=== PATIENT | male | born 1940 | race Caucasian/White ===

== ENCOUNTER 2016-07-05 23:37 | Observation (INO) | payer OTHER ==
[~2016-07-05] VITALS: Ht 180.3 cm; Wt 97.1 kg
[~2016-07-05 23:37] MED LIST: ASPEC81 PO; ATEN50TA8 PO; CHOL100010 PO; CLIN300C10 PO; FRS/40 PO; LEVO1TAB33 PO; NTRGSL/4 UT; PRLSR20 PO; ROSU5TAB PO; SPIR25TA PO
[2016-07-05] MEDS ORDERED: ALBUT/IPRATROP 3MG/0.5MG NEB 3 ML VIAL INH STA (23:52)
[2016-07-06] VITALS (11 sets, daily range): BP systolic 106–168; BP diastolic 61–97; PULSE 50–105; TEMP 36.4–36.8; O2SAT 90–97; Ht 180.3 cm; Wt 97.1 kg
[2016-07-06] MEDS ORDERED: ALBUT/IPRATROP 3MG/0.5MG NEB 3 ML VIAL ONE (00:01)
[2016-07-06] MEDS ORDERED: METHYLPREDNISOLONE 125 MG VIAL IV STA (00:11)
[2016-07-06] MEDS ORDERED: ALBUT/IPRATROP 3MG/0.5MG NEB 3 ML VIAL INH STA (00:28)
[2016-07-06 00:50] LABS: BASO % 0.3 %; BASO ABS # 0.03 K/uL (0-0.2); COMPLETE YES; EOS % 4.4 %; HEMATOCRIT 43.3 % (42-52); IG% 0.3 %; LYMPH % 16.4 %; MEAN CELL VOLUME 92.5 fL (80-100); MEAN CORPUSCULAR HEMOGLOBIN 32.9 pg (25-34); MEAN CORPUSCULAR HGB CONC 35.6 g/dl (32-36); MEAN PLATELET VOLUME 11.1 fL (7.4-10.4); NEUT % 68.6 %; PLATELET COUNT 179 K/uL (130-400); RED BLOOD COUNT 4.68 M/uL (4.7-6.1); WHITE BLOOD COUNT 10.37 K/uL (4.8-10.8)
[2016-07-06 01:00] LABS: INR 1.1 (0.9-1.1); PARTIAL THROMBOPLASTIN RATIO 1.2; PROTHROMBIN TIME (PATIENT) 11.7 SECONDS (9.0-12.0)
[2016-07-06] MEDS ORDERED: ASPI81TA28 PO (01:03)
[2016-07-06] MEDS ORDERED: ATEN-175 PO (01:06)
[2016-07-06] MEDS ORDERED: ROSU5TAB PO (01:10)
[2016-07-06] MEDS ORDERED: CYAN100T PO (01:12)
[2016-07-06 01:14] LABS: ALT/SGPT 24 U/L (12-78); AST/SGOT 28 U/L (15-37); BLOOD UREA NITROGEN 13 mg/dl (7-18); BUN/CREATININE RATIO 14.6 (10-20); CARBON DIOXIDE 24 mmol/L (21-32); CHLORIDE 108 mmol/L (98-107); GLUCOSE 110 mg/dl (70-99); MAGNESIUM 1.8 mg/dl (1.8-2.4); POTASSIUM 3.9 mmol/L (3.5-5.1); SODIUM 140 mmol/L (136-145)
[2016-07-06] MEDS ORDERED: CALC1CAP24 PO (01:16)
[2016-07-06 01:25] LABS: ALKALINE PHOSPHATASE 118 U/L (45-117)
[2016-07-06 01:32] LABS: URINE APPEARANCE CLEAR (CLEAR); URINE BILIRUBIN NEG (NEG); URINE COLOR YELLOW; URINE NITRITE NEG (NEG); URINE SPECIFIC GRAVITY 1.023 (1.000-1.030); UROBILINOGEN NEG (NEG)
[2016-07-06 01:36] LABS: MANUAL MICROSCOPIC REQUIRED? NO; REVIEW REQ? NO
[2016-07-06] MEDS ORDERED: ACETAMINOPHEN 325 MG TAB PO PRN (02:15)
[2016-07-06] MEDS ORDERED: NITROGLYCERIN 0.4 MG SL PER TAB CHARGE SL PRN (02:15)
[2016-07-06] MEDS ORDERED: NITROGLYCERIN 0.4 MG SL PER TAB CHARGE UT SCH (02:15)
[2016-07-06] MEDS ORDERED: ONDANSETRON INJ 2 MG/ML 2 ML VIAL IV PRN (02:15)
--- NOTE | 2016-07-06 02:37 | EMERGENCY ROOM VISIT NOTE ---
History Report prepared by Noris: Joey Solis Under the Supervision of: Dr. Pollo Healy M.D. First contact with patient: 23:43 Stated Complaint: COUGH, CONGESTION, SHORTNESS OF BREATH History of Present Illness The patient is a 75 year old male who presents to the Emergency Room with complaints of a persistent cough and difficulty breathing that began , two days prior to arrival. The patient states that he came to the emergency department this evening because he began to wheeze significantly when he laid down to go to sleep this evening. He notes that he did invite his granddaughter over for dinner recently who was sick and home from college. He is on Clindamycin and Levofloxacin every day for an infection in his knee. Patient denies LOC, headache, fevers, chills, diaphoresis, visual changes, neck pain, nausea, vomiting, abdominal pain, back pain, melena, hematochezia, urinary symptoms, numbness, weakness, lymphadenopathy, rash, or other complaints. Source of History: patient Onset: Two days [employer] Position: chest Quality: other (Cough) Timing: other (Persistent) Associated Symptoms: No fevers Review of Systems See HPI for pertinent positives and negatives. A total of ten systems were reviewed and were otherwise negative. Past Medical & Surgical Medical Problems: (1) Chest tightness (2) Diverticulitis (3) Pancreatitis (4) Pneumonia (5) Shortness of breath Family History No pertinent family history secondary to age. Social History Smoking Status: Never Smoker Drug Use: none Marital Status: Housing Status: lives with significant other Occupation Status: unemployed, retired Current/Historical Medications Scheduled Aspirin (Aspirin Ec), 81 MG PO DAILY Atenolol (Tenormin), 100 MG PO DAILY Calcium (Calcium), 250 MG PO DAILY Cholecalciferol (Vitamin D), 2,000 INTER.UNIT PO DAILY Clindamycin Hcl (Clindamycin Hcl), 300 MG PO QAM Cyanocobalamin (Vitamin B-12), 500 MCG PO DAILY Furosemide (Lasix), 40 MG PO QAM Levofloxacin (Levaquin), 500 MG PO QAM Nitroglycerin (Nitrostat), 0.4 MG UT PRN Omeprazole (Prilosec), 20 MG PO DAILY Rosuvastatin Calcium (Crestor), 2.5 MG PO 3XWK Spironolactone (Aldactone), 25 MG PO QAM Allergies Coded Allergies: Sulfa Drugs (Verified Allergy, Mild, 06/06/14) Sulfamethoxazole (Verified Allergy, Mild, 06/06/14) Trimethoprim (Verified Allergy, Mild, 06/06/14) Atorvastatin (Verified Allergy, Unknown, UNKNOWN, 07/06/16) Oyster (Verified Allergy, Unknown, 06/06/14) Pravastatin (Verified Allergy, Unknown, UNKNOWN, 07/06/16) Simvastatin (Verified Allergy, Unknown, UNKNOWN, 07/06/16) Oxycodone (Verified Adverse Reaction, Mild, vomiting, 06/06/14) Uncoded Allergies: MORPHINE DERIVATIVES (Allergy, Unknown, UNKNOWN, 07/06/16) Physical Exam Vital Signs Date Time Temp Pulse Resp B/P Pulse Ox O2 Delivery O2 Flow Rate FiO2 07/06/16 01:24 103 22 183/83 94 Room Air 07/06/16 01:10 91 07/06/16 00:47 80 18 135/78 100 Nebulizer 15.0 07/05/16 23:48 93 Room Air 07/05/16 23:48 93 Room Air 07/05/16 23:48 37.0 98 20 144/78 93 Room Air Physical Exam GENERAL: Awake, alert, tired-appearing, in no distress HENT: Normocephalic, atraumatic. Oropharynx unremarkable. EYES: Normal conjunctiva. Sclera non-icteric. NECK: Supple. No nuchal rigidity. FROM. No JVD. RESPIRATORY: Expiratory wheezes bilaterally. CARDIAC: Regular rate, normal rhythm. Extremities warm and well perfused. Pulses equal. ABDOMEN: Soft, non-distended. No tenderness to palpation. No rebound or guarding. No masses. RECTAL: Deferred. MUSCULOSKELETAL: Chest examination reveals no tenderness. The back is symmetrical on inspection without obvious abnormality. There is no CVA tenderness to palpation. No joint edema. LOWER EXTREMITIES: Calves are equal size bilaterally and non-tender. No edema. No discoloration. NEURO: Normal sensorium. No sensory or motor deficits noted. SKIN: No rash or jaundice noted. Medical Decision & Procedures ER Provider Diagnostic Interpretation: X-ray: Per my interpretation, radiologist review. CHEST X-RAY: Imaging shows right lower lobe congestion, right lobe infiltrate. Laboratory Results 07/06/16 00:24 Red Blood Count 4.68, Mean Corpuscular Volume 92.5, Mean Corpuscular Hemoglobin 32.9, Mean Corpuscular Hemoglobin Concent 35.6, Mean Platelet Volume 11.1, Neutrophils (%) (Auto) 68.6, Lymphocytes (%) (Auto) 16.4, Monocytes (%) (Auto) 10.0, Eosinophils (%) (Auto) 4.4, Basophils (%) (Auto) 0.3, Neutrophils # (Auto ) 7.11, Lymphocytes # (Auto) 1.70, Monocytes # (Auto) 1.04, Eosinophils # (Auto ) 0.46, Basophils # (Auto) 0.03 07/06/16 00:24 Test 07/05/16 23:59 07/06/16 00:24 07/06/16 01:11 07/06/16 02:11 Influenza Type A Antigen Neg for Influ A (NEG) Influenza Type B Antigen Neg for Influ B (NEG) White Blood Count 10.37 K/uL (4.8-10.8) Red Blood Count 4.68 M/uL (4.7-6.1) Hemoglobin 15.4 g/dL (14.0-18.0) Hematocrit 43.3 % (42-52) Mean Corpuscular Volume 92.5 fL (80-100) Mean Corpuscular Hemoglobin 32.9 pg (25-34) Mean Corpuscular Hemoglobin Concent 35.6 g/dl (32-36) Platelet Count 179 K/uL (130-400) Mean Platelet Volume 11.1 fL (7.4-10.4) Neutrophils (%) (Auto) 68.6 % Lymphocytes (%) (Auto) 16.4 % Monocytes (%) (Auto) 10.0 % Eosinophils (%) (Auto) 4.4 % Basophils (%) (Auto) 0.3 % Neutrophils # (Auto) 7.11 K/uL (1.4-6.5) Lymphocytes # (Auto) 1.70 K/uL (1.2-3.4) Monocytes # (Auto) 1.04 K/uL (0.11-0.59) Eosinophils # (Auto) 0.46 K/uL (0-0.5) Basophils # (Auto) 0.03 K/uL (0-0.2) RDW Standard Deviation 43.2 fL (36.4-46.3) RDW Coefficient of Variation 12.8 % (11.5-14.5) Immature Granulocyte % (Auto) 0.3 % Immature Granulocyte # (Auto) 0.03 K/uL (0.00-0.02) Prothrombin Time 11.7 SECONDS (9.0-12.0) Prothromb Time International Ratio 1.1 (0.9-1.1) Activated Partial Thromboplast Time 32.0 SECONDS (21.0-31.0) Partial Thromboplastin Ratio 1.2 Anion Gap 8.0 mmol/L (3-11) Est Creatinine Clear Calc Drug Dose 87.3 ml/min Estimated GFR () 97.2 Estimated GFR (Non- 83.8 BUN/Creatinine Ratio 14.6 (10-20) Calcium Level 8.0 mg/dl (8.5-10.1) Magnesium Level 1.8 mg/dl (1.8-2.4) Total Bilirubin 0.7 mg/dl (0.2-1) Direct Bilirubin 0.2 mg/dl (0-0.2) Aspartate Amino Transf (AST/SGOT) 28 U/L (15-37) Alanine Aminotransferase (ALT/SGPT) 24 U/L (12-78) Alkaline Phosphatase 118 U/L (45-117) Pro-B-Type Natriuretic Peptide 535 pg/ml (0-900) Total Protein 7.5 gm/dl (6.4-8.2) Albumin 3.6 gm/dl (3.4-5.0) Lipase 76 U/L (73-393) Thyroid Stimulating Hormone (TSH) 1.160 uIu/ml (0.300-4.500) Urine Color YELLOW Urine Appearance CLEAR (CLEAR) Urine pH 5.0 (4.5-7.5) Urine Specific [place] 1.023 (1.000-1.030) Urine Protein NEG (NEG) Urine Glucose (UA) NEG (NEG) Urine Ketones NEG (NEG) Urine Occult Blood NEG (NEG) Urine Nitrite NEG (NEG) Urine Bilirubin NEG (NEG) Urine Urobilinogen NEG (NEG) Urine Leukocyte Esterase NEG (NEG) Creatine Kinase MB Ratio (0-3.0) Laboratory results reviewed by me Medications Administered Medications (Trade) Dose Ordered Sig/Azeem Route Start Time Stop Time Status Last Admin Dose Admin Albuterol/ Ipratropium (Duoneb) 3 ml NOW STAT INH 07/05/16 23:52 07/05/16 23:53 DC 07/05/16 23:58 3 ML Methylprednisolone Sodium Succinate (Solu-Medrol IV) 125 mg NOW STAT IV 07/06/16 00:11 07/06/16 00:12 DC 07/06/16 00:17 125 MG Albuterol/ Ipratropium (Duoneb) 3 ml NOW STAT INH 07/06/16 00:28 07/06/16 00:30 DC 07/06/16 00:43 3 ML ECG Indication: SOB/dyspnea Rate (beats per minute): 76 Rhythm: sinus rhythm Findings: PVC, Q waves (Inferior), other (LAD) Comparison ECG Date: Repeat, same visit Change: REPEAT: Normal Sinus, rate of 98, no ischemia, PVC no longer present, LAD. ED Course 8: The patient was evaluated in room B11. A complete history and physical exam was performed. 2352: Ordered Duoneb 3 mL INH. 0001: Ordered Duoneb 3 mL INH. 0011: Ordered Solu-Medrol IV 125 mg IV. 0028: Ordered Duoneb 3 mL INH. 0135: I discussed the case with Dr. Kelly [facility] Hospitalist, he will evaluate the patient for further treatment. Medical Decision Triage Nursing notes reviewed. The patient's presentation and history were concerning for respiratory symptoms and wheezing. Etiologies such as pneumonia, COPD, reactive airway disease, CHF, cardiac ischemia, pulmonary embolism, pneumothorax, musculoskeletal, infections, gastrointestinal, as well as others were entertained. The patient was evaluated. He was wheezing on examination. He was given a DuoNeb. The patient also received Solu-Medrol. He was given a second DuoNeb because he was continuing to wheeze. He had a productive cough. He is currently taking clindamycin and Levaquin. The patient had an unremarkable CBC and chemistry panel. Cardiac workup was negative. The patient is generally weak. He notes no history of reactive airway disease. Flu testing was negative. Given the course of illness and responsive treatment further evaluation and management will be necessary. Consultation was made with internal medicine. The patient was evaluated for further management. The chart was completed utilizing [employer] voice recognition software. Grammatical errors, random word insertions, pronoun errors, and incomplete sentences are an occasional consequence of this system due to software limitations, ambient noise, and hardware issues. Any formal questions or concerns about the content, text, or information contained within the body of this dictation should be directly addressed to the physician for clarification. Consults Time Called: 013 Consulting Physician: Dr. Leticia ONEAL Hospitalist Returned Call: 013 I discussed the case with Dr. Leticia ONEAL Hospitalist, he will evaluate the patient for further treatment. Impression Primary Impression: Wheezing Additional Impressions: Productive cough Substernal chest pain Scribe Attestation The scribe's documentation has been prepared under my direction and personally reviewed by me in its entirety. I confirm that the note above accurately reflects all work, treatment, procedures, and medical decision making performed by me. Departure Information Dispostion Being Evaluated By Hospitalist David Chavira M.D. (PCP) Problem Qualifiers
[2016-07-06] MEDS ORDERED: LEVALBUTEROL/IPRATROPIUM NEB INH SCH (03:00)
[2016-07-06 03:17] LABS: CKMB/CK RATIO 1.4 (0-3.0)
[2016-07-06] MEDS ORDERED: IV FLUIDS COMPLETED PRN (04:30)
--- NOTE | 2016-07-06 04:43 | History and Physical ---
History & Physical Date & Time of Service: Jul 06, 2016 at 04:33 Chief Complaint: Chest Tightness, Shortness Of Breath Primary Care Physician: David Carr M.D. History of Present Illness Source: patient The patient is a 75-year-old male who presents to the emergency department with complaint of cough and difficulty breathing that began 2 days prior to arrival. Tonight he began to wheeze audibly when he was laying down to go to sleep this evening, and thus called EMS who brought him to the emergency department for assessment. He has not had any travel recently, but he did get exposed to a granddaughter who was home from college and recently sick. He reports that he has been on clindamycin and levofloxacin for treatment and then prophylaxis of infection of his knee. Past Medical/Surgical History Medical Problems: (1) Diverticulitis Status: Resolved (2) Pancreatitis Status: Resolved (3) Pneumonia Status: Resolved Social History Smoking Status: Never Smoker Smokeless Tobacco Use: No Alcohol Use: none Drug Use: none Marital Status: Housing status: lives with family Occupational Status: unemployed, retired Immunizations History of Influenza Vaccine: Yes Influenza Vaccine Date: Jan 27, 2010 History of Tetanus Vaccine?: Unknown History of Pneumococcal: Yes Pneumococcal Date: Mar 01, 2006 History of Hepatitis B Vaccine: No Multi-Drug Resistant Organisms History of MDRO: No Allergies Coded Allergies: Sulfa Drugs (Verified Allergy, Mild, 06/06/14) Sulfamethoxazole (Verified Allergy, Mild, 06/06/14) Trimethoprim (Verified Allergy, Mild, 06/06/14) Atorvastatin (Verified Allergy, Unknown, UNKNOWN, 07/06/16) Morphine (Verified Allergy, Unknown, UNKNOWN, 07/06/16) Oyster (Verified Allergy, Unknown, 06/06/14) Pravastatin (Verified Allergy, Unknown, UNKNOWN, 07/06/16) Simvastatin (Verified Allergy, Unknown, UNKNOWN, 07/06/16) Oxycodone (Verified Adverse Reaction, Mild, vomiting, 06/06/14) Home Medications Scheduled Aspirin (Aspirin Ec), 81 MG PO DAILY Atenolol (Tenormin), 100 MG PO DAILY Calcium (Calcium), 250 MG PO DAILY Cholecalciferol (Vitamin D), 2,000 INTER.UNIT PO DAILY Clindamycin Hcl (Clindamycin Hcl), 300 MG PO QAM Cyanocobalamin (Vitamin B-12), 500 MCG PO DAILY Furosemide (Lasix), 40 MG PO QAM Levofloxacin (Levaquin), 500 MG PO QAM Nitroglycerin (Nitrostat), 0.4 MG UT PRN Omeprazole (Prilosec), 20 MG PO DAILY Rosuvastatin Calcium (Crestor), 2.5 MG PO 3XWK Spironolactone (Aldactone), 25 MG PO QAM Review of Systems The patient denies lower extremity swelling, vision change, hearing change, sore throat, fevers, chills, sweats, weight change, fatigue, nausea, vomiting, abdominal pain, pelvic pain, blood in urine or stool, dysuria, urinary frequency or urgency, lightheadedness, dizziness, headache, memory loss, rash, abnormal bruising or bleeding, imbalance, focal or generalized weakness, numbness or tingling in arms or legs, arthralgias or myalgias, back or neck pain , night sweats, or allergy symptoms. The review of systems is otherwise negative other than for that already noted above, and at least 10 systems have been reviewed. Physical Exam Vital Signs Date Time Temp Pulse Resp B/P Pulse Ox O2 Delivery O2 Flow Rate FiO2 07/06/16 03:41 36.8 91 18 132/75 94 Room Air 07/06/16 03:13 72 18 113/64 92 07/06/16 01:24 103 22 183/83 94 Room Air 07/06/16 01:10 91 07/06/16 00:47 80 18 135/78 100 Nebulizer 15.0 07/05/16 23:48 93 Room Air 07/05/16 23:48 93 Room Air 07/05/16 23:48 37.0 98 20 144/78 93 Room Air The patient is awake, well-developed and adequately nourished, alert and oriented 3, normocephalic and atraumatic, lying in bed and in no acute distress. HEENT--PERRL, EOMI, mucous membranes and oropharynx dry. Neck--supple, no JVD or bruits, thyroid normal, trachea midline, no adenopathy. Heart--normal S1 and S2, no extra beats, no murmurs, rubs or gallops. Lungs--clear bilaterally with good air movement, no respiratory distress, no accessory muscle use. Abdomen--normal bowel sounds and soft, nontender and nondistended, no hernias or masses, no organomegaly. Extremities--no cyanosis, clubbing or edema. There are good distal pulses b/l. Dermatologic--normal skin turgor, normal color, warm and dry, no abnormal lymph nodes, no rash. Neurologic--cranial nerves II through XII grossly intact, motor and sensory examination normal. Rheumatologic--normal range of motion, nontender, muscles and joints. Psychiatric--normal affect. Diagnostics Laboratory Results Results Past 24 Hours Test 07/05/16 23:59 07/06/16 00:24 07/06/16 01:11 07/06/16 02:48 Range/Units Influenza Type A Antigen Neg for Influ A NEG Influenza Type B Antigen Neg for Influ B NEG White Blood Count 10.37 4.8-10.8 K/uL Red Blood Count 4.68 4.7-6.1 M/uL Hemoglobin 15.4 14.0-18.0 g/dL Hematocrit 43.3 42-52 % Mean Corpuscular Volume 92.5 80-100 fL Mean Corpuscular Hemoglobin 32.9 25-34 pg Mean Corpuscular Hemoglobin Concent 35.6 32-36 g/dl Platelet Count 179 130-400 K/uL Mean Platelet Volume 11.1 7.4-10.4 fL Neutrophils (%) (Auto) 68.6 % Lymphocytes (%) (Auto) 16.4 % Monocytes (%) (Auto) 10.0 % Eosinophils (%) (Auto) 4.4 % Basophils (%) (Auto) 0.3 % Neutrophils # (Auto) 7.11 1.4-6.5 K/uL Lymphocytes # (Auto) 1.70 1.2-3.4 K/uL Monocytes # (Auto) 1.04 0.11-0.59 K/uL Eosinophils # (Auto) 0.46 0-0.5 K/uL Basophils # (Auto) 0.03 0-0.2 K/uL RDW Standard Deviation 43.2 36.4-46.3 fL RDW Coefficient of Variation 12.8 11.5-14.5 % Immature Granulocyte % (Auto) 0.3 % Immature Granulocyte # (Auto) 0.03 0.00-0.02 K/uL Prothrombin Time 11.7 9.0-12.0 SECONDS Prothromb Time International Ratio 1.1 0.9-1.1 Activated Partial Thromboplast Time 32.0 21.0-31.0 SECONDS Partial Thromboplastin Ratio 1.2 Sodium Level 140 136-145 mmol/L Potassium Level 3.9 3.5-5.1 mmol/L Chloride Level 108 98-107 mmol/L Carbon Dioxide Level 24 21-32 mmol/L Anion Gap 8.0 3-11 mmol/L Blood Urea Nitrogen 13 7-18 mg/dl Creatinine 0.90 0.60-1.40 mg/dl Est Creatinine Clear Calc Drug Dose 87.3 ml/min Estimated GFR () 97.2 Estimated GFR (Non- 83.8 BUN/Creatinine Ratio 14.6 10-20 Random Glucose 110 70-99 mg/dl Calcium Level 8.0 8.5-10.1 mg/dl Magnesium Level 1.8 1.8-2.4 mg/dl Total Bilirubin 0.7 0.2-1 mg/dl Direct Bilirubin 0.2 0-0.2 mg/dl Aspartate Amino Transf (AST/SGOT) 28 15-37 U/L Alanine Aminotransferase (ALT/SGPT) 24 12-78 U/L Alkaline Phosphatase 118 45-117 U/L Troponin I < 0.015 < 0.015 0-0.045 ng/ml Pro-B-Type Natriuretic Peptide 535 0-900 pg/ml Total Protein 7.5 6.4-8.2 gm/dl Albumin 3.6 3.4-5.0 gm/dl Lipase 76 73-393 U/L Thyroid Stimulating Hormone (TSH) 1.160 0.300-4.500 uIu/ml Urine Color YELLOW Urine Appearance CLEAR CLEAR Urine pH 5.0 4.5-7.5 Urine Specific [place] 1.023 1.000-1.030 Urine Protein NEG NEG Urine Glucose (UA) NEG NEG Urine Ketones NEG NEG Urine Occult Blood NEG NEG Urine Nitrite NEG NEG Urine Bilirubin NEG NEG Urine Urobilinogen NEG NEG Urine Leukocyte Esterase NEG NEG Total Creatine Kinase 207 39-308 U/L Creatine Kinase MB 3.0 0.5-3.6 ng/ml Creatine Kinase MB Ratio 1.4 0-3.0 Microbiology Results 07/06/16 Blood Culture, Received Pending 07/06/16 Blood Culture, Received Pending 07/06/16 Urine Culture, Received Pending Diagnostic Radiology Chest x-ray shows no acute findings. EKG EKG shows normal sinus rhythm at 98 bpm, left axis deviation, old inferior VA, no acute ST-T changes. Impression Assessment and Plan Chest tightness/shortness of breath the patient will be admitted to the telemetry unit for serial cardiac enzymes, cardiac rhythm monitoring and a 2-D echocardiogram with Dopplers. We'll continue enteric-coated aspirin 81 mg by mouth daily, atenolol 100 mg by mouth daily, nitroglycerin sublinguals when necessary, spironolactone 25 mg by mouth every morning and furosemide 40 mg by mouth every morning. COPD exacerbation/knee infection/URI--place on ceftriaxone 1 g IV daily, Xopenex with Atrovent nebulizer to use every 6 hours while awake and every 2 hours when necessary, and Solu-Medrol 20 mg IV every 8 hours. Hold by mouth Levaquin and by mouth clindamycin. Hypercholesterolemia--continue Crestor 2.5 mg by mouth on Thursday, Thursday and Thursday. GERD--change omeprazole 20 mg by mouth daily to pantoprazole 40 mg by mouth daily. Vitamin B-12 deficiency--continue supplement 500 g by mouth daily. Level of Care Telemetry Advanced Directives Existing Advance Directive: No Existing Living Will: Yes Existing Power of Slack Cooper: Yes Resuscitation Status FULL RESUSCITATION VTE Prophylaxis VTE Risk Assessment Done? Y/N: Yes Risk Level: Moderate Given or contraindicated: SCD's Social Service Consult None Apply
[2016-07-06] MEDS: CEFTRIAXONE SOD INJ 1 GM in DEXTROSE 5% ADD-VANTAGE 50ML 50 ML IV SCH (05:27)
[2016-07-06] MEDS: IPRATROPIUM BROMIDE NEB SOLN 0.02% 2.5 ML VIAL INH SCH ×3 (06:58→23:42)
[2016-07-06] MEDS: LEVALBUTEROL 1.25MG/0.5ML NEB INH SCH ×2 (06:58→14:03)
--- NOTE | 2016-07-06 07:00 | DIAGNOSTIC IMAGING REPORT ---
CHEST ONE VIEW PORTABLE CLINICAL HISTORY: Weakness COMPARISON STUDY: No previous studies for comparison. FINDINGS: The cardiac and mediastinal contours are normal. There is no evidence of focal pulmonary consolidation. There is no evidence of failure. No pleural effusions are visualized.[ There are bibasilar opacities, likely atelectatic. IMPRESSION: Bibasal atelectasis. No evidence of lobar consolidation. No evidence of failure. Electronically signed by: True Sharma M.D. 07/06/2016 6:58 AM Dictated Date/Time: 07/06/2016 6:58 AM
[2016-07-06] MEDS: PANTOprazole SOD 40 MG TAB PO SCH (07:44)
[2016-07-06] MEDS: CHOLECALCIFEROL 1000 INTER.UNIT TAB PO SCH (07:44)
[2016-07-06] MEDS: METHYLPREDNISOLONE IV 20 MG in SYRINGE 0 ML IV SCH ×3 (07:44→23:32)
[2016-07-06] MEDS: CYANOCOBALAMIN 500 MCG TAB (VIT B-12) PO SCH (07:44)
[2016-07-06] MEDS: FUROSEMIDE 40 MG TAB PO SCH (07:45)
[2016-07-06] MEDS: ASPIRIN 81 MG ECTAB PO SCH (07:45)
[2016-07-06] MEDS: SPIRONOLACTONE 25 MG TAB PO SCH (07:45)
--- NOTE | 2016-07-06 09:23 | Hospitalist Progress Note ---
Hospitalist Progress Note Date of Service Jul 06, 2016. Subjective Pt evaluation today including: conversation w/ patient, conversation w/ family , physical exam Cardiovascular: + chest pain (c.o fleeting chest pain after neb treatment. Also c/o exertional CP at home. ) Medications Medications (Trade) Dose Ordered Sig/Azeem Route Start Time Stop Time Status Last Admin Dose Admin Albuterol/ Ipratropium (Duoneb) 3 ml NOW STAT INH 07/05/16 23:52 07/05/16 23:53 DC 07/05/16 23:58 3 ML Methylprednisolone Sodium Succinate (Solu-Medrol IV) 125 mg NOW STAT IV 07/06/16 00:11 07/06/16 00:12 DC 07/06/16 00:17 125 MG Albuterol/ Ipratropium (Duoneb) 3 ml NOW STAT INH 07/06/16 00:28 07/06/16 00:30 DC 07/06/16 00:43 3 ML Aspirin (Ecotrin Tab) 81 mg DAILY PO 07/06/16 09:00 08/05/16 08:59 07/06/16 07:45 81 MG Atenolol (Tenormin Tab) 100 mg DAILY PO 07/06/16 09:00 08/05/16 08:59 07/06/16 07:44 100 MG Cholecalciferol (Vitamin D Tab) 2,000 inter.unit DAILY PO 07/06/16 09:00 08/05/16 08:59 07/06/16 07:44 2,000 INTER.UNIT Cyanocobalamin (Vitamin B-12 Tab) 500 mcg DAILY PO 07/06/16 09:00 08/05/16 08:59 07/06/16 07:44 500 MCG Furosemide (Lasix Tab) 40 mg QAM PO 07/06/16 09:00 08/05/16 08:59 07/06/16 07:45 40 MG Spironolactone (Aldactone Tab) 25 mg QAM PO 07/06/16 09:00 08/05/16 08:59 07/06/16 07:45 25 MG Pantoprazole Sodium 40 mg 40 mg QAM PO 07/06/16 09:00 08/05/16 08:59 07/06/16 07:44 40 MG Ceftriaxone Sodium 1 gm/ Dextrose 50 ml @ 100 mls/hr Q24H IV 07/06/16 05:00 07/13/16 04:59 07/06/16 05:27 100 MLS/HR Methylprednisolone Sodium Succinate/ Syringe (Solu-Medrol IV/ Syringe) 0.32 ml @ 1.5 mls/min Q8H IV 07/06/16 08:00 08/05/16 07:59 07/06/16 07:44 1.5 MLS/MIN Ipratropium [place] (Atrovent 0.02% 0.5MG/2.5ML Neb) 0.5 mg Q6R INH 07/06/16 09:00 08/05/16 08:59 07/06/16 06:58 0.5 MG Levalbuterol (Xopenex 1.25MG/ 0.5ML Neb) 1.25 mg Q6R INH 07/06/16 09:00 08/05/16 08:59 07/06/16 06:58 1.25 MG Objective Vital Signs Date Time Temp Pulse Resp B/P Pulse Ox O2 Delivery O2 Flow Rate FiO2 07/06/16 08:35 84 121/79 95 Room Air 07/06/16 08:30 92 164/87 95 Room Air 07/06/16 08:20 105 168/97 95 Room Air 07/06/16 08:00 Room Air 07/06/16 08:00 36.6 89 18 117/66 97 Room Air 07/06/16 03:41 36.8 91 18 132/75 94 Room Air 07/06/16 03:13 72 18 113/64 92 07/06/16 01:24 103 22 183/83 94 Room Air 07/06/16 01:10 91 07/06/16 00:47 80 18 135/78 100 Nebulizer 15.0 07/05/16 23:48 93 Room Air 07/05/16 23:48 93 Room Air 07/05/16 23:48 37.0 98 20 144/78 93 Room Air Physical Exam General Appearance: WD/WN, no apparent distress ENT: normal ENT inspection, hearing grossly normal, TMs normal Neck: supple, no adenopathy, thyroid normal Respiratory/Chest: chest non-tender, lungs clear, normal breath sounds Cardiovascular: regular rate, rhythm, no edema, no gallop, no JVD Abdomen: normal bowel sounds, non tender, soft Extremities: + pertinent finding (RLE and LLE multiple bruises (chronic). RLE > LLE. 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, alert, oriented x 3 Skin: normal color Laboratory Results Last 24 Hours Test 07/05/16 23:59 07/06/16 00:24 07/06/16 01:11 07/06/16 02:48 Influenza Type A Antigen Neg for Influ A Influenza Type B Antigen Neg for Influ B White Blood Count 10.37 K/uL Red Blood Count 4.68 M/uL Hemoglobin 15.4 g/dL Hematocrit 43.3 % Mean Corpuscular Volume 92.5 fL Mean Corpuscular Hemoglobin 32.9 pg Mean Corpuscular Hemoglobin Concent 35.6 g/dl Platelet Count 179 K/uL Mean Platelet Volume 11.1 fL Neutrophils (%) (Auto) 68.6 % Lymphocytes (%) (Auto) 16.4 % Monocytes (%) (Auto) 10.0 % Eosinophils (%) (Auto) 4.4 % Basophils (%) (Auto) 0.3 % Neutrophils # (Auto) 7.11 K/uL Lymphocytes # (Auto) 1.70 K/uL Monocytes # (Auto) 1.04 K/uL Eosinophils # (Auto) 0.46 K/uL Basophils # (Auto) 0.03 K/uL RDW Standard Deviation 43.2 fL RDW Coefficient of Variation 12.8 % Immature Granulocyte % (Auto) 0.3 % Immature Granulocyte # (Auto) 0.03 K/uL Prothrombin Time 11.7 SECONDS Prothromb Time International Ratio 1.1 Activated Partial Thromboplast Time 32.0 SECONDS Partial Thromboplastin Ratio 1.2 Sodium Level 140 mmol/L Potassium Level 3.9 mmol/L Chloride Level 108 mmol/L Carbon Dioxide Level 24 mmol/L Anion Gap 8.0 mmol/L Blood Urea Nitrogen 13 mg/dl Creatinine 0.90 mg/dl Est Creatinine Clear Calc Drug Dose 87.3 ml/min Estimated GFR () 97.2 Estimated GFR (Non- 83.8 BUN/Creatinine Ratio 14.6 Random Glucose 110 mg/dl Calcium Level 8.0 mg/dl Magnesium Level 1.8 mg/dl Total Bilirubin 0.7 mg/dl Direct Bilirubin 0.2 mg/dl Aspartate Amino Transf (AST/SGOT) 28 U/L Alanine Aminotransferase (ALT/SGPT) 24 U/L Alkaline Phosphatase 118 U/L Troponin I < 0.015 ng/ml < 0.015 ng/ml Pro-B-Type Natriuretic Peptide 535 pg/ml Total Protein 7.5 gm/dl Albumin 3.6 gm/dl Lipase 76 U/L Thyroid Stimulating Hormone (TSH) 1.160 uIu/ml Urine Color YELLOW Urine Appearance CLEAR Urine pH 5.0 Urine Specific [place] 1.023 Urine Protein NEG Urine Glucose (UA) NEG Urine Ketones NEG Urine Occult Blood NEG Urine Nitrite NEG Urine Bilirubin NEG Urine Urobilinogen NEG Urine Leukocyte Esterase NEG Total Creatine Kinase 207 U/L Creatine Kinase MB 3.0 ng/ml Creatine Kinase MB Ratio 1.4 Assessment and Plan Chest tightness/shortness of breath the patient will be admitted to the telemetry unit for serial cardiac enzymes, cardiac rhythm monitoring and a 2-D echocardiogram with Dopplers. We'll continue enteric-coated aspirin 81 mg by mouth daily, atenolol 100 mg by mouth daily, nitroglycerin sublinguals when necessary, spironolactone 25 mg by mouth every morning and furosemide 40 mg by mouth every morning.Will consult Cardiology given hx of CAD s/p PCI in the past 12 ld EKG done today shows ST depression in lateral leads and anteroseptal leads. Serial troponins are negative. Obtain OP Cards records reg. recent stress test, echo. COPD exacerbation/knee infection/URI--place on ceftriaxone 1 g IV daily, Xopenex with Atrovent nebulizer to use every 6 hours while awake and every 2 hours when necessary, and Solu-Medrol 20 mg IV every 8 hours. Hold by mouth Levaquin and by mouth clindamycin. Hypercholesterolemia--continue Crestor 2.5 mg by mouth on Thursday, Thursday and Thursday. GERD--change omeprazole 20 mg by mouth daily to pantoprazole 40 mg by mouth daily. Vitamin B-12 deficiency--continue supplement 500 g by mouth daily.
[2016-07-06 10:23] LABS: CKMB/CK RATIO 1.3 (0-3.0)
--- NOTE | 2016-07-06 13:15 | ECHOCARDIOGRAM REPORT ---
*NOTICE TO RECEIVING [employer] This information is strictly Confidential and protected under [place] law. [place] law prohibits you from making any further disclosure of this information unless further disclosure is expressly permitted by the written consent of the person to whom it pertains or is authorized by law. A general authorization for the release of medical or other information is not sufficient for this purpose. Hospital accepts no responsibility if the information is made available to any other person, INCLUDING THE PATIENT. Interpretation Summary * Name: ASHER SANTORO Study Date: 07/06/2016 09:07 AM BP: 132/75 mmHg * Patient Location: C.2T\S\S229\S\2 HR: 91 * : 1940 (M/d/yyy) Gender: Male Height: 71 in * Age: 75 yrs Ethnicity: [place] Weight: 223 lb * Ordering Physician: Reece Kelly * Performed By: Charlette Morrison * * Reason For Study: SOB * BSA: 2.2 m2 * -- Conclusions -- * 1. Normal LV size with mild concentric LVH. * 2. Normal LV systolic function. LVEF 50-55%. Mild hypokinesis in the inferior and inferlateral wall from base to mid segment. * 3. Normal RV size and function. * 4. Mild aortic valve sclerosis without stenosis. * 5. Mild aortic regurgitation. * 6. Grade I diastolic dysfunction. * 7. Compared with prior study on 06/26/2009: No significant changes. Procedure Details * A complete two-dimensional transthoracic echocardiogram was performed (2D, M-mode, Doppler and color flow Doppler). Left Ventricle * The left ventricle is grossly normal size. * There is mild concentric left ventricular hypertrophy. * Ejection Fraction = 50-55%. * Basal inferior mild hypokineis Basal to mid inferolateral mild hypokinesis. Right Ventricle * The right ventricle is grossly normal size. * The right ventricular systolic function is normal as assessed by tricuspid annular plane systolic excursion (TAPSE) (normal >1.5 cm). Atria * Borderline left atrial enlargement. * No ASD detected; PFO is not assessed. Mitral Valve * The mitral valve is grossly normal. * There is no mitral valve stenosis. * Significant mitral regurgitation is absent. Tricuspid Valve * The tricuspid valve is not well visualized, but is grossly normal. * There is trace tricuspid regurgitation. Aortic Valve * Aortic valve sclerosis mild, without significant aortic valvular stenosis. * The aortic valve opens well. * The aortic valve is trileaflet. * No hemodynamically significant valvular aortic stenosis. * Trace aortic regurgitation. Pulmonic Valve * The pulmonary valve is not well seen, but the Doppler examination is normal without significant regurgitation or stenosis. Great Vessels * The aortic root and proximal ascending aorta are normal sized. * No Doppler or imaging evidence of an aortic coarctation. Pericardium/Pleural * There is no pericardial effusion. Left Ventricular Diastolic Function * Grade I diastolic dysfunction, (abnormal relaxation pattern). MMode 2D Measurements and Calculations IVSd 1.5 cm IVSs 1.9 cm LVIDd 4.1 cm LVIDs 2.9 cm LVPWd 1.2 cm LVPWs 1.9 cm IVS/LVPW 1.2 FS 28.4 % EDV(Teich) 72.9 ml ESV(Teich) 32.6 ml EF(Teich) 55.3 % EDV(cubed) 67.4 ml ESV(cubed) 24.7 ml EF(cubed) 63.3 % % IVS thick 28.1 % % LVPW thick 55.2 % LV mass(C)d 196.4 grams LV mass(C)dI 88.9 grams/m\S\2 LV mass(C)s 222.1 grams LV mass(C)sI 100.6 grams/m\S\2 SV(Teich) 40.3 ml SI(Teich) 18.3 ml/m\S\2 SV(cubed) 42.6 ml SI(cubed) 19.3 ml/m\S\2 ACS 1.4 cm LA dimension 3.7 cm asc Aorta Diam 3.6 cm LVOT diam 2.1 cm LVOT area 3.6 cm\S\2 LVAd ap4 32.4 cm\S\2 LVLd ap4 7.7 cm EDV(MOD-sp4) 107.4 ml EDV(sp4-el) 115.0 ml LVAs ap4 20.3 cm\S\2 LVLs ap4 6.3 cm ESV(MOD-sp4) 52.1 ml ESV(sp4-el) 55.2 ml EF(MOD-sp4) 51.5 % EF(sp4-el) 52.0 % LVAd ap2 34.1 cm\S\2 LVLd ap2 8.8 cm EDV(MOD-sp2) 107.4 ml EDV(sp2-el) 111.9 ml LVAs ap2 20.8 cm\S\2 LVLs ap2 6.8 cm ESV(MOD-sp2) 52.2 ml ESV(sp2-el) 53.7 ml EF(MOD-sp2) 51.5 % EF(sp2-el) 52.0 % LVLd %diff 12.1 % EDV(MOD-bp) 115.1 ml LVLs %diff 7.2 % ESV(MOD-bp) 51.8 ml EF(MOD-bp) 55.0 % SV(MOD-sp4) 55.3 ml SI(MOD-sp4) 25.1 ml/m\S\2 SV(MOD-sp2) 55.3 ml SI(MOD-sp2) 25.0 ml/m\S\2 SV(MOD-bp) 63.3 ml SI(MOD-bp) 28.7 ml/m\S\2 SV(sp4-el) 59.7 ml SI(sp4-el) 27.1 ml/m\S\2 SV(sp2-el) 58.2 ml SI(sp2-el) 26.4 ml/m\S\2 Doppler Measurements and Calculations MV E max rafael 48.9 cm/sec MV A max rafael 73.4 cm/sec MV E/A 0.67 MV dec time 0.27 sec Ao V2 max 109.4 cm/sec Ao max PG 4.9 mmHg Ao max PG (full) 2.9 mmHg CECILE(V,A) 2.3 cm\S\2 CECILE(V,D) 2.3 cm\S\2 AI max rafael 320.3 cm/sec AI max PG 41.1 mmHg AI dec slope 124.9 cm/sec\S\2 AI P1/2t 751.0 msec LV V1 max PG 2.0 mmHg LV V1 max 70.9 cm/sec TR max rafael 217.8 cm/sec
--- NOTE | 2016-07-06 17:00 | CARDIOLOGY CONSULTATION ---
DATE OF CONSULTATION: 07/06/2016 CONSULTATION REQUESTED BY: Dr. Kelly. REASON FOR CONSULTATION: Chest tightness. OUTPATIENT VELOCITY SHOOTER: Dr. Spence. PRIMARY CARE PHYSICIAN: Dr. Carr. HISTORY OF PRESENT ILLNESS: Mr. Anderson is a very pleasant 75-year-old man with a history of coronary artery disease status post prior stents, GERD/ chronic esophagitis, hypertension, hyperlipidemia who was admitted with complaints of cough and shortness of breath for 2 days prior toarrival. In addition, the patient has noticed some intermittent chest tightness and cardiology was consulted for further management. Patient has noted intermittent chest tightness over months. He states that whenever he walks out to his shed in the morning, he will get chest tightness, reminiscent of prior angina he has had in the past. This generally resolves with rest. 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 He was previously seen by Nicolette Ashraf in cardiology clinic 3 months ago at which time addition of long-acting nitrate was suggested, but the patient declined. Upon presentation here, the patient was chest pain free, satting in the mid 90s on room air. After bronchodilator therapy patient was hypertension to the 180s and tachycardia in the 110. With that he had his typical chest tightness. Initial troponins were less than 0.015. This morning, the patient again received a breathing treatment and soon, thereafter developed chest tightness again. The pain lasted for approximately 10 minutes and it was associated with elevated blood pressure and tachycardia and a repeat EKG showed ST depression anteriorly. The patient received 2 sublingual nitroglycerins and chest pain resolved. Since that time, the patient has been chest pain free and feels close to his recent baseline. PAST MEDICAL HISTORY: 1. Coronary artery disease status post prior LAD, RCA stents, initial stent placed in 1994, subsequent stent placed in 2009 had POBA in 1984 for an ID. Last stress test was completed in January of 2013 which showed inferior inferolateral infarct without significant ge-infarct ischemia and preserved EF of 57%. 2. Hypertension. 3. Hyperlipidemia. 4. GERD. 5. Duodenal polyposis status post Whipple procedure. 6. Remote PE. SOCIAL HISTORY: He is a lifelong nonsmoker. He lives with his who has Alzheimer disease and he is the primary caregiver. 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 ALLERGIES: HE IS ALLERGIC TO SULFA, SULFAMETHIZOLE, TRIMETHOPRIM, ATORVASTATIN, MORPHINE, OYSTERS, PRAVASTATIN, SIMVASTATIN AND OXYCODONE. HOME MEDICATIONS: Include aspirin 81, atenolol 50 mg daily, calcium, vitamin D, vitamin B12, furosemide 40, nitroglycerin, omeprazole, rosuvastatin 2.5 three times a week and spironolactone 25 mg q.a.m. REVIEW OF SYSTEMS: Ten point review of systems completed and otherwise negative or listed in HPI. PHYSICAL EXAMINATION: VITAL SIGNS: Temperature 36.6, pulse 84, blood pressure 121/79, satting 95% on room air. GENERAL: The patient appears comfortable, resting, in no acute distress. HEENT: Sclerae are anicteric. Oropharynx is clear. Mucous membranes are moist. NECK: Supple with no jugular venous distention. LUNGS: Clear to auscultation bilaterally with few scattered wheezes. CARDIAC: He has distant heart sounds but is regular with no appreciable murmurs, rubs or gallops. ABDOMEN: Soft, nontender, nondistended with positive bowel sounds. EXTREMITIES: Warm. He has trace lower extremity edema. He has intact distal pulses. He has 2+ radial pulses bilaterally. SKIN: Shows some mild chronic venous stasis changes in his lower extremities bilaterally. SKIN: Otherwise, no significant rashes or lesions. NEUROLOGIC: Nonfocal. PSYCHIATRIC: He is alert and oriented x3 and mood and affect is appropriate. LABORATORY DATA: Sodium 140, potassium 3.9, BUN 13, creatinine of 0.9. INR of 1.1. Hemoglobin of 15.4, platelets of 179. LFTs within normal limits. First 2 troponins 0.015. Third troponin 0.029. EKGs showed sinus rhythm with left axis deviation. Repeat EKG this morning showed sinus rhythm with inferior infarct and left axis deviation and ST depressions in V2 through V4. Telemetry - occasional PVCs. IMPRESSION AND PLAN: 1. Chest tightness/Stable ischemia heart diease 2. Coronary artery disease status post prior stents, reportedly to left anterior descending artery and right coronary artery. 3. Persistent productive cough and shortness of breath. 4. Chronic obstructive pulmonary disease exacerbation. 5. Hypertension. 6. Hyperlipidemia. 7. Gastroesophageal reflux disease. Patients admitting symptoms of cough and shortness of breath do not appear to be cardiac in nature and patient is being treated for possible COPD exacerbation. However, patient does endorse stable angina symptoms and has had recurrent pain with breathing treatments since being admitted, most notably this morning with associated EKG changes. No other evidence of acute coronary syndrome at this time. From a cardiac standpoint going forward, would plan to continue to monitor on telemetry and continue to trend troponins this afternoon. If were to have recurrent chest pain while at rest, would start heparin drip. Would keep patient n.p.o. for possible stress test tomorrow morning to further assess coronary artery disease/risk stratify. If low risk tests, would plan on increasing patient antianginal regimen going forward. If high risk findings, would reconsider repeat catheterization. We will follow up on echo results from today. Dr. Spence will resume care of the patient tomorrow morning. Thank you for allowing us to participate in care of this patient. Please contact with any questions. KI
[2016-07-06] MEDS ORDERED: NURSING VERBAL MED ORDER ONE (18:15)
[2016-07-06] MEDS: ZOLPIDEM TARTRATE 5 MG TAB PO PRN (20:32)
[2016-07-06] MEDS: GUAIFENESIN 600 MG TABCR PO SCH (20:32)
[2016-07-07] VITALS (7 sets, daily range): BP systolic 121–131; BP diastolic 70–77; PULSE 58–74; TEMP 36.4–36.7; O2SAT 93–97
[2016-07-07] MEDS ORDERED: SENNA 8.6 MG TAB PO ONE (00:15)
[2016-07-07] MEDS ORDERED: POLYETHYLENE (MIRALAX) 17 GM PACK PO PRN (00:15)
[2016-07-07] MEDS ORDERED: DOCUSATE SODIUM 100 MG CAP PO PRN (00:15)
[2016-07-07] MEDS: CEFTRIAXONE SOD INJ 1 GM in DEXTROSE 5% ADD-VANTAGE 50ML 50 ML IV SCH (04:44)
[2016-07-07 05:57] LABS: BASO % 0.1 %; BASO ABS # 0.01 K/uL (0-0.2); COMPLETE YES; HEMATOCRIT 37.5 % (42-52); IG% 0.4 %; LYMPH % 5.4 %; LYMPH ABS # 0.76 K/uL (1.2-3.4); MEAN CELL VOLUME 91.5 fL (80-100); MEAN CORPUSCULAR HEMOGLOBIN 32.2 pg (25-34); MEAN CORPUSCULAR HGB CONC 35.2 g/dl (32-36); MEAN PLATELET VOLUME 11.1 fL (7.4-10.4); MONO % 4.2 %; NEUT % 89.9 %; PLATELET COUNT 169 K/uL (130-400); WHITE BLOOD COUNT 14.16 K/uL (4.8-10.8)
[2016-07-07 06:43] LABS: BUN/CREATININE RATIO 28.6 (10-20); CALCIUM 7.8 mg/dl (8.5-10.1); CREATININE 1.1 mg/dl (0.60-1.40); MAGNESIUM 2.2 mg/dl (1.8-2.4)
[2016-07-07] MEDS: IPRATROPIUM BROMIDE NEB SOLN 0.02% 2.5 ML VIAL INH SCH ×3 (07:30→23:15)
[2016-07-07] MEDS: METHYLPREDNISOLONE IV 20 MG in SYRINGE 0 ML IV SCH ×2 (08:00→15:53)
[2016-07-07] MEDS ORDERED: ROSUVASTATIN CALCIUM 5 MG TAB PO SCH (09:00)
--- NOTE | 2016-07-07 09:17 | Cardiology Follow-Up ---
Subjective Subjective Date of Service: Jul 07, 2016. Pt evaluation today including: conversation w/ patient, physical exam, chart review, lab review, review of studies, review of inpatient medication list Additional Details: No chest pain since event post breathing treatment yesterday morning. This morning feels cough is worse, more sputum. No other new complaints. Tele reviewed -- no events. Problem List Medical Problems: (1) Productive cough Status: Acute (2) Substernal chest pain Status: Acute (3) Wheezing Status: Acute Review of Systems Constitutional: No fever ENT: + sore throat Respiratory: + cough, + shortness of breath, + sputum, + wheezing Cardiac: No chest pain, No orthopnea Abdomen: No nausea, No pain Neurologic: No memory loss Heme: No abnormal bleeding/bruising Endo: + fatigue Skin: No rash Objective Vital Signs Last Vital Signs Documentation Date Time Temp Pulse Resp B/P Pulse Ox O2 Delivery O2 Flow Rate FiO2 07/07/16 08:00 36.4 69 18 121/75 94 Room Air 07/06/16 00:47 15.0 Physical Exam: General Appearance: no apparent distress Neck: no JVD Respiratory/Chest: no respiratory distress, + decreased breath sounds, + wheezing Cardiovascular: regular rate, rhythm, no edema, no murmur Abdomen: normal bowel sounds, non tender, soft Extremities: + pertinent finding (RLE and LLE multiple bruises (chronic). RLE > LLE. No calf tenderness.) Neurologic/Psychiatric: alert, oriented x 3 Skin: normal color Assessment and Plan 75 M h/o CAD s/p remote LAD/RCA stents, COPD here with increased cough/sputum production potentially secondary to COPD exacerbation now on steroids/ antibiotics. In addition patient has had long-standing intermittent chest tightness consistent with stable angina with recurrence of pain x2 post breathing treatments this admission with duonebs. With event yesterday, dynamic ECG changes and trop at upper limits of normal yesterday afternoon. No recurrent chest pain and chest pain free this AM with ipratropium nebs alone. -- repeat troponin this AM -- if not increasing will plan to go forward with pharmacologic SPECT later this afternoon. -- continue ASA/statin and diuretics. -- further recs pending blood work/stress. Medications: Current Inpatient Medications Medications (Trade) Dose Ordered Sig/Azeem Route Start Time Stop Time Status Last Admin Dose Admin Aspirin (Ecotrin Tab) 81 mg DAILY PO 07/06/16 09:00 08/05/16 08:59 07/06/16 07:45 81 MG Atenolol (Tenormin Tab) 100 mg DAILY PO 07/06/16 09:00 08/05/16 08:59 07/06/16 07:44 100 MG Cholecalciferol (Vitamin D Tab) 2,000 inter.unit DAILY PO 07/06/16 09:00 08/05/16 08:59 07/06/16 07:44 2,000 INTER.UNIT Cyanocobalamin (Vitamin B-12 Tab) 500 mcg DAILY PO 07/06/16 09:00 08/05/16 08:59 07/06/16 07:44 500 MCG Furosemide (Lasix Tab) 40 mg QAM PO 07/06/16 09:00 08/05/16 08:59 07/06/16 07:45 40 MG Rosuvastatin Calcium (Crestor Tab) 2.5 mg MoWeFr@0900 PO 07/07/16 09:00 08/06/16 08:59 Spironolactone (Aldactone Tab) 25 mg QAM PO 07/06/16 09:00 08/05/16 08:59 07/06/16 07:45 25 MG Pantoprazole Sodium (Protonix Tab) 40 mg QAM PO 07/06/16 09:00 08/05/16 08:59 07/06/16 07:44 40 MG Acetaminophen (Tylenol Tab) 650 mg Q4H PRN PO 07/06/16 02:15 08/05/16 02:14 Zolpidem Tartrate (Ambien Tab) 5 mg HSZ PRN PO 07/06/16 02:15 08/05/16 02:14 07/06/16 20:32 5 MG Nitroglycerin (Nitrostat Tab) 0.4 mg UD PRN SL 07/06/16 02:15 08/05/16 02:14 Ondansetron HCl 4 mg 4 mg Q6H PRN IV 07/06/16 02:15 08/05/16 02:14 Ceftriaxone Sodium 1 gm/ Dextrose 50 ml @ 100 mls/hr Q24H IV 07/06/16 05:00 07/13/16 04:59 07/07/16 04:44 100 MLS/HR Methylprednisolone Sodium Succinate/ Syringe (Solu-Medrol IV/ Syringe) 0.32 ml @ 1.5 mls/min Q8H IV 07/06/16 08:00 08/05/16 07:59 07/06/16 23:32 1.5 MLS/MIN Miscellaneous (Iv Fluids Completed) 1 ea PRN PRN N/A 07/06/16 04:30 07/06/17 04:29 Ipratropium [place] (Atrovent 0.02% 0.5MG/2.5ML Neb) 0.5 mg Q8R INH 07/07/16 00:00 08/06/16 00:00 07/07/16 07:30 0.5 MG Guaifenesin (Mucinex Contr Rel Tab) 600 mg Q12 PO 07/06/16 21:00 08/05/16 20:59 07/06/16 20:32 600 MG Polyethylene (Miralax Powder Packet) 17 gm DAILY PRN PO 07/07/16 00:15 08/06/16 00:14 Docusate Sodium (coLACE CAP) 100 mg BID PRN PO 07/07/16 00:15 08/06/16 00:14 Lab Results: 07/07/16 05:14 Red Blood Count 4.10, Mean Corpuscular Volume 91.5, Mean Corpuscular Hemoglobin 32.2, Mean Corpuscular Hemoglobin Concent 35.2, Mean Platelet Volume 11.1, Neutrophils (%) (Auto) 89.9, Lymphocytes (%) (Auto) 5.4, Monocytes (%) (Auto) 4.2, Eosinophils (%) (Auto) 0.0, Basophils (%) (Auto) 0.1, Neutrophils # (Auto) 12.75, Lymphocytes # (Auto) 0.76, Monocytes # (Auto) 0.59, Eosinophils # (Auto) 0.00, Basophils # (Auto) 0.01 07/07/16 05:14 Test 07/06/16 18:17 07/06/16 19:14 07/07/16 05:14 07/07/16 09:03 Creatine Kinase MB 2.9 ng/ml (0.5-3.6) Creatine Kinase MB Ratio (0-3.0) Total Creatine Kinase 380 U/L (39-308) White Blood Count 14.16 K/uL (4.8-10.8) Red Blood Count 4.10 M/uL (4.7-6.1) Hemoglobin 13.2 g/dL (14.0-18.0) Hematocrit 37.5 % (42-52) Mean Corpuscular Volume 91.5 fL (80-100) Mean Corpuscular Hemoglobin 32.2 pg (25-34) Mean Corpuscular Hemoglobin Concent 35.2 g/dl (32-36) Platelet Count 169 K/uL (130-400) Mean Platelet Volume 11.1 fL (7.4-10.4) Neutrophils (%) (Auto) 89.9 % Lymphocytes (%) (Auto) 5.4 % Monocytes (%) (Auto) 4.2 % Eosinophils (%) (Auto) 0.0 % Basophils (%) (Auto) 0.1 % Neutrophils # (Auto) 12.75 K/uL (1.4-6.5) Lymphocytes # (Auto) 0.76 K/uL (1.2-3.4) Monocytes # (Auto) 0.59 K/uL (0.11-0.59) Eosinophils # (Auto) 0.00 K/uL (0-0.5) Basophils # (Auto) 0.01 K/uL (0-0.2) RDW Standard Deviation 42.6 fL (36.4-46.3) RDW Coefficient of Variation 12.7 % (11.5-14.5) Immature Granulocyte % (Auto) 0.4 % Immature Granulocyte # (Auto) 0.05 K/uL (0.00-0.02) Anion Gap 11.0 mmol/L (3-11) Est Creatinine Clear Calc Drug Dose 70.5 ml/min Estimated GFR () 76.2 Estimated GFR (Non- 65.8 BUN/Creatinine Ratio 28.6 (10-20) Calcium Level 7.8 mg/dl (8.5-10.1) Magnesium Level 2.2 mg/dl (1.8-2.4)
[2016-07-07] MEDS ORDERED: REGADENOSON 0.4 MG/5 ML SYR ONE (13:04)
[2016-07-07] MEDS: GUAIFENESIN 600 MG TABCR PO SCH ×2 (14:27→20:54)
[2016-07-07] MEDS: PANTOprazole SOD 40 MG TAB PO SCH (14:27)
[2016-07-07] MEDS: ASPIRIN 81 MG ECTAB PO SCH (14:27)
[2016-07-07] MEDS: FUROSEMIDE 40 MG TAB PO SCH (14:27)
[2016-07-07] MEDS: SPIRONOLACTONE 25 MG TAB PO SCH (14:27)
[2016-07-07] MEDS: CHOLECALCIFEROL 1000 INTER.UNIT TAB PO SCH (14:28)
[2016-07-07] MEDS: CYANOCOBALAMIN 500 MCG TAB (VIT B-12) PO SCH (14:28)
--- NOTE | 2016-07-07 18:59 | Progress Note ---
Subjective Date of Service: Jul 07, 2016. Subjective Pt evaluation today including: conversation w/ patient, conversation w/ family , physical exam, chart review, lab review, review of inpatient medication list feeling better no cp hasn't walked around much Problem List Medical Problems: (1) Productive cough Status: Acute (2) Substernal chest pain Status: Acute (3) Wheezing Status: Acute Review of Systems ros otherwise negative except for as above Objective Vital Signs Date Time Temp Pulse Resp B/P Pulse Ox O2 Delivery O2 Flow Rate FiO2 07/07/16 16:00 Room Air 07/07/16 15:57 66 16 95 Room Air 07/07/16 15:55 36.4 58 16 130/75 95 Room Air 07/07/16 12:00 Room Air 07/07/16 08:00 36.4 69 18 121/75 94 Room Air 07/07/16 08:00 Room Air 07/07/16 07:30 62 18 97 Room Air 07/07/16 04:00 Room Air 07/07/16 03:16 36.7 67 18 131/70 93 Room Air 07/07/16 00:00 Room Air 07/06/16 23:03 36.4 50 18 118/61 95 Room Air 07/06/16 23:00 64 18 95 Room Air 07/06/16 20:00 Room Air Physical Exam General Appearance: no apparent distress Eyes: EOMI ENT: hearing grossly normal Neck: trachea midline Respiratory/Chest: no respiratory distress, no accessory muscle use Extremities: normal range of motion 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, alert, normal mood/affect Skin: normal color, warm/dry Laboratory Results Last 24 Hours Test 07/06/16 19:14 07/07/16 05:14 07/07/16 09:03 Total Creatine Kinase 380 U/L White Blood Count 14.16 K/uL Red Blood Count 4.10 M/uL Hemoglobin 13.2 g/dL Hematocrit 37.5 % Mean Corpuscular Volume 91.5 fL Mean Corpuscular Hemoglobin 32.2 pg Mean Corpuscular Hemoglobin Concent 35.2 g/dl Platelet Count 169 K/uL Mean Platelet Volume 11.1 fL Neutrophils (%) (Auto) 89.9 % Lymphocytes (%) (Auto) 5.4 % Monocytes (%) (Auto) 4.2 % Eosinophils (%) (Auto) 0.0 % Basophils (%) (Auto) 0.1 % Neutrophils # (Auto) 12.75 K/uL Lymphocytes # (Auto) 0.76 K/uL Monocytes # (Auto) 0.59 K/uL Eosinophils # (Auto) 0.00 K/uL Basophils # (Auto) 0.01 K/uL RDW Standard Deviation 42.6 fL RDW Coefficient of Variation 12.7 % Immature Granulocyte % (Auto) 0.4 % Immature Granulocyte # (Auto) 0.05 K/uL Sodium Level 138 mmol/L Potassium Level 4.0 mmol/L Chloride Level 106 mmol/L Carbon Dioxide Level 21 mmol/L Anion Gap 11.0 mmol/L Blood Urea Nitrogen 31 mg/dl Creatinine 1.10 mg/dl Est Creatinine Clear Calc Drug Dose 70.5 ml/min Estimated GFR () 76.2 Estimated GFR (Non- 65.8 BUN/Creatinine Ratio 28.6 Random Glucose 160 mg/dl Calcium Level 7.8 mg/dl Magnesium Level 2.2 mg/dl Troponin I 0.044 ng/ml Assessment and Plan Chest tightness/shortness of breath -minimal elevation of trop - but lexiscan reassuring -med management -ambulation -hopefully home tomorrow COPD exacerbation/knee infection/URI--place on ceftriaxone 1 g IV daily, Xopenex with Atrovent nebulizer to use every 6 hours while awake and every 2 hours when necessary, and Solu-Medrol 20 mg IV every 8 hours. Hold by mouth Levaquin and by mouth clindamycin. Hypercholesterolemia--continue Crestor 2.5 mg by mouth on Thursday, Thursday and Thursday. GERD--change omeprazole 20 mg by mouth daily to pantoprazole 40 mg by mouth daily. Vitamin B-12 deficiency--continue supplement 500 g by mouth daily. hopefully home tomorrow
--- NOTE | 2016-07-07 19:27 | MYOCARDIAL PERFUSION SCAN ---
NUCLEAR STRESS TEST STUDY REQUESTED BY: Mahesh Khoury MD. PRIMARY FUR JOINER: Dr. Elias Spence. PROCEDURE: One-day nuclear medicine technetium-99M Cardiolite myocardial perfusion scan. INDICATION: Concern for progression of stable angina. ELECTROCARDIOGRAM: Baseline EKG shows sinus bradycardia without significant ST abnormalities. Stress EKG showed occasional PVCs. There was subtle 0.5, less than [address] depressions in V2 through V4. Stress was accompanied by chest tightness. Blood pressure humaira from 139/67 to 157/82. TECHNIQUE: For the stress portion of the study 32.4 mCi of technetium-99m Cardiolite IV was injected at 1330 on 07/07/2016. Thirty minutes following the injection, imaging of the heart was performed in multiple projections. For the rest portion of the study, 10.5 mCi of technetium-99m Cardiolite was injected IV at 11:25 a.m. One hour following the injection, imaging of the heart was performed in the same projections. FINDINGS: Raw images were reviewed in detail. There was mild diaphragmatic attenuation. There was gut uptake. This was limited to areas away from the inferior imaging border of the heart. There was no significant pathologic extracardiac uptake. No significant visual TID. Short axis, vertical long axis, and horizontal long axis images were reviewed in detail. There was a primarily fixed inferior, inferolateral moderate size, moderate severity perfusion defect with minimal periinfarct ischemia from the base to the mid wall. No other significant perfusion defects. Overall, EF was normal at 61%. There was inferior, inferolateral hypokinesis with akinesis at the base, LV size was normal with an end-diastolic volume of 111. IMPRESSION: 1. 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 2. Nondiagnostic regadenoson stress EKG with borderline ST depressions in V2 through V4. 3. Normal left ventricular size and overall systolic function. Hypokinesis in the inferior and inferolateral caputo with akinesis at the base. 4. Overall, compared to prior study, no significant new perfusion defects. MTDD
[2016-07-07] MEDS: ZOLPIDEM TARTRATE 5 MG TAB PO PRN (20:54)
[2016-07-07] MEDS: DOXYCYCLINE HYCLATE 100 MG CAP PO SCH (20:54)
[2016-07-08] VITALS: BP 113/63; PULSE 60; TEMP 36.4; O2SAT 93
[2016-07-08] MEDS: METHYLPREDNISOLONE IV 20 MG in SYRINGE 0 ML IV SCH ×2 (00:28→07:25)
[2016-07-08 02:51] VITALS: BP 139/77; PULSE 55; TEMP 36.4; O2SAT 94
[2016-07-08 06:08] LABS: COMPLETE YES; HEMATOCRIT 39.3 % (42-52); IG% 0.3 %; LYMPH % 5.3 %; LYMPH ABS # 0.79 K/uL (1.2-3.4); MEAN CELL VOLUME 89.9 fL (80-100); MEAN CORPUSCULAR HGB CONC 36.6 g/dl (32-36); MEAN PLATELET VOLUME 10.9 fL (7.4-10.4); MONO % 4.5 %; NEUT % 89.9 %; PLATELET COUNT 233 K/uL (130-400); RED BLOOD COUNT 4.37 M/uL (4.7-6.1); WHITE BLOOD COUNT 15.03 K/uL (4.8-10.8)
[2016-07-08 06:36] LABS: BUN/CREATININE RATIO 35.5 (10-20); CALCIUM 8.2 mg/dl (8.5-10.1); CREATININE 1.1 mg/dl (0.60-1.40); MAGNESIUM 2.1 mg/dl (1.8-2.4); POTASSIUM 4.1 mmol/L (3.5-5.1)
[2016-07-08 06:53] VITALS: PULSE 58; O2SAT 94
[2016-07-08] MEDS: IPRATROPIUM BROMIDE NEB SOLN 0.02% 2.5 ML VIAL INH SCH (06:53)
[2016-07-08] MEDS: CHOLECALCIFEROL 1000 INTER.UNIT TAB PO SCH (07:25)
[2016-07-08] MEDS: SPIRONOLACTONE 25 MG TAB PO SCH (07:25)
[2016-07-08] MEDS: CYANOCOBALAMIN 500 MCG TAB (VIT B-12) PO SCH (07:26)
[2016-07-08] MEDS: ASPIRIN 81 MG ECTAB PO SCH (07:26)
[2016-07-08] MEDS: PANTOprazole SOD 40 MG TAB PO SCH (07:26)
[2016-07-08] MEDS: GUAIFENESIN 600 MG TABCR PO SCH (07:26)
[2016-07-08] MEDS: DOXYCYCLINE HYCLATE 100 MG CAP PO SCH (07:26)
[2016-07-08] MEDS: FUROSEMIDE 40 MG TAB PO SCH (07:26)
[2016-07-08 08:19] VITALS: BP 102/62; PULSE 65; TEMP 36.8; O2SAT 95
[2016-07-08] MEDS ORDERED: ISOSORBIDE MONONITRATE 30 MG TABCR PO SCH (09:00)
[2016-07-08] MEDS ORDERED: ATRIN INH (09:15)
[2016-07-08] MEDS ORDERED: GFNSR600 PO (09:15)
[2016-07-08] MEDS ORDERED: DXY100 PO (09:15)
[2016-07-08] MEDS ORDERED: IMDSR30 PO (09:15)
[2016-07-08] MEDS ORDERED: PRED10TA PO (09:15)
--- NOTE | 2016-07-08 09:24 | Discharge Instructions ---
Discharge Instructions Date of Service Jul 08, 2016. Admission Reason for Admission: Chest Tightness, Shortness Of Breath Discharge Discharge Diagnosis / Problem: Bronchitis Discharge Goals Goal(s): Decrease discomfort, Improve function, Increase independence Activity Recommendations Activity Limitations: as noted below Lifting Limitations: gradually increase as tolerated Exercise/Sports Limitations: as tolerated Shower/Bathe: no limitations Driving or Machine Use: no limitations . Instructions / Follow-Up Instructions / Follow-Up Chest Pain - Angina versus Respiratory (Bronchitis) - You had a nuclear stress test that was negative which suggests this is not an acute (new) heart related occurrence. - Continue Doxycycline 100 mg twice a day (take evening dose tonight 07/08 as you had a morning dose then resume twice a day on 07/09) -- Hold your antibiotics that you take on a daily basis until complete with the Doxycycline then resume at previously prescribed dosing - You will be given a prescription for an Atrovent Inhaler to use 2 puffs four times a day for the next 7 days - As well we will taper your steroids as follows: Start tomorrow 07/09/16 -- 40 mg daily times 2 days -- 30 mg daily times 2 days -- 20 mg daily times 2 days -- 10 mg daily times 1 day - For better management of anginal pain you will be provided with a prescription for Imdur mononitrate to take daily to help prevent and control anginal chest pain Current Hospital Diet Patient's current hospital diet: AHA Diet (Heart Healthy) Discharge Diet Recommended Diet: AHA Diet (Heart Healthy) Pending Studies Studies pending at discharge: no Medical Emergencies . Who to Call and When: Medical Emergencies: If at any time you feel your situation is an emergency, please call 911 immediately. . Non-Emergent Contact Non-Emergency issues call your: Primary Care Provider Call Non-Emergent contact if: you have a fever, your pain is concerning you, you have any medication questions . . "Provider Documentation" section prepared by Charlene Forde. VTE Core Measure Inpt VTE Proph given/why not?: SCD's
[2016-07-08 09:46] VITALS: BP 102/62; PULSE 65; TEMP 36.8; O2SAT 95
--- NOTE | 2016-07-08 13:12 | Discharge Summary ---
Discharge Summary Date of Service Jul 08, 2016. (Charlene Forde PA-C) Discharge Summary Admission Date: Jul 06, 2016 at 02:16 Discharge Date: Jul 08, 2016 Discharge Disposition: Home Principal Diagnosis: Chronic Bronchitis Problems/Secondary Diagnoses: 1. Hyperlipidemia 2. GERD 3. CAD S/P Stents 4. HTN Immunizations: Have You Had Influenza Vaccine: Yes Influenza Vaccine Date: Jan 27, 2010 History of Tetanus Vaccine?: Unknown History of Pneumococcal: Yes Pneumococcal Date: Mar 01, 2006 History of Hepatitis B Vaccine: No Procedures: 1. CHEST ONE VIEW PORTABLE CLINICAL HISTORY: Weakness COMPARISON STUDY: No previous studies for comparison. FINDINGS: The cardiac and mediastinal contours are normal. There is no evidence of focal pulmonary consolidation. There is no evidence of failure. No pleural effusions are visualized.[ There are bibasilar opacities, likely atelectatic. IMPRESSION: Bibasal atelectasis. No evidence of lobar consolidation. No evidence of failure. 2. NUCLEAR CARDIAC STRESS TEST IMPRESSION: 1. 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 2. Nondiagnostic regadenoson stress EKG with borderline ST depressions in V2 through V4. 3. Normal left ventricular size and overall systolic function. Hypokinesis in the inferior and inferolateral caputo with akinesis at the base. 4. Overall, compared to prior study, no significant new perfusion defects. 3. ECHOCARDIOGRAM * -- Conclusions -- * 1. Normal LV size with mild concentric LVH. * 2. Normal LV systolic function. LVEF 50-55%. Mild hypokinesis in the inferior and inferlateral wall from base to mid segment. * 3. Normal RV size and function. * 4. Mild aortic valve sclerosis without stenosis. * 5. Mild aortic regurgitation. * 6. Grade I diastolic dysfunction. * 7. Compared with prior study on 06/26/2009: No significant changes. Consultations: 1. Cardiology (Charlene Forde PA-C) Medication Reconciliation New Medications: Ipratropium [place] (Atrovent Hfa) 200 Puffs/3400 Mcg Aers 2 PUFFS INH QID for 7 Days, 0 Refills Prednisone Tab (Prednisone) 10 Mg Tab 10 MG PO DAILY, #19 TAB Start on 07/09/16 with 40 mg X 2 days then 30 mg x 2 days then 20 mg x 2 days then 10 mg x 1 days Doxycycline Hyclate (Doxycycline Hyclate) 100 Mg Cap 100 MG PO BID, #9 CAP Take evening dose 07/08 then take twice a day starting 07/09 Guaifenesin Ext Rel (Mucinex Ext Rel) 600 Mg Tabcr 600 MG PO Q12 for 7 Days Isosorbide Mononitrate (Isosorbide Mononitrate ER) 30 Mg Tabcr 30 MG PO QAM for 15 Days Continued Medications: Aspirin (Aspirin Ec) 81 Mg Tab 81 MG PO DAILY Atenolol (Tenormin) 100 Mg Tab 100 MG PO DAILY, TAB Calcium (Calcium) 250 Mg Cap 250 MG PO DAILY Cholecalciferol (Vitamin D) 1,000 Inter.unit Tab 2000 INTER.UNIT PO DAILY, 0 Refills Clindamycin Hcl (Clindamycin Hcl) 300 Mg Cap 300 MG PO QAM Cyanocobalamin (Vitamin B-12) 100 Mcg Tab 500 MCG PO DAILY, TAB TAKE FIVE 100MCG TABS DAILY Furosemide (Lasix) 40 Mg Tab 40 MG PO QAM Levofloxacin (Levaquin) 500 Mg Tab 500 MG PO QAM, TAB Nitroglycerin (Nitrostat) 0.4 Mg Tab 0.4 MG UT PRN, 0 Refills Omeprazole (Prilosec) 20 Mg Capcr 20 MG PO DAILY, CAP Rosuvastatin Calcium (Crestor) 5 Mg Tab 2.5 MG PO 3XWK, TAB 1/2 TABLET EVERY THURSDAY/THURSDAY/THURSDAY. Spironolactone (Aldactone) 25 Mg Tab 25 MG PO QAM, TAB Discharge Exam Review of Systems: Constitutional: No chills, No fever Eyes: No worsening of vision ENT: No nasal symptoms, No sore throat, No trouble swallowing Respiratory: + cough, + sputum, No dyspnea at rest, No dyspnea on exertion Cardiovascular: No chest pain Abdomen: No constipation, No diarrhea, No nausea, No pain, No vomiting Musculoskeletal: No calf pain, No swelling Genitourinary - Male: No dysuria Neurologic: No vertigo Hematologic / Lymphatic: No abnormal bleeding/bruising Integumentary: No rash Physical Exam: General Appearance: WD/WN, no apparent distress Eyes: sclerae normal ENT: hearing grossly normal Neck: supple, no JVD, trachea midline Respiratory/Chest: lungs clear, normal breath sounds, no respiratory distress, no accessory muscle use, + wheezing (intermittent and scattered - expiratory) Cardiovascular: regular rate, rhythm, no gallop, no murmur Abdomen / GI: normal bowel sounds, non tender, soft Extremities: no calf tenderness, no pedal edema Neurologic/Psychiatric: alert, oriented x 3 Skin: normal color, warm/dry (Charlene Forde, MELBA) Hospital Course ADMISSION: The patient is a 75-year-old male who presents to the emergency department with complaint of cough and difficulty breathing that began 2 days prior to arrival. Tonight he began to wheeze audibly when he was laying down to go to sleep this evening, and thus called EMS who brought him to the emergency department for assessment. He has not had any travel recently, but he did get exposed to a granddaughter who was home from college and recently sick. He reports that he has been on clindamycin and levofloxacin for treatment and then prophylaxis of infection of his knee. HOSPITAL COURSE: Mr. Anderson was admitted for acute bronchitis vs COPD exacerbation. Given the nature of his chest tightness a cardiac etiology was ruled out. Cardiac enzymes were obtained with one abnormal result of 0.047 with repeat troponin normal. Given his cardiac history, cardiology was consulted. Echocardiogram revealed EF 50-55%, mild hypokinesis in the inferior and inferolateral wall, and grade 1 diastolic dysfunction. He underwent nuclear cardiac stress testing which revealed fixed inferior and inferolateral perfusion defects, nondiagnostic stress EKG with borderline ST depressions in V2 through V4, and comparison to prior study with no significant new perfusion defects. He was initiated on isosorbide mononitrate 30 mg daily for better anginal chest pain management. Patient remained chest pain-free during admission. Chest pain is likely respiratory in nature due to acute bronchitis versus COPD exacerbation. He was treated with antibiotics and provided a prescription for doxycycline 100 mg BID to finish a seven-day course. He was instructed to hold his other antibiotics until finishing this course of doxycycline and then may resume other antibiotics. He was treated with IV steroids and converted to prednisone with quick taper. He was also provided a prescription for Atrovent inhaler to use QID 7 days. Patient is afebrile, with adequate oxygenation, and no acute complaints. PCP follow-up established for 07/14/16 and cardiology follow-up on 07/25/16. Patient was called over the phone to set up appointments and verbalized understanding. Patient is optimal for discharge home with outpatient follow-up. Total Time Spent: Greater than 30 minutes This includes examination of the patient, discharge planning, medication reconciliation, and communication with other providers. (Charlene Forde, PA-C) i personally examined pt and verified all rueda points w A [place] PAC feeling better, ready to go home. meds adjusted appearing to tolerate imdur well CAD minimal trop elevation reassuring nuc med - stable for home med management and close outpt f/u (Jarrett Sullivan D.O.) Discharge Instructions Please refer to the electronic Patient Visit Report (Discharge Instructions) for additional information. (Charlene Forde, TOM-C) Additional Copies To David Carr M.D.
== END 2016-07-08 11:42 | disposition home or self-care (01) ==
LOC: ENRESERVTM → ENRESERVDT → EDBD 23:37 → C.EDB 23:39 → C.2T 07-06 02:16
PROVIDERS: ADMIT Hospitalist; ATTEND Family Medicine
DX: J44.1 Chronic obstructive pulmonary disease with (acute) exacerbation (principal); M00.9 Pyogenic arthritis, unspecified; E78.00 Pure hypercholesterolemia, unspecified; E53.8 Deficiency of other specified B group vitamins; K21.0 Gastro-esophageal reflux disease with esophagitis; E78.5 Hyperlipidemia, unspecified; I25.10 Atherosclerotic heart disease of native coronary artery without angina pectoris; Z87.01 Personal history of pneumonia (recurrent); Z79.82 Long term (current) use of aspirin; Z86.711 Personal history of pulmonary embolism; I10 Essential (primary) hypertension; Z79.899 Other long term (current) drug therapy

== ENCOUNTER → 2016-12-09 | Outpatient (CLI) | payer OTHER ==
[~2016-12-09] MED LIST changes: -ASPEC81 PO; +ASPI81TA28 PO; +ATEN-175 PO; -ATEN50TA8 PO; +ATRIN INH; +CALC1CAP24 PO; +CYAN100T PO; +DXY100 PO; +GFNSR600 PO; +IMDSR30 PO; +PRED10TA PO
--- NOTE | 2016-12-09 14:43 | DIAGNOSTIC IMAGING REPORT ---
TWO VIEW CHEST CLINICAL HISTORY: Acute bronchitis. FINDINGS: PA and lateral chest radiographs are compared to study dated 07/06/2016. The cardiomediastinal silhouette is unremarkable. There is chronic elevation right hemidiaphragm and bibasilar atelectasis. No airspace consolidation is seen typical for pneumonia and there is no pleural effusion. There is no pneumothorax. The skeletal structures are osteopenic. The bony thorax appears intact. 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 IMPRESSION: No active disease in the chest. Electronically signed by: Arnold Lancaster M.D. 12/09/2016 2:42 PM Dictated Date/Time: 12/09/2016 2:41 PM
== END | disposition home or self-care (01) ==
LOC: C.RADPV 13:52
PROVIDERS: ATTEND Family Medicine
DX: J20.9 Acute bronchitis, unspecified (principal)

== ENCOUNTER → 2017-01-08 | Outpatient (CLI) | payer OTHER ==
[2017-01-08 12:43] LABS: BASO % 0.4 %; BASO ABS # 0.03 K/uL (0-0.2); COMPLETE YES; EOS % 4.9 %; IG% 0.6 %; LYMPH % 23.2 %; MEAN CELL VOLUME 93.2 fL (80-100); MEAN CORPUSCULAR HEMOGLOBIN 31.4 pg (25-34); MEAN CORPUSCULAR HGB CONC 33.6 g/dl (32-36); MEAN PLATELET VOLUME 10.9 fL (7.4-10.4); MONO % 9.1 %; NEUT % 61.8 %; PLATELET COUNT 224 K/uL (130-400); RED BLOOD COUNT 4.72 M/uL (4.7-6.1)
[2017-01-08 12:53] LABS: PARTIAL THROMBOPLASTIN RATIO 1.2; PROTHROMBIN TIME (PATIENT) 10.9 SECONDS (9.0-12.0)
[2017-01-08 13:59] LABS: ALT/SGPT 24 U/L (12-78); BLOOD UREA NITROGEN 19 mg/dl (7-18); CALCIUM 8.6 mg/dl (8.5-10.1); CARBON DIOXIDE 25 mmol/L (21-32); CHLORIDE 108 mmol/L (98-107); CREATININE 0.97 mg/dl (0.60-1.40); GLUCOSE 94 mg/dl (70-99); POTASSIUM 4.3 mmol/L (3.5-5.1); SODIUM 140 mmol/L (136-145)
[2017-01-08 14:02] LABS: ALB/GLOB RATIO 1.1 (0.9-2); ALKALINE PHOSPHATASE 107 U/L (45-117); AST/SGOT 34 U/L (15-37)
== END | disposition home or self-care (01) ==
LOC: C.LABPVFM 10:59
PROVIDERS: ATTEND Internal Medicine Pulmonary Disease
DX: R05 Cough (principal)

== ENCOUNTER → 2017-01-09 | Outpatient (CLI) | payer OTHER ==
[~2017-01-09] MED LIST changes: +OPTIRAY 320 IV PRN; -PRED10TA PO
--- NOTE | 2017-01-09 15:05 | DIAGNOSTIC IMAGING REPORT ---
FLUOROSCOPIC SNIFF TEST CLINICAL HISTORY: Cough. COPD. Evaluate for right hemidiaphragm paralysis. COMPARISON STUDY: Chest radiograph December 09, 2016. Fluoroscopy time: 0.3 minutes. FINDINGS: These images demonstrate elevation of the right hemidiaphragm with paradoxical motion of the right hemidiaphragm with normal excursion of the left hemidiaphragm. IMPRESSION: Paradoxical motion of the elevated right hemidiaphragm consistent with right hemidiaphragm paralysis. Electronically signed by: Holden Menendez M.D. 01/09/2017 2:45 PM Dictated Date/Time: 01/09/2017 2:44 PM
--- NOTE | 2017-01-09 15:59 | DIAGNOSTIC IMAGING REPORT ---
(CHEST) THORAX WITH CLINICAL HISTORY: 76 years-old Male presenting with R05 [id number] COPD [id number] AtelectasisAPPT SCHED 10. TECHNIQUE: Multidetector CT imaging of the chest was performed after the administration of intravenous contrast. IV contrast: 111 mL of Optiray 320. A dose lowering technique was used consistent with the principles of ALARA (as low as reasonably achievable). COMPARISON: 01/23/2010. CT DOSE (mGy.cm): The estimated cumulative dose is 1142.81 mGy.cm. FINDINGS: Relief Pharmacist topogram: Unremarkable. On soft tissue windows, bilateral gynecomastia. No axillary, supraclavicular, hilar, or mediastinal lymphadenopathy. Atherosclerosis of the aorta. Mild prominence of the left atrium. Aortic valve and coronary artery calcification. No pericardial or pleural effusion. Cholecystectomy clips. Pancreatic duct stent. Postsurgical changes of Whipple procedure. Early excretion of contrast in the left renal collecting system. Small hiatal hernia. On lung windows, stable appearance of the 2 adjacent solid left lower lobe nodules, one measuring 5 mm (series 7 image 234) and the second measuring 3 mm (series 7 image 240). Solid left upper lobe nodule measuring 5 mm (series 7 image 141), unchanged. Solid 5 mm left apical nodule (series 7 image 74), new from prior. Additional 2 mm left apical nodule (series 7 image 66), unchanged. Solid 4 mm right apical nodule (series 7 image 58), unchanged. Solid 5 mm right upper lobe nodule (series 7 image 89), unchanged. Solid 3 mm right middle lobe nodule (series 7 image 182), unchanged. Solid 3 mm left lower lobe nodule (series 7 image 234), unchanged. Dependent bandlike and reticular opacities greater in the right lower lobe, unchanged and likely atelectasis and/or scarring. Small amount of debris noted dependently in the lower trachea. Mild bronchial wall thickening noted. On bone windows, degenerative changes of the spine. IMPRESSION: 1. Multiple solid pulmonary nodules bilaterally, the vast majority of which are unchanged since 2009 consistent with a benign etiology, likely unencapsulated lymphoid tissue. However, interval development of a new solid 5 mm left apical nodule. Follow-up per Luis F Society 2017 recommendations below. 2. Mild bronchial wall thickening, could suggest bronchitis. 3. Small amount of dependent debris in the lower trachea, which could suggest aspiration. 4. Postsurgical changes of Whipple procedure. Please refer to below summary of Fleischner Society 2017 recommendations for follow-up of incidental CT nodules (H Wyatt et al. Guidelines for management of incidental pulmonary nodules detected on CT images: From the Fleischner Society 2017. Radiology 2017; 284: 228-243.) SOLID NODULES Single nodule; size < 6 mm * Low risk patients: No routine follow-up * High risk patients: Optional CT at 12 months Single nodule; size 6-8 mm * Low risk patients: CT at 6-12 months, then consider CT at 18-24 months * High risk patients: CT at 6-12 months, then at 18-24 months Single nodule; size > 8 mm * Either low or high risk patients: Considered CT at 3 months, PET/CT, or tissue sampling Multiple nodules; size < 6 mm * Low risk patients: No routine follow up * High risk patients: Optional CT at 12 months Multiple nodules; size 6-8 mm * Low risk patients: CT at 3-6 months, then consider CT at 18-24 months * High risk patients: CT at 3-6 months, then at 18-24 months Multiple nodules; size > 8 mm * Low risk patients: CT at 3-6 months, then consider at 18-24 months * High risk patients: CT at 3-6 months, then at 18-24 months Note: These guidelines apply to incidental nodules. These guidelines do not apply to patients younger than 35 years, immunocompromised patients, or patients with cancer. * Low risk patients: Minimal or absent history of smoking and/or other known risk factors * High risk patients: History of smoking, exposure to other carcinogens, emphysema, fibrosis, upper lobe location, family history of lung cancer, etc. * If a nodule up to 8 mm is partly solid or is ground glass, further follow-up is required after 24 months to exclude possible slow growing adenocarcinoma. SUBSOLID NODULES Single ground-glass nodule * Nodule size < 6 mm: No routine follow-up * Nodule size > or = 6 mm: CT at 6-12 months to confirm persistence, then CT every 2 years until 5 years Single part-solid nodule * Nodule size < 6 mm: No routine follow-up * Nodules size > or = 6 mm: CT at 3-6 months to confirm persistence. If unchanged and solid component remains < 6 mm, annual CT should be performed for 5 years Multiple nodules * Nodule size < 6 mm: CT at 3-6 months. If stable, consider CT at 2 and 4 years. * Nodules size > or = 6 mm: CT at 3-6 months. Subsequent management based on the most suspicious nodule(s) Electronically signed by: David Young M.D. 01/09/2017 3:58 PM Dictated Date/Time: 01/09/2017 3:46 PM
== END | disposition home or self-care (01) ==
LOC: C.RAD 13:45
PROVIDERS: ATTEND Internal Medicine Pulmonary Disease
DX: J44.1 Chronic obstructive pulmonary disease with (acute) exacerbation (principal); J98.11 Atelectasis; R05 Cough

== ENCOUNTER → 2017-01-23 | Day surgery (SDC) | payer OTHER ==
[~2017-01-23] VITALS: Ht 180.3 cm; Wt 96.7 kg
[2017-01-23] VITALS (13 sets, daily range): BP systolic 107–140; BP diastolic 62–81; PULSE 56–69; TEMP 36.4–36.9; O2SAT 94–100; Ht 180.3 cm; Wt 96.7 kg
[~2017-01-23] MED LIST changes: +FENTANYL CITRATE 100 MCG 2 ML CARP IV ONE; +FENTANYL CITRATE INJ 50 MCG/1 ML 2 ML VIAL IV ONE; +IPRATROPIUM BROMIDE NEB SOLN 0.02% 2.5 ML VIAL INH ONE; +LEVALBUTEROL 1.25MG/3ML NEB INH ONE; +MIDAZOLAM HCL 5 MG/ML 1 ML VIAL IV ONE; +NURSING VERBAL MED ORDER ONE; -OPTIRAY 320 IV PRN
--- NOTE | 2017-01-23 08:15 | History & Physical Bridge Note ---
H&P Re-Evaluation Bridge Note: I have examined the patient, reviewed the History & Physical and in the interval since the performance of the History & Physical I have noted the following changes of clinical significance: No changes noted
--- NOTE | 2017-01-23 08:15 | Procedure Note ---
Pre-Mod Sedation Assessment General Date of Moderate Sedation: Jan 23, 2017. Pre-Sedation Airway Assessment Smoking Status: Never Smoker Mallampati Classification: Class II ASA Classification: Class II Procedure Planning Contraindications-for Mod Sed: None Yes Notes The planned sedation has been discussed with the patient and consent obtained. I have identified the patient, determined the appropriateness of sedation and have assessed the patient immediately prior to the procedure. All medicine(s) and interventions are by my order.
--- NOTE | 2017-01-23 11:17 | Discharge Instructions ---
Discharge Instructions Date of Service Jan 23, 2017. Admission Reason for Admission: Cough, Copd *Dr Hennessy To Do* Discharge Discharge Diagnosis / Problem: Chronic Bronchitis Discharge Goals Goal(s): Diagnostic testing, Therapeutic intervention Activity Recommendations Activity Limitations: resume your previous activity Lifting Limitations: none Exercise/Sports Limitations: none May Resume Sexual Activity: when tolerated Shower/Bathe: no limitations Driving or Machine Use: resume 1 day after discharge None . Current Hospital Diet Patient's current hospital diet: Discharge Diet Recommended Diet: Regular Diet Fluid Restriction: None Pending Studies Studies pending at discharge: no Medical Emergencies . Who to Call and When: Medical Emergencies: If at any time you feel your situation is an emergency, please call 911 immediately. . Non-Emergent Contact Non-Emergency issues call your: Small Business Representative Call Non-Emergent contact if: temperature is above 101 ACTIVITY RECOMMENDATIONS: * Rest today, resume normal activity tomorrow. * Do not drive today. SPECIAL CARE INSTRUCTIONS: * Call your physician if you experience any chest or shoulder pain, fever, coughing, spitting up blood (more than 2 teaspoons) or excessive shortness of breath. * Remove dressing from IV site (where needle was placed into the vein) after 2 hours. Apply a warm, moist compress to site if irritation occurs. Call physician if site becomes red or painful to touch. FOLLOW UP VISIT: * Keep any scheduled doctor appointments. . . "Provider Documentation" section prepared by Alonzo Hennessy. . VTE Core Measure Inpt VTE Proph given/why not?: Treatment not indicated, Treatment not tolerated
--- NOTE | 2017-01-23 12:41 | OPERATIVE REPORT ---
DATE OF OPERATION: 01/23/2017 PROCEDURE: Fiberoptic bronchoscopy and bronchoalveolar lavage. INDICATIONS: Chronic cough/elevated right hemidiaphragm. ANESTHESIA PREOPERATIVELY: None. ANESTHESIA DURING THE PROCEDURE: 3 mg of IV Versed, 50 mcg of IV fentanyl, 20 mL of 2% Xylocaine spray above and below the cords, and 4% viscous Xylocaine intranasally. DESCRIPTION OF PROCEDURE: Fiberoptic bronchoscope was inserted into the right naris with minimal difficulty and passed to the level of the true vocal cords. The cords appeared to approximate normally with phonation without evidence for lesions or paralysis. The scope was then introduced into the right and left tracheobronchial tree. The shaw was sharp. The right main stem bronchus was found to be free of endobronchial lesions. Right upper lobe, the apical posterior and anterior segments, bronchus intermedius, right middle lobe, medial lateral segments and all basilar segments of right lower lobe were found to be free of endobronchial lesions. The lateral segments showed evidence of fish mouthing and copious amount of mucopurulent secretion was lavaged from that segment and now the basilar segments were clear. Brushings were taken for cytological preparation x2 from the lateral basal segment with no bleeding encountered. No biopsies were attempted. Left tracheobronchial tree was then explored and no endobronchial lesions seen. Left upper lobe, lingular subdivision and left lower lobe were free of endobronchial lesions down to subsegmental bronchi. The procedure was terminated. The patient tolerated the procedure well and was given a nebulizer treatment with Xopenex 1.25 mg and transferred to the medical treatment unit hemodynamically stable with no signs of respiratory compromise. We will await microbiological and cytologic examination of the bronchial washings. I attest to the content of the Intraoperative Record and any orders documented therein. Any exception s are noted below.
[2017-01-27 14:16] LABS: HERPES SIMPLEX CULT SOURCE RESPIRATORY-RLL WASH; HERPES SIMPLEX VIRUS CULT NOT ISOLATED (NOT ISOLATED)
== END | disposition home or self-care (01) ==
LOC: C.ACU 08:08
PROVIDERS: ATTEND Internal Medicine Critical Care Medicine
DX: J20.9 Acute bronchitis, unspecified (principal); J98.6 Disorders of diaphragm; J44.1 Chronic obstructive pulmonary disease with (acute) exacerbation; R07.9 Chest pain, unspecified; R09.81 Nasal congestion; K21.9 Gastro-esophageal reflux disease without esophagitis; I25.10 Atherosclerotic heart disease of native coronary artery without angina pectoris; I12.9 Hypertensive chronic kidney disease with stage 1 through stage 4 chronic kidney disease, or unspecified chronic kidney disease; N18.9 Chronic kidney disease, unspecified; E78.5 Hyperlipidemia, unspecified; F32.9 Major depressive disorder, single episode, unspecified; I25.2 Old myocardial infarction; Z86.711 Personal history of pulmonary embolism; Z90.49 Acquired absence of other specified parts of digestive tract; Z98.890 Other specified postprocedural states; Z96.659 Presence of unspecified artificial knee joint; Z79.82 Long term (current) use of aspirin; Z79.899 Other long term (current) drug therapy; Z88.2 Allergy status to sulfonamides; Z88.5 Allergy status to narcotic agent

== ENCOUNTER 2022-09-30 06:10 | Inpatient (IN) ==
[2022-09-30] MEDS ORDERED: ONDANSETRON INJ 2 MG/ML 2 ML VIAL ONE (07:02)
[2022-09-30] MEDS ORDERED: ONDANSETRON INJ 2 MG/ML 2 ML VIAL IV STA ×2 (07:06→08:24)
[2022-09-30] MEDS ORDERED: SODIUM CHLORIDE 0.9% 500 ML IV ONE (07:10)
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
[2022-09-30 07:41] LABS: Basophils # (auto) 0.05 K/uL (0-0.2); Basophils % (auto) 0.5 %; Eosinophils # (auto) 0.19 K/uL (0-0.50); Eosinophils % (auto) 1.7 %; Hematocrit (blood only) 39.3 % (42.0-52.0); Hemoglobin 13.7 g/dl (14.0-18.0); Immature Granulocytes # (auto) 0.14 K/uL (0.01-0.20); Immature Granulocytes % (auto) 1.3 %; Lymphocytes # (auto) 1.82 K/uL (1.2-3.4); Lymphocytes % (auto) 16.6 %; Mean Corpuscular Hemoglobin 33.3 pg (25.0-34.0); Mean Corpuscular Hgb Conc 34.9 g/dL (32.0-36.0); Mean Corpuscular Volume 95.4 fL (80.0-100.0); Mean Platelet Volume 11.6 fL (9.4-12.4); Monocytes % (auto) 8.2 %; Neutrophils # (auto) 7.89 K/uL (1.40-6.50); Neutrophils % (auto) 71.7 %; Platelet Count 214 K/uL (130-400); RDW Coefficient of Variation 12.3 % (11.5-14.5); RDW Standard Deviation 42.4 fL (36.4-46.3); Red Blood Count 4.12 M/uL (4.70-6.10); White Blood Count 10.99 K/ul (4.8-10.8)
--- NOTE | 2022-09-30 07:56 | XRay Report ---
XR chest 1V portable CLINICAL HISTORY: Chest pain, nonspecific COMPARISON STUDY: Chest CT June 14, 2019. Chest radiograph September 29, 2022. FINDINGS: Elevation of the right hemidiaphragm is unchanged. Cardiomediastinal silhouette is unremark able. There is no evidence for pulmonary edema. There is no pneumothorax or pleural effusion. Minimal bibasilar opacities favor atelectasis. IMPRESSION: No acute cardiopulmonary findings. No change in appearance of the chest. ACT 112: Negative or not required by law. Electronically signed by: Holden Menendez M.D. 09/30/2022 7:55 AM
[2022-09-30 08:07] LABS: Albumin Globulin Ratio 1.2 (0.9-2); Albumin Level 3.5 gm/dl (3.4-5.0); BUN Creatinine Ratio 29.3 (10-20); Bilirubin,Total 0.6 mg/dl (0.2-1.0); Calcium 8.6 mg/dl (8.6-10.3); Creatinine Clr Calc Pharmacy 85.4 ml/min; Est GFR (African American) 96.8 ml/min; Est GFR (Non-African American) 83.5 ml/min; Globulin 2.9 gm/dl (2.5-4.0); Magnesium 1.8 mg/dl (1.7-2.4); Potassium 4.1 mmol/L (3.5-5.1); Total Protein 6.4 gm/dl (6.0-8.3); Troponin I High Sensitivity 7.7 pg/ml (0-20)
[2022-09-30 08:08] LABS: INR 1.1 (0.9-1.1); Partial Thromboplastin Time 27.2 Seconds (21.0-31.0); Prothrombin Time 11.5 Seconds (9.0-12.0)
[2022-09-30 08:10] LABS: D Dimer 1090 ug/L FEU (0-500)
[2022-09-30] MEDS ORDERED: diphenhydrAMINE 50 MG/ML VIAL IV STA (08:16)
[2022-09-30] MEDS ORDERED: MoRPHine SULFATE 4 MG/ML 1 ML CARP\\VIAL IV STA (08:24)
[2022-09-30] MEDS ORDERED: OPTIRAY 320 125ml IV ONE (09:01)
--- NOTE | 2022-09-30 09:19 | CT Scan Report ---
CT ANGIOGRAPHY OF THE CHEST, PULMONARY EMBOLUS PROTOCOL CLINICAL HISTORY: Weakness. Nausea. Evaluate for pulmonary embolus. COMPARISON STUDY: Chest CT June 14, 2019 and chest radiograph performed earlier today. TECHNIQUE: Following IV administration of 120 mL of Optiray, helical axial images of the chest were o btained utilizing the pulmonary embolus protocol. Maximal intensity projections and sagittal and cor onal reformats were viewed on an independent 3D workstation. IV contrast was administered without co mplication. Automated exposure control was utilized for the study. A dose lowering technique was ut ilized adhering to the principles of ALARA. FINDINGS: No pulmonary emboli are identified. There is no thoracic aortic dissection. Mild cardiomeg roselyn and extensive coronary artery calcification is present. There is no pneumothorax or pleural effus ion. Elevation of the right hemidiaphragm is unchanged. Subpleural right lower lobe opacity favors at electasis. There is no consolidation to suggest pneumonia. Minimal mucus at the shaw is present. Se veral pulmonary nodules are unchanged since CT of June 14, 2019. These are benign given stability. N o acute fractures within the bony thorax are noted. IMPRESSION: 1. No pulmonary emboli identified. 2. No consolidation to suggest pneumonia. Stable elevation of the right hemidiaphragm with right lowe r lobe opacity suggestive of atelectasis. 3. No significant change in appearance of the chest since CT of June 14, 2019. ACT 112: Negative or not required by law. Electronically signed by: Holden Menendez M.D. 09/30/2022 9:18 AM
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
--- NOTE | 2022-09-30 11:04 | Electrocardiogram Report ---
Test Reason : Blood Pressure : / mmHG Vent. Rate : 060 BPM Atrial Rate : 060 BPM P-R Int : 200 ms QRS Dur : 106 ms QT Int : 418 ms P-R-T Axes : 029 -32 -02 degrees QTc Int : 418 ms Sinus rhythm with occasional Premature ventricular complexes Left anterior fascicular block Left ventricular hypertrophy with QRS widening Abnormal ECG When compared with ECG of 29-SEP-2022 07:28, Premature ventricular complexes are now Present Confirmed by Billy Garnica ([id number]) on 09/30/2022 11:04:02 AM Referred By: REFERRED SELF Confirmed By:Billy Garnica
[2022-09-30] MEDS ORDERED: SPIRONOLACTONE 25 MG TAB PO STA (12:10)
[2022-09-30] MEDS ORDERED: ASPIRIN 81 MG ECTAB PO STA (12:10)
[2022-09-30] MEDS ORDERED: PANTOprazole 40 MG TAB PO STA (12:10)
[2022-09-30] MEDS ORDERED: ATENOLOL 50 MG TABLET PO STA (12:10)
[2022-09-30] MEDS ORDERED: CLINDAMYCIN HCL 150 MG CAP PO STA (12:10)
[2022-09-30] MEDS ORDERED: ACETAMINOPHEN 500 MG TAB PO STA (12:19)
[2022-09-30] MEDS: MoRPHine SULFATE 2 MG/ML CARP IV PRN ×2 (12:38→19:02)
[2022-09-30] MEDS ORDERED: MoRPHine SULFATE 2 MG/ML CARP IV PRN (13:00)
[2022-09-30] MEDS ORDERED: ONDANSETRON INJ 2 MG/ML 2 ML VIAL IV PRN (13:59)
[2022-09-30] MEDS ORDERED: GABAPENTIN 100 MG CAP PO PRN (13:59)
--- NOTE | 2022-09-30 15:05 | XCELERA ---
[id number] \\[id number]
[2022-09-30] MEDS ORDERED: HEPARIN SOD 5,000 UNIT/0.5 ML VIAL SQ SCH (20:00)
[2022-09-30] MEDS: POLYETHYLENE (MIRALAX) 17 GM PACK PO SCH (20:16)
[2022-09-30] MEDS: ACETAMINOPHEN 500 MG TAB PO SCH (22:30)
[2022-09-30] MEDS ORDERED: COUGH DROP (SUGAR FREE) LOZ 24 LOZ/1 BOX BUCCAL PRN (22:44)
[2022-10-01] MEDS: MoRPHine SULFATE 2 MG/ML CARP IV PRN ×2 (00:53→08:04)
[2022-10-01] MEDS: ACETAMINOPHEN 500 MG TAB PO SCH (06:39)
[2022-10-01] MEDS: HEPARIN SOD 5,000 UNIT/0.5 ML VIAL SQ SCH ×3 (06:39→21:45)
[2022-10-01 07:45] LABS: Hematocrit (blood only) 37.1 % (42.0-52.0); Hemoglobin 13.1 g/dl (14.0-18.0); Mean Corpuscular Hemoglobin 32.9 pg (25.0-34.0); Mean Corpuscular Hgb Conc 35.3 g/dL (32.0-36.0); Mean Corpuscular Volume 93.2 fL (80.0-100.0); Mean Platelet Volume 11.7 fL (9.4-12.4); Platelet Count 218 K/uL (130-400); RDW Standard Deviation 41.5 fL (36.4-46.3); Red Blood Count 3.98 M/uL (4.70-6.10); White Blood Count 12.96 K/ul (4.8-10.8)
[2022-10-01 07:57] LABS: Albumin Globulin Ratio 1.2 (0.9-2); Albumin Level 3.3 gm/dl (3.4-5.0); BUN Creatinine Ratio 21.6 (10-20); Bilirubin,Total 0.6 mg/dl (0.2-1.0); Calcium 8.4 mg/dl (8.6-10.3); Creatinine Clr Calc Pharmacy 72.5 ml/min; Est GFR (African American) 85.1 ml/min; Est GFR (Non-African American) 73.4 ml/min; Globulin 2.7 gm/dl (2.5-4.0); Magnesium 1.9 mg/dl (1.7-2.4); Potassium 4.2 mmol/L (3.5-5.1)
[2022-10-01 08:03] LABS: Troponin I High Sensitivity 9.9 pg/ml (0-20)
[2022-10-01] MEDS: ASPIRIN 81 MG ECTAB PO SCH (08:04)
[2022-10-01] MEDS: SPIRONOLACTONE 25 MG TAB PO SCH (08:04)
[2022-10-01] MEDS: CLINDAMYCIN HCL 150 MG CAP PO SCH (08:04)
[2022-10-01] MEDS: PANTOprazole 40 MG TAB PO SCH (08:04)
[2022-10-01] MEDS: ATENOLOL 50 MG TABLET PO SCH (08:05)
[2022-10-01] MEDS ORDERED: FUROSEMIDE 40 MG TAB PO SCH (09:00)
[2022-10-01] MEDS ORDERED: DOCUSATE SODIUM/SENNA 50/8.6MG TAB PO PRN (09:00)
[2022-10-01] MEDS ORDERED: CLINDAMYCIN 150MG HOME PACK PO SCH (09:00)
--- NOTE | 2022-10-01 12:16 | Hospitalist Progress Note ---
Date of Service October 01, 2022 Assessment & Plan (1) Dyspnea on exertion: Plan: No overt CHF on admission. He does have pulmonary atelectasis. Incentive spirometry ordered. He does have some fluid overload in addition to his other multiple problems. Parenteral Lasix diuresis will probably help. He is on room air. CTA PE protocol neg for PE and pneumonia. (2) Chronic venous stasis: Plan: He has chronic peripheral edema in both lower extremities. Parenteral Lasix therapy may help. Cardiac echo reveals mild LVH with normal ejection fraction. No evidence of congestive heart failure (3) Spinal stenosis, lumbar region without neurogenic claudication: Plan: Multilevel lumbosacral spondylosis per 08/08/22 lumbar spine MRI. He is opioid dependent and oxycodone 10 mg 3 times a day has been restarted. We will use intravenous morphine as needed. (4) Hypertension: Plan: Stable. Continue spironolactone and atenolol (5) Chronic antibiotic suppression: Plan: Reportedly for hx of L prosthetic knee infection. Continue home PO clindamicin. (6) CAD (coronary artery disease): Plan: Status post stents. Stable. Continue aspirin therapy. (7) Depression: Plan: Supportive care. Not on medication. (8) Dyslipidemia: Plan: Stable. Continue statin therapy (9) GERD (gastroesophageal reflux disease): Plan: Stable. Continue PPI therapy (10) Pulmonary atelectasis: Plan: Incentive spirometry. Ambulation (11) Opioid dependence: Plan: Continue oxycodone 10 mg 3 times a day which he takes at home. We will use parenteral morphine as needed for breakthrough pain (12) Fluid overload: Plan: Parenteral Lasix diuresis. Monitor intake and output Plan To be determined. OT and PT evaluations requested and pending. Admission and Anticipated Discharge Date Admission Date: September 30, 2022 Subjective Alert and oriented. Flat affect. He has multiple complaints. No overt CHF but he appears to have fluid overload with leg edema. Cardiac echo reveals normal ejection fraction with mild LVH. No regional wall motion abnormalities. He has been started on parenteral Lasix therapy. He is opioid dependent and usually takes oxycodone 10 mg 3 times a day at home. This has been restarted. Incentive spirometry ordered. Review of Systems Review of Systems: Constitutional-no fever or chills ENT-no blurred vision, no double vision, no epistaxis, no sore throat Respiratory-no cough, no wheezing, no shortness of breath Cardiac-no palpitations, no chest pain, no syncope GI-no nausea, vomiting, diarrhea, melena, hematochezia -no urinary retention, no urinary incontinence, no dysuria, no hematuria Musculoskeletal-bilateral leg edema. Chronic lumbar pain Skin-no bruising, no rashes, no pruritus Neuro-no isolated weakness, no paresthesia, no weakness Psych-chronic depression Physical Exam Physical Exam: General-alert and oriented x3, no fevers, no chills HEENT-head atraumatic and normocephalic, pupils equal and reactive to light, extraocular muscles intact Neck-no lymphadenopathy or thyromegaly, trachea midline Chest-clear to auscultation percussion. No rales wheezing or rhonchi Cardiac-regular rate and rhythm, normal S1 and S2 Abdomen-normal bowel sounds, nontender, no hepatosplenomegaly Extremities-2+ pitting edema below the knees bilaterally. Neuro-cranial nerves II through XII intact, motor and sensory function within normal limits, strength symmetrical , no focal deficits Psych-depressed affect Results & Data Results & Data Vital Signs (Past 12 Hours) Vital Signs Temp Pulse Resp BP BP Pulse Ox O2 Del Method 10/01/22 11:22 36.4 C L 58 L 18 116/69 96 Room Air 10/01/22 08:30 Room Air 10/01/22 07:24 36.7 C 60 16 146/76 H 97 Room Air 10/01/22 02:59 36.5 C 56 L 18 156/76 H 95 Room Air Laboratory Results 10/01/22 06:52 10/01/22 06:52 PG Care Time/CCT Total # of Minutes Spent Total Time Spent with Patient: Total time spent is greater than 50% in coordination of care (as documented) at patient's floor/unit and/or counseling patient: Coding Level of Care Code 36606 SUB INP/OBS CARE 3/50MIN Diagnoses Dyspnea on exertion R06.09 Chronic venous stasis I87.8 Spinal stenosis, lumbar region without neurogenic claudication M48.061 Hypertension I10 Chronic antibiotic suppression Z79.2 CAD (coronary artery disease) I25.10 Depression F32.9 Dyslipidemia E78.5 GERD (gastroesophageal reflux disease) K21.9 Pulmonary atelectasis J98.11 Opioid dependence F11.20 Fluid overload E87.70
[2022-10-01] MEDS: FUROSEMIDE 40 MG/4 ML VIAL IV SCH ×2 (12:17→20:38)
[2022-10-01] MEDS: ROSUVASTATIN CALCIUM 5 MG TAB PO SCH (12:17)
[2022-10-01] MEDS: oxyCODONE HCL IR 5 MG TAB (IMMEDIATE RELEASE) PO SCH ×2 (13:48→20:37)
[2022-10-01] MEDS: GABAPENTIN 100 MG CAP PO SCH ×2 (13:49→20:38)
[2022-10-01] MEDS: POLYETHYLENE (MIRALAX) 17 GM PACK PO SCH (20:38)
[2022-10-01] MEDS: MELATONIN 3 MG TAB PO PRN (21:44)
[2022-10-02] MEDS: MoRPHine SULFATE 2 MG/ML CARP IV PRN (04:58)
[2022-10-02] MEDS: HEPARIN SOD 5,000 UNIT/0.5 ML VIAL SQ SCH ×3 (05:04→21:37)
[2022-10-02 07:32] LABS: Basophils # (auto) 0.06 K/uL (0-0.2); Basophils % (auto) 0.5 %; Eosinophils # (auto) 0.21 K/uL (0-0.50); Eosinophils % (auto) 1.9 %; Hematocrit (blood only) 36.6 % (42.0-52.0); Hemoglobin 12.7 g/dl (14.0-18.0); Immature Granulocytes # (auto) 0.15 K/uL (0.01-0.20); Immature Granulocytes % (auto) 1.3 %; Lymphocytes # (auto) 2.55 K/uL (1.2-3.4); Lymphocytes % (auto) 22.6 %; Mean Corpuscular Hemoglobin 33.1 pg (25.0-34.0); Mean Corpuscular Hgb Conc 34.7 g/dL (32.0-36.0); Mean Corpuscular Volume 95.3 fL (80.0-100.0); Mean Platelet Volume 11.3 fL (9.4-12.4); Monocytes # (auto) 0.98 K/uL (0.11-0.59); Monocytes % (auto) 8.7 %; Neutrophils # (auto) 7.32 K/uL (1.40-6.50); Platelet Count 213 K/uL (130-400); RDW Coefficient of Variation 12.4 % (11.5-14.5); Red Blood Count 3.84 M/uL (4.70-6.10); White Blood Count 11.27 K/ul (4.8-10.8)
[2022-10-02 08:09] LABS: BUN Creatinine Ratio 24.8 (10-20); Blood Urea Nitrogen 28 mg/dl (6-23); Calcium 8.2 mg/dl (8.6-10.3); Carbon Dioxide 28 mmol/L (21-32); Chloride 99 mmol/L (98-107); Creatinine Clr Calc Pharmacy 62.1 ml/min; Est GFR (African American) 70.8 ml/min; Est GFR (Non-African American) 61.1 ml/min; Glucose 94 mg/dl (70-99(Fasting))
[2022-10-02] MEDS: GABAPENTIN 100 MG CAP PO SCH ×3 (08:14→21:40)
[2022-10-02] MEDS: CLINDAMYCIN HCL 150 MG CAP PO SCH (08:14)
[2022-10-02] MEDS: ASPIRIN 81 MG ECTAB PO SCH (08:15)
[2022-10-02] MEDS: ATENOLOL 50 MG TABLET PO SCH (08:15)
[2022-10-02] MEDS: PANTOprazole 40 MG TAB PO SCH (08:16)
[2022-10-02] MEDS: SPIRONOLACTONE 25 MG TAB PO SCH (08:16)
[2022-10-02 09:00] LABS: Potassium 4.1 mmol/L (3.5-5.1)
[2022-10-02] MEDS: FUROSEMIDE 40 MG/4 ML VIAL IV SCH ×3 (09:13→21:42)
[2022-10-02] MEDS: oxyCODONE HCL IR 5 MG TAB (IMMEDIATE RELEASE) PO SCH ×3 (09:13→21:36)
--- NOTE | 2022-10-02 13:59 | Hospitalist Progress Note ---
Date of Service October 02, 2022 Assessment & Plan (1) Dyspnea on exertion: Plan: No overt CHF on admission. He does have pulmonary atelectasis. Incentive spirometry ordered. He does have some fluid overload in addition to his other multiple problems. Parenteral Lasix diuresis has helped. He is on room air. CTA PE protocol neg for PE and pneumonia. (2) Chronic venous stasis: Plan: He has chronic peripheral edema in both lower extremities. Parenteral Lasix therapy has helped. Cardiac echo reveals mild LVH with normal ejection fraction. No evidence of congestive heart failure (3) Spinal stenosis, lumbar region without neurogenic claudication: Plan: Multilevel lumbosacral spondylosis per 08/08/22 lumbar spine MRI. He is opioid dependent and oxycodone 10 mg 3 times a day has been restarted. We will use intravenous morphine as needed. (4) Hypertension: Plan: Stable. Continue spironolactone and atenolol (5) Chronic antibiotic suppression: Plan: Reportedly for hx of L prosthetic knee infection. Continue home PO clindamicin. (6) CAD (coronary artery disease): Plan: Status post stents. Stable. Continue aspirin therapy. (7) Depression: Plan: Supportive care. Not on medication. (8) Dyslipidemia: Plan: Stable. Continue statin therapy (9) GERD (gastroesophageal reflux disease): Plan: Stable. Continue PPI therapy (10) Pulmonary atelectasis: Plan: Incentive spirometry. Ambulation (11) Opioid dependence: Plan: Continue oxycodone 10 mg 3 times a day which he takes at home. We will use parenteral morphine as needed for breakthrough pain (12) Fluid overload: Plan: Parenteral Lasix diuresis. Monitor intake and output Plan Anticipate discharge to home tomorrow, October 03, with home health services Admission and Anticipated Discharge Date Admission Date: October 02, 2022 Subjective Alert and oriented. No distress. He remains on room air. Anticipate discharge home tomorrow, October 03, with home health services Review of Systems Review of Systems: Constitutional-no fever or chills ENT-no blurred vision, no double vision, no epistaxis, no sore throat Respiratory-no cough, no wheezing, no shortness of breath Cardiac-no palpitations, no chest pain, no syncope GI-no nausea, vomiting, diarrhea, melena, hematochezia -no urinary retention, no urinary incontinence, no dysuria, no hematuria Musculoskeletal-bilateral leg edema. Chronic lumbar pain Skin-no bruising, no rashes, no pruritus Neuro-no isolated weakness, no paresthesia, no weakness Psych-chronic depression Physical Exam Physical Exam: General-alert and oriented x3, no fevers, no chills HEENT-head atraumatic and normocephalic, pupils equal and reactive to light, extraocular muscles intact Neck-no lymphadenopathy or thyromegaly, trachea midline Chest-clear to auscultation percussion. No rales wheezing or rhonchi Cardiac-regular rate and rhythm, normal S1 and S2 Abdomen-normal bowel sounds, nontender, no hepatosplenomegaly Extremities-2+ pitting edema below the knees bilaterally. Neuro-cranial nerves II through XII intact, motor and sensory function within normal limits, strength symmetrical , no focal deficits Psych-depressed affect Results & Data Results & Data Vital Signs (Past 12 Hours) Vital Signs Temp Pulse Pulse Resp BP Pulse Ox O2 Del Method 10/02/22 11:01 36.5 C 54 L 16 121/70 96 Room Air 10/02/22 08:00 Room Air 10/02/22 07:00 55 L 10/02/22 07:21 36.7 C 56 L 16 135/71 96 Room Air 10/02/22 03:41 36.7 C 76 18 151/83 H 94 Room Air Laboratory Results 10/02/22 06:52 10/02/22 08:24 PG Care Time/CCT Total # of Minutes Spent Total Time Spent with Patient: Total time spent is greater than 50% in coordination of care (as documented) at patient's floor/unit and/or counseling patient: Coding Level of Care Code 10825 SUB INP/OBS CARE 2/35MIN Diagnoses Dyspnea on exertion R06.09 Chronic venous stasis I87.8 Spinal stenosis, lumbar region without neurogenic claudication M48.061 Hypertension I10 Chronic antibiotic suppression Z79.2 CAD (coronary artery disease) I25.10 Depression F32.9 Dyslipidemia E78.5 GERD (gastroesophageal reflux disease) K21.9 Pulmonary atelectasis J98.11 Opioid dependence F11.20 Fluid overload E87.70
[2022-10-02] MEDS: MELATONIN 3 MG TAB PO PRN (21:36)
[2022-10-02] MEDS: POLYETHYLENE (MIRALAX) 17 GM PACK PO SCH (21:36)
[2022-10-03] MEDS: MoRPHine SULFATE 2 MG/ML CARP IV PRN ×2 (04:21→16:30)
[2022-10-03] MEDS: HEPARIN SOD 5,000 UNIT/0.5 ML VIAL SQ SCH ×2 (05:42→14:51)
[2022-10-03 07:37] LABS: Basophils # (auto) 0.04 K/uL (0-0.2); Basophils % (auto) 0.4 %; Eosinophils # (auto) 0.29 K/uL (0-0.50); Eosinophils % (auto) 2.9 %; Hematocrit (blood only) 37.7 % (42.0-52.0); Immature Granulocytes # (auto) 0.12 K/uL (0.01-0.20); Immature Granulocytes % (auto) 1.2 %; Lymphocytes # (auto) 2.19 K/uL (1.2-3.4); Lymphocytes % (auto) 21.7 %; Mean Corpuscular Hemoglobin 32.9 pg (25.0-34.0); Mean Corpuscular Hgb Conc 34.5 g/dL (32.0-36.0); Mean Corpuscular Volume 95.4 fL (80.0-100.0); Mean Platelet Volume 11.2 fL (9.4-12.4); Monocytes # (auto) 0.94 K/uL (0.11-0.59); Monocytes % (auto) 9.3 %; Neutrophils # (auto) 6.51 K/uL (1.40-6.50); Neutrophils % (auto) 64.5 %; Platelet Count 197 K/uL (130-400); RDW Coefficient of Variation 12.1 % (11.5-14.5); RDW Standard Deviation 42.2 fL (36.4-46.3); Red Blood Count 3.95 M/uL (4.70-6.10); White Blood Count 10.09 K/ul (4.8-10.8)
[2022-10-03 08:29] LABS: BUN Creatinine Ratio 28.1 (10-20); Calcium 8.3 mg/dl (8.6-10.3); Est GFR (African American) 86.2 ml/min; Est GFR (Non-African American) 74.4 ml/min; Potassium 4.3 mmol/L (3.5-5.1)
[2022-10-03] MEDS: GABAPENTIN 100 MG CAP PO SCH ×2 (09:41→14:51)
[2022-10-03] MEDS: oxyCODONE HCL IR 5 MG TAB (IMMEDIATE RELEASE) PO SCH ×2 (09:41→14:51)
[2022-10-03] MEDS: SPIRONOLACTONE 25 MG TAB PO SCH (09:41)
[2022-10-03] MEDS: FUROSEMIDE 40 MG/4 ML VIAL IV SCH (09:42)
[2022-10-03] MEDS: PANTOprazole 40 MG TAB PO SCH (09:42)
[2022-10-03] MEDS: ASPIRIN 81 MG ECTAB PO SCH (09:42)
[2022-10-03] MEDS: CLINDAMYCIN HCL 150 MG CAP PO SCH (09:42)
[2022-10-03] MEDS: ATENOLOL 50 MG TABLET PO SCH (09:42)
--- NOTE | 2022-10-03 11:26 | Discharge Summary ---
Date of Service October 03, 2022 Admission HPI Per Admitting Provider 81-year-old male with past medical history of chronic low back pain from spinal stenosis w/ occasional radiculopathy, chronic venous stasis, chronic opiate use, depression, GERD, chronic cough, Whipple procedure, HLD, CAD s/p stents, and PAD who presents for 2 weeks of dyspnea on exertion, intractable chronic low back pain, fatigue, and generalized weakness. He was seen in the ED on 09/29 for these symptoms, and returned the following day for exacerbation of the symptoms overnight. For the past 2-3 days, there has been nausea and more malaise. For the 2 weeks of, dyspnea on exertion, he describes as becoming very winded after getting up to walk and sitting down. Not orthopneic. Chills and fatigue x 2 months. Was switched from hydrocodone 1 month ago to oxycodone for better relief; as of recently, also not providing as much relief. He states he is [place] [facility] [place]ett[place]. Mild cough and moderate MALHOTRA assoc w/ the nausea/back pain. No diarrhea, dysuria, or paresthesias. Current pain level 6-7, was 8-9 on the oxycodone at home. Not on anticoag or plavix. on baby ASa. Last took medications yesterday afternoon. No recent constipation, though has had issues in past Last BM this AM, goes every other day. No bloody stool or melena. There is an element of medication partial nonadherence. Patient states he takes chronic prednisone 10mg on average every other day for a year for bronchitis and facial condition. This in in contrast to records which state the recent course is for his back pain. Per pharmacy, 12 day taper in July, and 5 day burst on 09/18/22 were the only recent fills. He is prescribed prn lasix 40mg PO qam PRN. In the past 2 weeks, he states he has been taking 2x40mg tablets a day at once for swelling in his legs. He states his swelling has been at baseline and he did not up the dose because of a perceived increase. Per ED staff, there is possible concern of ambulatory dysfunction at home. ED course: Methylpred 40 IV, Benadryl IV, morphine, Zofran, NSS 500 ml. CTA neg for PE. Principal Diagnosis Dyspnea on exertion, pulmonary atelectasis, bilateral leg edema Discharge Exam General-alert and oriented x3, no fevers, no chills HEENT-head atraumatic and normocephalic, pupils equal and reactive to light, extraocular muscles intact Neck-no lymphadenopathy or thyromegaly, trachea midline Chest-clear to auscultation percussion. No rales wheezing or rhonchi Cardiac-regular rate and rhythm, normal S1 and S2 Abdomen-normal bowel sounds, nontender, no hepatosplenomegaly Extremities-1+ pitting edema below the knees bilaterally. Neuro-cranial nerves II through XII intact, motor and sensory function within normal limits, strength symmetrical , no focal deficits Psych-depressed affect Discharge Data Allergies Allergy/AdvReac Type Severity Reaction Status Date / Time oyster extract Allergy Intermediate hives Verified 09/25/22 08:31 shellfish derived Allergy Intermediate Hives Verified 09/25/22 08:31 azithromycin Allergy Mild Rash Verified 09/25/22 08:31 levofloxacin [From Levaquin] Allergy Mild rash Verified 09/25/22 08:31 Sulfa (Sulfonamide Allergy Mild hives Verified 09/25/22 08:31 Antibiotics) sulfamethoxazole Allergy Mild hives Verified 09/25/22 08:31 trimethoprim Allergy Mild hives Verified 09/25/22 08:31 atorvastatin Allergy Unknown UNKNOWN Verified 09/25/22 08:31 morphine Allergy Unknown UNKNOWN Verified 09/25/22 08:31 pravastatin Allergy Unknown UNKNOWN Verified 09/25/22 08:31 simvastatin Allergy Unknown UNKNOWN Verified 09/25/22 08:31 oxycodone AdvReac Mild vomiting Verified 09/25/22 08:31 Consultations 09/30/22 10:07 ED Decision to Admit Stat Ordered Studies 09/30/22 08:14 CT angio chest PE protocol Stat Hospital Course (1) Dyspnea on exertion: No overt CHF on admission. He does have pulmonary atelectasis. Incentive spirometry ordered. He does have some fluid overload in addition to his other multiple problems. Parenteral Lasix diuresis has helped. He is on room air. CTA PE protocol neg for PE and pneumonia. He will be discharged on oral Lasix (2) Chronic venous stasis: He has chronic peripheral edema in both lower extremities. Parenteral Lasix therapy has helped. Cardiac echo reveals mild LVH with normal ejection fraction. No evidence of congestive heart failure (3) Spinal stenosis, lumbar region without neurogenic claudication: Multilevel lumbosacral spondylosis per 08/08/22 lumbar spine MRI. He is opioid dependent and oxycodone 10 mg 3 times a day has been restarted. We will use intravenous morphine as needed. (4) Hypertension: Stable. Continue spironolactone and atenolol (5) Chronic antibiotic suppression: Reportedly for hx of L prosthetic knee infection. Continue home PO clindamicin. (6) CAD (coronary artery disease): Status post stents. Stable. Continue aspirin therapy. (7) Depression: Supportive care. Not on medication. (8) Dyslipidemia: Stable. Continue statin therapy (9) GERD (gastroesophageal reflux disease): Stable. Continue PPI therapy (10) Pulmonary atelectasis: Incentive spirometry. Ambulation (11) Opioid dependence: Continue oxycodone 10 mg 3 times a day which he takes at home. We will use parenteral morphine as needed for breakthrough pain (12) Fluid overload: Parenteral Lasix diuresis. Monitor intake and output. Continue oral Lasix at Plan Home today with home health services, October 03 Total Time Total Time Spent Total Time Spent (In Minutes): 40 minutes Discharge Plan Discharge Items Patient Disposition: Home - Home Health Services Reason For Visit: NAUSEA, WEAKNESS Discharge Diagnosis: Dyspnea on exertion, pulmonary atelectasis, bilateral leg edema Activity: Resume your previous activity Non-emergency contact: Primary Care Provider Call non-emergency contact if: you have any medication questions Follow-up/Referrals: Anita Wang MD [Primary Care Provider] - Diet: Regular and Heart Healthy Addtl Attending Provider Instructions: Take Lasix 40 mg twice daily for fluid retention. Consider wearing compression stockings on both legs below the knees Pending Studies at Discharge: No Stand-Alone Forms: My [employer], Smoking Cessation Medications and DC Order Prescriptions: New furosemide [Lasix] 40 mg tablet 40 mg PO BID Qty: 60 0RF potassium chloride 10 mEq capsule, extended release 10 meq PO DAILY Qty: 30 0RF Continued nitroglycerin 0.4 mg tablet, sublingual 0.4 mg SL Q5M PRN (Reason: chest pain) Qty: 30 3RF rosuvastatin 5 mg tablet 2.5 mg PO 3XWK Qty: 60 3RF Rx Instructions: 2.5 mg PO M,W,F; furosemide 40 mg tablet 40 mg PO DAILY PRN (Reason: edema) Qty: 90 1RF omeprazole 20 mg capsule,delayed release(DR/EC) 20 mg PO QDL Qty: 90 1RF oxycodone 10 mg tablet 10 mg PO TID PRN (Reason: pain) Qty: 30 0RF acetaminophen [Tylenol Extra Strength] 500 mg tablet 1,000 mg PO Q8H PRN (Reason: Pain) polyethylene glycol 3350 [Miralax] 17 gram/dose powder 17 g PO BID clindamycin HCl 150 mg capsule 150 mg PO DAILY spironolactone 25 mg tablet 25 mg PO DAILY atenolol 100 mg tablet 50 mg PO DAILY aspirin 81 mg tablet 81 mg PO QDL cholecalciferol (vitamin D3) 25 mcg (1,000 unit) capsule 1,000 unit PO DAILY calcium carbonate [Calcium 500] 500 mg calcium (1,250 mg) tablet 500 mg PO DAILY senna-docusate sodium Capsule 1 cap PO DAILY Rx Instructions: May take 2 capsules by mouth a day as needed gabapentin 100 mg capsule 100 mg PO Q8H PRN (Reason: pain) Qty: 20 0RF Discharge Orders: Discharge Order (Routine); Ordered 10/03/22 Ordered By: Stef Mcbride Admission Data Admit Date/Time: 10/02/22 12:27 Attending Provider: Stef Mcbride Admit Provider: Mook Bailey Primary Care Provider: Anita Wang Other Providers: David Kilpatrick ; [facility],Home Health Coding Level of Care Code 31644 INP/OBS DISCH >30 MIN Diagnoses Dyspnea on exertion R06.09 Chronic venous stasis I87.8 Spinal stenosis, lumbar region without neurogenic claudication M48.061 Hypertension I10 Chronic antibiotic suppression Z79.2 CAD (coronary artery disease) I25.10 Depression F32.9 Dyslipidemia E78.5 GERD (gastroesophageal reflux disease) K21.9 Pulmonary atelectasis J98.11 Opioid dependence F11.20 Fluid overload E87.70
--- NOTE | 2022-10-03 12:38 | Discharge Summary ---
Date of Service October 03, 2022 Admission HPI Per Admitting Provider 81-year-old male with past medical history of chronic low back pain from spinal stenosis w/ occasional radiculopathy, chronic venous stasis, chronic opiate use, depression, GERD, chronic cough, Whipple procedure, HLD, CAD s/p stents, and PAD who presents for 2 weeks of dyspnea on exertion, intractable chronic low back pain, fatigue, and generalized weakness. He was seen in the ED on 09/29 for these symptoms, and returned the following day for exacerbation of the symptoms overnight. For the past 2-3 days, there has been nausea and more malaise. For the 2 weeks of, dyspnea on exertion, he describes as becoming very winded after getting up to walk and sitting down. Not orthopneic. Chills and fatigue x 2 months. Was switched from hydrocodone 1 month ago to oxycodone for better relief; as of recently, also not providing as much relief. He states he is scheduled to have lumbar spine surgery at [facility] [place] with Dr. Pettit on 10/13/22. Mild cough and moderate MALHOTRA assoc w/ the nausea/back pain. No diarrhea, dysuria, or paresthesias. Current pain level 6-7, was 8-9 on the oxycodone at home. Not on anticoag or plavix. on baby ASa. Last took medications yesterday afternoon. No recent constipation, though has had issues in past Last BM this AM, goes every other day. No bloody stool or melena. There is an element of medication partial nonadherence. Patient states he takes chronic prednisone 10mg on average every other day for a year for bronchitis and facial condition. This in in contrast to records which state the recent course is for his back pain. Per pharmacy, 12 day taper in July, and 5 day burst on 09/18/22 were the only recent fills. He is prescribed prn lasix 40mg PO qam PRN. In the past 2 weeks, he states he has been taking 2x40mg tablets a day at once for swelling in his legs. He states his swelling has been at baseline and he did not up the dose because of a perceived increase. Per ED staff, there is possible concern of ambulatory dysfunction at home. ED course: Methylpred 40 IV, Benadryl IV, morphine, Zofran, NSS 500 ml. CTA neg for PE. Principal Diagnosis Dyspnea on exertion, pulmonary atelectasis, bilateral leg edema Discharge Data Allergies Allergy/AdvReac Type Severity Reaction Status Date / Time oyster extract Allergy Intermediate hives Verified 09/25/22 08:31 shellfish derived Allergy Intermediate Hives Verified 09/25/22 08:31 azithromycin Allergy Mild Rash Verified 09/25/22 08:31 levofloxacin [From Levaquin] Allergy Mild rash Verified 09/25/22 08:31 Sulfa (Sulfonamide Allergy Mild hives Verified 09/25/22 08:31 Antibiotics) sulfamethoxazole Allergy Mild hives Verified 09/25/22 08:31 trimethoprim Allergy Mild hives Verified 09/25/22 08:31 atorvastatin Allergy Unknown UNKNOWN Verified 09/25/22 08:31 morphine Allergy Unknown UNKNOWN Verified 09/25/22 08:31 pravastatin Allergy Unknown UNKNOWN Verified 09/25/22 08:31 simvastatin Allergy Unknown UNKNOWN Verified 09/25/22 08:31 oxycodone AdvReac Mild vomiting Verified 09/25/22 08:31 Consultations 09/30/22 10:07 ED Decision to Admit Stat Ordered Studies 09/30/22 08:14 CT angio chest PE protocol Stat Total Time Total Time Spent Total Time Spent (In Minutes): 45 minutes Discharge Plan Discharge Items Patient Disposition: Home - Home Health Services Reason For Visit: NAUSEA, WEAKNESS Discharge Diagnosis: Dyspnea on exertion, pulmonary atelectasis, bilateral leg edema Activity: Resume your previous activity Non-emergency contact: Primary Care Provider Call non-emergency contact if: you have any medication questions Follow-up/Referrals: Anita Wang MD [Primary Care Provider] - 10/10/22 11:30 am Diet: Regular and Heart Healthy Addtl Attending Provider Instructions: Take Lasix 40 mg twice daily for fluid retention. Consider wearing compression stockings on both legs below the knees Pending Studies at Discharge: No Stand-Alone Forms: My [employer], Smoking Cessation Medications and DC Order Prescriptions: New furosemide [Lasix] 40 mg tablet 40 mg PO BID Qty: 60 0RF potassium chloride 10 mEq capsule, extended release 10 meq PO DAILY Qty: 30 0RF lorazepam 0.5 mg tablet 0.5 mg PO Q6H PRN (Reason: anxiety) Qty: 20 0RF oxycodone 5 mg tablet 5 mg PO Q6H PRN (Reason: pain) Qty: 14 0RF Continued nitroglycerin 0.4 mg tablet, sublingual 0.4 mg SL Q5M PRN (Reason: chest pain) Qty: 30 3RF rosuvastatin 5 mg tablet 2.5 mg PO 3XWK Qty: 60 3RF Rx Instructions: 2.5 mg PO M,W,F; furosemide 40 mg tablet 40 mg PO DAILY PRN (Reason: edema) Qty: 90 1RF omeprazole 20 mg capsule,delayed release(DR/EC) 20 mg PO QDL Qty: 90 1RF oxycodone 10 mg tablet 10 mg PO TID PRN (Reason: pain) Qty: 30 0RF acetaminophen [Tylenol Extra Strength] 500 mg tablet 1,000 mg PO Q8H PRN (Reason: Pain) polyethylene glycol 3350 [Miralax] 17 gram/dose powder 17 g PO BID clindamycin HCl 150 mg capsule 150 mg PO DAILY spironolactone 25 mg tablet 25 mg PO DAILY atenolol 100 mg tablet 50 mg PO DAILY aspirin 81 mg tablet 81 mg PO QDL cholecalciferol (vitamin D3) 25 mcg (1,000 unit) capsule 1,000 unit PO DAILY calcium carbonate [Calcium 500] 500 mg calcium (1,250 mg) tablet 500 mg PO DAILY senna-docusate sodium Capsule 1 cap PO DAILY Rx Instructions: May take 2 capsules by mouth a day as needed gabapentin 100 mg capsule 100 mg PO Q8H PRN (Reason: pain) Qty: 20 0RF Discharge Orders: Discharge Order (Routine); Ordered 10/03/22 Ordered By: Stef Mcbride Admission Data Admit Date/Time: 10/02/22 12:27 Attending Provider: Stef Mcbride Admit Provider: Mook Bailey Primary Care Provider: Anita Wang Other Providers: David Kilpatrick ; [facility],Home Health Coding Level of Care Code 62732 INP/OBS DISCH >30 MIN Diagnoses
[2022-10-03] MEDS: ROSUVASTATIN CALCIUM 5 MG TAB PO SCH (12:48)
== END 2022-10-03 17:12 | disposition home health service (06) | DRG 641 ==
LOC: ED 06:10 → 2N 06:10 → SUATTDRO 12:09 → 2N 13:05

== ENCOUNTER 2022-11-29 09:49 | Inpatient (IN) ==
[2022-11-29] MEDS ORDERED: SODIUM CHLORIDE 0.9% 500 ML IV SCH (11:15)
[2022-11-29] MEDS ORDERED: SODIUM CHLORIDE 0.9% 1,000 ML IV SCH (11:15)
[2022-11-29 11:29] LABS: Appearance Urine Cloudy (Clear); Bacteria Urine Automated Negative (Negative); Bilirubin Urine Negative (Negative); Blood Urine Trace (Negative); Cast Urine Automated 0 /lpf (0-5); Color Urine Dark Yellow; Glucose Urine UA Negative (Negative); Ketones Urine Trace (Negative); Leukocyte Esterase Urine 2+ (Negative); Nitrite Urine Negative (Negative); Protein Urine 1+ (Negative); RBC Urine Automated 0-4 /hpf (0-4); Specific Gravity Urine 1.024 (1.000-1.030); Urobilinogen Urine Negative (Negative); WBC Urine Automated >30 /hpf (0-5)
[2022-11-29 11:31] LABS: Basophils # (auto) 0.05 K/uL (0.00-0.20); Basophils % (auto) 0.6 %; Eosinophils # (auto) 0.42 K/uL (0.00-0.50); Eosinophils % (auto) 4.6 %; Hematocrit (blood only) 37.5 % (42.0-52.0); Hemoglobin 12.6 g/dl (14.0-18.0); Immature Granulocytes # (auto) 0.03 K/uL (0.01-0.20); Immature Granulocytes % (auto) 0.3 %; Lymphocytes # (auto) 1.52 K/uL (1.20-3.40); Lymphocytes % (auto) 16.8 %; Mean Corpuscular Hemoglobin 32.6 pg (25.0-34.0); Mean Corpuscular Hgb Conc 33.6 g/dL (32.0-36.0); Mean Corpuscular Volume 96.9 fL (80.0-100.0); Monocytes # (auto) 0.73 K/uL (0.11-0.59); Monocytes % (auto) 8.1 %; Neutrophils % (auto) 69.6 %; Platelet Count 275 K/uL (130-400); RDW Coefficient of Variation 12.7 % (11.5-14.5); RDW Standard Deviation 45.2 fL (36.4-46.3); Red Blood Count 3.87 M/uL (4.70-6.10); White Blood Count 9.05 K/ul (4.8-10.8)
[2022-11-29 11:34] LABS: Albumin Globulin Ratio 1.2 (0.9-2); Albumin Level 3.5 gm/dl (3.4-5.0); BUN Creatinine Ratio 22.5 (10-20); Bilirubin,Total 0.6 mg/dl (0.2-1.0); Calcium 8.6 mg/dl (8.6-10.3); Creatinine Clr Calc Pharmacy 89.3 ml/min; Est GFR (African American) 97.1 ml/min; Est GFR (Non-African American) 83.8 ml/min; Magnesium 1.7 mg/dl (1.7-2.4); Potassium 4.2 mmol/L (3.5-5.1); Total Protein 6.5 gm/dl (6.0-8.3)
[2022-11-29 11:40] LABS: Troponin I High Sensitivity 9.1 pg/ml (0-20)
--- NOTE | 2022-11-29 11:50 | XRay Report ---
XR chest 1V portable CLINICAL HISTORY: weakness COMPARISON STUDY: Chest radiograph and chest CT September 30, 2022. FINDINGS: Elevation of the right hemidiaphragm is unchanged. There is no pneumothorax or pleural effu kem. No consolidation to suggest pneumonia. Bibasilar opacities favor atelectasis. Cardiomediastinal silhouette is stable. No evidence for pulmonary edema. IMPRESSION: 1. Bibasilar opacities suggestive of atelectasis. 2. No acute cardiopulmonary findings. ACT 112: Negative or not required by law. Electronically signed by: Holden Menendez M.D. 11/29/2022 11:48 AM
--- NOTE | 2022-11-29 12:19 | CT Scan Report ---
CT OF THE ABDOMEN AND PELVIS WITHOUT CONTRAST CLINICAL HISTORY: abdominal pain, urinary issues, constipation COMPARISON STUDY: CT of the abdomen and pelvis April 21, 2010. KUB July 30, 2022. TECHNIQUE: Axial images of the abdomen and pelvis were obtained without IV contrast. Images were revi ewed in the axial, sagittal, and coronal planes. Automated exposure control was utilized for the filippo dy. A dose lowering technique was utilized adhering to the principles of ALARA. FINDINGS: A few subpleural left lower lobe nodules are unchanged since CT of April 21, 2010. These are benign. Right lower lobe opacities favor atelectasis. There is no pneumatosis, free air or portal venous gas. Evaluation of the remainder of the abdomen and pelvis is suboptimal on this unenhanced e xam. Unenhanced images of the liver, spleen, adrenal glands and pancreas are unremarkable. A pancreat ic stent is in place. There is no biliary ductal dilatation status post cholecystectomy. There is no peripancreatic fluid or stranding. There is no hydronephrosis. Mild renal cortical thinning is presen t. There are no urinary calculi. Water attenuation 2.5 cm right renal lesion favors a cyst. There is no evidence for a bowel obstruction. Mild to moderate amount of stool within the rectum and right col on is noted. There is colonic diverticulosis without evidence for acute diverticulitis. There is no l ymphadenopathy. No ascites. No fluid collections. No acute fractures within the visualized skeletal s tructures. The appendix is normal. Postoperative findings within the lumbar spine consistent with L2- L5 posterior decompression are noted. IMPRESSION: 1. No urinary calculi or hydronephrosis. 2. No acute process within the abdomen or pelvis on unenhanced exam. 3. Colonic diverticulosis. No evidence for acute diverticulitis. 4. Rmhl-ba-[id number] amount of stool within the right colon and rectum. ACT 112: Negative or not required by law. Electronically signed by: Holden Menendez M.D. 11/29/2022 12:17 PM
[2022-11-29] MEDS ORDERED: cefTRIAXone SODIUM 2,000 MG/70 ML BAG IV STA (12:35)
[2022-11-29] MEDS ORDERED: ONDANSETRON INJ 2 MG/ML 2 ML VIAL IV STA (12:38)
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
[2022-11-29] MEDS ORDERED: oxyCODONE HCL IR 5 MG TAB (IMMEDIATE RELEASE) PO STA (13:32)
[2022-11-29] MEDS ORDERED: ASPIRIN 81 MG ECTAB PO STA (13:37)
[2022-11-29] MEDS ORDERED: ATENOLOL 50 MG TABLET PO ONE (13:45)
[2022-11-29] MEDS ORDERED: BETAMETHASONE DIP AUG (DIPROLENE) 0.05% CR 15 GM TUBE EXT PRN (13:59)
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
[2022-11-29] MEDS: ADVANCED PROBIOTIC 1250 MG CAPSULE PO SCH (16:11)
[2022-11-29] MEDS: ENOXAPARIN INJ 40 MG/0.4 ML SYR SQ SCH (16:11)
[2022-11-29] MEDS: ACETAMINOPHEN 325 MG TAB PO PRN ×2 (16:35→19:33)
[2022-11-29] MEDS: GABAPENTIN 100 MG CAP PO PRN (17:15)
--- NOTE | 2022-11-29 17:34 | Electrocardiogram Report ---
Test Reason : Blood Pressure : / mmHG Vent. Rate : 061 BPM Atrial Rate : 061 BPM P-R Int : 190 ms QRS Dur : 100 ms QT Int : 416 ms P-R-T Axes : 024 -27 018 degrees QTc Int : 418 ms Normal sinus rhythm Normal ECG When compared with ECG of 30-SEP-2022 07:29, Premature ventricular complexes are no longer Present Minimal criteria for Anterior infarct are no longer Present Confirmed by Mahesh Jo ([id number]) on 11/29/2022 5:34:13 PM Referred By: REFERRED SELF Confirmed By:Jacobo Jo
[2022-11-29] MEDS ORDERED: LIDOCAINE 5% 1 PATCH TD STA (19:31)
[2022-11-29] MEDS: oxyCODONE HCL IR 5 MG TAB (IMMEDIATE RELEASE) PO PRN (21:28)
[2022-11-29] MEDS: POLYETHYLENE (MIRALAX) 17 GM PACK PO SCH (21:29)
[2022-11-29] MEDS ORDERED: Nursing to Pharmacy Communication SCH (22:00)
--- NOTE | 2022-11-29 22:20 | Ultrasound Report ---
Exam(s): US VENOUS RIGHT LOWER EXTREMITY EXAM: US Duplex Right Lower Extremity Veins CLINICAL HISTORY: Reason for exam: RLE swelling, rule out DVT. TECHNIQUE: Real-time duplex ultrasound scan of the right lower extremity veins integrating B-mode two-dimensional vascular structure, Doppler spectral analysis, color flow Doppler imaging and compression. COMPARISON: 10/14/2021 FINDINGS: Deep veins: Unremarkable. No DVT in the visualized common femoral, femoral, proximal deep femoral or popliteal veins. The veins demonstrate normal color flow, are normally compressible, with normal phasic flow and/or augmentation response. Superficial veins: Unremarkable. No thrombus in the visualized great saphenous vein. Soft tissues: Right calf soft tissue edema. No popliteal cyst. IMPRESSION: No deep venous thrombosis identified in the right lower extremity. Electronically signed by: July Cardona M.D. 11/29/22 22:19 PM
[2022-11-30] MEDS: ACETAMINOPHEN 325 MG TAB PO PRN ×4 (01:40→22:39)
[2022-11-30] MEDS: ONDANSETRON INJ 2 MG/ML 2 ML VIAL IV PRN ×3 (03:16→17:12)
[2022-11-30] MEDS: GABAPENTIN 100 MG CAP PO PRN ×2 (04:22→22:39)
[2022-11-30] MEDS: oxyCODONE HCL IR 5 MG TAB (IMMEDIATE RELEASE) PO PRN ×2 (05:29→17:18)
[2022-11-30 06:11] LABS: Basophils # (auto) 0.03 K/uL (0.00-0.20); Basophils % (auto) 0.5 %; Eosinophils # (auto) 0.59 K/uL (0.00-0.50); Eosinophils % (auto) 9.5 %; Hematocrit (blood only) 33.6 % (42.0-52.0); Hemoglobin 11.4 g/dl (14.0-18.0); Immature Granulocytes # (auto) 0.03 K/uL (0.01-0.20); Immature Granulocytes % (auto) 0.5 %; Lymphocytes # (auto) 0.72 K/uL (1.20-3.40); Lymphocytes % (auto) 11.6 %; Mean Corpuscular Hemoglobin 31.8 pg (25.0-34.0); Mean Corpuscular Hgb Conc 33.9 g/dL (32.0-36.0); Mean Corpuscular Volume 93.6 fL (80.0-100.0); Mean Platelet Volume 10.4 fL (9.4-12.4); Monocytes # (auto) 0.55 K/uL (0.11-0.59); Monocytes % (auto) 8.9 %; Neutrophils # (auto) 4.29 K/uL (1.40-6.50); Platelet Count 219 K/uL (130-400); RDW Coefficient of Variation 12.2 % (11.5-14.5); RDW Standard Deviation 42.4 fL (36.4-46.3); Red Blood Count 3.59 M/uL (4.70-6.10); White Blood Count 6.21 K/ul (4.8-10.8)
[2022-11-30 06:27] LABS: Albumin Globulin Ratio 1.2 (0.9-2); BUN Creatinine Ratio 24.2 (10-20); Bilirubin,Total 0.5 mg/dl (0.2-1.0); Calcium 7.7 mg/dl (8.6-10.3); Creatinine Clr Calc Pharmacy 108.2 ml/min; Est GFR (African American) 105.1 ml/min; Est GFR (Non-African American) 90.7 ml/min; Globulin 2.5 gm/dl (2.5-4.0); Magnesium 1.6 mg/dl (1.7-2.4); Potassium 3.9 mmol/L (3.5-5.1); Total Protein 5.5 gm/dl (6.0-8.3)
[2022-11-30] MEDS ORDERED: oxyCODONE HCL IR 5 MG TAB (IMMEDIATE RELEASE) PO PRN (08:43)
[2022-11-30] MEDS: ADVANCED PROBIOTIC 1250 MG CAPSULE PO SCH (09:50)
[2022-11-30] MEDS: DOCUSATE SODIUM/SENNA 50/8.6MG TAB PO SCH (09:50)
[2022-11-30] MEDS: CLINDAMYCIN HCL 150 MG CAP PO SCH (09:50)
[2022-11-30] MEDS: SPIRONOLACTONE 25 MG TAB PO SCH (09:50)
[2022-11-30] MEDS: FUROSEMIDE 40 MG TAB PO SCH (09:50)
[2022-11-30] MEDS: ESCITALOPRAM OXALATE 10 MG TAB PO SCH (09:50)
[2022-11-30] MEDS: POTASSIUM CHLORIDE 10 MEQ TABCR PO SCH (09:50)
[2022-11-30] MEDS: ATENOLOL 50 MG TABLET PO SCH (09:50)
[2022-11-30] MEDS: POLYETHYLENE (MIRALAX) 17 GM PACK PO SCH ×2 (09:51→19:26)
[2022-11-30] MEDS: PANTOprazole 40 MG TAB PO SCH (10:43)
[2022-11-30] MEDS ORDERED: MELATONIN 3 MG TAB PO PRN (12:35)
[2022-11-30] MEDS: ASPIRIN 81 MG ECTAB PO SCH (12:39)
[2022-11-30] MEDS: cefTRIAXone SODIUM 2,000 MG in DEXTROSE 5% 50 ML IV SCH (12:46)
--- NOTE | 2022-11-30 15:48 | Hospitalist Progress Note ---
Date of Service November 30, 2022 Assessment & Plan (1) Generalized weakness: Plan: -Admit to med/surge -Currently stable -Patient has been having generalized weakness that has been progressing over the past 2-3 weeks -No focal weakness reported by the patient or noted on exam, no recent falls -Likely multifactorial including acute UTI, depression, and polypharmacy with chronic opioid and benzodiazepine use -Patient lives at home alone, family is able to visit 2-3 times weekly, he has limited home health at this time -Will continue ceftriaxone for UTI, follow urine cultures and tailor abx to results -PT/OT consults placed, may need placement -Fall precautions ordered -SQ lovenox for DVT PPX -HH diet -AM CBC, CMP, mag (2) Depression: Plan: -Recently started on Lexapro by PCP on 11/25 -Denies suicidal and homicidal ideations -Continue daily lexapro Consult behavioral health liaison to assist with depression management (3) UTI (urinary tract infection): Plan: -Has been having urinary symptoms since last week -Continue Ceftriaxone for now, follow urine cultures (4) Elevated bilirubin: Plan: -Total bili elevated at 1.1 -Patient has mild abd discomfort, likely due to constipation -CT of the abd/pelvis is negative for acute findings, S/P cholecystectomy - CMP unremarkable (5) Opiate use: Plan: -Continue currently oxy prescription of 10 mg TID prn - I will continue the current regimen as the patient still has unresolved depression (6) Leg swelling: Plan: -RLE currently more swollen than left with mild erythema -No signs of infection - DVT ruled out (7) Hypertension: Plan: -Stable -Continue to monitor while on diuretics (8) History of pancreatectomy: Plan: -Stable on CT (9) Constipation: Plan: -Moderate stool burden on CT today -Will continue on bowel regimen, monitor for consistent bowel movements (10) Rash of face: Plan: -Follows with dermatology for Seborrheic dermatitis -Will continue prn topical betamethasone cream (11) Chronic antibiotic suppression: Plan: -Continue dialy clindamycin for hx of left knee hardware infection -Will add daily probiotic -Monitor for recurrent diarrhea Admission and Anticipated Discharge Date Admission Date: November 29, 2022 Subjective Patient appears to be physically and mentally weak. He is requesting oxy IR to be made 3 times daily. He is requesting a sleeping aid. Review of Systems Review of Systems: All systems reviewed & are unremarkable except as noted in Subjective Physical Exam Physical Exam: General: Awake, conversant Heart: S1, S2/regular rate and rhythm, no murmur rubs or gallops Lungs: Clear to auscultation bilaterally. Normal effort Abdomen: Soft/nontender/nondistended. No hepatosplenomegaly Extremities: No clubbing/cyanosis. No edema Behavior: Appropriate, cooperative Results & Data Results & Data Vital Signs (Past 12 Hours) Vital Signs Temp Pulse Pulse Resp BP Pulse Ox O2 Del Method 11/30/22 15:19 36.9 C 59 L 16 142/67 H 95 Room Air 11/30/22 09:49 60 11/30/22 07:25 37.0 C 58 L 16 156/71 H 95 Room Air PG Care Time/CCT Total # of Minutes Spent Total Time Spent with Patient: Total time spent is greater than 50% in coordination of care (as documented) at patient's floor/unit and/or counseling patient: Coding Level of Care Code 14889 SUB INP/OBS CARE 2/35MIN Diagnoses Generalized weakness R53.1 Depression F32.9 UTI (urinary tract infection) N39.0 Elevated bilirubin R17 Opiate use F11.90 Leg swelling M79.89 Hypertension I10 History of pancreatectomy Z90.410 Constipation K59.03 Constipation type: drug induced constipation Rash of face R21 Chronic antibiotic suppression Z79.2 (9) Constipation Constipation type: drug induced constipation Qualified Code(s): K59.03 - Drug induced constipation
[2022-11-30] MEDS: ENOXAPARIN INJ 40 MG/0.4 ML SYR SQ SCH (17:12)
[2022-11-30] MEDS ORDERED: METOCLOPRAMIDE HCL 5 MG TABLET PO ONE (19:26)
[2022-11-30] MEDS ORDERED: METOCLOPRAMIDE HCL INJ 5 MG/ML 2 ML VIAL IV STA (19:28)
[2022-12-01] MEDS: oxyCODONE HCL IR 5 MG TAB (IMMEDIATE RELEASE) PO PRN ×3 (04:10→20:32)
[2022-12-01 06:35] LABS: Basophils # (auto) 0.02 K/uL (0.00-0.20); Basophils % (auto) 0.4 %; Eosinophils # (auto) 0.54 K/uL (0.00-0.50); Eosinophils % (auto) 10.5 %; Hematocrit (blood only) 33.5 % (42.0-52.0); Hemoglobin 11.5 g/dl (14.0-18.0); Immature Granulocytes # (auto) 0.03 K/uL (0.01-0.20); Immature Granulocytes % (auto) 0.6 %; Lymphocytes # (auto) 0.98 K/uL (1.20-3.40); Lymphocytes % (auto) 19.1 %; Mean Corpuscular Hemoglobin 32.5 pg (25.0-34.0); Mean Corpuscular Hgb Conc 34.3 g/dL (32.0-36.0); Mean Corpuscular Volume 94.6 fL (80.0-100.0); Mean Platelet Volume 10.5 fL (9.4-12.4); Monocytes # (auto) 0.55 K/uL (0.11-0.59); Monocytes % (auto) 10.7 %; Neutrophils % (auto) 58.7 %; Platelet Count 214 K/uL (130-400); RDW Coefficient of Variation 12.3 % (11.5-14.5); Red Blood Count 3.54 M/uL (4.70-6.10); White Blood Count 5.12 K/ul (4.8-10.8)
[2022-12-01 07:08] LABS: Albumin Globulin Ratio 1.2 (0.9-2); Albumin Level 2.9 gm/dl (3.4-5.0); BUN Creatinine Ratio 13.4 (10-20); Bilirubin,Total 0.3 mg/dl (0.2-1.0); Calcium 7.9 mg/dl (8.6-10.3); Creatinine Clr Calc Pharmacy 87.1 ml/min; Est GFR (African American) 96.1 ml/min; Est GFR (Non-African American) 82.9 ml/min; Globulin 2.4 gm/dl (2.5-4.0); Magnesium 1.4 mg/dl (1.7-2.4); Potassium 4.2 mmol/L (3.5-5.1); Total Protein 5.3 gm/dl (6.0-8.3)
[2022-12-01] MEDS: POLYETHYLENE (MIRALAX) 17 GM PACK PO SCH ×3 (08:14→20:30)
[2022-12-01] MEDS: ATENOLOL 50 MG TABLET PO SCH (08:14)
[2022-12-01] MEDS: POTASSIUM CHLORIDE 10 MEQ TABCR PO SCH (08:15)
[2022-12-01] MEDS: ROSUVASTATIN CALCIUM 5 MG TAB PO SCH (08:15)
[2022-12-01] MEDS: DOCUSATE SODIUM/SENNA 50/8.6MG TAB PO SCH (08:15)
[2022-12-01] MEDS: ESCITALOPRAM OXALATE 10 MG TAB PO SCH (08:16)
[2022-12-01] MEDS: CLINDAMYCIN HCL 150 MG CAP PO SCH (08:16)
[2022-12-01] MEDS: SPIRONOLACTONE 25 MG TAB PO SCH (08:16)
[2022-12-01] MEDS: FUROSEMIDE 40 MG TAB PO SCH (08:17)
[2022-12-01] MEDS: ADVANCED PROBIOTIC 1250 MG CAPSULE PO SCH (08:17)
[2022-12-01] MEDS: cefTRIAXone SODIUM 2,000 MG in DEXTROSE 5% 50 ML IV SCH (11:18)
[2022-12-01] MEDS: ASPIRIN 81 MG ECTAB PO SCH (11:19)
[2022-12-01] MEDS: PANTOprazole 40 MG TAB PO SCH (11:19)
[2022-12-01] MEDS: ACETAMINOPHEN 325 MG TAB PO PRN (11:55)
[2022-12-01] MEDS: GABAPENTIN 100 MG CAP PO PRN (11:55)
[2022-12-01] MEDS: ONDANSETRON INJ 2 MG/ML 2 ML VIAL IV PRN (12:17)
--- NOTE | 2022-12-01 13:19 | Hospitalist Progress Note ---
Date of Service December 01, 2022 Assessment & Plan (1) Generalized weakness: Plan: -Admit to med/surge -Currently stable -Patient has been having generalized weakness that has been progressing over the past 2-3 weeks -No focal weakness reported by the patient or noted on exam, no recent falls -Likely multifactorial including acute UTI, depression, and polypharmacy with chronic opioid and benzodiazepine use -Patient lives at home alone, family is able to visit 2-3 times weekly, he has limited home health at this time -Will continue ceftriaxone for UTI, follow urine cultures and tailor abx to results -PT/OT consults placed, may need placement -Fall precautions ordered -SQ lovenox for DVT PPX -HH diet (2) Depression: Plan: -Recently started on Lexapro by PCP on 11/25 -Denies suicidal and homicidal ideations -Continue daily lexapro Consulted behavioral health liaison to assist with depression management, Awaiting recommendation (3) UTI (urinary tract infection): Plan: -Has been having urinary symptoms since last week -Continue Ceftriaxone for now, follow urine cultures (4) Elevated bilirubin: Plan: -Total bili elevated at 1.1 -Patient has mild abd discomfort, likely due to constipation -CT of the abd/pelvis is negative for acute findings, S/P cholecystectomy - CMP unremarkable (5) Opiate use: Plan: -Continue currently oxy prescription of 10 mg TID prn - I will continue the current regimen as the patient still has unresolved depression (6) Leg swelling: Plan: -RLE currently more swollen than left with mild erythema -No signs of infection - DVT ruled out (7) Hypertension: Plan: -Stable -Continue to monitor while on diuretics (8) History of pancreatectomy: Plan: -Stable on CT (9) Constipation: Plan: -Moderate stool burden on CT -Will continue on bowel regimen, monitor for consistent bowel movements (10) Rash of face: Plan: -Follows with dermatology for Seborrheic dermatitis -Will continue prn topical betamethasone cream (11) Chronic antibiotic suppression: Plan: -Continue dialy clindamycin for hx of left knee hardware infection -Will add daily probiotic -Monitor for recurrent diarrhea Plan likely discharge in a day or 2 Admission and Anticipated Discharge Date Admission Date: December 01, 2022 Subjective patient feels better overall. The nausea has improved. The sluggishness is improving slowly. Less lethargy is improving as well. Review of Systems Review of Systems: All systems reviewed & are unremarkable except as noted in Subjective Physical Exam Physical Exam: General: Awake, conversant Heart: S1, S2/regular rate and rhythm, no murmur rubs or gallops Lungs: Clear to auscultation bilaterally. Normal effort Abdomen: Soft/nontender/nondistended. No hepatosplenomegaly Extremities: No clubbing/cyanosis. No edema Behavior: Appropriate, cooperative Results & Data Results & Data Vital Signs (Past 12 Hours) Vital Signs Temp Pulse Resp BP Pulse Ox O2 Del Method 12/01/22 07:34 36.7 C 65 17 149/73 H 96 Room Air PG Care Time/CCT Total # of Minutes Spent Total Time Spent with Patient: Total time spent is greater than 50% in coordination of care (as documented) at patient's floor/unit and/or counseling patient: Coding Level of Care Code 00973 SUB INP/OBS CARE 2/35MIN Diagnoses Generalized weakness R53.1 Depression F32.9 UTI (urinary tract infection) N39.0 Elevated bilirubin R17 Opiate use F11.90 Leg swelling M79.89 Hypertension I10 History of pancreatectomy Z90.410 Constipation K59.03 Constipation type: drug induced constipation Rash of face R21 Chronic antibiotic suppression Z79.2 (9) Constipation Constipation type: drug induced constipation Qualified Code(s): K59.03 - Drug induced constipation
[2022-12-01] MEDS: MAGNESIUM SULFATE / D5W 1 GM/100 ML BAG IV SCH ×2 (14:51→16:35)
[2022-12-01] MEDS: ENOXAPARIN INJ 40 MG/0.4 ML SYR SQ SCH (17:13)
[2022-12-01] MEDS: ZOLPIDEM TARTRATE 5 MG TAB PO PRN (20:32)
[2022-12-02] MEDS: oxyCODONE HCL IR 5 MG TAB (IMMEDIATE RELEASE) PO PRN ×3 (04:39→20:43)
[2022-12-02 06:55] LABS: Basophils # (auto) 0.04 K/uL (0.00-0.20); Basophils % (auto) 0.6 %; Hematocrit (blood only) 34.2 % (42.0-52.0); Hemoglobin 11.7 g/dl (14.0-18.0); Immature Granulocytes # (auto) 0.04 K/uL (0.01-0.20); Immature Granulocytes % (auto) 0.6 %; Lymphocytes # (auto) 1.24 K/uL (1.20-3.40); Lymphocytes % (auto) 18.7 %; Mean Corpuscular Hemoglobin 31.8 pg (25.0-34.0); Mean Corpuscular Hgb Conc 34.2 g/dL (32.0-36.0); Mean Corpuscular Volume 92.9 fL (80.0-100.0); Monocytes # (auto) 0.75 K/uL (0.11-0.59); Monocytes % (auto) 11.3 %; Neutrophils # (auto) 3.97 K/uL (1.40-6.50); Neutrophils % (auto) 59.8 %; Platelet Count 219 K/uL (130-400); RDW Coefficient of Variation 12.3 % (11.5-14.5); RDW Standard Deviation 42.4 fL (36.4-46.3); Red Blood Count 3.68 M/uL (4.70-6.10); White Blood Count 6.64 K/ul (4.8-10.8)
[2022-12-02 07:17] LABS: Albumin Globulin Ratio 1.2 (0.9-2); BUN Creatinine Ratio 12.4 (10-20); Bilirubin,Total 0.3 mg/dl (0.2-1.0); Creatinine Clr Calc Pharmacy 80.2 ml/min; Est GFR (African American) 92.9 ml/min; Est GFR (Non-African American) 80.2 ml/min; Globulin 2.5 gm/dl (2.5-4.0); Magnesium 1.8 mg/dl (1.7-2.4); Total Protein 5.5 gm/dl (6.0-8.3)
[2022-12-02] MEDS: POLYETHYLENE (MIRALAX) 17 GM PACK PO SCH ×2 (08:12→20:44)
[2022-12-02] MEDS: ADVANCED PROBIOTIC 1250 MG CAPSULE PO SCH (08:13)
[2022-12-02] MEDS: SPIRONOLACTONE 25 MG TAB PO SCH (08:13)
[2022-12-02] MEDS: FUROSEMIDE 40 MG TAB PO SCH (08:13)
[2022-12-02] MEDS: ATENOLOL 50 MG TABLET PO SCH (08:13)
[2022-12-02] MEDS: CLINDAMYCIN HCL 150 MG CAP PO SCH (08:13)
[2022-12-02] MEDS: DOCUSATE SODIUM/SENNA 50/8.6MG TAB PO SCH (08:15)
[2022-12-02] MEDS: GABAPENTIN 100 MG CAP PO PRN (08:15)
[2022-12-02] MEDS: ESCITALOPRAM OXALATE 10 MG TAB PO SCH (08:16)
[2022-12-02] MEDS: POTASSIUM CHLORIDE 10 MEQ TABCR PO SCH (08:16)
[2022-12-02] MEDS: ACETAMINOPHEN 325 MG TAB PO PRN (08:19)
[2022-12-02] MEDS: ONDANSETRON INJ 2 MG/ML 2 ML VIAL IV PRN (09:50)
[2022-12-02 09:53] LABS: Folate (Folic Acid),Ser orPlas 11.86 ng/ml (>5.38)
[2022-12-02] MEDS: CYANOCOBALAMIN (B-12) 500 MCG TABLET PO SCH (11:34)
[2022-12-02] MEDS: PANTOprazole 40 MG TAB PO SCH (11:35)
[2022-12-02] MEDS: ASPIRIN 81 MG ECTAB PO SCH (11:35)
--- NOTE | 2022-12-02 13:33 | Hospitalist Progress Note ---
Date of Service December 02, 2022 Assessment & Plan (1) Generalized weakness: Plan: etiology uncertain but, at minimum, depression playing a significant role. insomnia contributing. B12 deficiency could be contributing - replace. checked CPK, sed rate, CRP, Fe studies, Lyme screen, anaplasmosis smear, etc -- all negative/normal although does have mild Fe deficiency. checked COVID/flu/RSV --> negative. plan to check cortisol in am, B1 level. send anaplasmosis DNA test. Rx depression. UTI ruled out -- urine cx negative, and initial u/a was not terribly suspicious for UTI - will stop IV rocephin. PT, OT. (2) Depression: Plan: Recently started on Lexapro 5mg daily by PCP on 11/25 Mild nausea could be from such Counseled him it will take 3-4 weeks to see full effects from the lexapro Gave reassurance Encourage good sleep habits; insomnia will worsen his depression & fatigue Consulted behavioral health liaison to assist with depression management Appreciate their assistance (3) UTI (urinary tract infection): Plan: urine cx negative day #4 rocephin will d/c rocephin and observe off abx initial u/a was not highly suspicious for UTI (4) Opiate use: Plan: cont oxy prn explained to him that since he has been on such for several months I would not abruptly stop these chronic opiate use can lead to adrenal insufficiency -- will check cortisol level am (5) Leg swelling: Plan: RLE is larger than LLE --> checked doppler - no DVT cont lasix cont aldactone (6) Hypertension: Plan: stable, controlled cont atenolol cont diuretics (7) History of pancreatectomy: Plan: 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 (8) Constipation: Plan: Cont bowel regimen (9) Rash of face: Plan: Seborrheic dermatitis prn topical betamethasone cream (10) Chronic antibiotic suppression: Plan: Daily clindamycin for hx of left knee hardware infection Left knee stable on examination today (11) Petechiae: Plan: b/l LEs etiology?? he has eosinophilia on CBC w/ diff drug reaction? vasculitis? other? 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 etiology of wheezing??? cxr without infiltrates (14) B12 deficiency: Plan: level = 234 was <200 in 2021 start B12 supplementation 1000mcg daily x 6 months minimum could be contributing to weakness (15) DDD (degenerative disc disease), lumbar: Plan: s/p L2-L5 laminectomy at [facility] in October 2022 per d/c summary surgery went well Plan DVT proph - lovenox seen by PT/OT -- cleared for home when medically ready, but patient voiced he is afraid to return home at this time due to depression, living alone, etc Admission and Anticipated Discharge Date Admission Date: December 01, 2022 Subjective patient resting with eyes closed upon my arrival lights were off TV was off he awoke easily states "I was going to take a nap" states he slept well last pm and woke up this am "Feeling pretty good" by late morning, however, he was feeling exhausted and tired he admits to feeling very depressed for about 3 weeks sobbing on many days "I just can't figure out what is wrong" poor energy no motivation to do anything feels lonely relationship with son is strained he lives alone had major back surgery at [facility] in October per records, due to spinal stenosis, had L2-L5 laminectomy prior to surgery for several months was taking narcotics prn back pain he wants to "get off of them" but is afraid due to pain Review of Systems Review of Systems: gen - no fevers, no chills, appetite fair cv - no chest pain, no orthopnea pulm - no cough GI - had nausea this am, now resolved; no abd pain; moving bowels (had "good one" yesterday) - no dysuria musculo - denies myaglias or arthralgias or joint swelling; ongoing lumbar back pain neuro - no headaches; no paresthesias psych - insomnia for several weeks; depressed; anxious pt states he was on prednisone " last few weeks for my breathing " but I cannot find any prescriptions for such in his pharmacy records nor office notes Physical Exam Physical Exam: gen - NAD but severely depressed; started crying at end of my visit mouth - MMM neck - no JVD heart - RRR, s1 s2 lungs - focal wheezes left lung, clear right lung; no rales; no increased work of breathing abd - soft NT ND BS+ ext - right leg is larger than left leg; pulses 2+ b/l skin - petechial lesions on b/l shins and dorsum of b/l feet; no lesions on thighs, arms, hands, torso; etiology??; no other rash; left knee - no warmth/redness/swelling; b/l knee scars psych - flat affect neuro - strength 5/5 x 4 exts; no prox muscle weakness of hips or shoulders Results & Data Results & Data Vital Signs (Past 12 Hours) Vital Signs Temp Pulse Resp BP Pulse Ox O2 Del Method 12/02/22 07:25 37.0 C 58 L 17 129/75 95 Room Air Laboratory Results Laboratory Results - last 24 hr 12/02/22 12/02/22 12/02/22 06:17 06:17 06:17 WBC 6.64 RBC 3.68 L Hgb 11.7 L Hct 34.2 L MCV 92.9 MCH 31.8 MCHC 34.2 RDW Std Deviation 42.4 RDW Coeff of Jonh 12.3 Plt Count 219 MPV 11.0 Immature Gran % (Auto) 0.6 Neut % (Auto) 59.8 Lymph % (Auto) 18.7 Bailey % (Auto) 11.3 Eos % (Auto) 9.0 Baso % (Auto) 0.6 Neut # (Auto) 3.97 Lymph # (Auto) 1.24 Bailey # (Auto) 0.75 H Eos # (Auto) 0.60 H Baso # (Auto) 0.04 Immature Gran # (Auto) 0.04 ESR Sodium 138 Potassium 4.0 Chloride 104 Carbon Dioxide 28 Anion Gap 6 BUN 11 Creatinine 0.89 Est Cr Clr Drug Dosing 80.2 Est GFR ( Amer) 92.9 Est GFR (Non-Af Amer) 80.2 BUN/Creatinine Ratio 12.4 Glucose 102 H Calcium 8.0 L Magnesium 1.8 Iron TIBC Unsaturated IBC Transferrin % Sat Ferritin Total Bilirubin 0.3 AST 29 ALT 14 Alkaline Phosphatase 117 H Total Creatine Kinase 91 C-Reactive Protein Total Protein 5.5 L Albumin 3.0 L Globulin 2.5 Albumin/Globulin Ratio 1.2 Vitamin B12 25-OH Vitamin D Total Folate Anaplasma Smear Lyme Disease IgG Ab Lyme Disease IgM Ab SARS-CoV-2 (PCR) Influenza Type A (PCR) Influenza Type B (PCR) RSV (RT-PCR) 12/02/22 12/02/22 12/02/22 06:17 14:35 14:35 WBC RBC Hgb Hct MCV MCH MCHC RDW Std Deviation RDW Coeff of Jonh Plt Count MPV Immature Gran % (Auto) Neut % (Auto) Lymph % (Auto) Bailey % (Auto) Eos % (Auto) Baso % (Auto) Neut # (Auto) Lymph # (Auto) Bailey # (Auto) Eos # (Auto) Baso # (Auto) Immature Gran # (Auto) ESR 27 H Sodium Potassium Chloride Carbon Dioxide Anion Gap BUN Creatinine Est Cr Clr Drug Dosing Est GFR ( Amer) Est GFR (Non-Af Amer) BUN/Creatinine Ratio Glucose Calcium Magnesium Iron TIBC Unsaturated IBC Transferrin % Sat Ferritin Total Bilirubin AST ALT Alkaline Phosphatase Total Creatine Kinase C-Reactive Protein Total Protein Albumin Globulin Albumin/Globulin Ratio Vitamin B12 234 25-OH Vitamin D Total Folate 11.86 Anaplasma Smear See Comment Lyme Disease IgG Ab Lyme Disease IgM Ab SARS-CoV-2 (PCR) Influenza Type A (PCR) Influenza Type B (PCR) RSV (RT-PCR) 12/02/22 12/02/22 12/02/22 14:35 14:35 14:35 WBC RBC Hgb Hct MCV MCH MCHC RDW Std Deviation RDW Coeff of Jonh Plt Count MPV Immature Gran % (Auto) Neut % (Auto) Lymph % (Auto) Bailey % (Auto) Eos % (Auto) Baso % (Auto) Neut # (Auto) Lymph # (Auto) Bailey # (Auto) Eos # (Auto) Baso # (Auto) Immature Gran # (Auto) ESR Sodium Potassium Chloride Carbon Dioxide Anion Gap BUN Creatinine Est Cr Clr Drug Dosing Est GFR ( Amer) Est GFR (Non-Af Amer) BUN/Creatinine Ratio Glucose Calcium Magnesium Iron 28 L TIBC 247 L Unsaturated IBC 219 Transferrin % Sat 11 L Ferritin 62.3 Total Bilirubin AST ALT Alkaline Phosphatase Total Creatine Kinase C-Reactive Protein 0.82 H Total Protein Albumin Globulin Albumin/Globulin Ratio Vitamin B12 25-OH Vitamin D Total 52.0 Folate Anaplasma Smear Lyme Disease IgG Ab Negative Lyme Disease IgM Ab Negative SARS-CoV-2 (PCR) Influenza Type A (PCR) Influenza Type B (PCR) RSV (RT-PCR) 12/02/22 Unknown WBC RBC Hgb Hct MCV MCH MCHC RDW Std Deviation RDW Coeff of Jonh Plt Count MPV Immature Gran % (Auto) Neut % (Auto) Lymph % (Auto) Bailey % (Auto) Eos % (Auto) Baso % (Auto) Neut # (Auto) Lymph # (Auto) Bailey # (Auto) Eos # (Auto) Baso # (Auto) Immature Gran # (Auto) ESR Sodium Potassium Chloride Carbon Dioxide Anion Gap BUN Creatinine Est Cr Clr Drug Dosing Est GFR ( Amer) Est GFR (Non-Af Amer) BUN/Creatinine Ratio Glucose Calcium Magnesium Iron TIBC Unsaturated IBC Transferrin % Sat Ferritin Total Bilirubin AST ALT Alkaline Phosphatase Total Creatine Kinase C-Reactive Protein Total Protein Albumin Globulin Albumin/Globulin Ratio Vitamin B12 25-OH Vitamin D Total Folate Anaplasma Smear Lyme Disease IgG Ab Lyme Disease IgM Ab SARS-CoV-2 (PCR) NEGATIVE Influenza Type A (PCR) Negative Influenza Type B (PCR) Negative RSV (RT-PCR) Negative PG Care Time/CCT Total # of Minutes Spent Total Time Spent with Patient: Total time spent is greater than 50% in coordination of care (as documented) at patient's floor/unit and/or counseling patient: Coding Level of Care Code 78039 SUB INP/OBS CARE 3/50MIN Diagnoses Generalized weakness R53.1 Depression F32.9 UTI (urinary tract infection) N39.0 Opiate use F11.90 Leg swelling M79.89 Hypertension I10 History of pancreatectomy Z90.410 Constipation K59.03 Constipation type: drug induced constipation Rash of face R21 Chronic antibiotic suppression Z79.2 Petechiae R23.3 CAD (coronary artery disease) I25.10 Wheezing R06.2 B12 deficiency E53.8 DDD (degenerative disc disease), lumbar M51.36 (8) Constipation Constipation type: drug induced constipation Qualified Code(s): K59.03 - Drug induced constipation
[2022-12-02 15:20] LABS: C Reactive Protein 0.82 mg/dl (0-0.5)
[2022-12-02 15:40] LABS: Ferritin 62.3 ng/ml (8-388)
[2022-12-02 15:46] LABS: Lyme Ab IgG w/WB Rflx Negative (Negative); Lyme Ab IgM w/WB Rflx Negative (Negative)
[2022-12-02 16:26] LABS: Influenza A virus by PCR Negative (Neg); Influenza B virus by PCR Negative (Neg); RSV by PCR Negative (Neg); SARS CoV2 RNA(COVID-19) Ceph NEGATIVE (Negative)
[2022-12-02] MEDS: ENOXAPARIN INJ 40 MG/0.4 ML SYR SQ SCH (17:17)
[2022-12-02] MEDS: busPIRone 5 MG TAB PO SCH ×2 (18:43→20:44)
[2022-12-02] MEDS: ZOLPIDEM TARTRATE 5 MG TAB PO PRN (20:43)
[2022-12-03] MEDS: oxyCODONE HCL IR 5 MG TAB (IMMEDIATE RELEASE) PO PRN ×3 (04:49→21:50)
[2022-12-03] MEDS: busPIRone 5 MG TAB PO SCH ×3 (08:02→21:34)
[2022-12-03] MEDS: GABAPENTIN 100 MG CAP PO PRN (08:02)
[2022-12-03] MEDS: FUROSEMIDE 40 MG TAB PO SCH (08:03)
[2022-12-03] MEDS: CYANOCOBALAMIN (B-12) 500 MCG TABLET PO SCH (08:03)
[2022-12-03] MEDS: DOCUSATE SODIUM/SENNA 50/8.6MG TAB PO SCH (08:03)
[2022-12-03] MEDS: ATENOLOL 50 MG TABLET PO SCH (08:03)
[2022-12-03] MEDS: ROSUVASTATIN CALCIUM 5 MG TAB PO SCH (08:03)
[2022-12-03] MEDS: CLINDAMYCIN HCL 150 MG CAP PO SCH (08:04)
[2022-12-03] MEDS: ADVANCED PROBIOTIC 1250 MG CAPSULE PO SCH (08:04)
[2022-12-03] MEDS: POTASSIUM CHLORIDE 10 MEQ TABCR PO SCH (08:04)
[2022-12-03] MEDS: ESCITALOPRAM OXALATE 10 MG TAB PO SCH (08:04)
[2022-12-03] MEDS: POLYETHYLENE (MIRALAX) 17 GM PACK PO SCH ×2 (08:04→21:36)
[2022-12-03] MEDS: SPIRONOLACTONE 25 MG TAB PO SCH (08:04)
[2022-12-03] MEDS: ONDANSETRON INJ 2 MG/ML 2 ML VIAL IV PRN ×2 (08:27→17:19)
[2022-12-03 08:47] LABS: Basophils # (auto) 0.04 K/uL (0.00-0.20); Basophils % (auto) 0.5 %; Eosinophils % (auto) 6.3 %; Hematocrit (blood only) 36.4 % (42.0-52.0); Hemoglobin 12.5 g/dl (14.0-18.0); Immature Granulocytes # (auto) 0.12 K/uL (0.01-0.20); Immature Granulocytes % (auto) 1.5 %; Lymphocytes # (auto) 1.59 K/uL (1.20-3.40); Lymphocytes % (auto) 19.9 %; Mean Corpuscular Hemoglobin 32.6 pg (25.0-34.0); Mean Corpuscular Hgb Conc 34.3 g/dL (32.0-36.0); Mean Platelet Volume 11.1 fL (9.4-12.4); Monocytes # (auto) 0.84 K/uL (0.11-0.59); Monocytes % (auto) 10.5 %; Neutrophils # (auto) 4.88 K/uL (1.40-6.50); Neutrophils % (auto) 61.3 %; Platelet Count 213 K/uL (130-400); RDW Coefficient of Variation 12.5 % (11.5-14.5); RDW Standard Deviation 43.3 fL (36.4-46.3); Red Blood Count 3.83 M/uL (4.70-6.10); White Blood Count 7.97 K/ul (4.8-10.8)
[2022-12-03] MEDS: THIAMINE HCL 100 MG TAB PO SCH ×2 (10:23→21:34)
[2022-12-03] MEDS: ASPIRIN 81 MG ECTAB PO SCH (13:04)
[2022-12-03] MEDS: PANTOprazole 40 MG TAB PO SCH (13:04)
--- NOTE | 2022-12-03 14:15 | Magnetic Resonance Report ---
MRI OF THE BRAIN WITHOUT IV CONTRAST CLINICAL HISTORY: Generalized weakness. Change in mental status. COMPARISON STUDY: No priors. TECHNIQUE: MRI of the brain was performed utilizing various T1 and T2-weighted sequences in the axial , sagittal, and coronal planes. IV contrast was not administered for this examination. FINDINGS: Brain parenchyma: There is age-related involutional change noting minimal microangiopathic disease. T here is no hemorrhage or mass effect. There is no restricted diffusion to suggest acute ischemia. Gra y-white matter differentiation is preserved. No extra-axial fluid collection is seen. The cerebellar tonsils are normal in configuration. Ventricles, sulci, and cisterns: Prominent secondary to involutional change. 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 Intracranial vasculature: Normal flow voids are maintained at the skull base. Orbits: The bony orbits are grossly intact. Orbital contents are normal in appearance noting bilatera l ocular lens implants. Sinuses and mastoids: Clear. Calvarium: Unremarkable. Cervical cord: Partially visualized cervical spinal cord is normal in morphology and signal intensity . IMPRESSION: No acute intracranial abnormality. ACT 112: Negative or not required by law. Electronically signed by: Arnold Lancaster M.D. 12/03/2022 2:14 PM
[2022-12-03] MEDS: ENOXAPARIN INJ 40 MG/0.4 ML SYR SQ SCH (16:10)
[2022-12-03] MEDS ORDERED: predniSONE 20 MG TAB PO STA (20:30)
--- NOTE | 2022-12-03 20:32 | Hospitalist Progress Note ---
Date of Service December 03, 2022 Assessment & Plan (1) Inflammatory arthritis: Plan: R 3rd finger PIP joint R ankle suspect gout pseudogout also possible but less likely very acute thus doubt new onset RA check uric acid level am check x-rays of each joint prednisone 20mg po x 1 likely then prednisone 10mg daily thereafter for about a week (2) Generalized weakness: Plan: etiology uncertain but, at minimum, depression playing a significant role. insomnia contributing. B12 deficiency could be contributing - replace. checked CPK, sed rate, CRP, Fe studies, Lyme screen, anaplasmosis smear, etc -- all negative/normal although does have mild Fe deficiency. checked COVID/flu/RSV --> negative. cortisol level satisfactory. B1 level sent; empiric thiamine started while awaiting level. UTI ruled out -- urine cx negative, and initial u/a was not terribly suspicious for UTI - will stop IV rocephin. cont PT, OT. (3) Petechiae: Plan: b/l LEs unchanged etiology?? he has eosinophilia on CBC w/ diff drug reaction? vasculitis? other? sed rate/crp largely normal arguing against vasculitis although doesn't rule it out checked tick-borne diseases -- screens negative re-eval tomorrow recheck CBC w/ diff tomorrow (4) Depression: Plan: Recently started on Lexapro 5mg daily by PCP on 11/25 Mild nausea could be from such but the nausea is improved Counseled him it will take 3-4 weeks to see full effects from the lexapro Gave reassurance Encourage good sleep habits; insomnia will worsen his depression & fatigue Consulted behavioral health liaison to assist with depression management/counseling referral Appreciate their assistance (5) UTI (urinary tract infection): Plan: urine cx negative day #4 rocephin will d/c rocephin and observe off abx initial u/a was not highly suspicious for UTI (6) Opiate use: Plan: cont oxy prn explained to him that since he has been on such for several months I would not abruptly stop these chronic opiate use can lead to adrenal insufficiency -- but cortisol leve not suggestive of such (7) Leg swelling: Plan: RLE is larger than LLE --> checked doppler - no DVT cont lasix cont aldactone (8) Hypertension: Plan: stable, controlled cont atenolol cont diuretics (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 etiology of wheezing??? cxr without infiltrates wheezing was not present today monitor (15) B12 deficiency: Plan: level = 234 was <200 in 2021 started B12 supplementation 1000mcg daily x 6 months minimum could be contributing to weakness (16) DDD (degenerative disc disease), lumbar: Plan: s/p L2-L5 lamine[place] [facility] [place] per d/c summary surgery went well Plan DVT proph - lovenox seen by PT/OT -- cleared for home when medically ready, but patient voiced he is afraid to return home at this time due to depression, living alone, etc he has now changed his mind - preferring to return home with services social work spoke with him re: discharge plan suspect medically he will be ready for d/c next 48 hours Admission and Anticipated Discharge Date Admission Date: December 01, 2022 Subjective pt reports sleeping better at night energy a little better eating ok overnight developed R 3rd finger pain and R ankle pain both joints swollen hurts to move the affected finger hurts to weight bear has never had gout to his knowledge he spoke w/ case management re: disposition wants to go home with HH not interested at this time in [facility] Review of Systems Review of Systems: gen - no fevers cv - no orthopnea, no cp pulm - no cough/no wheeze today GI - no abd pain or N/V today Physical Exam Physical Exam: gen - NAD; looks a little better today mouth - MMM neck - no JVD heart - RRR, s1 s2, no murmur lungs - CTA b/l - no wheezes heard today abd - soft NT ND BS+ ext - right leg is larger than left leg; pulses 2+ b/l skin - petechial lesions on b/l shins and dorsum of b/l feet unchanged; they do not jerry; no lesions on thighs, arms, hands, torso; b/l knee scars psych - flat affect but no crying today musculo - active synovitis of right 3rd PIP joint; synovitis of right ankle; both joints warm, tender with passive ROM; no other small or large joint with swelling Results & Data Results & Data Vital Signs (Past 12 Hours) Vital Signs Temp Pulse Resp BP Pulse Ox O2 Del Method 12/03/22 15:37 36.7 C 54 L 18 124/71 95 Room Air Laboratory Results Laboratory Results - last 48 hr 12/02/22 12/02/22 12/02/22 06:17 06:17 14:35 WBC RBC Hgb Hct MCV MCH MCHC RDW Std Deviation RDW Coeff of Jonh Plt Count MPV Immature Gran % (Auto) Neut % (Auto) Lymph % (Auto) [place] % (Auto) Eos % (Auto) Baso % (Auto) Neut # (Auto) Lymph # (Auto) [place] # (Auto) Eos # (Auto) Baso # (Auto) Immature Gran # (Auto) ESR 27 H Uric Acid Iron TIBC Unsaturated IBC Transferrin % Sat Ferritin Total Creatine Kinase 91 C-Reactive Protein Vitamin B12 234 25-OH Vitamin D Total Folate 11.86 Cortisol AM Sample Anaplasma Smear Lyme Disease IgG Ab Lyme Disease IgM Ab SARS-CoV-2 (PCR) Influenza Type A (PCR) Influenza Type B (PCR) RSV (RT-PCR) 12/02/22 12/02/22 12/02/22 14:35 14:35 14:35 WBC RBC Hgb Hct MCV MCH MCHC RDW Std Deviation RDW Coeff of Jonh Plt Count MPV Immature Gran % (Auto) Neut % (Auto) Lymph % (Auto) [place] % (Auto) Eos % (Auto) Baso % (Auto) Neut # (Auto) Lymph # (Auto) [place] # (Auto) Eos # (Auto) Baso # (Auto) Immature Gran # (Auto) ESR Uric Acid Iron 28 L TIBC 247 L Unsaturated IBC 219 Transferrin % Sat 11 L Ferritin 62.3 Total Creatine Kinase C-Reactive Protein 0.82 H Vitamin B12 25-OH Vitamin D Total 52.0 Folate Cortisol AM Sample Anaplasma Smear See Comment Lyme Disease IgG Ab Lyme Disease IgM Ab SARS-CoV-2 (PCR) Influenza Type A (PCR) Influenza Type B (PCR) RSV (RT-PCR) 12/02/22 12/02/22 12/03/22 14:35 Unknown 07:35 WBC 7.97 RBC 3.83 L Hgb 12.5 L Hct 36.4 L MCV 95.0 MCH 32.6 MCHC 34.3 RDW Std Deviation 43.3 RDW Coeff of Jonh 12.5 Plt Count 213 MPV 11.1 Immature Gran % (Auto) 1.5 Neut % (Auto) 61.3 Lymph % (Auto) 19.9 Roosevelt % (Auto) 10.5 Eos % (Auto) 6.3 Baso % (Auto) 0.5 Neut # (Auto) 4.88 Lymph # (Auto) 1.59 Roosevelt # (Auto) 0.84 H Eos # (Auto) 0.50 Baso # (Auto) 0.04 Immature Gran # (Auto) 0.12 ESR Uric Acid Iron TIBC Unsaturated IBC Transferrin % Sat Ferritin Total Creatine Kinase C-Reactive Protein Vitamin B12 25-OH Vitamin D Total Folate Cortisol AM Sample Anaplasma Smear Lyme Disease IgG Ab Negative Lyme Disease IgM Ab Negative SARS-CoV-2 (PCR) NEGATIVE Influenza Type A (PCR) Negative Influenza Type B (PCR) Negative RSV (RT-PCR) Negative 12/03/22 07:35 WBC RBC Hgb Hct MCV MCH MCHC RDW Std Deviation RDW Coeff of Jonh Plt Count MPV Immature Gran % (Auto) Neut % (Auto) Lymph % (Auto) Roosevelt % (Auto) Eos % (Auto) Baso % (Auto) Neut # (Auto) Lymph # (Auto) Roosevelt # (Auto) Eos # (Auto) Baso # (Auto) Immature Gran # (Auto) ESR Uric Acid Iron TIBC Unsaturated IBC Transferrin % Sat Ferritin Total Creatine Kinase C-Reactive Protein Vitamin B12 25-OH Vitamin D Total Folate Cortisol AM Sample 12.45 Anaplasma Smear Lyme Disease IgG Ab Lyme Disease IgM Ab SARS-CoV-2 (PCR) Influenza Type A (PCR) Influenza Type B (PCR) RSV (RT-PCR) PG Care Time/CCT Total # of Minutes Spent Total Time Spent with Patient: Total time spent is greater than 50% in coordination of care (as documented) at patient's floor/unit and/or counseling patient: Coding Level of Care Code 39607 SUB INP/OBS CARE 3/50MIN Diagnoses Inflammatory arthritis M19.90 Generalized weakness R53.1 Petechiae R23.3 Depression F32.9 UTI (urinary tract infection) N39.0 Opiate use F11.90 Leg swelling M79.89 Hypertension I10 History of pancreatectomy Z90.410 Constipation K59.03 Constipation type: drug induced constipation Rash of face R21 Chronic antibiotic suppression Z79.2 CAD (coronary artery disease) I25.10 Wheezing R06.2 B12 deficiency E53.8 DDD (degenerative disc disease), lumbar M51.36 (10) Constipation Constipation type: drug induced constipation Qualified Code(s): K59.03 - Drug induced constipation
[2022-12-03] MEDS ORDERED: MELATONIN 3 MG TAB PO SCH (21:00)
--- NOTE | 2022-12-03 21:54 | XRay Report ---
RIGHT ANKLE 2 VIEWS CLINICAL HISTORY: Synovitis of the right ankle. FINDINGS: AP and lateral views of the right ankle are correlated with radiographic study right foot d ated 10/14/2017. The skeletal structures are osteopenic. No fracture is seen. The ankle mortise is int act. Mild degenerative change is seen at the tibiotalar articulation. There are large dorsal and plan hereditary cancer program coordinator spurs. Degenerative spurring is seen along the dorsal aspect of the tarsal bones. There is n o significant joint effusion. Soft tissue swelling is present throughout the right lower extremity. A dvanced atherosclerotic calcification is seen in the residual arteries. IMPRESSION: 1. Soft tissue swelling with no acute bony abnormality identified. 2. Osteopenia, degenerative change, and heel spurs as above. Electronically signed by: Arnold Lancaster M.D. 12/03/2022 9:51 PM
--- NOTE | 2022-12-03 21:54 | XRay Report ---
RIGHT THIRD FINGER 3 VIEWS CLINICAL HISTORY: Synovitis of the third proximal interphalangeal joint. FINDINGS: 3 views of the right third finger are obtained. No prior studies are available for comparis on at the time of dictation. The skeletal structures are osteopenic. No fracture or dislocation is se en. 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 Mild osteoarthritic change is seen at the visualized metacarpophalangeal and proximal interphalangeal join ts. Mild soft tissue swelling is present in the fingers, greatest in the third digit. No soft tissue calcifications are identified. IMPRESSION: Osteopenia and arthritic change as above with no acute bony abnormality identified. Electronically signed by: Arnold Lancaster M.D. 12/03/2022 9:53 PM
[2022-12-03] MEDS: ZOLPIDEM TARTRATE 5 MG TAB PO PRN (21:58)
[2022-12-04] MEDS: ONDANSETRON INJ 2 MG/ML 2 ML VIAL IV PRN (03:46)
[2022-12-04] MEDS: ACETAMINOPHEN 325 MG TAB PO PRN (03:46)
[2022-12-04] MEDS: oxyCODONE HCL IR 5 MG TAB (IMMEDIATE RELEASE) PO PRN ×3 (05:48→20:20)
[2022-12-04] MEDS: THIAMINE HCL 100 MG TAB PO SCH ×2 (07:44→20:23)
[2022-12-04] MEDS: busPIRone 5 MG TAB PO SCH ×3 (07:44→20:22)
[2022-12-04] MEDS: ATENOLOL 50 MG TABLET PO SCH (07:45)
[2022-12-04] MEDS: ADVANCED PROBIOTIC 1250 MG CAPSULE PO SCH (07:45)
[2022-12-04] MEDS: CYANOCOBALAMIN (B-12) 500 MCG TABLET PO SCH (07:45)
[2022-12-04] MEDS: GABAPENTIN 100 MG CAP PO PRN (07:45)
[2022-12-04] MEDS: CLINDAMYCIN HCL 150 MG CAP PO SCH (07:45)
[2022-12-04] MEDS: DOCUSATE SODIUM/SENNA 50/8.6MG TAB PO SCH (07:45)
[2022-12-04] MEDS: SPIRONOLACTONE 25 MG TAB PO SCH (07:46)
[2022-12-04] MEDS: ESCITALOPRAM OXALATE 10 MG TAB PO SCH (07:46)
[2022-12-04] MEDS: POTASSIUM CHLORIDE 10 MEQ TABCR PO SCH (07:46)
[2022-12-04] MEDS: POLYETHYLENE (MIRALAX) 17 GM PACK PO SCH ×2 (07:47→20:20)
[2022-12-04] MEDS: FUROSEMIDE 40 MG TAB PO SCH (07:47)
[2022-12-04 08:33] LABS: Basophils # (auto) 0.03 K/uL (0.00-0.20); Basophils % (auto) 0.4 %; Hematocrit (blood only) 40.5 % (42.0-52.0); Hemoglobin 13.5 g/dl (14.0-18.0); Immature Granulocytes # (auto) 0.06 K/uL (0.01-0.20); Immature Granulocytes % (auto) 0.8 %; Lymphocytes # (auto) 0.86 K/uL (1.20-3.40); Lymphocytes % (auto) 12.1 %; Mean Corpuscular Hemoglobin 31.7 pg (25.0-34.0); Mean Corpuscular Hgb Conc 33.3 g/dL (32.0-36.0); Mean Corpuscular Volume 95.1 fL (80.0-100.0); Mean Platelet Volume 10.8 fL (9.4-12.4); Monocytes # (auto) 0.28 K/uL (0.11-0.59); Monocytes % (auto) 3.9 %; Neutrophils # (auto) 5.88 K/uL (1.40-6.50); Neutrophils % (auto) 82.8 %; Platelet Count 257 K/uL (130-400); RDW Coefficient of Variation 12.4 % (11.5-14.5); RDW Standard Deviation 43.2 fL (36.4-46.3); Red Blood Count 4.26 M/uL (4.70-6.10); White Blood Count 7.11 K/ul (4.8-10.8)
[2022-12-04] MEDS: predniSONE 10 MG TABLET PO SCH (09:30)
[2022-12-04] MEDS: PANTOprazole 40 MG TAB PO SCH (11:51)
[2022-12-04] MEDS: ASPIRIN 81 MG ECTAB PO SCH (11:51)
--- NOTE | 2022-12-04 12:12 | Hospitalist Progress Note ---
Date of Service December 04, 2022 Assessment & Plan (1) Inflammatory arthritis: Plan: R 3rd finger PIP joint R ankle suspected gout uric acid level elevated rapid response to prednisone 20mg po x 1 yesterday cont prednisone 10mg / day for another week then stop (2) Generalized weakness: Plan: etiology uncertain but, at minimum, depression playing a significant role. insomnia contributing. B12 deficiency could be contributing - replace. deconditioning (had major back surgery in October, etc). checked CPK, sed rate, CRP, Fe studies, Lyme screen, anaplasmosis smear, etc -- all negative/normal although does have mild Fe deficiency. checked COVID/flu/RSV --> negative. cortisol level satisfactory. B1 level sent; empiric thiamine started while awaiting level. UTI ruled out -- urine cx negative, and initial u/a was not terribly suspicious for UTI - stopped IV rocephin. cont PT, OT. 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 other? cont prednisone re-eval tomorrow (4) Depression: Plan: Recently started on Lexapro 5mg daily by PCP on 11/25 Mild nausea could be from such but the nausea is improved Counseled him it will take 3-4 weeks to see full effects from the lexapro Gave reassurance Encourage good sleep habits; insomnia will worsen his depression & fatigue Consulted behavioral health liaison to assist with depression management/counseling referral Appreciate their assistance (5) UTI (urinary tract infection): Plan: urine cx negative initial u/a was not highly suspicious for UTI received 4 doses of rocephin abx stopped due to neg culture and low suspicion of active infection (6) Opiate use: Plan: cont oxy prn explained to him that since he has been on such for several months I would not abruptly stop these chronic opiate use can lead to adrenal insufficiency -- but cortisol leve not suggestive of such he is still thinking about what he wants to do with pain meds -- wean, or continue in meantime -- add tylenol 1gm TID add voltaren gel 4gm qid (7) Leg swelling: Plan: RLE is larger than LLE --> checked doppler - no DVT cont lasix cont aldactone (8) Hypertension: Plan: stable, controlled cont atenolol cont diuretics (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 etiology of wheezing??? cxr without infiltrates o2 sats wnl monitor (15) B12 deficiency: Plan: level = 234 was <200 in 2021 started B12 supplementation 1000mcg daily x 6 months minimum could be contributing to weakness (16) DDD (degenerative disc disease), lumbar: Plan: s/p L2-L5 laminectomy at [facility] [place] in October 2022 per d/c summary surgery went well Plan DVT proph - lovenox seen by PT/OT -- cleared for home when medically ready, but patient voiced he is afraid to return home at this time due to depression, living alone, etc he has now changed his mind - preferring to return home with services social work spoke with him re: discharge plan suspect medically he will be ready for d/c next 48 hours but waiting on [facility] [employer] to determine if he is eligible for additional home services Admission and Anticipated Discharge Date Admission Date: December 01, 2022 Subjective slept ok overnight still w/ back pain - using the oxycodone about 3x's/day he is very fixated on the narcotic subject several times he stated he was going through "withdrawal" he blames depression and a host of other issues on the narcotic usage still does not want to go anywhere but home [id number] was present today at bedside she states they bring him meals often on weekends during the week he gets [id number] right 3rd finger and right ankle pain/swelling improved Review of Systems Review of Systems: cv - no orthopnea/chest pain pulm - no dyspnea GI - no abd pain; some occasional nausea Physical Exam Physical Exam: gen - NAD; looks similar to yesterday mouth - MMM neck - no JVD heart - RRR, s1 s2, no murmur lungs - CTA on right; minor end-exp wheezes on left abd - soft NT ND BS+ ext - right leg is larger than left leg; pulses 2+ b/l skin - petechial lesions on b/l shins and dorsum of b/l feet much improved today; no lesions on thighs, arms, hands, torso; b/l knee scars psych - flat affect musculo - synovitis of right 3rd PIP joint and synovitis of right ankle BOTH improved today Results & Data Results & Data Vital Signs (Past 12 Hours) Vital Signs Temp Pulse Resp BP Pulse Ox O2 Del Method 12/04/22 08:00 Room Air 12/04/22 07:14 36.5 C 76 18 162/82 H 96 Room Air Laboratory Results Laboratory Results - last 24 hr 12/04/22 12/04/22 08:06 08:06 WBC 7.11 RBC 4.26 L Hgb 13.5 L Hct 40.5 L MCV 95.1 MCH 31.7 MCHC 33.3 RDW Std Deviation 43.2 RDW Coeff of Jonh 12.4 Plt Count 257 MPV 10.8 Immature Gran % (Auto) 0.8 Neut % (Auto) 82.8 Lymph % (Auto) 12.1 [place] % (Auto) 3.9 Eos % (Auto) 0.0 Baso % (Auto) 0.4 Neut # (Auto) 5.88 Lymph # (Auto) 0.86 L [place] # (Auto) 0.28 Eos # (Auto) 0.00 Baso # (Auto) 0.03 Immature Gran # (Auto) 0.06 Uric Acid 8.9 H PG Care Time/CCT Total # of Minutes Spent Total Time Spent with Patient: Total time spent is greater than 50% in coordination of care (as documented) at patient's floor/unit and/or counseling patient: Coding Level of Care Code 47262 SUB INP/OBS CARE 3/50MIN Diagnoses Inflammatory arthritis M19.90 Generalized weakness R53.1 Petechiae R23.3 Depression F32.9 UTI (urinary tract infection) N39.0 Opiate use F11.90 Leg swelling M79.89 Hypertension I10 History of pancreatectomy Z90.410 Constipation K59.03 Constipation type: drug induced constipation Rash of face R21 Chronic antibiotic suppression Z79.2 CAD (coronary artery disease) I25.10 Wheezing R06.2 B12 deficiency E53.8 DDD (degenerative disc disease), lumbar M51.36 (10) Constipation Constipation type: drug induced constipation Qualified Code(s): K59.03 - Drug induced constipation
[2022-12-04] MEDS: ACETAMINOPHEN 325 MG TAB PO SCH ×2 (14:07→20:21)
[2022-12-04] MEDS: DICLOFENAC SOD 1% GEL 100 GM TUBE EXT SCH ×3 (14:08→20:23)
[2022-12-04] MEDS: ENOXAPARIN INJ 40 MG/0.4 ML SYR SQ SCH (16:40)
[2022-12-04] MEDS: ZOLPIDEM TARTRATE 5 MG TAB PO PRN (20:30)
[2022-12-05] MEDS: oxyCODONE HCL IR 5 MG TAB (IMMEDIATE RELEASE) PO PRN ×3 (04:37→21:24)
[2022-12-05] MEDS: ONDANSETRON INJ 2 MG/ML 2 ML VIAL IV PRN ×2 (09:23→17:40)
[2022-12-05] MEDS: DICLOFENAC SOD 1% GEL 100 GM TUBE EXT SCH ×4 (09:27→20:10)
[2022-12-05] MEDS: THIAMINE HCL 100 MG TAB PO SCH ×2 (09:28→20:10)
[2022-12-05] MEDS: busPIRone 5 MG TAB PO SCH ×3 (09:28→20:09)
[2022-12-05] MEDS: POTASSIUM CHLORIDE 10 MEQ TABCR PO SCH (09:29)
[2022-12-05] MEDS: FUROSEMIDE 40 MG TAB PO SCH (09:29)
[2022-12-05] MEDS: SPIRONOLACTONE 25 MG TAB PO SCH (09:29)
[2022-12-05] MEDS: CLINDAMYCIN HCL 150 MG CAP PO SCH (09:30)
[2022-12-05] MEDS: ACETAMINOPHEN 325 MG TAB PO SCH ×2 (09:30→14:02)
[2022-12-05] MEDS: ATENOLOL 50 MG TABLET PO SCH (09:30)
[2022-12-05] MEDS: ESCITALOPRAM OXALATE 10 MG TAB PO SCH (09:32)
[2022-12-05] MEDS: CYANOCOBALAMIN (B-12) 500 MCG TABLET PO SCH (09:32)
[2022-12-05] MEDS: DOCUSATE SODIUM/SENNA 50/8.6MG TAB PO SCH (09:32)
[2022-12-05] MEDS: ROSUVASTATIN CALCIUM 5 MG TAB PO SCH (09:33)
[2022-12-05] MEDS: ADVANCED PROBIOTIC 1250 MG CAPSULE PO SCH (09:33)
[2022-12-05] MEDS: POLYETHYLENE (MIRALAX) 17 GM PACK PO SCH ×2 (09:34→20:11)
[2022-12-05] MEDS: predniSONE 10 MG TABLET PO SCH (09:34)
[2022-12-05] MEDS: PANTOprazole 40 MG TAB PO SCH (12:24)
[2022-12-05] MEDS: ASPIRIN 81 MG ECTAB PO SCH (12:24)
[2022-12-05] MEDS: SENNA 8.6 MG TAB PO SCH (12:41)
[2022-12-05] MEDS ORDERED: bisacodyL 10 MG SUPP PR STA (16:41)
[2022-12-05] MEDS: ENOXAPARIN INJ 40 MG/0.4 ML SYR SQ SCH (16:58)
[2022-12-05] MEDS: ACETAMINOPHEN 500 MG TAB PO SCH (20:08)
--- NOTE | 2022-12-05 21:05 | Hospitalist Progress Note ---
Date of Service December 05, 2022 Assessment & Plan (1) Inflammatory arthritis: Plan: R 3rd finger PIP joint R ankle suspected gout uric acid level elevated cont prednisone 10mg / day for another 5-6 days then stop (2) Generalized weakness: Plan: etiology uncertain but, at minimum, depression playing a significant role. insomnia contributing. B12 deficiency could be contributing - replace. deconditioning (had major back surgery in October, etc). his weakness has improved while here. checked CPK, sed rate, CRP, Fe studies, Lyme screen, anaplasmosis smear, etc -- all negative/normal although does have mild Fe deficiency. checked COVID/flu/RSV --> negative. cortisol level satisfactory. B1 level sent; empiric thiamine started while awaiting level. UTI ruled out -- urine cx negative, and initial u/a was not terribly suspicious for UTI - stopped IV rocephin. cont PT, OT. (3) Petechiae: Plan: b/l LEs IMPROVED/resolving with steroids he had eosinophilia on CBC w/ diff - this resolved following steroids as well cont prednisone recheck cbc am of note - I spoke with Dr Flaco Foreman from allergy. recommendation - if petechiae recur after steroids d/c or his eosinophilia returns he would want to see him in the allergy clinic. clindamycin NOT suspected to the culprit in this. MAYBE rocephin (received 4 days of such at beginning of admission) (4) Depression: Plan: Recently started on Lexapro 5mg daily by PCP on 11/25 Mild nausea could be from such but the nausea is improved Counseled him it will take 3-4 weeks to see full effects from the lexapro Gave reassurance Encourage good sleep habits; insomnia will worsen his depression & fatigue Consulted behavioral health liaison to assist with depression management/counseling referral Appreciate their assistance (5) UTI (urinary tract infection): Plan: urine cx negative initial u/a was not highly suspicious for UTI received 4 doses of rocephin abx stopped due to neg culture and low suspicion of active infection (6) Opiate use: Plan: cont oxy prn explained to him that since he has been on such for several months I would not abruptly stop these chronic opiate use can lead to adrenal insufficiency -- but cortisol leve not suggestive of such he is still thinking about what he wants to do with pain meds -- wean, or continue in meantime -- added tylenol 1gm TID + voltaren gel 4gm qid (7) Leg swelling: Plan: RLE is larger than LLE --> checked doppler - no DVT cont lasix cont aldactone BMP am for stability (8) Hypertension: Plan: stable, controlled cont atenolol cont diuretics (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 (10) Constipation: Plan: Cont bowel regimen added senna to the miralax still no BM suppository x 1 today (11) Rash of face: Plan: Seborrheic dermatitis prn topical betamethasone cream prednisone for #1 has helped nicely (12) Chronic antibiotic suppression: Plan: Daily clindamycin for hx of left knee hardware infection Left knee stable Could the clindamycin be causing the LE petechial rash?? unlikely - has been on clindamycin since 2010 (13) CAD (coronary artery disease): Plan: h/o stents in the past Cont asa Cont atenolol Cont crestor (14) Wheezing: Plan: left lung only has chronic right hemidiaphragmatic paralysis - confirmed by sniff test on 02/08/2017 based on records has seen pulmonary in the past - Dr Hennessy, TOM Avendano, and most recently Dr Hall no obstructive lung disease based on past PFTs was on chronic steroids pre-2019 per records for chronic cough/sinus issues?? etiology of wheezing??? cxr without infiltrates o2 sats wnl wheezing has resolved monitor for recurrence (15) B12 deficiency: Plan: level = 234 was <200 in 2021 started B12 supplementation 1000mcg daily x 6 months minimum could be contributing to weakness (16) DDD (degenerative disc disease), lumbar: Plan: s/p L2-L5 laminectomy at [facility] in October 2022 per d/c summary surgery went well Plan DVT proph - lovenox seen by PT/OT -- cleared for home when medically ready, but patient voiced he is afraid to return home at this time due to depression, living alone, etc he has now changed his mind - preferring to return home with services social work spoke with him re: discharge plan d/c home tomorrow - he is aware of that plan Admission and Anticipated Discharge Date Admission Date: December 01, 2022 Subjective again slept ok overnight states "I feel pretty good today" he did receive word that [facility] has a back log of cases and likely cannot provide extra services until 2023 he is disappointed by this eating ok ambulating R 3rd finger pain resolved R ankle pain improved able to weight bear Review of Systems Review of Systems: cv - no orthopnea or cp pulm - no dyspnea GI - no pain; + constipation Physical Exam Physical Exam: gen - NAD mouth - MMM neck - no JVD heart - RRR, s1 s2, no murmur lungs - CTA b/l today; no wheezes abd - soft NT ND BS+ ext - right leg is larger than left leg -- baseline; pulses 2+ b/l skin - petechial lesions on b/l shins and dorsum of b/l feet nearly resolved; no lesions on thighs, arms, hands, torso; b/l knee scars psych - flat affect remains musculo - synovitis of right 3rd PIP joint and synovitis of right ankle resolving; nontender with palpation or passive ROM of either joint Results & Data Results & Data Vital Signs (Past 12 Hours) Vital Signs Temp Pulse Resp BP Pulse Ox O2 Del Method 12/05/22 15:22 36.8 C 56 L 16 164/76 H 97 Room Air PG Care Time/CCT Total # of Minutes Spent Total Time Spent with Patient: Total time spent is greater than 50% in coordination of care (as documented) at patient's floor/unit and/or counseling patient: Coding Level of Care Code 91292 SUB INP/OBS CARE 2/35MIN Diagnoses Inflammatory arthritis M19.90 Generalized weakness R53.1 Petechiae R23.3 Depression F32.9 UTI (urinary tract infection) N39.0 Opiate use F11.90 Leg swelling M79.89 Hypertension I10 History of pancreatectomy Z90.410 Constipation K59.03 Constipation type: drug induced constipation Rash of face R21 Chronic antibiotic suppression Z79.2 CAD (coronary artery disease) I25.10 Wheezing R06.2 B12 deficiency E53.8 DDD (degenerative disc disease), lumbar M51.36 (10) Constipation Constipation type: drug induced constipation Qualified Code(s): K59.03 - Drug induced constipation
[2022-12-05] MEDS: ZOLPIDEM TARTRATE 5 MG TAB PO PRN (21:24)
[2022-12-06] MEDS: oxyCODONE HCL IR 5 MG TAB (IMMEDIATE RELEASE) PO PRN ×3 (04:51→21:02)
[2022-12-06 07:09] LABS: Basophils # (auto) 0.06 K/uL (0.00-0.20); Basophils % (auto) 0.8 %; Eosinophils # (auto) 0.22 K/uL (0.00-0.50); Eosinophils % (auto) 2.8 %; Hemoglobin 11.8 g/dl (14.0-18.0); Immature Granulocytes # (auto) 0.04 K/uL (0.01-0.20); Immature Granulocytes % (auto) 0.5 %; Lymphocytes # (auto) 2.42 K/uL (1.20-3.40); Lymphocytes % (auto) 30.7 %; Mean Corpuscular Hemoglobin 31.9 pg (25.0-34.0); Mean Corpuscular Hgb Conc 34.7 g/dL (32.0-36.0); Mean Corpuscular Volume 91.9 fL (80.0-100.0); Mean Platelet Volume 11.3 fL (9.4-12.4); Monocytes # (auto) 0.87 K/uL (0.11-0.59); Monocytes % (auto) 11.1 %; Neutrophils # (auto) 4.26 K/uL (1.40-6.50); Neutrophils % (auto) 54.1 %; Platelet Count 237 K/uL (130-400); RDW Coefficient of Variation 12.2 % (11.5-14.5); RDW Standard Deviation 41.1 fL (36.4-46.3); White Blood Count 7.87 K/ul (4.8-10.8)
[2022-12-06 07:25] LABS: BUN Creatinine Ratio 21.9 (10-20); Calcium 8.1 mg/dl (8.6-10.3); Creatinine Clr Calc Pharmacy 69.7 ml/min; Est GFR (African American) 85.6 ml/min; Est GFR (Non-African American) 73.8 ml/min
[2022-12-06] MEDS: POLYETHYLENE (MIRALAX) 17 GM PACK PO SCH ×2 (08:18→21:00)
[2022-12-06] MEDS: THIAMINE HCL 100 MG TAB PO SCH ×2 (08:18→20:59)
[2022-12-06] MEDS: ACETAMINOPHEN 500 MG TAB PO SCH ×3 (08:18→21:02)
[2022-12-06] MEDS: DOCUSATE SODIUM/SENNA 50/8.6MG TAB PO SCH (08:19)
[2022-12-06] MEDS: FUROSEMIDE 40 MG TAB PO SCH (08:19)
[2022-12-06] MEDS: ATENOLOL 50 MG TABLET PO SCH (08:19)
[2022-12-06] MEDS: predniSONE 10 MG TABLET PO SCH (08:19)
[2022-12-06] MEDS: CYANOCOBALAMIN (B-12) 500 MCG TABLET PO SCH (08:20)
[2022-12-06] MEDS: GABAPENTIN 100 MG CAP PO PRN ×2 (08:20→20:59)
[2022-12-06] MEDS: CLINDAMYCIN HCL 150 MG CAP PO SCH (08:21)
[2022-12-06] MEDS: SPIRONOLACTONE 25 MG TAB PO SCH (08:21)
[2022-12-06] MEDS: SENNA 8.6 MG TAB PO SCH (08:21)
[2022-12-06] MEDS: DICLOFENAC SOD 1% GEL 100 GM TUBE EXT SCH ×4 (08:22→21:00)
[2022-12-06] MEDS: ADVANCED PROBIOTIC 1250 MG CAPSULE PO SCH (08:22)
[2022-12-06] MEDS: ESCITALOPRAM OXALATE 10 MG TAB PO SCH (08:22)
[2022-12-06] MEDS: POTASSIUM CHLORIDE 10 MEQ TABCR PO SCH (08:23)
[2022-12-06] MEDS: ONDANSETRON INJ 2 MG/ML 2 ML VIAL IV PRN (08:30)
[2022-12-06] MEDS: busPIRone 7.5 MG TAB PO SCH ×3 (09:09→20:59)
[2022-12-06] MEDS: ASPIRIN 81 MG ECTAB PO SCH (11:42)
[2022-12-06] MEDS: PANTOprazole 40 MG TAB PO SCH (11:42)
[2022-12-06] MEDS: ENOXAPARIN INJ 40 MG/0.4 ML SYR SQ SCH (17:34)
[2022-12-06] MEDS: hydrOXYzine HCl 10 MG TAB PO PRN (17:38)
--- NOTE | 2022-12-06 20:44 | Hospitalist Progress Note ---
Date of Service December 06, 2022 Assessment & Plan (1) Depression: Plan: Severe. Likely has had dysthymia since the of his in 2019. This then progressed to significant depression this summer in the setting of major back surgery 10/2022, several months of inactivity due to significant LE weakness, etc. He has voiced he "cannot do the things I used to do" and this upsets him tremendously. There appears to be family issues/conflict between himself and son. They live nearly 1 block apart and patient does not feel comfortable asking his son to live at his house for a few weeks. Recently started on Lexapro 5mg daily by PCP on 11/25. Tolerating this - thus, will increase to 10mg daily tomorrow. Reassured him & have counseled him it will take 3-4 weeks to see full effects from the lexapro. Have been encouraging good sleep habits; insomnia will worsen his depression & fatigue of course. Treating the anxiety as below. Consulted behavioral health liaison to assist with depression management/counseling referral. Although I cannot get him to commit to the counseling route. Appreciate psych assistance. (2) Generalized anxiety disorder: Plan: Cont lexapro - increase to 10mg daily starting 12/07. Cont buspar - increase to 7.5mg TID. Add low-dose atarax 10mg q12h prn for breakthrough symptoms. Will again encourage counseling. (3) Inflammatory arthritis: Plan: R 3rd finger PIP joint R ankle MUCH improved suspected gout uric acid level elevated cont prednisone 10mg daily can likely stop soon (perhaps tomorrow) (4) Generalized weakness: Plan: etiology uncertain but, at minimum, depression playing a significant role. insomnia contributing. B12 deficiency could be contributing - replace. deconditioning (had major back surgery in October, etc). his weakness has improved while here fortunately. checked CPK, sed rate, CRP, Fe studies, Lyme screen, anaplasmosis smear, etc -- all negative/normal although does have mild Fe deficiency. checked COVID/flu/RSV --> negative. cortisol level satisfactory. B1 level sent; empiric thiamine started while awaiting level. UTI ruled out -- urine cx negative, and initial u/a was not terribly suspicious for UTI - stopped IV rocephin. cont PT, OT. (5) Petechiae: Plan: b/l LEs resolved with low-dose steroids he had eosinophilia on CBC w/ diff - this resolved following steroids as well cont prednisone CBC today with stable eosinophils of note - I spoke with Dr Flaco Foreman from allergy. recommendation - if petechiae recur after steroids d/c or his eosinophilia returns he would want to see him in the allergy clinic. clindamycin NOT suspected to the culprit in this. MAYBE rocephin (received 4 days of such at beginning of admission) (6) UTI (urinary tract infection): Plan: urine cx negative initial u/a was not highly suspicious for UTI received 4 doses of rocephin abx stopped due to neg culture and low suspicion of active infection (7) Opiate use: Plan: cont oxy prn explained to him that since he has been on such for several months I would not abruptly stop these chronic opiate use can lead to adrenal insufficiency -- but cortisol leve not suggestive of such cont tylenol 1gm TID + voltaren gel 4gm qid he continues to use the oxy nearly TID and I would not try weaning until his depression is better (if pain worsens during the weaning process this will set back his depression more than likely) (8) Leg swelling: Plan: RLE is larger than LLE --> checked doppler - no DVT cont lasix cont aldactone BMP stable (9) Hypertension: Plan: stable, controlled cont atenolol cont diuretics (10) History of pancreatectomy: 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 (11) Constipation: Plan: Cont senna + miralax Improved (12) Rash of face: Plan: Seborrheic dermatitis - much improved with low-dose steroids prn topical betamethasone cream (13) Chronic antibiotic suppression: Plan: Daily clindamycin for hx of left knee hardware infection Left knee stable Could the clindamycin be causing the LE petechial rash?? unlikely - has been on clindamycin since 2010 (14) CAD (coronary artery disease): Plan: h/o stents in the past Cont asa Cont atenolol Cont crestor (15) Wheezing: Plan: left lung only -- resolved with low-dose prednisone has chronic right hemidiaphragmatic paralysis - confirmed by sniff test on 02/08/2017 based on records has seen pulmonary in the past - Dr Hennessy, TOM Avendano, and most recently Dr Hall no obstructive lung disease based on past PFTs was on chronic steroids pre-2020 per records for chronic cough/sinus issues?? etiology of wheezing??? cxr without infiltrates o2 sats wnl wheezing has resolved monitor for recurrence (16) B12 deficiency: Plan: level = 234 was <200 in 2021 started B12 supplementation 1000mcg daily x 6 months minimum could be contributing to weakness (17) DDD (degenerative disc disease), lumbar: Plan: s/p L2-L5 laminectomy at [facility] in October 2022 per d/c summary surgery went well Plan DVT proph - lovenox seen by PT/OT -- cleared for home when medically ready like other days patient voiced once again today he is afraid to return home at this time due to depression, living alone, etc we have discussed the transition to home numerous times this week social work has spent copious amount of time trying to secure extra services patient not willing to consider [facility] at this time patient not willing (or unable) to live with son for a few weeks no other family available to come stay with him psych support appreciated - they are coordinating outpatient services for him reviewed all options today for his after care discussed his care multiple times today with psych & social work total time today about 90 minutes with very complex care coordination d/c tomorrow ?? Admission and Anticipated Discharge Date Admission Date: December 01, 2022 Subjective after we spoke yesterday about care plan and potential for d/c home on Thursday this sent Mr Anderson into a panic he was anxious from that point forward and spent much of last pm ruminating and worrying about transition to home he states he slept poorly because of the anxiety this am again he was anxious he was "hoping to stay another day or two" so that "you could find more help for me" explained that social work had thoroughly explored numerous options for him via [facility], home health companies, etc we discussed assisted living again today - not ready to go that route mainly because of finances we discussed his family helping him -- he is very reluctant to stay with his son who lives 1 block away from his home doesn't feel it is a good idea to go there as "he and his work" he mentions that his grandson is there nearly 27/10, however a woman who he identifies as his "step grand-daughter" was present at bedside I asked if she could potentially stay at his house for a week or two and she mentioned the same thing - that she works full-time, etc told Mr Anderson I would reach out to case management 1 more time for him and also have psych re-eval him today told him I was happy to keep him again overnight reports improvement in pain in R 3rd finger minimal pain R ankle some pain L ankle eating fair moved his bowels yesterday (large) ambulating Review of Systems Review of Systems: cv - no chest pain pulm - no dyspnea GI - no abd pain - no LUTs musculo - ongoing low back pain - using oxy regularly TID practically psych - severe anxiety Physical Exam Physical Exam: gen - NAD, very anxious, sitting in chair by window mouth - MMM neck - no JVD heart - RRR, s1 s2, no murmur lungs - CTA b/l abd - soft NT ND BS+ ext - right leg is larger than left leg -- baseline; pulses 2+ b/l skin - petechial lesions on b/l shins completely resolved today psych - flat affect remains, severe anxiety musculo - synovitis of right 3rd PIP joint nearly resolved; synovitis of right ankle nearly resolved; no synovitis of left ankle; nontender with palpation or passive ROM of either ankle Results & Data Results & Data Vital Signs (Past 12 Hours) Vital Signs Temp Pulse Resp BP Pulse Ox O2 Del Method 12/06/22 19:43 Room Air 12/06/22 14:42 37.1 C 60 16 110/56 L 95 Room Air Laboratory Results Laboratory Results - last 24 hr 12/03/22 12/06/22 12/06/22 07:35 06:15 06:15 WBC 7.87 RBC 3.70 L Hgb 11.8 L Hct 34.0 L MCV 91.9 MCH 31.9 MCHC 34.7 RDW Std Deviation 41.1 RDW Coeff of Jonh 12.2 Plt Count 237 MPV 11.3 Immature Gran % (Auto) 0.5 Neut % (Auto) 54.1 Lymph % (Auto) 30.7 Knott % (Auto) 11.1 Eos % (Auto) 2.8 Baso % (Auto) 0.8 Neut # (Auto) 4.26 Lymph # (Auto) 2.42 Knott # (Auto) 0.87 H Eos # (Auto) 0.22 Baso # (Auto) 0.06 Immature Gran # (Auto) 0.04 Sodium 135 L Potassium 4.0 Chloride 101 Carbon Dioxide 28 Anion Gap 6 BUN 21 Creatinine 0.96 Est Cr Clr Drug Dosing 69.7 Est GFR ( Amer) 85.6 Est GFR (Non-Af Amer) 73.8 BUN/Creatinine Ratio 21.9 H Glucose 95 POC Glucose Calcium 8.1 L A. phagocytophilum DNA Negative 12/06/22 20:22 WBC RBC Hgb Hct MCV MCH MCHC RDW Std Deviation RDW Coeff of Jonh Plt Count MPV Immature Gran % (Auto) Neut % (Auto) Lymph % (Auto) Knott % (Auto) Eos % (Auto) Baso % (Auto) Neut # (Auto) Lymph # (Auto) Knott # (Auto) Eos # (Auto) Baso # (Auto) Immature Gran # (Auto) Sodium Potassium Chloride Carbon Dioxide Anion Gap BUN Creatinine Est Cr Clr Drug Dosing Est GFR ( Amer) Est GFR (Non-Af Amer) BUN/Creatinine Ratio Glucose POC Glucose 120 H Calcium A. phagocytophilum DNA PG Care Time/CCT Total # of Minutes Spent Total Time Spent with Patient: Total time spent is greater than 50% in coordination of care (as documented) at patient's floor/unit and/or counseling patient: Prolonged Care Time Prolonged Care Time: Yes Total Prolonged Care Time: 90 Coding Level of Care Code 80230 SUB INP/OBS CARE 3/50MIN (25 - SIGNIFICANT, SEPARATELY IDENTIFIABLE ) Diagnoses Depression F32.9 Generalized anxiety disorder F41.1 Inflammatory arthritis M19.90 Generalized weakness R53.1 Petechiae R23.3 UTI (urinary tract infection) N39.0 Opiate use F11.90 Leg swelling M79.89 Hypertension I10 History of pancreatectomy Z90.410 Constipation K59.03 Constipation type: drug induced constipation Rash of face R21 Chronic antibiotic suppression Z79.2 CAD (coronary artery disease) I25.10 Wheezing R06.2 B12 deficiency E53.8 DDD (degenerative disc disease), lumbar M51.36 Additional Codes Prolonged Care Time - Prolonged Care Time: Yes ([id number]) (11) Constipation Constipation type: drug induced constipation Qualified Code(s): K59.03 - Drug induced constipation
[2022-12-06] MEDS: ZOLPIDEM TARTRATE 5 MG TAB PO PRN (22:19)
[2022-12-07] MEDS: oxyCODONE HCL IR 5 MG TAB (IMMEDIATE RELEASE) PO PRN (06:47)
[2022-12-07] MEDS: hydrOXYzine HCl 10 MG TAB PO PRN (07:36)
[2022-12-07] MEDS: CYANOCOBALAMIN (B-12) 500 MCG TABLET PO SCH (08:45)
[2022-12-07] MEDS: CLINDAMYCIN HCL 150 MG CAP PO SCH (08:46)
[2022-12-07] MEDS: POLYETHYLENE (MIRALAX) 17 GM PACK PO SCH (08:46)
[2022-12-07] MEDS: ATENOLOL 50 MG TABLET PO SCH (08:46)
[2022-12-07] MEDS: DOCUSATE SODIUM/SENNA 50/8.6MG TAB PO SCH (08:46)
[2022-12-07] MEDS: predniSONE 10 MG TABLET PO SCH (08:46)
[2022-12-07] MEDS: busPIRone 7.5 MG TAB PO SCH (08:47)
[2022-12-07] MEDS: THIAMINE HCL 100 MG TAB PO SCH (08:47)
[2022-12-07] MEDS: SPIRONOLACTONE 25 MG TAB PO SCH (08:48)
[2022-12-07] MEDS: ADVANCED PROBIOTIC 1250 MG CAPSULE PO SCH (08:48)
[2022-12-07] MEDS: FUROSEMIDE 40 MG TAB PO SCH (08:48)
[2022-12-07] MEDS: POTASSIUM CHLORIDE 10 MEQ TABCR PO SCH (08:49)
[2022-12-07] MEDS: DICLOFENAC SOD 1% GEL 100 GM TUBE EXT SCH (08:49)
[2022-12-07] MEDS: SENNA 8.6 MG TAB PO SCH (08:50)
[2022-12-07] MEDS ORDERED: ESCITALOPRAM OXALATE 10 MG TAB PO SCH (09:00)
[2022-12-07] MEDS: ACETAMINOPHEN 500 MG TAB PO SCH (09:02)
[2022-12-07] MEDS: PANTOprazole 40 MG TAB PO SCH (13:06)
[2022-12-07] MEDS: ASPIRIN 81 MG ECTAB PO SCH (13:07)
--- NOTE | 2022-12-07 13:18 | Discharge Summary ---
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 In the vitals remained stable. Labs were significant for an AST of 42, alk phos of 131, and UA suggestive of UTI. Chest xray was read as 1. Bibasilar opacities suggestive of atelectasis. 2. No acute cardiopulmonary findings.. CT of the abdomen/pelvis wo con was read as 1. No urinary calculi or hydronephrosis. 2. No acute process within the abdomen or pelvis on unenhanced exam. 3. Colonic diverticulosis. No evidence for acute diverticulitis. 4. Oper-ct-pllyatjq amount of stool within the right colon and rectum.. Prior to admission the patient was given a dose of ceftriaxone, 500 mL NSS, and 4 mg IV Zofran. We were asked to admit the patient for further treatment of his acute illness and possible rehab placement. At the time of the exam the patient was sitting in bed in no acute distress. He states that over the past few weeks he has felt depressed, fatigued, and generally weak. He does not get many visitors to his home as his Son is only able to visit a few times weekly along with his granddaughter. He states that he was seen by home health last week and they prescribed a dose of an oral antibiotic, he does not remember which one. He only took one dose as it make his nauseous. He has been having issues with constipation due to his oxycodone usage. He has been working with his PCP to come up with a tapering plan for the oxycodone, however, on his last visit on 11/25 his PCP started him on Lexapro for depression. They want to wait to taper his oxycodone until the Lexapro starts working. He has not been sleeping well, has been having a poor appetite, and feels hopeless at this time. When asked, he denies having suicidal ideations or homicidal ideations. He states that the only weapon he has in his home is a BB gun. He uses a walker or cane to ambulate in his home, he has not had recent falls. He is having dysuria and increased urinary frequency. He had one episodes of hematuria last week but denies other episodes. He denies recent fever, chills, chest pain, SOB, nausea, vomiting, melena, and increased LE weakness. He is willing to consider rehab placement on discharge if needed. We discussed code status, he has a living will and POA (His Son). He is a DNR/DNI. Please refer to Dr. Chang's attestation for any changes to the treatment plan Discharge Exam gen - NAD, very anxious, sitting in chair by window mouth - MMM neck - no JVD heart - RRR, s1 s2, no murmur lungs - CTA b/l abd - soft NT ND BS+ ext - right leg is larger than left leg -- baseline; pulses 2+ b/l skin - petechial lesions on b/l shins completely resolved today psych - flat affect remains, severe anxiety musculo - synovitis of right 3rd PIP joint nearly resolved; synovitis of right ankle nearly resolved; no synovitis of left ankle; nontender with palpation or passive ROM of either ankle Discharge Data Allergies Allergy/AdvReac Type Severity Reaction Status Date / Time oyster extract Allergy Intermediate hives Verified 11/25/22 10:52 shellfish derived Allergy Intermediate Hives Verified 11/25/22 10:52 azithromycin Allergy Mild Rash Verified 11/25/22 10:52 levofloxacin [From Levaquin] Allergy Mild rash Verified 11/25/22 10:52 Sulfa (Sulfonamide Allergy Mild hives Verified 11/25/22 10:52 Antibiotics) sulfamethoxazole Allergy Mild hives Verified 11/25/22 10:52 trimethoprim Allergy Mild hives Verified 11/25/22 10:52 atorvastatin Allergy Unknown UNKNOWN Verified 11/25/22 10:52 morphine Allergy Unknown UNKNOWN Verified 11/25/22 10:52 pravastatin Allergy Unknown UNKNOWN Verified 11/25/22 10:52 simvastatin Allergy Unknown UNKNOWN Verified 11/25/22 10:52 oxycodone AdvReac Mild vomiting Verified 11/25/22 10:52 Consultations 11/29/22 14:00 ED Decision to Admit Stat 11/30/22 05:55 Consult Behavioral Health Liaison Routine 11/30/22 15:50 Consult Behavioral Health Liaison Routine Ordered Studies 11/29/22 11:09 CT Abd and Pelvis [CT abd pelvis wo con] Stat 11/29/22 13:30 US venous doppler LE RT Urgent 12/03/22 10:28 MR brain wo con Routine Hospital Course (1) Depression: Severe. Likely has had dysthymia since the of his in 2018. This then progressed to significant depression this summer in the setting of major back surgery 10/2022, several months of inactivity due to significant LE weakness, etc. He has voiced he "cannot do the things I used to do" and this upsets him tremendously. There appears to be family issues/conflict between himself and son. They live nearly 1 block apart and patient does not feel comfortable asking his son to live at his house for a few weeks. Recently started on Lexapro 5mg daily by PCP on 11/25. Tolerating this - thus, will increase to 10mg daily tomorrow. Reassured him & have counseled him it will take 3-4 weeks to see full effects from the lexapro. Have been encouraging good sleep habits; insomnia will worsen his depression & fatigue of course. Treating the anxiety as below. Consulted behavioral health liaison to assist with depression management/counseling referral. Although I cannot get him to commit to the counseling route. Appreciate psych assistance. (2) Generalized anxiety disorder: Cont lexapro - increase to 10mg daily starting 12/07. Cont buspar - increase to 7.5mg TID. Add low-dose atarax 10mg q12h prn for breakthrough symptoms. Will again encourage counseling. (3) Inflammatory arthritis: R 3rd finger PIP joint R ankle MUCH improved suspected gout uric acid level elevated cont prednisone 10mg daily can likely stop soon (perhaps tomorrow) (4) Generalized weakness: etiology uncertain but, at minimum, depression playing a significant role. insomnia contributing. B12 deficiency could be contributing - replace. deconditioning (had major back surgery in October, etc). his weakness has improved while here fortunately. checked CPK, sed rate, CRP, Fe studies, Lyme screen, anaplasmosis smear, etc -- all negative/normal although does have mild Fe deficiency. checked COVID/flu/RSV --> negative. cortisol level satisfactory. B1 level sent; empiric thiamine started while awaiting level. UTI ruled out -- urine cx negative, and initial u/a was not terribly suspicious for UTI - stopped IV rocephin. cont PT, OT. (5) Petechiae: b/l LEs resolved with low-dose steroids he had eosinophilia on CBC w/ diff - this resolved following steroids as well cont prednisone CBC today with stable eosinophils of note - I spoke with Dr Flaco Foreman from allergy. recommendation - if petechiae recur after steroids d/c or his eosinophilia returns he would want to see him in the allergy clinic. clindamycin NOT suspected to the culprit in this. MAYBE rocephin (received 4 days of such at beginning of admission) (6) UTI (urinary tract infection): urine cx negative initial u/a was not highly suspicious for UTI received 4 doses of rocephin abx stopped due to neg culture and low suspicion of active infection (7) Opiate use: cont oxy prn explained to him that since he has been on such for several months I would not abruptly stop these chronic opiate use can lead to adrenal insufficiency -- but cortisol leve not suggestive of such cont tylenol 1gm TID + voltaren gel 4gm qid he continues to use the oxy nearly TID and I would not try weaning until his depression is better (if pain worsens during the weaning process this will set back his depression more than likely) (8) Leg swelling: RLE is larger than LLE --> checked doppler - no DVT cont lasix cont aldactone BMP stable (9) Hypertension: stable, controlled cont atenolol cont diuretics (10) 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 (11) Constipation: Cont senna + miralax Improved (12) Rash of face: Seborrheic dermatitis - much improved with low-dose steroids prn topical betamethasone cream (13) Chronic antibiotic suppression: Daily clindamycin for hx of left knee hardware infection Left knee stable Could the clindamycin be causing the LE petechial rash?? unlikely - has been on clindamycin since 2010 (14) CAD (coronary artery disease): h/o stents in the past Cont asa Cont atenolol Cont crestor (15) Wheezing: left lung only -- resolved with low-dose prednisone has chronic right hemidiaphragmatic paralysis - confirmed by sniff test on 02/08/2017 based on records has seen pulmonary in the past - Dr Hennessy, TOM Avendano, and most recently Dr Hall no obstructive lung disease based on past PFTs was on chronic steroids pre-2019 per records for chronic cough/sinus issues?? etiology of wheezing??? cxr without infiltrates o2 sats wnl wheezing has resolved monitor for recurrence (16) B12 deficiency: level = 234 was <200 in 2021 started B12 supplementation 1000mcg daily x 6 months minimum could be contributing to weakness (17) DDD (degenerative disc disease), lumbar: s/p L2-L5 laminectomy at [facility] in October 2022 per d/c summary surgery went well Plan DVT proph - lovenox seen by PT/OT -- cleared for home when medically ready like other days patient voiced once again today he is afraid to return home at this time due to depression, living alone, etc we have discussed the transition to home numerous times this week social work has spent copious amount of time trying to secure extra services patient not willing to consider [facility] at this time patient not willing (or unable) to live with son for a few weeks no other family available to come stay with him psych support appreciated - they are coordinating outpatient services for him reviewed all options today for his after care discussed his care multiple times today with psych & social work total time today about 90 minutes with very complex care coordination d/c tomorrow ?? Home Health Attestation I certify that this patient is under my care and that I, or a physicians financial sales assistant working with me, had a face to-face encounter that meets the home health ddot-lg-fbww encounter requirements with this patient. The encounter with the patient was in whole, or in part, for the following medical condition, which is the primary reason for home health care (list medical condition): I certify that, based on my findings, the following services are medically necessary home health services: My clinical findings support the need for the above services because: Further, I certify that my clinical findings support that this patient is homebound (i.e. absences from home require considerable and taxing effort and are for medical reasons or jew services or infrequently or of short duration when for other reasons) because: Certification for Home Health Services: Based on the above findings, I certify that this patient is confined to the home and needs intermittent halfway care, physical therapy and/or speech therapy or continues to need occupational therapy. The patient is under my care, and I have initiated the establishment of the plan of care. This patient will be followed by a physician who will periodically review the plan of care. Discharge Plan Discharge Items Patient Disposition: Home - Home Health Services Reason For Visit: UTI, GENERALIZED WEAKNESS Discharge Diagnosis: 1. Generalized weakness - improving; multiple causes for it 2. Severe depression 3. Severe anxiety 4. Major back surgery 10/2022 5. Vitamin B12 deficiency 6. Insomnia 7. Gout attack right 3rd finger & right ankle - resolved 8. Rash on bilateral lower legs - resolved; cause uncertain; if it recurs you will need to see Jeffery Welch 9. Concern for urinary tract infection - ruled out - urine culture negative 10. Chronic low back pain Activity: Resume your previous activity Driving/Machine Use: NO DRIVING due to use of narcotic pain killer medication Non-emergency contact: Primary Care Provider Call non-emergency contact if: you have any medication questions, your symptoms worsen and you have a fever Follow-up/Referrals: Anita Wang MD [Primary Care Provider] - (within 5 days ) Diet: Heart Healthy Addtl Attending Provider Instructions: Mr Anderson, You were treated for several problems during your stay many of which are listed under "discharge diagnoses." Over the last few months you have been suffering from anxiety, depression, difficulty sleeping (insomnia), and back pain. You have gone through a lot recently both physically & mentally including major surgery, having to recover from surgery, etc. During the hospitalization we started new medication for anxiety and sleep. We also had our psychology team see you to give you resources for when you get home. We investigated many avenues of help & resources in the community for your well- being. Once you are home outpatient social workers/casework specialist will help you get the help you need for your medical problems - particular your mental health. You also had a gout attack of your right middle finger & right ankle. This improved with prednisone low-dose. The fish you had had before admission may have triggered the gout. We discussed your back pain on many occasions and what to do about the oxycodone pain medication. I would recommend that you treat your depression aggressively along with anxiety/sleep issues. Once these things are really improving then please talk to your family doctor about how to wean off the oxycodone. It will take a few weeks to wean off once that process is started. I am concerned that if you try to wean off now and if it doesn't go well (your pain worsens) your mental health may suffer as a consequence. In addition to oxycodone you can take godl-mku-zeqdxum tylenol 1000mg up to three times daily for your back pain. You can also continue the diclofenac gel -- apply 4 grams up to 4 times daily to the spots on your back that hurt. This is an jvun-bdl-bjisqsn medication. You saw PT/OT while here and did well with your walking. There was a rash on your lower legs (red dots) that resolved with the prednisone. The exact cause of this rash was uncertain. If the rash comes back I would recommend seing an physical education specialist with [facility]. Recommendations - 1. For anxiety - * buspirone 7.5mg three times daily * this medication is not addicting or habit-forming 2. For sleep/night-time anxiety - * hydroxyzine 10mg at bedtime as needed/as desired 3. For depression (and anxiety) - * please INCREASE your Escitalopram to two tablets once a day * start this 12/08/22 * the dose increase means you will now be on a total dose of 10mg per day * the effects of this medication to improve the depression are about 2-3 weeks away; the medicine slowly builds up in your system 4. Please strongly consider talking to a counselor, your tube mounter, therapist, etc. I have found that people do much better with their depression when they are getting counseling AND taking an antidepressant. 5. Low vitamin levels - * take qfhn-hzd-xqdzgjb vitamin B12 1000mcg (1mg) once daily for 6-12 months; your family doctor can recheck your levels in the future * take prescription B1 (thiamine) 200mg twice daily x 30 days then stop 6. For gout - * prednisone 5mg once daily on 12/08 and 12/09 then stop. * take with food. 7. See your family doctor later this week. Return to [facility] if - * you have thoughts of hurting yourself or someone else * your depression becomes so severe that you cannot get out of bed, complete day to day tasks, etc * you have difficulty breathing/shortness of breath * you have severe constipation * you have severe anxiety despite taking all of the above medications * any other concerns It was my pleasure to care for you! Enjoy being home, -Dr Coleman Pending Studies at Discharge: Yes Studies:: vitamin B1 (thiamine) level Stand-Alone Forms: My [facility] Advanced Telemetry, Smoking Cessation Medications and DC Order Prescriptions: New thiamine HCl (vitamin B1) 100 mg Tablet 200 mg PO BID 30 Days Qty: 120 0RF buspirone 7.5 mg Tablet 7.5 mg PO TID Qty: 60 0RF Rx Instructions: for anxiety hydroxyzine HCl 10 mg Tablet 10 mg PO HS PRN (Reason: sleep/night-time anxiety) Qty: 30 0RF diclofenac sodium [Voltaren Arthritis Pain] 1 % Gel 4 g EXT QID PRN (Reason: back pain) Qty: 1 0RF Rx Instructions: can purchase mlgi-hre-wcstmqh cyanocobalamin (vitamin B-12) 1,000 mcg tablet 1,000 mcg PO DAILY Qty: 90 3RF Rx Instructions: purchase qrdy-hxu-gkhahvt prednisone 5 mg tablet 5 mg PO DAILY 2 Days Qty: 2 0RF Rx Instructions: take on 12/08 and 12/09 with food then stop. Continued nitroglycerin 0.4 mg tablet, sublingual 0.4 mg SL Q5M PRN (Reason: chest pain) Qty: 30 3RF rosuvastatin 5 mg tablet 2.5 mg PO 3XWK Qty: 60 3RF Rx Instructions: 2.5 mg PO M,W,F; omeprazole 20 mg capsule,delayed release(DR/EC) 20 mg PO QDL Qty: 90 1RF furosemide 40 mg tablet 40 mg PO DAILY Qty: 90 3RF acetaminophen [Tylenol Extra Strength] 500 mg tablet 1,000 mg PO Q8H PRN (Reason: Pain) polyethylene glycol 3350 [Miralax] 17 gram/dose powder 17 g PO BID clindamycin HCl 150 mg capsule 150 mg PO DAILY spironolactone 25 mg tablet 25 mg PO DAILY atenolol 100 mg tablet 50 mg PO DAILY oxycodone 10 mg tablet 10 mg PO TID PRN (Reason: pain) Qty: 90 0RF aspirin 81 mg tablet 81 mg PO QDL cholecalciferol (vitamin D3) 25 mcg (1,000 unit) capsule 1,000 unit PO DAILY calcium carbonate [Calcium 500] 500 mg calcium (1,250 mg) tablet 500 mg PO DAILY senna-docusate sodium Capsule 1 cap PO DAILY Rx Instructions: May take 2 capsules by mouth a day as needed gabapentin 100 mg capsule 100 mg PO Q8H PRN (Reason: pain) Qty: 20 0RF potassium chloride 10 mEq capsule, extended release 10 meq PO DAILY Qty: 30 0RF Changed escitalopram oxalate [Lexapro] 5 mg tablet 10 mg PO DAILY Qty: 30 3RF Rx Instructions: starting 12/08/22 take TWO tablets once a day. Discontinued lorazepam 0.5 mg tablet 0.5 mg PO Q6H PRN (Reason: anxiety) Qty: 20 0RF Discharge Orders: Discharge Order (Routine); Ordered 12/07/22 Ordered By: Jacinto Esteves/Other Patient Handouts: What Is Gout, Counseling for Depression, What Is Insomnia?, Eating to Prevent Gout Admission Data Admit Date/Time: 12/01/22 10:49 Attending Provider: Jacinto Coleman Admit Provider: Jacinto Chang Primary Care Provider: Anita Wang Other Providers: Jacinto Chang ; [facility] Other Interventions: Discharge Summary Assessment (RN) Last Done: 12/07/22 07:40 Coding Diagnoses Depression F32.9 Generalized anxiety disorder F41.1 Inflammatory arthritis M19.90 Generalized weakness R53.1 Petechiae R23.3 UTI (urinary tract infection) N39.0 Opiate use F11.90 Leg swelling M79.89 Hypertension I10 History of pancreatectomy Z90.410 Constipation K59.03 Constipation type: drug induced constipation Rash of face R21 Chronic antibiotic suppression Z79.2 CAD (coronary artery disease) I25.10 Wheezing R06.2 B12 deficiency E53.8 DDD (degenerative disc disease), lumbar M51.36
== END 2022-12-07 13:46 | disposition home health service (06) | DRG 881 ==
LOC: 3E 09:49 → ED 09:49 → SUATTDRO 12:58 → 3E 14:46 → SUATTDRO 12-01 10:49

== ENCOUNTER 2024-01-11 19:59 | Inpatient (IN) ==
--- NOTE | 2024-01-11 20:44 | Emergency Department Note ---
Impression & Plan Dizziness, Ambulatory dysfunction ED Provider Note HISTORY OF PRESENT ILLNESS: Patient is an 83-year-old male presenting with confusion and dizziness. Patient reports that this past week he was told to stop his Eliquis by his primary care provider. He states that he was recently started on oxycodone on Thursday for his back pain. He took a dose around noon and around 3 PM was more lethargic and difficult to arouse. Patient is slow to answer questions but states over the last week he has been having multiple episodes of dizziness described as feeling lightheaded and like he is going to pass out. He states that he has no chest pain with these episodes or no significant shortness of breath. He ambulates with a walker at baseline. ROS: as above PHYSICAL EXAM: Constitutional: Patient appears in no acute distress. HENT: Head: Normocephalic and atraumatic. Eyes: EOMI, PERRL Mouth/Throat: Mucous membranes moist. Neck: Trachea midline. Neck supple. Cardiovascular: RRR, No murmurs, rubs or gallops. Intact distal pulses. Pulmonary/Chest: No respiratory distress. Breath sounds clear and equal bilaterally. No wheezes or rales. Abdominal: Abdomen soft, no tenderness, rebound or guarding. Musculoskeletal: No tenderness or deformity noted. +3 pitting edema bilateral lower extremities extending to the mid tibia. Skin: Warm and dry. No rash, erythema, pallor or cyanosis Psychiatric: Appropriate mood and affect for situation. Neurological: Alert and keenly responsive. CN II-XII grossly intact, moving all extremities equally and fully. MDM: - Vitals signs stable. - History obtained via patient. History as above. - Chronic conditions affecting care: degenerative disc disease;depression; HTN; CAD; COPD; DM-2; PE (previously on eliquis) - Differential diagnoses include, but are not limited to: CVA; intracranial hemorrhage; ACS; dysrhythmia; electrolyte abnormality; pneumonia; UTI - Order placed for continuous cardiac monitoring. At this time, monitor showed rate of 70 bpm with normal sinus rhythm, per my interpretation. - External medical records reviewed. Wellness visit note dated 01/06/2024 was reviewed. Patient was started back on oxycodone at that visit secondary to his degenerative disc disease. - EKG interpreted by myself showed normal sinus rhythm. Rate 65 bpm. QT 418. No acute ischemic changes. - Laboratory workup interpreted by myself showed normal WBC; normal PT/INR; stable electrolytes; normal troponin; normal procalcitonin; normal lactate - CXR negative for pneumonia, per my interpretation - UA negative for infection - UDS positive for opioids. - CT head wo contrast negative for acute intracranial pathology - Patient recently was restarted on oxycodone for his back pain symptoms. This likely the source of his dizziness and unsteadiness. However, on trying to get the patient up he was unsteady on his feet and do not feel it is safe to send him home at this point. Will admit to hospital service for further evaluation and PT/OT assessment - Discussion was had with skilled nursing case manager about patient's case and need for admission - Hospitalist consulted for admission - Patient admitted to [facility] service for further evaluation and management. ASSESSMENT AND PLAN: Diagnosis: Dizziness; ambulatory dysfunction Plan: admit Past Med/Surg History Problem List (Updated 01/12/24 @ 00:22 by Lulu Serrano MD) Ambulatory dysfunction (Acute) Dizziness (Acute) Complaint of fatigable weakness Dehydration Encounter for monitoring diuretic therapy Physical deconditioning Postural lightheadedness Encounter for monitoring diuretic therapy Syncope DM2 (diabetes mellitus, type 2) Encounter to discuss test results Edema Diverticulosis of colon COPD (chronic obstructive pulmonary disease) Chest pain Lumbosacral facet joint syndrome Anticoagulated History of lumbar surgery L2-3, L3-4, L4-5 laminectomy, medial facetectomy, and foraminotomies - Dr. Pettit, 10/13/2022 Lumbosacral pain Right leg swelling Chronic pain Moderate aortic stenosis Pulmonary embolism dx 01/2023, provoked by surgery (10/2022). eliquis X 6 months. Panic disorder Major depression single episode, in partial remission Weakness (Acute) Fall Gout Hypotension Vitamin B1 deficiency Generalized anxiety disorder Inflammatory arthritis Wheezing (Acute) CAD (coronary artery disease) Petechiae Acute UTI (urinary tract infection) (Acute) Acute constipation (Acute) Mood disorder (Acute) Elevated bilirubin Chronic antibiotic suppression Hypertension Leg swelling UTI (urinary tract infection) Generalized weakness Depression Opiate use Fluid overload Pulmonary atelectasis Nausea Encounter for preoperative assessment Left knee DJD Cough Dyspnea on exertion Atelectasis Elevated hemidiaphragm Pain of left calf Bilateral lower extremity edema Hip pain, bilateral Excessive daytime sleepiness B12 deficiency DDD (degenerative disc disease), lumbar Decreased range of motion of both hips Radicular neuropathy Fatigue Bilateral leg pain Venous insufficiency (chronic) (peripheral) Encounter for immunization Pain of left lower extremity Antiplatelet or antithrombotic long-term use Lung abnormality per pt after whipple procedure right lung does not fully expand Shortness of breath Non-healing skin lesion (Acute) Acute bronchitis (Acute) Grieving (Acute) 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 Postnasal drip (Chronic) Hoarseness (Chronic) Back pain (Acute) Constipation (Acute) Diaphragm paralysis Chronic cough Drug-induced photosensitivity Rash of body Peripheral edema Medical History Encounter for examination following treatment at hospital Encounter for preoperative pulmonary examination Routine health maintenance Encounter for pre-operative examination Opioid dependence Chronic lumbosacral pain Spinal stenosis, lumbar region without neurogenic claudication Steroid long-term use Accident History of pancreatitis GERD (gastroesophageal reflux disease) Heart attack Rash of face Chronic venous stasis Dyslipidemia Chest tightness Surgical History Hx of vascular surgery History of skin graft History of hand surgery History of total bilateral knee replacement (TKR) History of repair of right rotator cuff History of tooth extraction History of major abdominal surgery History of bilateral cataract extraction S/P inguinal hernia repair H/O cardiac catheterization Family History Mother Bone cancer Family/Other Myocardial infarction Other No family history of adverse response to anesthesia Denies family history of Ovarian cancer Prostate cancer Breast cancer Colorectal cancer Social History Smoking Status: Never smoker Second Hand Exposure: No; Do You Dip or Chew Tobacco: No; Hx Alcohol Use: No Hx Substance Use: No Preferred Language: Samoan Communication Ability: Effective Visual Impairment: Limited Hearing Ability: Normal Comparative Sociology Professor Required: No Beliefs That Will Affect Care: None marital status: / Current Living Situation: Alone current occupational status: retired How many Children do You have: 3 Feels Safe at Home: Yes Childhood Exposure to Second-Hand Smoke: No Diet: regular caffeine: Yes (2 cups of coffee QAM) during the past year weight has: increased > 10 lbs Dental Care, Regularly: Yes Physical Activity Frequency: Does not Exercise Physical Activity Frequency Comment: Due to back pain. Seatbelt Use: always Sunscreen Use: No Gender Identity: Male Assistive Devices: Cane, Walker, Wheelchair and Other Allergies Allergies Allergy/AdvReac Type Severity Reaction Status Date / Time oyster extract Allergy Intermediate hives Verified 01/06/24 09:09 shellfish derived Allergy Intermediate Hives Verified 01/06/24 09:09 azithromycin Allergy Mild Rash Verified 01/06/24 09:09 levofloxacin [From Levaquin] Allergy Mild rash Verified 01/06/24 09:09 Sulfa (Sulfonamide Allergy Mild hives Verified 01/06/24 09:09 Antibiotics) sulfamethoxazole Allergy Mild hives Verified 01/06/24 09:09 trimethoprim Allergy Mild hives Verified 01/06/24 09:09 atorvastatin Allergy Unknown UNKNOWN Verified 01/06/24 09:09 morphine Allergy Unknown UNKNOWN Verified 01/06/24 09:09 pravastatin Allergy Unknown UNKNOWN Verified 01/06/24 09:09 simvastatin Allergy Unknown UNKNOWN Verified 01/06/24 09:09 oxycodone AdvReac Mild vomiting Verified 01/06/24 09:09 Home Meds Home Medications Medication Instructions Recorded Confirmed polyethylene glycol 3350 17 17 g PO BID 09/25/22 01/11/24 gram/dose oral powder (Miralax) aspirin 81 mg tablet,delayed 81 mg PO QDL 01/22/23 01/11/24 release calcium carbonate 500 mg PO QAM 01/22/23 01/11/24 sennosides 8.6 mg-docusate sodium 1 tab PO QAM 01/22/23 01/11/24 50 mg tablet (Senna with Docusate Sodium) thiamine HCl (vitamin B1) 100 mg 200 mg PO BID 01/22/23 01/11/24 tablet cholecalciferol (vitamin D3) 50 50 mcg PO QAM 04/20/23 01/11/24 mcg (2,000 unit) capsule acetaminophen 500 mg tablet 1,000 mg PO Q8H PRN Pain 01/11/24 01/11/24 (Tylenol Extra Strength) clindamycin HCl 300 mg capsule 300 mg PO QAM 01/11/24 01/11/24 cyanocobalamin (vitamin B-12) 1,000 mcg PO QAM 01/11/24 01/11/24 1,000 mcg tablet escitalopram oxalate 10 mg tablet 10 mg PO QAM 01/11/24 01/11/24 escitalopram oxalate 5 mg tablet 5 mg PO QDL 01/11/24 01/11/24 furosemide 20 mg tablet 20 mg PO QAM 01/11/24 01/11/24 mirtazapine 7.5 mg tablet 7.5 mg PO HS 01/11/24 01/11/24 Previous Rx's Medication Instructions Recorded nitroglycerin 0.4 mg sublingual 0.4 mg sublingual Q5M PRN chest 01/22/22 tablet pain #30 tabs rosuvastatin 5 mg tablet 2.5 mg (1/2 x 5 mg) PO 3XWK #60 03/03/23 tabs albuterol sulfate 90 mcg/actuation 2 puff inhalation Q6H PRN 10/02/23 aerosol inhaler shortness of breath or wheezing #8.5 grams spironolactone 25 mg tablet 25 mg PO BID #180 tabs 10/29/23 atenolol 25 mg tablet 25 mg PO QPM #90 tabs 12/14/23 gabapentin 300 mg capsule 300 mg PO TID #270 caps 12/24/23 omeprazole 20 mg capsule,delayed 20 mg PO QDL #90 caps 12/25/23 release oxycodone 5 mg tablet 5 mg PO TID PRN debilitating back 01/06/24 pain #90 tabs Results & Data (ED) Vital Signs Vital Signs - 24 hr 01/11/24 20:02 01/11/24 20:34 01/11/24 20:39 Temperature 36.7 C Temperature Source Oral Pulse Rate 74 71 Pulse Rate [Apical] Respiratory Rate 19 Blood Pressure 120/74 Blood Pressure [Right Arm] Blood Pressure Mean 89 Blood Pressure Mean [Right Arm] Pulse Oximetry 96 95 Oxygen Delivery Method Room Air Room Air Sepsis Recent Fever Within 48 Hours No Sepsis New/Unexplained Change in Mental Status Yes Sepsis Action Taken by Nursing No Action Required 01/11/24 20:39 01/11/24 22:00 01/11/24 23:12 Temperature Temperature Source Pulse Rate 68 Pulse Rate [Apical] 83 66 Respiratory Rate 20 20 14 Blood Pressure 135/67 Blood Pressure [Right Arm] 120/74 141/75 H Blood Pressure Mean 89 Blood Pressure Mean [Right Arm] 89 97 Pulse Oximetry 95 96 95 Oxygen Delivery Method Room Air Room Air Sepsis Recent Fever Within 48 Hours Sepsis New/Unexplained Change in Mental Status Sepsis Action Taken by Nursing Laboratory Data 01/11/24 20:43 01/11/24 20:43 Lab Results 01/11/24 01/11/24 01/11/24 Range/Units 20:43 21:03 Unknown WBC 7.31 (4.8-10.8) K/ul RBC 4.28 L (4.70-6.10) M/uL Hgb 13.9 L (14.0-18.0) g/dl Hct 41.2 L (42.0-52.0) % MCV 96.3 (80.0-100.0) fL MCH 32.5 (25.0-34.0) pg MCHC 33.7 (32.0-36.0) g/dL RDW Std Deviation 57.1 H (36.4-46.3) fL RDW Coeff of Jonh 16.1 H (11.5-14.5) % Plt Count 256 (130-400) K/uL MPV 10.3 (9.4-12.4) fL Immature Gran % (Auto) 2.7 % Neut % (Auto) 63.0 % Lymph % (Auto) 21.8 % [place] % (Auto) 9.4 % Eos % (Auto) 2.3 % Baso % (Auto) 0.8 % Neut # (Auto) 4.60 (1.40-6.50) K/uL Lymph # (Auto) 1.59 (1.20-3.40) K/uL [place] # (Auto) 0.69 H (0.11-0.59) K/uL Eos # (Auto) 0.17 (0.00-0.50) K/uL Baso # (Auto) 0.06 (0.00-0.20) K/uL Immature Gran # (Auto) 0.20 (0.01-0.20) K/uL PT 11.7 (9.0-12.0) Seconds INR 1.1 (0.9-1.1) APTT 29 (21-31) Seconds PTT Ratio 1.1 Sodium 138 (136-145) mmol/L Potassium 4.2 (3.5-5.1) mmol/L Chloride 104 (98-107) mmol/L Carbon Dioxide 25 (21-32) mmol/L Anion Gap 9 (3-11) BUN 30 H (6-23) mg/dl Creatinine 1.39 (0.6-1.4) mg/dl Est Cr Clr Drug Dosing 51.9 ml/min eGFR 50.62 BUN/Creatinine Ratio 21.6 H (10-20) Glucose 113 H (70-99(Fasting)) mg/dl Lactate 1.2 (0.4-2.0) mmol/L Calcium 8.4 L (8.6-10.3) mg/dl Magnesium 1.8 (1.7-2.4) mg/dl Total Bilirubin 0.5 (0.2-1.0) mg/dl AST 23 (13-39) U/L ALT 16 (7-52) U/L Alkaline Phosphatase 136 H (34-104) U/L Troponin I High Sens 15.0 (0-20) pg/ml B-Natriuretic Peptide 99 (0-100) pg/ml Total Protein 6.5 (6.0-8.3) gm/dl Albumin 3.4 (3.4-5.0) gm/dl Globulin 3.1 (2.5-4.0) gm/dl Albumin/Globulin Ratio 1.1 (0.9-2) Procalcitonin 0.11 (0-0.5) ng/ml Urine Color Dark Yellow Urine Appearance Clear (Clear) Urine pH 5.0 (4.5-7.5) Ur Specific [place] 1.023 (1.000-1.030) Urine Protein Trace H (Negative) Urine Glucose (UA) Negative (Negative) Urine Ketones Trace H (Negative) Urine Blood Negative (Negative) Urine Nitrite Negative (Negative) Urine Bilirubin 1+ H (Negative) Urine Urobilinogen Negative (Negative) Ur Leukocyte Esterase Negative (Negative) Urine WBC (Auto) 0-5 (0-5) /hpf Urine RBC (Auto) 0-2 (0-2) /hpf U Hyaline Cast (Auto) 11-20 H (0-2) /lpf U Epithel Cells (Auto) 0-2 (0-2) /hpf Urine Bacteria (Auto) None Seen (None Seen) Calcium Oxalate Crystal Present A (None Prsent) Urine Opiates Screen Pos H (Neg) Ur Methadone, Qual Neg (Neg) Urine Fentanyl Screen Neg (Neg) Urine Barbiturates Neg (Neg) Ur Phencyclidine (PCP) Neg (Neg) U Amphetamin/Meth Scrn Neg (Neg) MDMA (Ecstasy) Screen Neg (Neg) U Benzodiazepines Scrn Neg (Neg) Ur Cocaine Metabolite Neg (Neg) U Marijuana (THC) Screen Neg (Neg) Imaging Data Radiologist's Impression: Head CT 01/11/24 20:02 Exam(s): CT HEAD Without Contrast EXAM: CT Head Without Intravenous Contrast CLINICAL HISTORY: Reason for exam: altered mental status. TECHNIQUE: Axial computed tomography images of the head/brain without intravenous contrast. CTDI is 62.82 mGy and DLP is 1100.35 mGy-cm. Automated exposure control was utilized for the study. A dose lowering technique was utilized adhering to the principles of ALARA. COMPARISON: No relevant prior studies available. FINDINGS: Brain: There are some hypodensities to the periventricular and subcortical white matter. No hemorrhage. Ventricles: Unremarkable. No ventriculomegaly. Bones/joints: There is CSF density mass anterior margin of the middle cranial fossa on the left side 3.9 x 1.4 cm in maximal transverse dimension. No acute fracture. Soft tissues: Unremarkable. Sinuses: Unremarkable as visualized. No acute sinusitis. Mastoid air cells: Unremarkable as visualized. No mastoid effusion. 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 Electronically signed by: Jose Antonio Ervin MD 01/11/24 22:39 PM Discharge Plan Visit Data Chief Complaint: Confusion Stated Complaint: AMS ED Provider: Lulu Serrano Discharge Problem: Dizziness, Ambulatory dysfunction Forms Stand Alone Forms: [facility] Prescriptions Prescriptions: No Action nitroglycerin 0.4 mg tablet, sublingual 0.4 mg SL Q5M PRN (Reason: chest pain) Qty: 30 3RF rosuvastatin 5 mg tablet 2.5 mg PO 3XWK Qty: 60 3RF Rx Instructions: 2.5 mg PO M,W,; atenolol 25 mg tablet 25 mg PO QPM Qty: 90 1RF gabapentin 300 mg capsule 300 mg PO TID Qty: 270 3RF omeprazole 20 mg capsule,delayed release(DR/EC) 20 mg PO QDL Qty: 90 1RF thiamine HCl (vitamin B1) 100 mg tablet 200 mg PO BID polyethylene glycol 3350 [Miralax] 17 gram/dose powder 17 g PO BID cholecalciferol (vitamin D3) 50 mcg (2,000 unit) capsule 50 mcg PO QAM spironolactone 25 mg tablet 25 mg PO BID Qty: 180 3RF albuterol sulfate 90 mcg/actuation HFA aerosol inhaler 2 puff inhalation Q6H PRN (Reason: shortness of breath or wheezing) Qty: 8.5 0RF oxycodone 5 mg tablet 5 mg PO TID PRN (Reason: debilitating back pain) Qty: 90 0RF aspirin 81 mg Tablet,Delayed Release (Dr/Ec) 81 mg PO QDL calcium carbonate 500 mg calcium (1,250 mg) Tablet 500 mg PO QAM sennosides-docusate sodium [Senna with Docusate Sodium] 8.6-50 mg Tablet 1 tab PO QAM Rx Instructions: may take extra tab daily if needed acetaminophen [Tylenol Extra Strength] 500 mg tablet 1,000 mg PO Q8H PRN (Reason: Pain) clindamycin HCl 300 mg capsule 300 mg PO QAM cyanocobalamin (vitamin B-12) 1,000 mcg tablet 1,000 mcg PO QAM Rx Instructions: purchase [id number] furosemide 20 mg tablet 20 mg PO QAM escitalopram oxalate 10 mg tablet 10 mg PO QAM Rx Instructions: TO BE TAKEN WITH 5 MG TAB FOR TOTAL OF 15 MG DAILY escitalopram oxalate 5 mg tablet 5 mg PO QDL Rx Instructions: TO BE TAKEN WITH 10 MG TAB FOR TOTAL OF 15 MG DAILY mirtazapine 7.5 mg tablet 7.5 mg PO HS Referrals Referrals: Anita Wang MD [Primary Care Provider] -
[2024-01-11 21:23] LABS: Albumin Globulin Ratio 1.1 (0.9-2); Albumin Level 3.4 gm/dl (3.4-5.0); BUN Creatinine Ratio 21.6 (10-20); Bilirubin,Total 0.5 mg/dl (0.2-1.0); Calcium 8.4 mg/dl (8.6-10.3); Creatinine Clr Calc Pharmacy 51.9 ml/min; Globulin 3.1 gm/dl (2.5-4.0); Magnesium 1.8 mg/dl (1.7-2.4); Potassium 4.2 mmol/L (3.5-5.1); Total Protein 6.5 gm/dl (6.0-8.3)
[2024-01-11 21:30] LABS: Basophils # (auto) 0.06 K/uL (0.00-0.20); Basophils % (auto) 0.8 %; Eosinophils # (auto) 0.17 K/uL (0.00-0.50); Eosinophils % (auto) 2.3 %; Hematocrit (blood only) 41.2 % (42.0-52.0); Hemoglobin 13.9 g/dl (14.0-18.0); Immature Granulocytes % (auto) 2.7 %; Lymphocytes # (auto) 1.59 K/uL (1.20-3.40); Lymphocytes % (auto) 21.8 %; Mean Corpuscular Hemoglobin 32.5 pg (25.0-34.0); Mean Corpuscular Hgb Conc 33.7 g/dL (32.0-36.0); Mean Corpuscular Volume 96.3 fL (80.0-100.0); Mean Platelet Volume 10.3 fL (9.4-12.4); Monocytes # (auto) 0.69 K/uL (0.11-0.59); Monocytes % (auto) 9.4 %; Platelet Count 256 K/uL (130-400); RDW Coefficient of Variation 16.1 % (11.5-14.5); RDW Standard Deviation 57.1 fL (36.4-46.3); Red Blood Count 4.28 M/uL (4.70-6.10); White Blood Count 7.31 K/ul (4.8-10.8)
[2024-01-11 21:36] LABS: INR 1.1 (0.9-1.1); Partial Thromboplastin Ratio 1.1; Partial Thromboplastin Time 29 Seconds (21-31); Prothrombin Time 11.7 Seconds (9.0-12.0)
[2024-01-11 22:38] LABS: Appearance Urine Clear (Clear); Bacteria Urine Automated None Seen (None Seen); Bilirubin Urine 1+ (Negative); Blood Urine Negative (Negative); Calcium Oxalate Crystals Urine Present (None Prsent); Color Urine Dark Yellow; Epithelial Cell Urine Auto 0-2 /hpf (0-2); Glucose Urine UA Negative (Negative); Ketones Urine Trace (Negative); Leukocyte Esterase Urine Negative (Negative); Nitrite Urine Negative (Negative); Protein Urine Trace (Negative); RBC Urine Automated 0-2 /hpf (0-2); Specific Gravity Urine 1.023 (1.000-1.030); Urobilinogen Urine Negative (Negative); WBC Urine Automated 0-5 /hpf (0-5)
--- NOTE | 2024-01-11 22:40 | CT Scan Report ---
Exam(s): CT HEAD Without Contrast EXAM: CT Head Without Intravenous Contrast CLINICAL HISTORY: Reason for exam: altered mental status. TECHNIQUE: Axial computed tomography images of the head/brain without intravenous contrast. CTDI is 62.82 mGy and DLP is 1100.35 mGy-cm. Automated exposure control was utilized for the study. A dose lowering technique was utilized adhering to the principles of ALARA. COMPARISON: No relevant prior studies available. FINDINGS: Brain: There are some hypodensities to the periventricular and subcortical white matter. No hemorrhage. Ventricles: Unremarkable. No ventriculomegaly. Bones/joints: There is CSF density mass anterior margin of the middle cranial fossa on the left side 3.9 x 1.4 cm in maximal transverse dimension. No acute fracture. Soft tissues: Unremarkable. Sinuses: Unremarkable as visualized. No acute sinusitis. Mastoid air cells: Unremarkable as visualized. No mastoid effusion. 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 Electronically signed by: Jose Antonio Ervin MD 01/11/24 22:39 PM
[2024-01-11 22:44] LABS: Amphetamines+Metham, Urine Neg (Neg); Barbiturates, Urine Neg (Neg); Benzodiazepine, Urine Neg (Neg); Cocaine, Urine Neg (Neg); Fentanyl, Urine Neg (Neg); MDMA (Ecstacy), Urine Neg (Neg); Marijuana, Urine Neg (Neg); Methadone, Urine Neg (Neg); Opiate, Urine Pos (Neg); Phencyclidine, Urine Neg (Neg)
--- NOTE | 2024-01-12 00:22 | History & Physical Report ---
Date of Service January 12, 2024 Assessment & Plan (1) Lethargy: (2) Ambulatory dysfunction: (3) Dizziness: (4) Complaint of fatigable weakness: (5) Dehydration: (6) Physical deconditioning: (7) DM2 (diabetes mellitus, type 2): (8) COPD (chronic obstructive pulmonary disease): (9) Lumbosacral facet joint syndrome: (10) History of lumbar surgery: (11) Pulmonary embolism: (12) CAD (coronary artery disease): (13) Diaphragm paralysis: Plan Lethargy/fatigue/generalized weakness/ambulatory dysfunction- Admit to monitored bed Differential including but not limited to: Drug side effect, dehydration, progression of general debilitation, urinary tract infection, others Will likely need PT/OT consult, however, too lethargic and unstable on his feet to consider now Chronic low back pain/lumbar facet joint syndrome/history of lumbar surgery multiple levels- Hold oxycodone due to above Give dexamethasone 6 mg IV now and 6 mg IV every morning Increase gabapentin from 300 mg p.o. 3 times daily to 40 mg p.o. 3 times daily Patient reports being told by pain management there is nothing more they can do for him Diabetes mellitus- Monitor with Accu-Cheks, in particular while on dexamethasone Checking hemoglobin A1c Dehydration- Likely secondary to sedation from narcotics Hold furosemide and spironolactone for now Follow daily laboratories CAD/hypertension- Continue atenolol, aspirin Hold furosemide and spironolactone as noted Depression with anxiety- Continue escitalopram and mirtazapine Could consider changing Lexapro to duloxetine to help with pain History of Present Illness Chief Complaint: HPI and ROS are limited due to patient's current medical state. The patient was brought to the emergency department due to confusion, lethargy, and difficulty to arouse. He had been recently resumed on oxycodone 5 mg p.o. 3 times daily on 01/06/2024, due to uncontrolled back pain. Primary Care Provider: Anita Wang MD The patient is an 83-year-old male with a past medical history including chronic low back pain with lumbosacral facet joint syndrome, diabetes mellitus, syncope, COPD, moderate aortic stenosis, PE, major depression, vitamin B1 deficiency, generalized anxiety disorder, CAD, chronic antibiotic suppression, UTI, B12 deficiency, lower extremity radiculopathy, diaphragm paralysis and peripheral edema. The patient presents to the emergency department with symptoms of confusion, lethargy and difficulty to arouse from sleep. He had recently been started on oxycodone 5 mg p.o. 3 times daily on 01/06/2024, and prednisone had been discontinued due to concerns regarding developing hyperglycemia, for which she was on metformin, which has since been discontinued. Patient's main complaint is that he feels dehydrated Allergies Allergy/AdvReac Type Severity Reaction Status Date / Time oyster extract Allergy Intermediate hives Verified 01/06/24 09:09 shellfish derived Allergy Intermediate Hives Verified 01/06/24 09:09 azithromycin Allergy Mild Rash Verified 01/06/24 09:09 levofloxacin [From Levaquin] Allergy Mild rash Verified 01/06/24 09:09 Sulfa (Sulfonamide Allergy Mild hives Verified 01/06/24 09:09 Antibiotics) sulfamethoxazole Allergy Mild hives Verified 01/06/24 09:09 trimethoprim Allergy Mild hives Verified 01/06/24 09:09 atorvastatin Allergy Unknown UNKNOWN Verified 01/06/24 09:09 morphine Allergy Unknown UNKNOWN Verified 01/06/24 09:09 pravastatin Allergy Unknown UNKNOWN Verified 01/06/24 09:09 simvastatin Allergy Unknown UNKNOWN Verified 01/06/24 09:09 oxycodone AdvReac Mild vomiting Verified 01/06/24 09:09 Home Medications Medication Instructions Recorded Confirmed Type nitroglycerin 0.4 mg sublingual 0.4 mg sublingual Q5M PRN chest 01/22/22 01/11/24 Rx tablet pain #30 tabs polyethylene glycol 3350 17 17 g PO BID 09/25/22 01/11/24 History gram/dose oral powder (Miralax) aspirin 81 mg tablet,delayed 81 mg PO QDL 01/22/23 01/11/24 History release calcium carbonate 500 mg PO QAM 01/22/23 01/11/24 History sennosides 8.6 mg-docusate sodium 1 tab PO QAM 01/22/23 01/11/24 History 50 mg tablet (Senna with Docusate Sodium) thiamine HCl (vitamin B1) 100 mg 200 mg PO BID 01/22/23 01/11/24 History tablet rosuvastatin 5 mg tablet 2.5 mg (1/2 x 5 mg) PO 3XWK #60 03/03/23 01/11/24 Rx tabs cholecalciferol (vitamin D3) 50 50 mcg PO QAM 04/20/23 01/11/24 History mcg (2,000 unit) capsule albuterol sulfate 90 mcg/actuation 2 puff inhalation Q6H PRN 10/02/23 01/11/24 Rx aerosol inhaler shortness of breath or wheezing #8.5 grams spironolactone 25 mg tablet 25 mg PO BID #180 tabs 10/29/23 01/11/24 Rx atenolol 25 mg tablet 25 mg PO QPM #90 tabs 12/14/23 01/11/24 Rx gabapentin 300 mg capsule 300 mg PO TID #270 caps 12/24/23 01/11/24 Rx omeprazole 20 mg capsule,delayed 20 mg PO QDL #90 caps 12/25/23 01/11/24 Rx release oxycodone 5 mg tablet 5 mg PO TID PRN debilitating back 01/06/24 01/11/24 Rx pain #90 tabs acetaminophen 500 mg tablet 1,000 mg PO Q8H PRN Pain 01/11/24 01/11/24 History (Tylenol Extra Strength) clindamycin HCl 300 mg capsule 300 mg PO QAM 01/11/24 01/11/24 History cyanocobalamin (vitamin B-12) 1,000 mcg PO QAM 01/11/24 01/11/24 History 1,000 mcg tablet escitalopram oxalate 10 mg tablet 10 mg PO QAM 01/11/24 01/11/24 History escitalopram oxalate 5 mg tablet 5 mg PO QDL 01/11/24 01/11/24 History furosemide 20 mg tablet 20 mg PO QAM 01/11/24 01/11/24 History mirtazapine 7.5 mg tablet 7.5 mg PO HS 01/11/24 01/11/24 History Past Med/Surg History Problem List (Updated 01/12/24 @ 00:49 by Reece Kelly MD) Lethargy Ambulatory dysfunction (Acute) Dizziness (Acute) Complaint of fatigable weakness Dehydration Encounter for monitoring diuretic therapy Physical deconditioning Postural lightheadedness Encounter for monitoring diuretic therapy Syncope DM2 (diabetes mellitus, type 2) Encounter to discuss test results Edema Diverticulosis of colon COPD (chronic obstructive pulmonary disease) Chest pain Lumbosacral facet joint syndrome Anticoagulated History of lumbar surgery L2-3, L3-4, L4-5 laminectomy, medial facetectomy, and foraminotomies - Dr. Pettit, 10/13/2022 Lumbosacral pain Right leg swelling Chronic pain Moderate aortic stenosis Pulmonary embolism dx 01/2023, provoked by surgery (10/2022). eliquis X 6 months. Panic disorder Major depression single episode, in partial remission Weakness (Acute) Fall Gout Hypotension Vitamin B1 deficiency Generalized anxiety disorder Inflammatory arthritis Wheezing (Acute) CAD (coronary artery disease) Petechiae Acute UTI (urinary tract infection) (Acute) Acute constipation (Acute) Mood disorder (Acute) Elevated bilirubin Chronic antibiotic suppression Hypertension Leg swelling UTI (urinary tract infection) Generalized weakness Depression Opiate use Fluid overload Pulmonary atelectasis Nausea Encounter for preoperative assessment Left knee DJD Cough Dyspnea on exertion Atelectasis Elevated hemidiaphragm Pain of left calf Bilateral lower extremity edema Hip pain, bilateral Excessive daytime sleepiness B12 deficiency DDD (degenerative disc disease), lumbar Decreased range of motion of both hips Radicular neuropathy Fatigue Bilateral leg pain Venous insufficiency (chronic) (peripheral) Encounter for immunization Pain of left lower extremity Antiplatelet or antithrombotic long-term use Lung abnormality per pt after whipple procedure right lung does not fully expand Shortness of breath Non-healing skin lesion (Acute) Acute bronchitis (Acute) Grieving (Acute) 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 Postnasal drip (Chronic) Hoarseness (Chronic) Back pain (Acute) Constipation (Acute) Diaphragm paralysis Chronic cough Drug-induced photosensitivity Rash of body Peripheral edema Medical History Encounter for examination following treatment at hospital Encounter for preoperative pulmonary examination Routine health maintenance Encounter for pre-operative examination Opioid dependence Chronic lumbosacral pain Spinal stenosis, lumbar region without neurogenic claudication Steroid long-term use Accident History of pancreatitis GERD (gastroesophageal reflux disease) Heart attack Rash of face Chronic venous stasis Dyslipidemia Chest tightness Surgical History Hx of vascular surgery History of skin graft History of hand surgery History of total bilateral knee replacement (TKR) History of repair of right rotator cuff History of tooth extraction History of major abdominal surgery History of bilateral cataract extraction S/P inguinal hernia repair H/O cardiac catheterization Family History Mother Bone cancer Family/Other Myocardial infarction Other No family history of adverse response to anesthesia Denies family history of Ovarian cancer Prostate cancer Breast cancer Colorectal cancer Social History Smoking Status: Never smoker Second Hand Exposure: No; Do You Dip or Chew Tobacco: No; Hx Alcohol Use: No Hx Substance Use: No Preferred Language: Tog[place]ese Communication Ability: Effective Visual Impairment: Limited Hearing Ability: Normal Automatic 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 Seatbelt Use: always Sunscreen Use: No Gender Identity: Male Assistive Devices: Cane, Walker, Wheelchair and Other Review of Systems Review of Systems: The patient denies chest pain, palpitations, shortness of breath, dyspnea on exertion, cough, sore throat, fevers, chills, sweats, nausea, vomiting, abdominal pain, pelvic pain, blood in urine or stool, dysuria, urinary frequency or urgency, lightheadedness, dizziness, headache, loss of consciousness, rash, abnormal bruising or bleeding, focal weakness, numbness or tingling in arms or legs, or night sweats. The review of systems is otherwise negative other than for that already noted above, and at least 10 systems have been reviewed. Physical Exam Physical Exam: The patient is awake, mildly confused and disoriented, well developed and well nourished, normocephalic and atraumatic, lying in bed and in no acute distress. HEENT--PERRL, EOMI, mucous membranes and oropharynx mildly dry. Neck--supple. No JVD. No bruits. Thyroid normal, trachea midline, no adenopathy. Heart--normal S1 and S2. No murmurs, rubs or gallops. Lungs--clear bilaterally, no respiratory distress, no accessory muscle use. Abdomen--normal bowel sounds and soft. Nontender. Nondistended. Obese Extremities--no cyanosis or clubbing. Trace pitting right lower extremity edema. Dermatologic--normal skin turgor, normal color, no abnormal lymph nodes, no rash. Neurologic--cranial nerves II through XII grossly intact. Rheumatologic--normal range of motion. Limited exam due to lethargy Psychiatric--lethargic Results & Data Results & Data Vital Signs (Past 12 Hours) Vital Signs Temp Pulse Pulse Resp BP BP Pulse Ox 01/12/24 00:19 67 01/11/24 23:12 68 14 135/67 95 01/11/24 22:00 66 20 141/75 H 96 01/11/24 20:39 83 20 120/74 95 01/11/24 20:39 95 01/11/24 20:34 71 01/11/24 20:02 36.7 C 74 19 120/74 96 O2 Del Method 01/12/24 00:19 01/11/24 23:12 01/11/24 22:00 Room Air 01/11/24 20:39 Room Air 01/11/24 20:39 Room Air 01/11/24 20:34 01/11/24 20:02 Room Air Laboratory Results Laboratory Results WBC 7.31 K/ul (4.8-10.8) 01/11/24 20:43 RBC 4.28 M/uL (4.70-6.10) L 01/11/24 20:43 Hgb 13.9 g/dl (14.0-18.0) L 01/11/24 20:43 Hct 41.2 % (42.0-52.0) L 01/11/24 20:43 MCV 96.3 fL (80.0-100.0) 01/11/24 20:43 MCH 32.5 pg (25.0-34.0) 01/11/24 20:43 MCHC 33.7 g/dL (32.0-36.0) 01/11/24 20:43 RDW Std Deviation 57.1 fL (36.4-46.3) H 01/11/24 20:43 RDW Coeff of Jonh 16.1 % (11.5-14.5) H 01/11/24 20:43 Plt Count 256 K/uL (130-400) 01/11/24 20:43 MPV 10.3 fL (9.4-12.4) 01/11/24 20:43 Immature Gran % (Auto) 2.7 % 01/11/24 20:43 Neut % (Auto) 63.0 % 01/11/24 20:43 Lymph % (Auto) 21.8 % 01/11/24 20:43 [place] % (Auto) 9.4 % 01/11/24 20:43 Eos % (Auto) 2.3 % 01/11/24 20:43 Baso % (Auto) 0.8 % 01/11/24 20:43 Neut # (Auto) 4.60 K/uL (1.40-6.50) 01/11/24 20:43 Lymph # (Auto) 1.59 K/uL (1.20-3.40) 01/11/24 20:43 [place] # (Auto) 0.69 K/uL (0.11-0.59) H 01/11/24 20:43 Eos # (Auto) 0.17 K/uL (0.00-0.50) 01/11/24 20:43 Baso # (Auto) 0.06 K/uL (0.00-0.20) 01/11/24 20:43 Immature Gran # (Auto) 0.20 K/uL (0.01-0.20) 01/11/24 20:43 PT 11.7 Seconds (9.0-12.0) 01/11/24 20:43 INR 1.1 (0.9-1.1) 01/11/24 20:43 APTT 29 Seconds (21-31) 01/11/24 20:43 PTT Ratio 1.1 01/11/24 20:43 Sodium 138 mmol/L (136-145) 01/11/24 20:43 Potassium 4.2 mmol/L (3.5-5.1) 01/11/24 20:43 Chloride 104 mmol/L (98-107) 01/11/24 20:43 Carbon Dioxide 25 mmol/L (21-32) 01/11/24 20:43 Anion Gap 9 (3-11) 01/11/24 20:43 BUN 30 mg/dl (6-23) H 01/11/24 20:43 Creatinine 1.39 mg/dl (0.6-1.4) 01/11/24 20:43 Est Cr Clr Drug Dosing 51.9 ml/min 01/11/24 20:43 eGFR 50.62 01/11/24 20:43 BUN/Creatinine Ratio 21.6 (10-20) H 01/11/24 20:43 Glucose 113 mg/dl (70-99(Fasting)) H 01/11/24 20:43 Lactate 1.2 mmol/L (0.4-2.0) 01/11/24 20:43 Calcium 8.4 mg/dl (8.6-10.3) L 01/11/24 20:43 Magnesium 1.8 mg/dl (1.7-2.4) 01/11/24 20:43 Total Bilirubin 0.5 mg/dl (0.2-1.0) 01/11/24 20:43 AST 23 U/L (13-39) 01/11/24 20:43 ALT 16 U/L (7-52) 01/11/24 20:43 Alkaline Phosphatase 136 U/L (34-104) H 01/11/24 20:43 Troponin I High Sens 15.0 pg/ml (0-20) 01/11/24 20:43 B-Natriuretic Peptide 99 pg/ml (0-100) 01/11/24 21:03 Total Protein 6.5 gm/dl (6.0-8.3) 01/11/24 20:43 Albumin 3.4 gm/dl (3.4-5.0) 01/11/24 20:43 Globulin 3.1 gm/dl (2.5-4.0) 01/11/24 20:43 Albumin/Globulin Ratio 1.1 (0.9-2) 01/11/24 20:43 Procalcitonin 0.11 ng/ml (0-0.5) 01/11/24 20:43 Urine Color Dark Yellow 01/11/24 Unknown Urine Appearance Clear (Clear) 01/11/24 Unknown Urine pH 5.0 (4.5-7.5) 01/11/24 Unknown Ur Specific [place] 1.023 (1.000-1.030) 01/11/24 Unknown Urine Protein Trace (Negative) H 01/11/24 Unknown Urine Glucose (UA) Negative (Negative) 01/11/24 Unknown Urine Ketones Trace (Negative) H 01/11/24 Unknown Urine Blood Negative (Negative) 01/11/24 Unknown Urine Nitrite Negative (Negative) 01/11/24 Unknown Urine Bilirubin 1+ (Negative) H 01/11/24 Unknown Urine Urobilinogen Negative (Negative) 01/11/24 Unknown Ur Leukocyte Esterase Negative (Negative) 01/11/24 Unknown Urine WBC (Auto) 0-5 /hpf (0-5) 01/11/24 Unknown Urine RBC (Auto) 0-2 /hpf (0-2) 01/11/24 Unknown U Hyaline Cast (Auto) 11-20 /lpf (0-2) H 01/11/24 Unknown U Epithel Cells (Auto) 0-2 /hpf (0-2) 01/11/24 Unknown Urine Bacteria (Auto) None Seen (None Seen) 01/11/24 Unknown Calcium Oxalate Crystal Present (None Prsent) A 01/11/24 Unknown Urine Opiates Screen Pos (Neg) H 01/11/24 Unknown Ur Methadone, Qual Neg (Neg) 01/11/24 Unknown Urine Fentanyl Screen Neg (Neg) 01/11/24 Unknown Urine Barbiturates Neg (Neg) 01/11/24 Unknown Ur Phencyclidine (PCP) Neg (Neg) 01/11/24 Unknown U Amphetamin/Meth Scrn Neg (Neg) 01/11/24 Unknown MDMA (Ecstasy) Screen Neg (Neg) 01/11/24 Unknown U Benzodiazepines Scrn Neg (Neg) 01/11/24 Unknown Ur Cocaine Metabolite Neg (Neg) 01/11/24 Unknown U Marijuana (THC) Screen Neg (Neg) 01/11/[address] 01/11/24 20:02 Exam(s): CT HEAD Without Contrast EXAM: CT Head Without Intravenous Contrast CLINICAL HISTORY: Reason for exam: altered mental status. TECHNIQUE: Axial computed tomography images of the head/brain without intravenous contrast. CTDI is 62.82 mGy and DLP is 1100.35 mGy-cm. Automated exposure control was utilized for the study. A dose lowering technique was utilized adhering to the principles of ALARA. COMPARISON: No relevant prior studies available. FINDINGS: Brain: There are some hypodensities to the periventricular and subcortical white matter. No hemorrhage. Ventricles: Unremarkable. No ventriculomegaly. Bones/joints: There is CSF density mass anterior margin of the middle cranial fossa on the left side 3.9 x 1.4 cm in maximal transverse dimension. No acute fracture. Soft tissues: Unremarkable. Sinuses: Unremarkable as visualized. No acute sinusitis. Mastoid air cells: Unremarkable as visualized. No mastoid effusion. 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 Electronically signed by: Jose Antonio Ervin MD 01/11/24 22:39 PM Code Status & VTE Plan Code Status DNR/DNI VTE Prophylaxis Plan VTE Prophylaxis will be ordered: Yes PG Care Time/CCT Total # of Minutes Spent Total Time Spent with Patient: Total time spent is greater than 50% in coordination of care (as documented) at patient's floor/unit and/or counseling patient: Coding Level of Care Code 08833 INT INP/OBS CARE 3/75MIN Diagnoses Lethargy R53.83 Ambulatory dysfunction R26.2 Dizziness R42 Complaint of fatigable weakness R53.83; R53.1 Dehydration E86.0 Physical deconditioning R53.81 Type 2 diabetes mellitus without complication, without long-term current use of insulin E11.9 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 mellitus 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 transplanted heart: [place] heart Associated angina: without angina Diaphragm paralysis J98.6 (7) DM2 (diabetes mellitus, type 2) Diabetes mellitus senior living insulin use: without buttermilk drier operator use Diabetes mellitus complication status: without complication Qualified Code(s): E11.9 - Type 2 diabetes mellitus without complications (11) Pulmonary embolism Pulmonary embolism type: single subsegmental (without acute cor pulmonale) Qualified Code(s): I26.93 - Single subsegmental pulmonary embolism without acute cor pulmonale (12) CAD (coronary artery disease) Coronary Disease-Associated Artery/Lesion type: [place] artery [place] vs. transplanted heart: [place] heart Associated angina: without angina Qualified Code(s): I25.10 - Atherosclerotic heart disease of [place] coronary artery without angina pectoris
[2024-01-12] MEDS ORDERED: DEXTROSE 50% 50 ML SYRINGE IV PRN (00:54)
[2024-01-12] MEDS ORDERED: GLUCAGON FOR INJ 1 MG VIAL SQ PRN (00:54)
[2024-01-12] MEDS ORDERED: GLUCOSE 10 TAB/TUBE PO PRN (00:54)
[2024-01-12] MEDS ORDERED: GLUCOSE 40% GEL 15 GM TUBE PO PRN (00:54)
[2024-01-12] MEDS: DEXAMETHASONE SOD INJ 4 MG/ML VIAL IV STA (01:26)
[2024-01-12] MEDS ORDERED: ONDANSETRON INJ 2 MG/ML 2 ML VIAL IV PRN (02:39)
[2024-01-12] MEDS ORDERED: NITROGLYCERIN SL 0.4 MG/TAB TAB SL PRN (02:39)
[2024-01-12] MEDS ORDERED: ALBUTEROL HFA 8 GM INHALER INH PRN (02:39)
--- NOTE | 2024-01-12 06:48 | XRay Report ---
XR chest 1V not portable CLINICAL HISTORY: Sepsis TECHNIQUE: Single frontal radiograph of the chest was obtained. Comparison: Comparison is made to chest radiograph 12/24/2023 FINDINGS: No lines and tubes are seen. The cardiomediastinal silhouette is stable. Lungs are underinflated but clear. No evidence of pleural effusion or pneumothorax. IMPRESSION: No acute abnormalities and in particular no radiographic evidence of pneumonia. ACT 112: Negative or not required by law. Electronically signed by: Hugh Rivera M.D. 01/12/2024 6:47 AM
[2024-01-12 07:27] LABS: Estimated Average Glucose 226 mg/dl; Hemoglobin A1C 9.5 % (4.5-5.6)
[2024-01-12] MEDS: CYANOCOBALAMIN (B-12) 500 MCG TABLET PO SCH (08:31)
[2024-01-12] MEDS: FUROSEMIDE 20 MG TAB PO SCH (08:31)
[2024-01-12] MEDS: THIAMINE HCL 100 MG TAB PO SCH (08:31)
[2024-01-12] MEDS: ESCITALOPRAM OXALATE 10 MG TAB PO SCH (08:32)
[2024-01-12] MEDS: GABAPENTIN 400 MG CAP PO SCH (08:32)
[2024-01-12] MEDS: CALCIUM CARBONATE 1250MG TAB PO SCH (08:33)
[2024-01-12] MEDS: CLINDAMYCIN HCL 150 MG CAP PO SCH (08:33)
[2024-01-12] MEDS: CHOLECALCIFEROL 25 MCG (1000 UNITS) TAB PO SCH (08:33)
--- NOTE | 2024-01-12 08:50 | Electrocardiogram Report ---
Test Reason : Blood Pressure : */* mmHG Vent. Rate : 65 BPM Atrial Rate : 65 BPM P-R Int : 198 ms QRS Dur : 114 ms QT Int : 418 ms P-R-T Axes : 40 -53 57 degrees QTcB Int : 434 ms Normal sinus rhythm Left anterior fascicular block Cannot rule out Anterior infarct , age undetermined Abnormal ECG When compared with ECG of 23-Dec-2023 16:54, No significant change was found Confirmed by Alonzo Pruett ([id number]) on 01/12/2024 8:50:06 AM Referred By: REFERRED SELF Confirmed By: Alonzo Pruett
[2024-01-12] MEDS: INSULIN ASPART PER UNIT CHARGE SC SCH (09:21)
[2024-01-12] MEDS: LANTUS PER UNIT CHARGE SQ SCH (09:29)
[2024-01-12] MEDS: DOCUSATE SODIUM/SENNA 50/8.6MG TAB PO SCH (09:30)
[2024-01-12] MEDS: POLYETHYLENE (MIRALAX) 17 GM PACK PO SCH (09:30)
[2024-01-12 09:49] LABS: Influenza A virus by PCR Negative (Neg); Influenza B virus by PCR Negative (Neg); RSV by PCR Negative (Neg); SARS CoV2 RNA(COVID-19) Ceph NEGATIVE (Negative)
[2024-01-12] MEDS ORDERED: NON-FORMULARY MEDICATION (Escitalopram Oxalate 5 mg tablet) PO SCH (11:30)
[2024-01-12] MEDS: ASPIRIN 81 MG ECTAB PO SCH (11:30)
--- NOTE | 2024-01-12 12:04 | Hospitalist Progress Note ---
Date of Service January 12, 2024 Assessment & Plan (1) Lethargy: Plan: suspect combination of recent weaning off of prednisone, development of acute diverticulitis, and potentially other yet to be identified factors recent resumption of oxycodone may have contributed placed back on steroids overnight and will cont dexamethasone 4mg BID placed on IV abx for diverticulitis IV fluids follow all cultures (2) Acute diverticulitis: Plan: mild, hepatic flexure of colon - as seen on CT a/p today downgrade diet to clears IV rocephin/flagyl IV fluids hold clindamycin which is for chronic suppression from prior infection of TKR (3) Ambulatory dysfunction: Plan: likely multi-factorial - infection, l-spine disease, recent weaning of steroids, etc. PT, OT evals (4) Dizziness: Plan: sounds orthostatic in nature likely due to weaning of chronic steroids placed back on steroids start IV fluids hold lasix (5) Dehydration: Plan: likely Addisonian type crisis start isotonic fluids repeat labs am (6) Physical deconditioning: Plan: PT, OT (7) DM2 (diabetes mellitus, type 2): Plan: a1c 9.5% cont basal-bolus insulin (8) COPD (chronic obstructive pulmonary disease): Plan: CT chest negative for acute findings no flare at this time (9) Lumbosacral facet joint syndrome: Plan: cont gabapentin TID dose titrated from 300mg TID to 400mg TID by admitting MD (10) History of lumbar surgery: Plan: 2022 L2-L3, L3-L4, L4-L5 laminectomies - [facility] (11) Pulmonary embolism: Plan: history of noted (12) CAD (coronary artery disease): Plan: no ischemic sx's at this time cont asa, beta jordana he is statin intolerant (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, known diagnosis Plan Depression with anxiety- Continue escitalopram and mirtazapine Could consider changing Lexapro to duloxetine to help with pain but defer for now change observation status to full admission status Admission and Anticipated Discharge Date Admission Date: January 12, 2024 Subjective patient lying in bed sleeping upon arrival easily awakens to his name being called reports multiple falls of late at home he attributes such to feeling dizzy/lightheaded and, on at least 1 occasion, did pass out he has been weak and his PO intake has been poor was on prednisone chronically for quite some time (months); recently weaned off slowly and he ended his steroids a few days ago he reports left-sided abdominal pain/discomfort but states "it's been there for years" no vomiting Review of Systems Review of Systems: gen - no fevers or chills cv - no chest pain pulm - mild chronic morning cough, some sputum with such; but no distress or wheezing GI - mild discomfort on left - voiding ok Physical Exam Physical Exam: gen - looks tired, but NAD, and no confusion during my visit mouth - MM slightly dry neck - no JVD heart - RRR, s1 s2 lungs - mild rales R base, CTA on left, no wheezes; no increased work of breathing abd - modestly tender upper quadrants (especially LUQ); ND; soft; no HSM ext - no edema, pulses 2+ b/l psych - affect restricted, but oriented Results & Data Results & Data Vital Signs (Past 12 Hours) Vital Signs Temp Pulse Pulse Resp BP BP Pulse Ox 01/12/24 10:44 36.6 C 67 16 116/65 93 01/12/24 07:45 01/12/24 07:14 36.4 C L 70 16 132/71 94 01/12/24 07:07 67 01/12/24 04:53 71 01/12/24 04:14 36.6 C 68 18 146/77 H 96 01/12/24 03:18 61 16 127/66 93 01/12/24 02:41 66 18 115/69 94 01/12/24 01:27 67 16 138/72 94 01/12/24 00:19 67 O2 Del Method 01/12/24 10:44 Room Air 01/12/24 07:45 Room Air 01/12/24 07:14 Room Air 01/12/24 07:07 01/12/24 04:53 01/12/24 04:14 Room Air 01/12/24 03:18 Room Air 01/12/24 02:41 Room Air 01/12/24 01:27 01/12/24 00:19 Laboratory Results Laboratory Results - last 24 hr 01/11/24 01/11/24 01/11/24 20:43 21:03 Unknown WBC 7.31 RBC 4.28 L Hgb 13.9 L Hct 41.2 L MCV 96.3 MCH 32.5 MCHC 33.7 RDW Std Deviation 57.1 H RDW Coeff of Jonh 16.1 H Plt Count 256 MPV 10.3 Immature Gran % (Auto) 2.7 Neut % (Auto) 63.0 Lymph % (Auto) 21.8 [place] % (Auto) 9.4 Eos % (Auto) 2.3 Baso % (Auto) 0.8 Neut # (Auto) 4.60 Lymph # (Auto) 1.59 [place] # (Auto) 0.69 H Eos # (Auto) 0.17 Baso # (Auto) 0.06 Immature Gran # (Auto) 0.20 PT 11.7 INR 1.1 APTT 29 PTT Ratio 1.1 Sodium 138 Potassium 4.2 Chloride 104 Carbon Dioxide 25 Anion Gap 9 BUN 30 H Creatinine 1.39 Est Cr Clr Drug Dosing 51.9 eGFR 50.62 BUN/Creatinine Ratio 21.6 H Glucose 113 H POC Glucose Estimat Average Glucose 226 Hemoglobin A1c 9.5 H Lactate 1.2 Calcium 8.4 L Magnesium 1.8 Total Bilirubin 0.5 AST 23 ALT 16 Alkaline Phosphatase 136 H Troponin I High Sens 15.0 B-Natriuretic Peptide 99 Total Protein 6.5 Albumin 3.4 Globulin 3.1 Albumin/Globulin Ratio 1.1 Procalcitonin 0.11 Urine Color Dark Yellow Urine Appearance Clear Urine pH 5.0 Ur Specific [place] 1.023 Urine Protein Trace H Urine Glucose (UA) Negative Urine Ketones Trace H Urine Blood Negative Urine Nitrite Negative Urine Bilirubin 1+ H Urine Urobilinogen Negative Ur Leukocyte Esterase Negative Urine WBC (Auto) 0-5 Urine RBC (Auto) 0-2 U Hyaline Cast (Auto) 11-20 H U Epithel Cells (Auto) 0-2 Urine Bacteria (Auto) None Seen Calcium Oxalate Crystal Present A Urine Opiates Screen Pos H U Codeine Confrm GC/MS Pending Ur Morphine (GC/MS) Pending Ur Hydrocodone (GC/MS) Pending Ur Norhydrocodone Pending Ur Noroxycodone Pending Urine Oxycodone (GC/MS) Pending U Oxymorphone GC/MS Pending Ur Methadone, Qual Neg Ur Hydromorphone (GC/MS) Pending Urine Fentanyl Screen Neg Urine Barbiturates Neg Ur Phencyclidine (PCP) Neg U Amphetamin/Meth Scrn Neg MDMA (Ecstasy) Screen Neg U Benzodiazepines Scrn Neg Ur Cocaine Metabolite Neg U Marijuana (THC) Screen Neg Drug Screen Comment Pending SARS-CoV-2 (PCR) Influenza Type A (PCR) Influenza Type B (PCR) RSV (RT-PCR) 01/12/24 01/12/24 01/12/24 07:44 08:45 12:05 WBC RBC Hgb Hct MCV MCH MCHC RDW Std Deviation RDW Coeff of Jonh Plt Count MPV Immature Gran % (Auto) Neut % (Auto) Lymph % (Auto) [place] % (Auto) Eos % (Auto) Baso % (Auto) Neut # (Auto) Lymph # (Auto) [place] # (Auto) Eos # (Auto) Baso # (Auto) Immature Gran # (Auto) PT INR APTT PTT Ratio Sodium Potassium Chloride Carbon Dioxide Anion Gap BUN Creatinine Est Cr Clr Drug Dosing eGFR BUN/Creatinine Ratio Glucose POC Glucose 192 H 205 H Estimat Average Glucose Hemoglobin A1c Lactate Calcium Magnesium Total Bilirubin AST ALT Alkaline Phosphatase Troponin I High Sens B-Natriuretic Peptide Total Protein Albumin Globulin Albumin/Globulin Ratio Procalcitonin Urine Color Urine Appearance Urine pH Ur Specific [place] Urine Protein Urine Glucose (UA) Urine Ketones Urine Blood Urine Nitrite Urine Bilirubin Urine Urobilinogen Ur Leukocyte Esterase Urine WBC (Auto) Urine RBC (Auto) U Hyaline Cast (Auto) U Epithel Cells (Auto) Urine Bacteria (Auto) Calcium Oxalate Crystal Urine Opiates Screen U Codeine Confrm GC/MS Ur Morphine (GC/MS) Ur Hydrocodone (GC/MS) Ur Norhydrocodone Ur Noroxycodone Urine Oxycodone (GC/MS) U Oxymorphone GC/MS Ur Methadone, Qual Ur Hydromorphone (GC/MS) Urine Fentanyl Screen Urine Barbiturates Ur Phencyclidine (PCP) U Amphetamin/Meth Scrn MDMA (Ecstasy) Screen U Benzodiazepines Scrn Ur Cocaine Metabolite U Marijuana (THC) Screen Drug Screen Comment SARS-CoV-2 (PCR) NEGATIVE Influenza Type A (PCR) Negative Influenza Type B (PCR) Negative RSV (RT-PCR) Negative 01/12/24 17:07 WBC RBC Hgb Hct MCV MCH MCHC RDW Std Deviation RDW Coeff of Jonh Plt Count MPV Immature Gran % (Auto) Neut % (Auto) Lymph % (Auto) [place] % (Auto) Eos % (Auto) Baso % (Auto) Neut # (Auto) Lymph # (Auto) [place] # (Auto) Eos # (Auto) Baso # (Auto) Immature Gran # (Auto) PT INR APTT PTT Ratio Sodium Potassium Chloride Carbon Dioxide Anion Gap BUN Creatinine Est Cr Clr Drug Dosing eGFR BUN/Creatinine Ratio Glucose POC Glucose 256 H Estimat Average Glucose Hemoglobin A1c Lactate Calcium Magnesium Total Bilirubin AST ALT Alkaline Phosphatase Troponin I High Sens B-Natriuretic Peptide Total Protein Albumin Globulin Albumin/Globulin Ratio Procalcitonin Urine Color Urine Appearance Urine pH Ur Specific [place] Urine Protein Urine Glucose (UA) Urine Ketones Urine Blood Urine Nitrite Urine Bilirubin Urine Urobilinogen Ur Leukocyte Esterase Urine WBC (Auto) Urine RBC (Auto) U Hyaline Cast (Auto) U Epithel Cells (Auto) Urine Bacteria (Auto) Calcium Oxalate Crystal Urine Opiates Screen U Codeine Confrm GC/MS Ur Morphine (GC/MS) Ur Hydrocodone (GC/MS) Ur Norhydrocodone Ur Noroxycodone Urine Oxycodone (GC/MS) U Oxymorphone GC/MS Ur Methadone, Qual Ur Hydromorphone (GC/MS) Urine Fentanyl Screen Urine Barbiturates Ur Phencyclidine (PCP) U Amphetamin/Meth Scrn MDMA (Ecstasy) Screen U Benzodiazepines Scrn Ur Cocaine Metabolite U Marijuana (THC) Screen Drug Screen Comment SARS-CoV-2 (PCR) Influenza Type A (PCR) Influenza Type B (PCR) RSV (RT-PCR) PG Care Time/CCT Total # of Minutes Spent Total Time Spent with Patient: Total time spent is greater than 50% in coordination of care (as documented) at patient's floor/unit and/or counseling patient: Coding Level of Care Code None Diagnoses Lethargy R53.83 Acute diverticulitis K57.92 Ambulatory dysfunction R26.2 Dizziness R42 Dehydration E86.0 Physical deconditioning R53.81 Type 2 diabetes mellitus without complication, without long-term current use of insulin E11.9 Diabetes mellitus complication status: without complication 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 transplanted heart: [place] heart Qualified Code(s): I25.10 - Atherosclerotic heart disease of [place] coronary artery without angina pectoris
[2024-01-12] MEDS: PANTOprazole 40 MG TAB PO SCH (12:41)
--- NOTE | 2024-01-12 14:26 | CT Scan Report ---
CT chest diagnostic wo con CT DOSE: 2478.5 mGy.cm CLINICAL HISTORY: 83 years-old Male with b/l rales, recent falls; eval pneumonia, Fx's, etc. Acute s hortness of breath TECHNIQUE: Multiaxial CT images of the chest were performed without contrast. A dose lowering techni que was utilized adhering to the principles of ALARA. COMPARISON: CTA chest 01/23/2023, 09/10/2022 FINDINGS: No thyroid nodule or lymphadenopathy identified. Mild cardiomegaly with extensive coronary artery calcifications. Atherosclerosis of the aorta without aneurysm. There is no pneumothorax, pleur al effusion or overt pulmonary edema. Subsegmental bibasilar densities suggest atelectasis versus sca rring. Scattered bilateral solid pulmonary nodules measuring up to 6 mm are unchanged (please see lacey k Yun). Mild tracheobronchial secretions. CT abdomen and pelvis is dictated separately. Prior Whipple procedure. Colonic diverticulosis. Mild i nflammatory stranding is noted adjacent to the hepatic flexure. Degenerative changes of the shoulders and spine. IMPRESSION: 1. Bibasilar opacities suggestive of atelectasis/scarring. 2. No pleural effusion or airspace consolidation typical for pneumonia. 3. Colonic diverticulosis with findings suggestive of mild acute diverticulitis of the hepatic flexur e. Please refer to the same day CT abdomen and pelvis study for additional findings. 4. No lymphadenopathy. 5. Stable likely benign subcentimeter solid pulmonary nodules measuring up to 6 mm. These are unchang ed dating back to 09/30/2022. Please refer to below summary of Fleischner criteria recommendations for follow-up of incidental CT n odules (Varghese Schneider, Guidelines for management of small pulmonary nodules detected on CT scans: A sta tement from the Fleischner Society, Radiology 237: [phone].) SOLID NODULES Multiple nodules size: <6 mm * Low risk patients: no routine follow-up * high risk patients: optional CT at 12 months Note: newly detected indeterminate nodule in persons 35 years of age or older. * Low risk patients: minimal or absent history of smoking and/or other known risk factors * high risk patients: history of smoking or of other known risk factors (e.g. first degree relative with lung cancer, or exposure to asbestos, radon, uranium) * if a nodule up to 8 mm is partly solid or is ground glass further follow-up is required after 24 m onths to exclude possible slow growing adenocarcinoma (DOMENICO) ACT 112: Negative or not required by law. Electronically signed by: Austin Mancera M.D. 01/12/2024 2:24 PM
--- NOTE | 2024-01-12 14:27 | CT Scan Report ---
CT SCAN OF THE ABDOMEN AND PELVIS WITHOUT IV CONTRAST CLINICAL HISTORY: Left-sided abdominal pain. Falls. COMPARISON STUDY: Abdominal CT dated 11/29/2022. TECHNIQUE: CT scan of the abdomen and pelvis is performed from the lung bases to the proximal femora. Images are reviewed in the axial, sagittal, and coronal planes. IV contrast was not administered for this examination. Note that the examination is suboptimal without oral and IV contrast. There is als o streak artifact from the body wall abutting the CT gantry. A dose lowering technique was utilized a dhering to the principles of ALARA. FINDINGS: Lung bases: The heart is normal in size and without pericardial effusion. The coronary arteries are d ensely calcified. Gynecomastia is noted. There is elevation of the right hemidiaphragm. Scarring/atel ectasis is seen at both lung bases. There is no airspace consolidation typical of pneumonia or pleura l effusion. 3 to 4 mm pulmonary nodules at the left lung base are unchanged from previous. These are seen on images #62, #77, and #81. Liver: The unenhanced liver is normal in size, contour, and attenuation. There is no intrahepatic juan iary ductal dilatation. Gallbladder: Surgically absent. Spleen: Normal in size and attenuation. Pancreas: The pancreatic head and duodenum are surgically absent, consistent with a prior Whipple pro cedure. A stent is noted in the pancreatic duct. The distal pancreas is normal appearance and the kamila t is normal in caliber. Adrenal glands: Unremarkable. Kidneys: The unenhanced kidneys demonstrate cortical atrophy and are without hydronephrosis. No renal calculi are identified and no ureteral stone is seen. A 3.2 cm cyst is noted on the right. Abdominal vasculature: There is advanced atherosclerotic calcification and mild ectasia of the abdomi nal aorta. Bowel: There is postsurgical change from gastroduodenal resection with gastrojejunostomy. There has a lso been choledochojejunostomy and pancreaticojejunostomy. There is moderate colonic diverticulosis. There is mild infiltration around a diverticulum at the hepatic flexure seen on axial image #120. Thi s likely represents mild acute diverticulitis. No fluid collection is seen to suggest abscess. No bow el obstruction is seen. Mild/moderate fecal retention is noted throughout the colon. The appendix is well-visualized and normal. Peritoneum: There is no intraperitoneal free air or abdominal ascites. There is a fat-containing umbi lical hernia. A midline surgical scar is noted. Lymphadenopathy: None. Pelvic viscera: The bladder is largely decompressed around a Yanez catheter. The prostate gland and s eminal vesicles are normal as visualized. Findings suggest previous bilateral inguinal herniorrhaphy. Skeletal structures: The skeletal structures are osteopenic. There is moderate lumbosacral spondylosi s. Postlaminectomy change is seen in the lumbar region. Degenerative change is noted in the sacroilia c joints. No lytic or blastic lesions are seen. IMPRESSION: 1. There is moderate colonic diverticulosis with evidence of mild acute diverticulitis at the hepatic flexure. 2. No intraperitoneal free air is identified and no fluid collection is seen to suggest abscess. 3. Postsurgical change in consistent with prior Whipple procedure, and a stent is seen within the rouse creatic duct. 4. Advanced coronary artery atherosclerosis. 5. Additional findings as above. ACT 112: Negative or not required by law. Electronically signed by: Arnold Lancaster M.D. 01/12/2024 2:26 PM
[2024-01-12] MEDS: SODIUM CHLORIDE 0.9% 1,000 ML IV SCH (15:02)
[2024-01-12] MEDS: dexAMETHasone 4 MG in SYRINGE 0 ML IV SCH (15:02)
[2024-01-12] MEDS ORDERED: AMPICILLIN/SULBACTAM SOD 3,000 MG/100 ML BAG IV SCH (16:00)
[2024-01-12] MEDS: cefTRIAXone SODIUM 2,000 MG/50 ML BAG IV SCH (16:32)
[2024-01-12] MEDS: metroNIDAZOLE 500 MG/100 ML BAG IV SCH (17:21)
[2024-01-12] MEDS: MIRTAZAPINE TAB 15 MG TAB PO SCH (20:23)
[2024-01-12] MEDS: ATENOLOL 25 MG TABLET PO SCH (20:24)
[2024-01-13] MEDS: ACETAMINOPHEN 500 MG TAB PO PRN (05:33)
[2024-01-13 06:22] LABS: BUN Creatinine Ratio 30.8 (10-20); Basophils # (auto) 0.02 K/uL (0.00-0.20); Basophils % (auto) 0.2 %; Calcium 7.8 mg/dl (8.6-10.3); Creatinine Clr Calc Pharmacy 60.6 ml/min; Hematocrit (blood only) 31.6 % (42.0-52.0); Immature Granulocytes # (auto) 0.16 K/uL (0.01-0.20); Lymphocytes # (auto) 0.57 K/uL (1.20-3.40); Mean Corpuscular Hemoglobin 32.8 pg (25.0-34.0); Mean Corpuscular Hgb Conc 34.8 g/dL (32.0-36.0); Mean Corpuscular Volume 94.3 fL (80.0-100.0); Mean Platelet Volume 10.2 fL (9.4-12.4); Monocytes # (auto) 0.28 K/uL (0.11-0.59); Monocytes % (auto) 3.4 %; Neutrophils # (auto) 7.15 K/uL (1.40-6.50); Neutrophils % (auto) 87.4 %; Platelet Count 216 K/uL (130-400); Potassium 4.2 mmol/L (3.5-5.1); RDW Coefficient of Variation 15.5 % (11.5-14.5); RDW Standard Deviation 52.7 fL (36.4-46.3); Red Blood Count 3.35 M/uL (4.70-6.10); White Blood Count 8.18 K/ul (4.8-10.8)
[2024-01-13] MEDS: ROSUVASTATIN CALCIUM 5 MG TAB PO SCH (08:08)
[2024-01-13] MEDS: LACTATED RINGER'S 1,000 ML IV SCH (18:05)
[2024-01-13] MEDS: LANTUS PER UNIT CHARGE SQ SCH (21:00)
--- NOTE | 2024-01-13 21:19 | Hospitalist Progress Note ---
Date of Service January 13, 2024 Assessment & Plan (1) Lethargy: Plan: suspect combination of recent weaning off of prednisone, development of acute diverticulitis, recent resumption of oxycodone, etc. placed back on steroids with dexamethasone 4mg BID placed on IV abx for diverticulitis IV fluids follow all cultures but thus far blood cx's negative (2) Acute diverticulitis: Plan: mild, hepatic flexure of colon - as seen on CT a/p clinically improved cont clears - can advance to full liquids in am cont IV rocephin/flagyl cont IV fluids hold clindamycin which is for chronic 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 PT, OT evals appreciated; rehab needed (4) Dizziness: Plan: resolved sounded orthostatic in nature likely due to weaning of chronic steroids placed back on steroids remains on IV fluids holding lasix repeat orthostatic BPs today now wnl (5) Dehydration: Plan: likely Addisonian type crisis improved/resolving (6) Physical deconditioning: Plan: cont PT, OT major contributing factor to his ambulatory dysfunction is severe lumbar spine DDD/DJD (7) DM2 (diabetes mellitus, type 2): Plan: a1c 9.5% cont basal-bolus insulin increase lantus to BID dosing (8) COPD (chronic obstructive pulmonary disease): Plan: CT chest negative for acute findings no flare at this time (9) Lumbosacral facet joint syndrome: Plan: cont gabapentin TID dose titrated from 300mg TID to 400mg TID by admitting MD he is in pain nearly [id number] oxycodone prn not likely to improve his quality of life consider Butrans patch (10) History of lumbar surgery: Plan: 10/13/2022 L2-L3, L3-L4, L4-L5 laminectomies - [facility] in light of ongoing severe back pain despite having had surgery in 2022 consider repeat imaging (11) Pulmonary embolism: Plan: history of noted add lovenox for VTE prophy (12) CAD (coronary artery disease): Plan: no ischemic sx's at this time cont asa, beta jordana he is statin intolerant (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, known diagnosis - right hemidiaphragm Plan Depression with anxiety- Continue escitalopram and mirtazapine Could consider changing Lexapro to duloxetine to help with pain but defer for now LE edema - chronic, but in light of recent ambulatory issues will check dopplers - r/o DVT DVT proph - add lovenox daily grand-daughter updated at bedside Admission and Anticipated Discharge Date Admission Date: January 12, 2024 Subjective patient reports his abdomen is feeling better today pain resolved no nausea or emesis tolerating clears he overall feels a little stronger today denies dizziness at rest pt's grand-daughter was present during the visit we had lengthy discussion about his chronic low back pain he previously was followed by pain management, [facility] last visit was 12/2023 when oxycodone was prescribed for him oxy helps, but he is still in pain much of the day between dizziness and back pain it is hard for him to function at home over the last 3-4 weeks at home declined from a functional standpoint because of the above he has never been on long-acting pain meds tele overnight wnl Review of Systems Review of Systems: CV - no chest pain pulm - no dyspnea at rest GI - did have BM yesterday and again today Physical Exam Physical Exam: gen - looks tired, laying in bed, NAD\ outh - MM more moist today neck - no JVD heart - RRR, s1 s2, 1/6 CAMI LSB lungs - mild rales R base, CTA on left, focal course BS bases; no increased work of breathing abd - soft, NT, ND, BS+, no HSM ext - 1-2+ pitting edema b/l, pulses 2+ b/l psych - affect restricted, but oriented skin - venous stasis changes b/l shins Results & Data Results & Data Vital Signs (Past 12 Hours) Vital Signs Temp Pulse Pulse Resp BP Pulse Ox O2 Del Method 01/13/24 19:25 36.3 C L 48 L 18 144/73 H 96 Room Air 01/13/24 15:21 36.3 C L 56 L 18 165/79 H 98 Room Air 01/13/24 14:30 56 L 01/13/24 11:22 36.3 C L 53 L 18 144/71 H 95 Room Air Laboratory Results Laboratory Results - last 24 hr 01/13/24 01/13/24 01/13/24 05:44 08:10 12:04 WBC 8.18 RBC 3.35 L Hgb 11.0 L D Hct 31.6 L MCV 94.3 MCH 32.8 MCHC 34.8 RDW Std Deviation 52.7 H RDW Coeff of Jonh 15.5 H Plt Count 216 MPV 10.2 Immature Gran % (Auto) 2.0 Neut % (Auto) 87.4 Lymph % (Auto) 7.0 [place] % (Auto) 3.4 Eos % (Auto) 0.0 Baso % (Auto) 0.2 Neut # (Auto) 7.15 H Lymph # (Auto) 0.57 L [place] # (Auto) 0.28 Eos # (Auto) 0.00 Baso # (Auto) 0.02 Immature Gran # (Auto) 0.16 Sodium 137 Potassium 4.2 Chloride 106 Carbon Dioxide 23 Anion Gap 8 BUN 36 H Creatinine 1.17 Est Cr Clr Drug Dosing 60.6 eGFR 62.24 BUN/Creatinine Ratio 30.8 H Glucose 277 H POC Glucose 282 H 254 H Calcium 7.8 L 01/13/24 01/13/24 17:15 20:13 WBC RBC Hgb Hct MCV MCH MCHC RDW Std Deviation RDW Coeff of Jonh Plt Count MPV Immature Gran % (Auto) Neut % (Auto) Lymph % (Auto) [place] % (Auto) Eos % (Auto) Baso % (Auto) Neut # (Auto) Lymph # (Auto) [place] # (Auto) Eos # (Auto) Baso # (Auto) Immature Gran # (Auto) Sodium Potassium Chloride Carbon Dioxide Anion Gap BUN Creatinine Est Cr Clr Drug Dosing eGFR BUN/Creatinine Ratio Glucose POC Glucose 210 H 207 H Calcium PG Care Time/CCT Total # of Minutes Spent Total Time Spent with Patient: Total time spent is greater than 50% in coordination of care (as documented) at patient's floor/unit and/or counseling patient: Coding Level of Care Code 78156 SUB INP/OBS CARE 3/50MIN Diagnoses Lethargy R53.83 Acute diverticulitis K57.92 Ambulatory dysfunction R26.2 Dizziness R42 Dehydration E86.0 Physical deconditioning R53.81 Type 2 diabetes mellitus without complication, without long-term current use of insulin E11.9 Diabetes mellitus complication status: without complication Diabetes mellitus alf insulin use: without alf use COPD (chronic obstructive pulmonary disease) J44.9 Lumbosacral facet joint syndrome M47.817 History of lumbar surgery Z98.890 Single subsegmental pulmonary embolism without acute cor pulmonale I26.93 Pulmonary embolism type: single subsegmental (without acute cor pulmonale) Coronary artery disease involving [place] coronary artery of [place] heart without angina pectoris I25.10 Associated angina: without angina Coronary Disease-Associated Artery/Lesion type: [place] artery [place] vs. 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 transplanted heart: [place] heart Qualified Code(s): I25.10 - Atherosclerotic heart disease of [place] coronary artery withou t angina pectoris
[2024-01-14 06:56] LABS: Basophils # (auto) 0.02 K/uL (0.00-0.20); Basophils % (auto) 0.2 %; Hemoglobin 11.1 g/dl (14.0-18.0); Immature Granulocytes # (auto) 0.16 K/uL (0.01-0.20); Immature Granulocytes % (auto) 1.8 %; Lymphocytes # (auto) 0.77 K/uL (1.20-3.40); Lymphocytes % (auto) 8.8 %; Mean Corpuscular Hemoglobin 31.9 pg (25.0-34.0); Mean Corpuscular Hgb Conc 33.6 g/dL (32.0-36.0); Mean Corpuscular Volume 94.8 fL (80.0-100.0); Mean Platelet Volume 10.3 fL (9.4-12.4); Monocytes # (auto) 0.66 K/uL (0.11-0.59); Monocytes % (auto) 7.6 %; Neutrophils # (auto) 7.12 K/uL (1.40-6.50); Neutrophils % (auto) 81.6 %; Platelet Count 227 K/uL (130-400); RDW Coefficient of Variation 15.7 % (11.5-14.5); RDW Standard Deviation 53.1 fL (36.4-46.3); Red Blood Count 3.48 M/uL (4.70-6.10); White Blood Count 8.73 K/ul (4.8-10.8)
[2024-01-14 07:21] LABS: BUN Creatinine Ratio 29.6 (10-20); Calcium 7.4 mg/dl (8.6-10.3); Magnesium 1.9 mg/dl (1.7-2.4); Potassium 4.2 mmol/L (3.5-5.1)
[2024-01-14] MEDS: dexAMETHasone 4 MG in SYRINGE 0 ML IV SCH (07:28)
[2024-01-14] MEDS: ENOXAPARIN INJ 40 MG/0.4 ML SYR SQ SCH (07:33)
--- NOTE | 2024-01-14 08:38 | Ultrasound Report ---
ULTRASOUND BILATERAL LOWER EXTREMITY VENOUS CLINICAL HISTORY: Lower extremity edema. COMPARISON STUDY: Right lower extremity venous ultrasound dated 05/20/2023. Bilateral lower extremity venous ultrasound dated 10/14/2021. TECHNIQUE: Real-time, grayscale, and color Doppler sonography of the deep veins of the right and left lower extremity was performed from the inguinal crease to the calf. Compression and augmentation wer e utilized. FINDINGS: There is no sonographic evidence of deep venous thrombosis identified in the right or left lower extremity. The common femoral, superficial femoral, and popliteal veins are patent and normally compressible bilaterally. The greater saphenous vein and the profunda femoris vein at the junction w ith the common femoral vein are clear in both legs. The visualized calf veins are patent bilaterally. IMPRESSION: There is no sonographic evidence of deep venous thrombosis identified in the right or lef t lower extremity. ACT 112: Negative or not required by law. Electronically signed by: Arnold Lancaster M.D. 01/14/2024 8:36 AM
--- NOTE | 2024-01-14 12:14 | CT Scan Report ---
CT SCAN OF THE LUMBAR SPINE WITHOUT IV CONTRAST CLINICAL HISTORY: Recent falls. Low back pain. COMPARISON STUDY: Lumbar spine radiographs dated 01/22/2023. Lumbar spine MRI dated 08/08/2022. Abdomin al CT dated 01/12/2024. TECHNIQUE: CT scan of the lumbar spine is performed from the lower thoracic spine to the sacrum. Imag es are reviewed in the axial, sagittal, and coronal planes. IV contrast was not administered for this examination. A dose lowering technique was utilized adhering to the principles of ALARA. CT DOSE: 1073.36 mGy.cm FINDINGS: The skeletal structures are osteopenic. There is no evidence of fracture or malalignment in volving the lumbar spine. Vertebral body height is maintained throughout the lumbar spine. There is m inimal anterolisthesis at L4-L5. Alignment is otherwise preserved. Anterior and lateral marginal oste ophytes are seen throughout. There is postsurgical change of laminectomy seen extending from L2 throu gh L5. The transverse processes appear intact. There is no spondylolysis. No lytic or blastic lesion is seen. There is moderate degenerative disc space narrowing seen at all lumbar levels. Small posteri or disc osteophyte complexes are noted at all levels between L2-L3 and L5-S1. There is no CT evidence of high-grade central canal stenosis. There is a left lateral disc extrusion at L4-L5. This contribu oliver to subarticular and neural foraminal stenosis with probable impingement on the exiting left L4 ne rve root. Facet arthropathy is noted in the lower lumbar region. The visualized sacrum and bony pelvi s appear intact. Degenerative change is noted in the sacroiliac joints. Postsurgical change is seen p osterior to the thecal sac at the operative levels. There is mild fatty atrophy of the paraspinous mu sculature. The abdominal aorta is normal in caliber noting advanced atherosclerotic calcification. No retroperitoneal lymphadenopathy is seen. Atelectasis and trace pleural fluid is seen at the lung bas es. IMPRESSION: 1. No acute bony abnormality is seen involving the lumbar spine. 2. Osteopenia with postsurgical and spondylotic change as above. ACT 112: Negative or not required by law. Dictated: 01/14/2024 8:38 AM Transcribed: 01/14/2024 9:11 AM Seven [id number] [email or web address] Electronically signed by: Arnold Lancaster M.D. 01/14/2024 12:12 PM
[2024-01-14 13:52] LABS: Codeine Urine NEGATIVE ng/mL (<50); Hydrocodone Urine NEGATIVE ng/mL (<50); Hydromor Urine NEGATIVE ng/mL (<50); Morphine Urine NEGATIVE ng/mL (<50); Norhydrocodone Conf Ur NEGATIVE ng/mL (<50); Noroxycodone Urine >10000 ng/mL (<50); Oxycodone Urine 9560 ng/mL (<50); Oxymorph Urine >10000 ng/mL (<50)
[2024-01-14] MEDS: BUPRENORPHINE 5 MCG/HR TDSY TD SCH (14:10)
[2024-01-14] MEDS: CHECK BUPRENORPHINE PATCH SCH (17:25)
--- NOTE | 2024-01-14 19:42 | Hospitalist Progress Note ---
Date of Service January 14, 2024 Assessment & Plan (1) Lethargy: Plan: suspect combination of recent weaning off of prednisone, development of acute diverticulitis, recent resumption of oxycodone, etc. placed back on steroids placed on IV abx for diverticulitis blood cx's remain negative in light of ongoing sleepiness check a VBG with morning labs (2) Acute diverticulitis: Plan: mild, hepatic flexure of colon - as seen on CT a/p clinically improved advance diet to full liquids, then low fiber tomorrow cont IV rocephin/flagyl hold clindamycin which is for chronic 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 PT, OT evals appreciated; rehab needed (4) Dizziness: Plan: resolved sounded orthostatic in nature likely due to weaning of chronic steroids placed back on steroids earlier this week now weaning such can transition over to PO prednisone tomorrow holding lasix today; maybe resume them tomorrow most recent orthostatic BPs wnl (5) Dehydration: Plan: likely Addisonian type crisis as he had been on steroids for many months, then they were weaned off just before admission dehydration resolved (6) Physical deconditioning: Plan: cont PT, OT major contributing factor to his ambulatory dysfunction is severe lumbar spine DDD/DJD (7) DM2 (diabetes mellitus, type 2): Plan: a1c 9.5% cont basal-bolus insulin (8) COPD (chronic obstructive pulmonary disease): Plan: CT chest negative for acute findings no flare at this time (9) Lumbosacral facet joint syndrome: Plan: cont gabapentin TID dose titrated from 300mg TID to 400mg TID by admitting MD he is in pain nearly [id number] oxycodone prn not likely to improve his quality of life will start Butrans patch 5mcg strength re-eval tomorrow (10) History of lumbar surgery: Plan: 10/13/2022 L2-L3, L3-L4, L4-L5 laminectomies - [facility] in light of ongoing severe back pain despite having had surgery in [address] lumbar spine - no major changes from prior imaging (11) Pulmonary embolism: Plan: history of noted dopplers legs negative for DVT lovenox for VTE proph (12) CAD (coronary artery disease): Plan: no ischemic sx's at this time cont asa, beta jordana he is statin intolerant (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, known diagnosis - right hemidiaphragm Plan Depression with anxiety- Continue escitalopram and mirtazapine Could consider changing Lexapro to duloxetine to help with pain but defer for now LE edema - chronic, at baseline, resume lasix tomorrow; dopplers neg for DVTs bradycardia - consider stopping atenolol DVT proph - lovenox daily grand-daughter updated at bedside yesterday progressing Admission and Anticipated Discharge Date Admission Date: January 12, 2024 Subjective tele overnight - sinus tashia, lowest in the 40s patient reports his abdomen feels normal; no nausea, no pain, no emesis back pain - baseline has a bit more energy feels he is "moving in the right direction" Review of Systems Review of Systems: gen - no fevers or chills; sat in chair today for a few hours cv - no chest pains pulm - no dyspnea at rest Physical Exam Physical Exam: gen - again looks tired, laying in bed, NAD outh - MMM neck - no JVD heart - RRR, s1 s2, 1/6 CAMI LSB lungs - mild rales R base, CTA on left, no increased work of breathing abd - soft, NT, ND, BS+, no HSM ext - 2+ pitting edema b/l, pulses 2+ b/l (he states edema is at baseline) psych - a/o x 3 skin - venous stasis changes b/l shins Results & Data Results & Data Vital Signs (Past 12 Hours) Vital Signs Temp Pulse Pulse Resp BP Pulse Ox O2 Del Method 01/14/24 15:38 36.2 C L 56 L 18 174/81 H 96 Room Air 01/14/24 14:18 74 01/14/24 11:15 36.3 C L 52 L 18 148/76 H 93 Room Air 01/14/24 08:29 47 L Laboratory Results Laboratory Results - last 24 hr 01/11/24 01/13/24 01/14/24 Unknown 20:13 05:43 WBC 8.73 RBC 3.48 L Hgb 11.1 L Hct 33.0 L MCV 94.8 MCH 31.9 MCHC 33.6 RDW Std Deviation 53.1 H RDW Coeff of Jonh 15.7 H Plt Count 227 MPV 10.3 Immature Gran % (Auto) 1.8 Neut % (Auto) 81.6 Lymph % (Auto) 8.8 Morgan % (Auto) 7.6 Eos % (Auto) 0.0 Baso % (Auto) 0.2 Neut # (Auto) 7.12 H Lymph # (Auto) 0.77 L Morgan # (Auto) 0.66 H Eos # (Auto) 0.00 Baso # (Auto) 0.02 Immature Gran # (Auto) 0.16 Sodium 140 Potassium 4.2 Chloride 110 H Carbon Dioxide 23 Anion Gap 7 BUN 32 H Creatinine 1.08 Est Cr Clr Drug Dosing 66.0 eGFR 68.52 BUN/Creatinine Ratio 29.6 H Glucose 156 H POC Glucose 207 H Calcium 7.4 L Magnesium 1.9 U Codeine Confrm GC/MS NEGATIVE Ur Morphine (GC/MS) NEGATIVE Ur Hydrocodone (GC/MS) NEGATIVE Ur Norhydrocodone NEGATIVE Ur Noroxycodone >83476 H Urine Oxycodone (GC/MS) 9560 H U Oxymorphone GC/MS >13729 H Ur Hydromorphone (GC/MS) NEGATIVE Drug Screen Comment SEE NOTE 01/14/24 01/14/24 01/14/24 08:44 11:59 16:53 WBC RBC Hgb Hct MCV MCH MCHC RDW Std Deviation RDW Coeff of Jonh Plt Count MPV Immature Gran % (Auto) Neut % (Auto) Lymph % (Auto) Morgan % (Auto) Eos % (Auto) Baso % (Auto) Neut # (Auto) Lymph # (Auto) Morgan # (Auto) Eos # (Auto) Baso # (Auto) Immature Gran # (Auto) Sodium Potassium Chloride Carbon Dioxide Anion Gap BUN Creatinine Est Cr Clr Drug Dosing eGFR BUN/Creatinine Ratio Glucose POC Glucose 153 H 286 H 182 H Calcium Magnesium U Codeine Confrm GC/MS Ur Morphine (GC/MS) Ur Hydrocodone (GC/MS) Ur Norhydrocodone Ur Noroxycodone Urine Oxycodone (GC/MS) U Oxymorphone GC/MS Ur Hydromorphone (GC/MS) Drug Screen Comment PG Care Time/CCT Total # of Minutes Spent Total Time Spent with Patient: Total time spent is greater than 50% in coordination of care (as documented) at patient's floor/unit and/or counseling patient: Coding Level of Care Code 12614 SUB INP/OBS CARE 3/50MIN Diagnoses Lethargy R53.83 Acute diverticulitis K57.92 Ambulatory dysfunction R26.2 Dizziness R42 Dehydration E86.0 Physical deconditioning R53.81 Type 2 diabetes mellitus without complication, without long-term current use of insulin E11.9 Diabetes mellitus complication status: without complication 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 transplanted heart: [place] heart Diaphragm paralysis J98.6 (7) DM2 (diabetes mellitus, type 2) Diabetes mellitus complication status: without complication Diabetes mellitus longterm insulin use: without longterm use Qualified Code(s): E11.9 - Type 2 diabetes mellitus without complications (11) Pulmonary embolism Pulmonary embolism type: single subsegmental (without acute cor pulmonale) Qualified Code(s): I26.93 - Single subsegmental pulmonary embolism without acute cor pulmonale (12) CAD (coronary artery disease) Associated angina: without angina Coronary Disease-Associated Artery/Lesion type: [place] artery [place] vs. transplanted heart: [place] heart Qualified Code(s): I25.10 - Atherosclerotic heart disease of [place] coronary artery without angina pectoris
[2024-01-15] MEDS: predniSONE 20 MG TAB PO SCH (07:31)
[2024-01-15 08:00] LABS: Base Excess VBG -1.1 mEq/L; HCO3 VBG 24 mmol/L; Oxygen Saturation VBG 80.6 %; PCO2 VBG 38 mmHg (38-50); PO2 VBG 48 mmHg
[2024-01-15 08:25] LABS: BUN Creatinine Ratio 25.9 (10-20); Calcium 7.9 mg/dl (8.6-10.3); Potassium 3.8 mmol/L (3.5-5.1)
[2024-01-15] MEDS: FUROSEMIDE 20 MG TAB PO ONE (09:50)
--- NOTE | 2024-01-15 15:35 | Hospitalist Progress Note ---
Date of Service January 15, 2024 Assessment & Plan (1) Lethargy: Plan: suspect combination of recent weaning off of prednisone, development of acute diverticulitis, recent resumption of oxycodone, etc. in his problem list it states he has "excessive daytime sleepiness" -- this chronic issue could be 2nd to NUSRAT, narcolepsy (he reports unusual dreams), etc - and a sleep disorder could be playing a huge role depression could be contributing Butrans patch - started 01/14/24 - could contribute to sleepiness but he is overall unchanged in comparison to the last 48 hours blood cx's remain negative VBG today without hypercapnia recent TSH wnl (2) Acute diverticulitis: Plan: mild, hepatic flexure of colon - as seen on CT a/p clinically improved advance diet to low fiber cont IV rocephin/flagyl today, then over to cefdinir/flagyl by mouth tomorrow to finish a total of 10 days of Rx hold clindamycin which is for chronic 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 PT, OT evals appreciated; rehab needed referral to [facility] (4) Dizziness: Plan: resolved sounded orthostatic in nature likely due to weaning of chronic steroids placed back on steroids earlier this week now weaning such transitioned over to PO prednisone today most recent orthostatic BPs wnl (5) Dehydration: Plan: likely Addisonian type crisis as he had been on steroids for many months, then they were weaned off just before admission dehydration resolved (6) Physical deconditioning: Plan: cont PT, OT major contributing factor to his ambulatory dysfunction is severe lumbar spine DDD/DJD (7) DM2 (diabetes mellitus, type 2): Plan: a1c 9.5% cont basal-bolus insulin acceptable control (8) COPD (chronic obstructive pulmonary disease): Plan: CT chest negative for acute findings no flare at this time add mucinex for nasal/sinus congestion (9) Lumbosacral facet joint syndrome: Plan: cont gabapentin TID dose titrated from 300mg TID to 400mg TID by admitting MD but will put back to 300mg TID as he is not reporting radicular symptoms he is in pain nearly [id number] oxycodone prn not likely to improve his quality of life started Butrans patch 5mcg strength on 01/14/24 already helping his pain watch for sedation re-eval tomorrow (10) History of lumbar surgery: Plan: 10/13/2022 L2-L3, L3-L4, L4-L5 laminectomies - [facility] in light of ongoing severe back pain despite having had surgery in [address] lumbar spine - no major changes from prior imaging (11) Pulmonary embolism: Plan: history of noted dopplers legs negative for DVT lovenox for VTE proph (12) CAD (coronary artery disease): Plan: no ischemic sx's at this time cont asa, beta jordana he is statin intolerant (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, known diagnosis - right hemidiaphragm Plan Depression with anxiety- Continue escitalopram and mirtazapine - to promote sleep increase latter to 15mg HS Could consider changing Lexapro to duloxetine to help with pain but defer for now LE edema - chronic, at baseline, resume lasix today; dopplers neg for DVTs bradycardia - stop atenolol as HRs have been hitting the 40s ?arachnoid cyst on CT head - in light of ambulatory dysfunction, mild confusion, sleepiness at times, etc - check MRI brain DVT proph - lovenox daily grand-daughter updated at bedside this week updated his son by phone this evening dispo - [facility] for rehab Admission and Anticipated Discharge Date Admission Date: January 12, 2024 Subjective tele - sinus tashia/NSR patient sleeping upon arrival easily awakens he said "that's 2 days in a row you caught me sleeping" he is eating well remains tired - has not slept in over 3 days he is having unusual dreams in the hospital he also is occasionally seeing things that he knows are not there despite the above he knows he is in the hospital, knows it is Thursday, January, and 2023 reports the Butrans is helping his back pain he is very comfortable today denies ANY abd pain no N/V Review of Systems Review of Systems: gen - no fevers or chills cv - no chest pain pulm - no dyspnea HENT - feels congested in his sinuses/throat Physical Exam Physical Exam: gen - looks tired, but NAD; looks similar to yesterday outh - MMM neck - no JVD heart - RRR, s1 s2, 1/6 CAMI LSB lungs - mild rales R base, CTA on left, no increased work of breathing abd - soft, NT, ND, BS+, no HSM ext - 1-2+ pitting edema b/l, pulses 2+ b/l psych - oriented x 3; no psychosis during the visit; no agitation skin - venous stasis changes b/l shins w/o cellulitis Results & Data Results & Data Vital Signs (Past 12 Hours) Vital Signs Temp Pulse Pulse Resp BP Pulse Ox O2 Del Method 01/15/24 14:27 60 01/15/24 11:47 36.4 C L 52 L 18 145/75 H 96 Room Air 01/15/24 08:31 Room Air 01/15/24 08:00 36.5 C 67 20 144/68 H 93 Room Air 01/15/24 07:08 93 H 01/15/24 03:46 36.5 C 50 L 18 151/75 H 97 Room Air Laboratory Results Laboratory Results - last 24 hr 01/15/24 01/15/24 01/15/24 07:34 08:12 12:10 VBG pH 7.40 VBG pCO2 38 VBG pO2 48 VBG HCO3 24 VBG O2 Saturation 80.6 VBG Base Excess -1.1 Sodium 143 Potassium 3.8 Chloride 111 H Carbon Dioxide 26 Anion Gap 6 BUN 28 H Creatinine 1.08 Est Cr Clr Drug Dosing 66.0 eGFR 68.52 BUN/Creatinine Ratio 25.9 H Glucose 102 H POC Glucose 104 H 176 H Calcium 7.9 L 01/15/24 17:27 VBG pH VBG pCO2 VBG pO2 VBG HCO3 VBG O2 Saturation VBG Base Excess Sodium Potassium Chloride Carbon Dioxide Anion Gap BUN Creatinine Est Cr Clr Drug Dosing eGFR BUN/Creatinine Ratio Glucose POC Glucose 193 H Calcium PG Care Time/CCT Total # of Minutes Spent Total Time Spent with Patient: Total time spent is greater than 50% in coordination of care (as documented) at patient's floor/unit and/or counseling patient: Coding Level of Care Code 75102 SUB INP/OBS CARE 3/50MIN Diagnoses Lethargy R53.83 Acute diverticulitis K57.92 Ambulatory dysfunction R26.2 Dizziness R42 Dehydration E86.0 Physical deconditioning R53.81 Type 2 diabetes mellitus without complication, without long-term current use of insulin E11.9 Diabetes mellitus complication status: without complication Diabetes 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 transplanted heart: [place] heart Qualified Code(s): I25.10 - Atherosclerotic heart disease of [place] coronary artery without angina pectoris
[2024-01-15] MEDS: GABAPENTIN 300 MG CAP PO SCH (21:05)
[2024-01-15] MEDS: MIRTAZAPINE TAB 15 MG TAB PO SCH (21:05)
[2024-01-15] MEDS: guaiFENesin 600 MG TABCR PO SCH (21:29)
[2024-01-16] MEDS: metroNIDAZOLE 500 MG TAB PO SCH (07:49)
--- NOTE | 2024-01-16 10:55 | Magnetic Resonance Report ---
MR brain wo con HISTORY: 83 years-old Male ?left-sided arachnoid cyst, excessive sleepiness acutely altered mental s tatus with dizziness and stroke like symptoms COMPARISON: Head CT 01/11/2024, brain MRI 12/03/2022 TECHNIQUE: Multiplanar multisequence MRI of the brain was obtained without IV contrast FINDINGS: There is age-related involutional change noting minimal microangiopathic disease. There is no hemorrh age or mass effect. There is no restricted diffusion to suggest acute ischemia. Luu-white matter dif ferentiation is preserved. No extra-axial fluid collection is seen. The cerebellar tonsils are normal in configuration. Partially empty sella. There is probable slightly asymmetric atrophy of the left t emporal lobe with a small left middle cranial fossa arachnoid cyst considered less likely. The cerebral venous sinuses and major arterial flow voids appear patent. Skull, orbits and soft tissu es are unremarkable. Prior bilateral injury apparent. Degenerative changes of the imaged cervical spi ne. Trace mastoid effusions. Paranasal sinuses are generally clear. IMPRESSION: 1. No acute intracranial abnormality. No acute or subacute infarct. 2. Involutional changes with minimal chronic microvascular ischemic disease. ACT 112: Negative or not required by law. The above report was generated using voice recognition software. It may contain grammatical, syntax o r spelling errors. Electronically signed by: Austin Mancera M.D. 01/16/2024 10:52 AM
--- NOTE | 2024-01-16 19:09 | Hospitalist Progress Note ---
Date of Service January 16, 2024 Assessment & Plan (1) Fall: Plan: occurred this am while ambulating with a walker from the bed to the bathroom was being assisted by staff members he had prodromal dizziness/lightheadedness when he was on his feet, then proceeded to pass out for a few seconds he suffered no injuries he has had positional dizziness for some time with other episodes of syncope MRI brain today without acute pathology orthostatics checked - about 30 point drop noted will start midodrine 2.5mg TID re-eval tomorrow (2) Lethargy: Plan: suspect combination of recent weaning off of prednisone, development of acute diverticulitis, recent resumption of oxycodone, etc. in his problem list it states he has "excessive daytime sleepiness" -- this chronic issue could be 2nd to NUSRAT, narcolepsy (he reports unusual dreams), etc - and a sleep disorder could be playing a huge role depression could be contributing Butrans patch - started 01/14/24 - could contribute to sleepiness but he is overall unchanged in comparison to the last several days and was very awake/alert today blood cx's remain negative VBG without hypercapnia recent TSH wnl (3) Acute diverticulitis: Plan: mild, hepatic flexure of colon - as seen on CT a/p clinically improved advance diet to low fiber initially was on IV rocephin/flagyl now over to cefdinir/flagyl finish a total of 10 days of Rx today is day #5 hold clindamycin which is for 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 PT, OT evals appreciated; rehab needed referral to [facility] (5) Dizziness: Plan: has resolved was orthostatic in nature likely due to weaning of chronic steroids can't rule out lasix causing intra-vascular volume depletion placed back on steroids earlier this week placing lasix on hold atenolol on hold will check monitor to see if he had any dysrhythmia during today's fall see above re: midodrine (6) Dehydration: Plan: likely Addisonian type crisis as he had been on steroids for many months, then they were weaned off just before admission dehydration resolved hold lasix (7) Physical deconditioning: Plan: cont PT, OT major contributing factor to his ambulatory dysfunction is severe lumbar spine DDD/DJD (8) DM2 (diabetes mellitus, type 2): Plan: a1c 9.5% cont basal-bolus insulin acceptable control (9) COPD (chronic obstructive pulmonary disease): Plan: CT chest negative for acute findings no flare at this time cont mucinex for nasal/sinus congestion (10) Lumbosacral facet joint syndrome: Plan: cont gabapentin TID dose titrated from 300mg TID to 400mg TID by admitting MD but will put back to 300mg TID as he is not reporting radicular symptoms he is in pain nearly [id number] oxycodone prn not likely to improve his quality of life started Butrans patch 5mcg strength on 01/14/24 already helping his pain watch for sedation but none seen with such re-eval tomorrow (11) History of lumbar surgery: Plan: 10/13/2022 L2-L3, L3-L4, L4-L5 laminectomies - [facility] in light of ongoing severe back pain despite having had surgery in [address] lumbar spine - no major changes from prior imaging (12) Pulmonary embolism: Plan: history of noted dopplers legs negative for DVT lovenox for VTE proph (13) CAD (coronary artery disease): Plan: no ischemic sx's at this time cont asa, beta jordana he is statin intolerant (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, known diagnosis - right hemidiaphragm Plan Depression with anxiety- Continue escitalopram and mirtazapine - to promote sleep increased latter to 15mg HS; did indeed sleep better last pm LE edema - chronic, at baseline, resumed lasix but lasix could be contributing to intra-vascular volume depletion and; dopplers neg for DVTs bradycardia - stopped atenolol as HRs have been hitting the 40s HRs improved with stopping beta blocke ?arachnoid cyst on CT head - in light of ambulatory dysfunction, mild confusion, sleepiness at times, etc - checked MRI brain, no definitive arachnoid cyst seen today DVT proph - lovenox daily grand-daughter updated at bedside this week updated his son by phone yesterday evening dispo - [facility] for rehab, timing uncertain Admission and Anticipated Discharge Date Admission Date: January 12, 2024 Subjective patient was ambulating from the bed to the bathroom with staff this am using a rolling walker got dizzy then "blacked out" for a few seconds, falling to the floor did not hit head did not injure any body part denies any pain at this time tele overnight - sinus tashia patient reports he slept much better overnight feels rested and awake/alert sinus congestion improved pain in back is MUCH better when he ambulated today he did not note any significant pain Review of Systems Review of Systems: CV - no chest pain, no orthopnea; ongoing edema pulm - no dyspnea GI - no abd pain or N/V Physical Exam Physical Exam: gen - looks good today - best he has looked all week; NAD head - no signs of trauma neck - no JVD, no signs of trauma heart - RRR, s1 s2, 1/6 CAMI LSB lungs - mild rales R base, mild rales L base, no wheezes b/l abd - soft, NT, ND, BS+, no HSM ext - 1+ pitting edema b/l, pulses 2+ b/l psych - oriented x 3 skin - venous stasis changes b/l shins w/o cellulitis musculo - passive ROM of all 4 limbs without pain; no signs of trauma to any limb Results & Data Results & Data Vital Signs (Past 12 Hours) Vital Signs Temp Pulse Pulse Resp BP BP Pulse Ox 01/16/24 15:41 36.4 C L 60 18 175/89 H 96 01/16/24 13:51 85 01/16/24 12:16 36.5 C 60 18 158/78 H 96 01/16/24 07:51 36.4 C L 49 L 18 168/76 H 93 01/16/24 07:35 01/16/24 07:20 46 L O2 Del Method 01/16/24 15:41 Room Air 01/16/24 13:51 01/16/24 12:16 Room Air 01/16/24 07:51 Room Air 01/16/24 07:35 Room Air 01/16/24 07:20 Laboratory Results Laboratory Results - last 24 hr 01/15/24 01/16/24 01/16/24 20:33 08:15 12:06 POC Glucose 194 H 99 143 H 01/16/24 17:05 POC Glucose 195 H Diagnostic Findings Brain MRI 01/16/24 07:00 MR brain wo con HISTORY: 83 years-old Male ?left-sided arachnoid cyst, excessive sleepiness acutely altered mental status with dizziness and stroke like symptoms COMPARISON: Head CT 01/11/2024, brain MRI 12/03/2022 TECHNIQUE: Multiplanar multisequence MRI of the brain was obtained without IV contrast FINDINGS: There is age-related involutional change noting minimal microangiopathic disease. There is no hemorrhage or mass effect. There is no restricted diffusion to suggest acute ischemia. Luu-white matter differentiation is preserved. No extra-axial fluid collection is seen. The cerebellar tonsils are normal in configuration. Partially empty sella. There is probable slightly asymmetric atrophy of the left temporal lobe with a small left middle cranial fossa arachnoid cyst considered less likely. The cerebral venous sinuses and major arterial flow voids appear patent. Skull, orbits and soft tissues are unremarkable. Prior bilateral injury apparent. Degenerative changes of the imaged cervical spine. Trace mastoid effusions. Paranasal sinuses are generally clear. IMPRESSION: 1. No acute intracranial abnormality. No acute or subacute infarct. 2. Involutional changes with minimal chronic microvascular ischemic disease. ACT 112: Negative or not required by law. The above report was generated using voice recognition software. It may contain grammatical, syntax or spelling errors. Electronically signed by: Austin Mancera M.D. 01/16/2024 10:52 AM PG Care Time/CCT Total # of Minutes Spent Total Time Spent with Patient: Total time spent is greater than 50% in coordination of care (as documented) at patient's floor/unit and/or counseling patient: Coding Level of Care Code 22044 SUB INP/OBS CARE 3/50MIN Diagnoses Fall, subsequent encounter W19.XXXD Encounter type: subsequent encounter Lethargy R53.83 Acute diverticulitis K57.92 Ambulatory dysfunction R26.2 Dizziness R42 Dehydration E86.0 Physical deconditioning R53.81 Type 2 diabetes mellitus without complication, without long-term current use of insulin E11.9 Diabetes mellitus complication status: without complication Diabetes mellitus fpc insulin use: without fpc use COPD (chronic obstructive pulmonary disease) J44.9 Lumbosacral facet joint syndrome M47.817 History of lumbar surgery Z98.890 Single subsegmental pulmonary embolism without acute cor pulmonale I26.93 Pulmonary embolism type: single subsegmental (without acute cor pulmonale) Coronary artery disease involving [place] coronary artery of [place] heart without angina pectoris I25.10 Associated angina: without angina Coronary Disease-Associated Artery/Lesion type: [place] artery [place] vs. transplanted heart: [place] heart Diaphragm paralysis J98.6 (1) Fall Encounter type: subsequent encounter Qualified Code(s): W19.XXXD - Uns pecified fall, subsequent encounter (8) DM2 (diabetes mellitus, type 2) Diabetes mellitus complication status: without complication Diabetes mellitus pinsetter mechanic automatic insulin use: without pinsetter mechanic automatic use Qualified Code(s): E11.9 - Type 2 diabetes mellitus without complications (12) Pulmonary embolism Pulmonary embolism type: single subsegmental (without acute cor pulmonale) Qualified Code(s): I26.93 - Single subsegmental pulmonary embolism without acute cor pulmonale (13) CAD (coronary artery disease) Associated angina: without angina Coronary Disease-Associated Artery/Lesion type: [place] artery [place] vs. transplanted heart: [place] heart Qualified Code(s): I25.10 - Atherosclerotic heart disease of [place] coronary artery without angina pectoris
[2024-01-16] MEDS: CEFDINIR 300 MG CAP PO SCH (20:45)
[2024-01-17 07:01] LABS: Hematocrit (blood only) 34.3 % (42.0-52.0); Hemoglobin 11.5 g/dl (14.0-18.0); Mean Corpuscular Hemoglobin 32.5 pg (25.0-34.0); Mean Corpuscular Hgb Conc 33.5 g/dL (32.0-36.0); Mean Corpuscular Volume 96.9 fL (80.0-100.0); Mean Platelet Volume 10.4 fL (9.4-12.4); Platelet Count 222 K/uL (130-400); RDW Coefficient of Variation 16.3 % (11.5-14.5); RDW Standard Deviation 57.8 fL (36.4-46.3); Red Blood Count 3.54 M/uL (4.70-6.10); White Blood Count 9.83 K/ul (4.8-10.8)
[2024-01-17 07:27] LABS: BUN Creatinine Ratio 24.5 (10-20); Calcium 7.3 mg/dl (8.6-10.3); Creatinine Clr Calc Pharmacy 64.5 ml/min; Potassium 3.6 mmol/L (3.5-5.1)
[2024-01-17] MEDS: MIDODRINE HCL 2.5 MG TAB PO SCH ×2 (07:57→17:47)
[2024-01-17] MEDS: ADVANCED PROBIOTIC 625 MG CAPSULE PO SCH (11:55)
--- NOTE | 2024-01-17 12:16 | XCELERA ---
[id number] \\[id number]
--- NOTE | 2024-01-17 13:01 | Hospitalist Progress Note ---
Date of Service January 17, 2024 Assessment & Plan (1) Fall: Plan: 10/12 AM was ambulating with a walker from the bed to the bathroom with staff members he had prodromal dizziness/lightheadedness when he was on his feet, then proceeded to pass out for a few seconds telemetry during the spell - no arrhythmia, no pauses, etc. he suffered no injuries he has had positional dizziness for some time with other episodes of syncope MRI brain without acute pathology +orthostatics started midodrine 2.5mg TID this am despite such his orthostasis continues -- thus, increase midodrine to 5mg TID get daily orthostatics (2) Lethargy: Plan: suspect combination of recent weaning off of prednisone, development of acute diverticulitis, recent resumption of oxycodone, etc. in his problem list it states he has "excessive daytime sleepiness" -- this chronic issue could be 2nd to NUSRAT, narcolepsy (he reports unusual dreams), etc - and a sleep disorder could be playing a huge role depression could be contributing Butrans patch - started 01/14/24 - could contribute to sleepiness but he is overall unchanged in comparison to the last several days and was very awake/alert today blood cx's remain negative VBG without hypercapnia recent TSH wnl (3) Acute diverticulitis: Plan: mild, hepatic flexure of colon - as seen on CT a/p clinically improved advanced diet to low fiber and tolerating such w/o any worsening GI symptoms initially was on IV rocephin/flagyl now over to cefdinir/flagyl finish a total of 10 days of Rx today is day #6 hold clindamycin which is for 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 PT, OT evals appreciated; rehab needed referral to [facility] (5) Dizziness: Plan: due to orthostasis MRI brain negative likely due to weaning of chronic steroids can't rule out lasix causing intra-vascular volume depletion placed back on steroids earlier this week lasix on hold atenolol on hold start midodrine today (6) Dehydration: Plan: likely Addisonian type crisis as he had been on steroids for many months, then they were weaned off just before admission dehydration resolved hold lasix (7) Physical deconditioning: Plan: cont PT, OT major contributing factor to his ambulatory dysfunction is severe lumbar spine DDD/DJD (8) DM2 (diabetes mellitus, type 2): Plan: a1c 9.5% cont basal-bolus insulin acceptable control (9) COPD (chronic obstructive pulmonary disease): Plan: CT chest negative for acute findings no flare at this time cont mucinex for nasal/sinus congestion (10) Lumbosacral facet joint syndrome: Plan: cont gabapentin TID dose titrated from 300mg TID to 400mg TID by admitting MD but will put back to 300mg TID as he is not reporting radicular symptoms he is in pain nearly camcgg-qij-xnqld oxycodone prn not likely to improve his quality of life started Butrans patch 5mcg strength on 01/14/24 helping his pain tremendously no side effects from such (11) History of lumbar surgery: Plan: 10/13/2022 L2-L3, L3-L4, L4-L5 laminectomies - [facility] in light of ongoing severe back pain despite having had surgery in [address] lumbar spine - no major changes from prior imaging (12) Pulmonary embolism: Plan: history of noted dopplers legs negative for DVT lovenox for VTE proph (13) CAD (coronary artery disease): Plan: no ischemic sx's at this time cont asa, beta jordana he is statin intolerant (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, known diagnosis - right hemidiaphragm Plan Depression with anxiety- Continue escitalopram and mirtazapine - to promote sleep increased latter to 15mg HS; sleeping better and tolerating the bigger dose LE edema - chronic, at baseline; lasix could be contributing to intra-vascular volume depletion and orthostasis thus lasix placed on hold; dopplers neg for DVTs bradycardia - stopped atenolol as HRs had been hitting the 40s HRs improved with stopping beta jordana, but now having brief episodes of wide complex tachycardia echo obtained today - moderate , but preserved EF and normal LV wall motion consider resuming beta jordana in form of metoprolol ?arachnoid cyst on CT head - in light of ambulatory dysfunction, mild confusion, sleepiness at times, etc - checked MRI brain, no definitive arachnoid cyst seen DVT proph - lovenox daily grand-daughter updated at bedside this week updated his son by phone 2 evenings ago remove daryl dispo - [facility] for rehab, timing uncertain Admission and Anticipated Discharge Date Admission Date: January 12, 2024 Subjective tele overnight - brief run of wide-complex tachycardia - NSVT vs aberrant rhythm no symptoms feeling good today slept well again overnight back pain controlled when he got OOB to chair today he did not have any dizziness eating well with robust appetite no N/V no abd pain with eating nurses report his stools are loose - not watery, but mildly loose Review of Systems Review of Systems: gen - no fevers or chills cv - no cp pulm - no dyspnea GI - no abd pain - daryl removed this afternoon Physical Exam Physical Exam: gen - looks good today - sitting in chair; NAD neck - no JVD heart - RRR, s1 s2, 1/6 CAMI LSB lungs - mild rales R base, minimal rales L base, no wheezes b/l abd - soft, NT, ND, BS+, no HSM ext - 1+ pitting edema b/l, pulses 2+ b/l - edema slightly improved today psych - oriented x 3 skin - venous stasis changes b/l shins w/o cellulitis Results & Data Results & Data Vital Signs (Past 12 Hours) Vital Signs Temp Pulse Pulse Resp BP BP Pulse Ox 01/17/24 11:35 36.5 C 76 18 110/67 93 01/17/24 08:21 01/17/24 07:52 36.4 C L 60 18 133/71 95 01/17/24 07:01 57 L 01/17/24 03:51 36.3 C L 60 20 142/71 H 95 O2 Del Method 01/17/24 11:35 Room Air 01/17/24 08:21 Room Air 01/17/24 07:52 Room Air 01/17/24 07:01 01/17/24 03:51 Room Air Laboratory Results Laboratory Results - last 24 hr 01/16/24 01/16/24 01/17/24 17:05 20:09 06:06 WBC 9.83 RBC 3.54 L Hgb 11.5 L Hct 34.3 L MCV 96.9 MCH 32.5 MCHC 33.5 RDW Std Deviation 57.8 H RDW Coeff of Jonh 16.3 H Plt Count 222 MPV 10.4 Sodium 145 Potassium 3.6 Chloride 114 H Carbon Dioxide 26 Anion Gap 5 BUN 27 H Creatinine 1.10 Est Cr Clr Drug Dosing 64.5 eGFR 67.02 BUN/Creatinine Ratio 24.5 H Glucose 123 H POC Glucose 195 H 202 H Calcium 7.3 L 01/17/24 01/17/24 08:08 12:11 WBC RBC Hgb Hct MCV MCH MCHC RDW Std Deviation RDW Coeff of Jonh Plt Count MPV Sodium Potassium Chloride Carbon Dioxide Anion Gap BUN Creatinine Est Cr Clr Drug Dosing eGFR BUN/Creatinine Ratio Glucose POC Glucose 134 H 265 H Calcium PG Care Time/CCT Total # of Minutes Spent Total Time Spent with Patient: Total time spent is greater than 50% in coordination of care (as documented) at patient's floor/unit and/or counseling patient: Coding Level of Care Code 04018 SUB INP/OBS CARE 3/50MIN Diagnoses Fall, subsequent encounter W19.XXXD Encounter type: subsequent encounter Lethargy R53.83 Acute diverticulitis K57.92 Ambulatory dysfunction R26.2 Dizziness R42 Dehydration E86.0 Physical deconditioning R53.81 Type 2 diabetes mellitus without complication, without long-term current use of insulin E11.9 Diabetes mellitus complication status: without complication Diabetes mellitus exterminator insulin use: without longterm use COPD (chronic obstructive pulmonary disease) J44.9 Lumbosacral facet joint syndrome M47.817 History of lumbar surgery Z98.890 Single subsegmental pulmonary embolism without acute cor pulmonale I26.93 Pulmonary embolism type: single subsegmental (without acute cor pulmonale) Coronary artery disease involving [place] coronary artery of [place] heart without angina pectoris I25.10 Associated angina: without angina Coronary Disease-Associated Artery/Lesion type: [place] artery [place] vs. transplanted heart: [place] heart Diaphragm paralysis J98.6 (1) Fall Encounter type: subsequent encounter Qualified Code(s): W19.XXXD - Unspecified fall, subsequent encounter (8) DM2 (diabetes mellitus, type 2) Diabetes mellitus complication status: without complication Diabetes mellitus exterminator insulin use: without exterminator use Qualified Code(s): E11.9 - Type 2 diabetes mellitus without complications (12) Pulmonary embolism Pulmonary embolism type: single subsegmental (without acute cor pulmonale) Qualified Code(s): I26.93 - Single subsegmental pulmonary embolism without acute cor pulmonale (13) CAD (coronary artery disease) Associated angina: without angina Coronary Disease-Associated Artery/Lesion type: [place] artery [place] vs. transplanted heart: [place] heart Qualified Code(s): I25.10 - Atherosclerotic heart disease of [place] coronary artery without angina pectoris
[2024-01-18 06:54] LABS: Albumin Level 2.7 gm/dl (3.4-5.0); BUN Creatinine Ratio 26.9 (10-20); Calcium 7.4 mg/dl (8.6-10.3); Creatinine Clr Calc Pharmacy 66.2 ml/min; Potassium 3.9 mmol/L (3.5-5.1)
[2024-01-18] MEDS: predniSONE 5 MG TAB PO SCH (08:00)
[2024-01-18] MEDS: FLUDROCORTISONE ACETATE 0.1 MG TAB PO SCH (11:26)
--- NOTE | 2024-01-18 19:47 | Hospitalist Progress Note ---
Date of Service January 18, 2024 Assessment & Plan (1) Fall: Plan: 01/16/24 AM was ambulating with a walker from the bed to the bathroom with staff members he had prodromal dizziness/lightheadedness when he was on his feet, then proceeded to pass out for a few seconds telemetry during the spell - no arrhythmia, no pauses, etc. no injuries fortunately he has had positional dizziness/orthostasis and episodes of syncope at home as well MRI brain without acute pathology orthostatics continue to remain positive today despite addition of midodrine which has been titrated to 5mg TID he had mild dizziness this am with standing will add florinef 0.1mg daily in addition to the midodrine get daily orthostatics patient has a very flat affect/masked type facies, moves slowly, etc - could he have Parkinson's with resulting orthostatic hypotension? (2) Lethargy: Plan: suspect combination of recent weaning off of prednisone, development of acute diverticulitis, recent resumption of oxycodone, etc. 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 PT, OT evals appreciated; rehab needed referral to [facility] pending (5) Dizziness: Plan: due to significant orthostasis MRI brain negative likely due to weaning of chronic steroids can't rule out lasix causing intra-vascular volume depletion can't rule out a primary orthostatic hypotension problem placed back on steroids early in the admission lasix on hold atenolol on hold s/p initiation of midodrine as above s/p initiation of florinef today (still with drop of 60 points with standing) obtain daily orthostatics (6) Dehydration: Plan: likely Addisonian type crisis as he had been on steroids for many months, then they were weaned off just before admission dehydration resolved would still hold lasix for now (7) Physical deconditioning: Plan: cont PT, OT major contributing factor to his ambulatory dysfunction is severe lumbar spine DDD/DJD (8) DM2 (diabetes mellitus, type 2): Plan: a1c 9.5% cont basal-bolus insulin acceptable control although pre-prandial readings are high -- will adjust novolog (9) COPD (chronic obstructive pulmonary disease): Plan: CT chest negative for acute findings no flare at this time cont mucinex for nasal/sinus congestion (10) Lumbosacral facet joint syndrome: Plan: cont gabapentin TID he reports he is in pain nearly [id number] at home he did not tolerate oxycodone prn, and this is unlikely to improve his quality of life given its short-acting nature, etc. started Butrans patch 5mcg strength on 01/14/24 helping his pain tremendously no side effects from such will continue (11) History of lumbar surgery: Plan: 10/13/2022 L2-L3, L3-L4, L4-L5 laminectomies - [facility] in light of ongoing severe back pain despite having had surgery in [address] lumbar spine - no major changes from prior imaging (12) Pulmonary embolism: Plan: history of noted dopplers legs negative for DVT cont lovenox for VTE proph (13) CAD (coronary artery disease): Plan: no ischemic sx's at this time cont asa he is statin intolerant atenolol stopped due to sinus bradycardia seen into the 40s along with severe orthostasis (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, known diagnosis - right hemidiaphragm likely cause of focal dry rales in the right base on examination Plan Depression with anxiety- Continue escitalopram and mirtazapine - to promote sleep I increased latter to 15mg HS; he is sleeping better and tolerating the bigger dose LE edema - chronic, at baseline; lasix could be contributing to intra-vascular volume depletion and orthostasis thus lasix placed on hold; dopplers neg for DVTs bradycardia - stopped atenolol as HRs had been hitting the 40s HRs improved with stopping beta jordana did have 1 episode of NSVT vs an aberrant rhythm early yesterday am -- echo obtained - moderate , but preserved EF and normal LV wall motion consider resuming beta jordana in form of metoprolol but defer for now ?arachnoid cyst on CT head - in light of ambulatory dysfunction, mild confusion, sleepiness at times, etc - checked MRI brain, no definitive arachnoid cyst seen DVT proph - lovenox daily grand-daughter updated at bedside this week updated his son by phone over the weekend dispo - [facility] for rehab - auth pending Admission and Anticipated Discharge Date Admission Date: January 12, 2024 Subjective patient sitting in chair "I'm having a good day" during orthostatic checks today he was dizzy for just a few seconds he did work with PT today and walked into the hallway he had NO back pain during the PT session - he was thrilled his back did not hurt he had no dizziness during the PT session only 1 stool today eating well eating does NOT cause any abd pain denies any nausea/emesis tele - 1 brief run of what looks like PAT; yesterday - 1 brief run of NSVT vs an aberrant pathway he is really happy how the hospital stay has gone Review of Systems Review of Systems: gen - feels well, no fevers or chills cv - no chest pain pulm - some mild cough but no dyspnea or distress GI - no diarrhea Physical Exam Physical Exam: gen - sitting in chair; NAD; looks great neck - no JVD heart - RRR, s1 s2, 1/6 CAMI LSB lungs - mild fine/dry rales R base, scant rales L base, no wheezes b/l abd - soft, NT, ND, BS+, no HSM ext - 1+ pitting edema b/l, pulses 2+ b/l psych - oriented x 3; awake/alert skin - venous stasis changes b/l shins w/o cellulitis Results & Data Results & Data Vital Signs (Past 12 Hours) Vital Signs Temp Pulse Resp BP Pulse Ox O2 Del Method 01/18/24 15:46 36.7 C 71 20 117/75 96 Room Air 01/18/24 15:40 Room Air 01/18/24 11:53 36.5 C 64 16 159/73 H 95 Room Air 01/18/24 08:30 Room Air 01/18/24 07:48 36.4 C L 56 L 16 149/76 H 96 Room Air Laboratory Results Laboratory Results - last 24 hr 01/17/24 01/18/24 01/18/24 20:15 06:04 08:29 Sodium 145 Potassium 3.9 Chloride 114 H Carbon Dioxide 26 Anion Gap 5 BUN 29 H Creatinine 1.08 Est Cr Clr Drug Dosing 66.2 eGFR 68.52 BUN/Creatinine Ratio 26.9 H Glucose 117 H POC Glucose 193 H 86 Calcium 7.4 L Magnesium 2.0 Albumin 2.7 L 01/18/24 01/18/24 12:19 17:11 Sodium Potassium Chloride Carbon Dioxide Anion Gap BUN Creatinine Est Cr Clr Drug Dosing eGFR BUN/Creatinine Ratio Glucose POC Glucose 202 H 238 H Calcium Magnesium Albumin PG Care Time/CCT Total # of Minutes Spent Total Time Spent with Patient: Total time spent is greater than 50% in coordination of care (as documented) at patient's floor/unit and/or counseling patient: Coding Level of Care Code 69437 SUB INP/OBS CARE 3/50MIN Diagnoses Fall, subsequent encounter W19.XXXD Encounter type: subsequent encounter Lethargy R53.83 Acute diverticulitis K57.92 Ambulatory dysfunction R26.2 Dizziness R42 Dehydration E86.0 Physical deconditioning R53.81 Type 2 diabetes mellitus without complication, without long-term current use of insulin E11.9 Diabetes mellitus complication status: without complication Diabetes mellitus manager terminal insulin use: without chcf use COPD (chronic obstructive pulmonary disease) J44.9 Lumbosacral facet joint syndrome M47.817 History of lumbar surgery Z98.890 Single subsegmental pulmonary embolism without acute cor pulmonale I26.93 Pulmonary embolism type: single subsegmental (without acute cor pulmonale) Coronary artery disease involving [place] coronary artery of [place] heart without angina pectoris I25.10 Associated angina: without angina Coronary Disease-Associated Artery/Lesion type: [place] artery [place] vs. transplanted heart: [place] heart Diaphragm paralysis J98.6 (1) Fall Encounter type: subsequent encounter Qualified Code(s): W19.XXXD - Unspecified fall, subsequent encounter (8) DM2 (diabetes mellitus, type 2) Diabetes mellitus complication status: without complication Diabetes mellitus manager terminal insulin use: without chcf use Qualified Code(s): E11.9 - Type 2 diabetes mellitus without complications (12) Pulmonary embolism Pulmonary embolism type: single subsegmental (without acute cor pulmonale) Qualified Code(s): I26.93 - Single subsegmental pulmonary embolism without acute cor pulmonale (13) CAD (coronary artery disease) Associated angina: without angina Coronary Disease-Associated Artery/Lesion type: [place] artery [place] vs. transplanted heart: [place] heart Qualified Code(s): I25.10 - Atherosclerotic heart disease of [place] coronary artery without angina pectoris
[2024-01-18 20:06] VITALS: RESP 18
[2024-01-19] MEDS: CARBOHYDRATES FOR HYPOGLYCEMIA PO PRN (08:13)
--- NOTE | 2024-01-19 11:08 | Hospitalist Progress Note ---
Date of Service January 19, 2024 Assessment & Plan (1) Fall: Plan: 01/16/24 AM related to orthostatic hypotension was ambulating with a walker from the bed to the bathroom with staff members , he had prodromal dizziness/lightheadedness when he was on his feet, then proceeded to pass out for a few seconds, was not injured telemetry during the spell - no arrhythmia, no pauses, etc. he has had positional dizziness/orthostasis and episodes of syncope at home as well MRI brain without acute pathology continue Florinef and midodrine. atenolol and Lasix have been held get daily orthostatics consider parkinsonism- flat affect/masked type facies, moves slowly, however he does not have any tremor and no rigidity or cogwheeling 01/18 - reduced gabapentin to 200 mg tid. 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 . cont PT, OT major contributing factor to his ambulatory dysfunction is severe lumbar spine DDD/DJD (5) DM2 (diabetes mellitus, type 2): Plan: a1c 9.5% cont basal-bolus insulin hypoglycemic this AM. reduced glargine by 50% (6) COPD (chronic obstructive pulmonary disease): Plan: CT chest negative for acute findings no flare at this time cont mucinex for nasal/sinus congestion (7) Lumbosacral facet joint syndrome: Plan: cont gabapentin TID he reports he is in pain nearly [id number]-yyn-rjxaj at home he did not tolerate oxycodone prn started Butrans patch 5mcg strength on 01/14/24 helping his pain tremendously no side effects from such will continue (8) History of lumbar surgery: Plan: 10/13/2022 L2-L3, L3-L4, L4-L5 laminectomies - [facility] in light of ongoing severe back pain despite having had surgery in [address] lumbar spine - no major changes from prior imaging (9) Pulmonary embolism: Plan: history of dopplers legs negative for DVT cont lovenox for VTE proph (10) CAD (coronary artery disease): Plan: no ischemic sx's at this time cont asa he is statin intolerant atenolol stopped due to sinus bradycardia seen into the 40s along with severe orthostasis (11) Diaphragm paralysis: Plan: chronic, known diagnosis - right hemidiaphragm likely cause of focal dry rales in the right base on examination Plan Depression with anxiety- Continue escitalopram and mirtazapine Increased to 15 mg to promote sleep LE edema - chronic, at baseline; lasix could be contributing to intra-vascular volume depletion and orthostasis thus lasix placed on hold; dopplers neg for DVTs bradycardia - stopped atenolol as HRs had been hitting the 40s HRs improved with stopping beta jordana did have 1 episode of NSVT vs an aberrant rhythm early yesterday am -- echo obtained - moderate , but preserved EF and normal LV wall motion consider resuming beta jordana in form of metoprolol but defer for now ?arachnoid cyst on CT head - in light of ambulatory dysfunction, mild confusion, sleepiness at times, etc - checked MRI brain, no definitive arachnoid cyst seen DVT proph - lovenox daily grand-daughter updated at bedside this week updated his son by phone over the weekend dispo - insurance denied acute rehab, [facility] Admission and Anticipated Discharge Date Admission Date: January 12, 2024 Subjective Carlos continues to do well, he walked with PT and said he was not lightheaded most recently, back pain currently well-controlled on Butrans patch no further abdominal pain no nausea vomiting or diarrhea and eating well chronic leg edema has increased since the Lasix has been held Physical Exam 2 Physical Exam: PHYSICAL EXAMINATION Last 24h vital signs reviewed, see documentation in flowsheet General: comfortable appearing, no distress HEENT: Normocephalic, atraumatic, pupils round and equal, sclerae anicteric, no conjunctival injection, moist mucus membranes Lungs: Normal respiratory effort. Clear to auscultation bilaterally. No RRW Heart: Regular rate and rhythm, no murmurs. No JVD Abdomen: Soft, nontender, nondistended. Bowel sounds present. Extremities: Warm, dry, well-perfused. 2-3+ extremity edema below the knees. Neuro: Alert and oriented x 4, face symmetric, moves 4 extremities well. no upper extremity cogwheeling or rigidity, no tremor Psych: Normal affect and behavior Results & Data Results & Data Vital Signs (Past 12 Hours) Vital Signs Temp Pulse Pulse Resp BP Pulse Ox O2 Del Method 01/19/24 09:41 59 L 01/19/24 07:20 36.5 C 66 18 146/68 H 96 Room Air 01/19/24 04:00 36.5 C 60 18 161/83 H 97 Room Air 01/18/24 23:57 Room Air 01/18/24 23:15 36.5 C 56 L 18 158/81 H 96 Room Air Laboratory Results 01/17/24 06:06 01/18/24 06:04 PG Care Time/CCT Total # of Minutes Spent Total Time Spent with Patient: Total time spent is greater than 50% in coordination of care (as documented) at patient's floor/unit and/or counseling patient: Coding Level of Care Code 04887 SUB INP/OBS CARE 2/35MIN Diagnoses Fall, subsequent encounter W19.XXXD Encounter type: subsequent encounter Lethargy R53.83 Acute diverticulitis K57.92 Physical deconditioning R53.81 Type 2 diabetes mellitus without complication, without long-term current use of insulin E11.9 Diabetes mellitus complication status: without complication Diabetes mellitus terminal worker insulin use: without snf use COPD (chronic obstructive pulmonary disease) J44.9 Lumbosacral facet joint syndrome M47.817 History of lumbar surgery Z98.890 Single subsegmental pulmonary embolism without acute cor pulmonale I26.93 Pulmonary embolism type: single subsegmental (without acute cor pulmonale) Coronary artery disease involving [place] coronary artery of [place] heart without angina pectoris I25.10 Associated angina: without angina Coronary Disease-Associated Artery/Lesion type: [place] artery [place] vs. transplanted heart: [place] heart Diaphragm paralysis J98.6 (1) Fall Encounter type: subsequent encounter Qualified Code(s): W19.XXXD - Unspecified fall, subsequent encounter (5) DM2 (diabetes mellitus, type 2) Diabetes mellitus complication status: without complication Diabetes mellitus snf insulin use: without snf use Qualified Code(s): E11.9 - Type 2 diabetes mellitus without complications (9) Pulmonary embolism Pulmonary embolism type: single subsegmental (without acute cor pulmonale) Qualified Code(s): I26.93 - Single subsegmental pulmonary embolism without acute cor pulmonale (10) CAD (coronary artery disease) Associated angina: without angina Coronary Disease-Associated Artery/Lesion type: [place] artery [place] vs. transplanted heart: [place] heart Qualified Code(s): I25.10 - Atherosclerotic heart disease of [place] coronary artery without angina pectoris
[2024-01-19] MEDS: GABAPENTIN 100 MG CAP PO SCH (13:03)
[2024-01-19] MEDS: LANTUS PER UNIT CHARGE SQ SCH (20:36)
--- NOTE | 2024-01-20 07:26 | Discharge Summary ---
Discharge Summary Date of Service January 20, 2024 Principal Dx & Hospital Course #1 = Principal Diagnosis (1) Lethargy: 83 y/o presenting with lethargy, weakness, and generally not doing well. Multifactorial - combination of recent weaning off of prednisone with some secondary adrenal insufficiency, development of acute diverticulitis, recent resumption of oxycodone, orthostatic hypotension, bradycardia on atenolol in his problem list it states he has "excessive daytime sleepiness" and a sleep disorder could be playing a huge role (he could have NUSRAT, narcolepsy [he reports unusual dreams], etc) depression could be contributing blood cultures were normal VBG without hypercapnia recent TSH wnl -treated with increased steroids, continue slower taper of prednisone -reduced gabapentin to 200 mg tid. CKD 2-3, CrCl 66 -see components treated as below -resolved -consider referral to sleep medicine (2) Fall: 01/16/24 AM related to orthostatic hypotension was ambulating with a walker from the bed to the bathroom with staff members , he had prodromal dizziness/lightheadedness when he was on his feet, then proceeded to pass out for a few seconds, was not injured telemetry during the spell - no arrhythmia, no pauses, etc. he has had positional dizziness/orthostasis and episodes of syncope at home as well MRI brain without acute pathology started midodrine and added fludrocortisone for persistent symptoms. atenolol spironolactone and Lasix have been held recommend BMP in 1 week for electrolytes/K on florinef has significant chronic leg edema, if BP/symptoms can tolerate would be optimal to come off of fludrocortisone and eventually resume some amount of diuretic get daily orthostatics, continue PT/OT considered parkinsonism- flat affect/masked type facies, moves slowly, however he does not have any tremor and no rigidity or cogwheeling, so no clear evidence of parkinsonism at this time (3) Acute diverticulitis: mild, hepatic flexure of colon - as seen on CT a/p clinically improved tolerating low fiber diet initially was on IV rocephin/flagyl now over to cefdinir/flagyl today is day 9/10 of antibiotics holding clindamycin which is for 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 . cont PT, OT major contributing factor to his ambulatory dysfunction is severe lumbar spine DDD/DJD (5) DM2 (diabetes mellitus, type 2): a1c 9.5% cont basal-bolus insulin (6) COPD (chronic obstructive pulmonary disease): CT chest negative for acute findings no flare at this time cont mucinex for nasal/sinus congestion (7) Lumbosacral facet joint syndrome: cont gabapentin TID he reports he is in pain nearly [id number] at home he did not tolerate oxycodone prn started Butrans patch 5mcg strength on 01/14/24 helping his pain tremendously no side effects from such will continue (8) History of lumbar surgery: 10/13/2022 L2-L3, L3-L4, L4-L5 laminectomies - [facility] in light of ongoing severe back pain despite having had surgery in [address] lumbar spine - no major changes from prior imaging (9) Pulmonary embolism: history of dopplers legs negative for DVT (10) CAD (coronary artery disease): no ischemic sx's at this time cont asa he is statin intolerant atenolol stopped due to sinus bradycardia seen into the 40s along with severe orthostasis (11) Diaphragm paralysis: chronic, known diagnosis - right hemidiaphragm likely cause of focal dry rales in the right base on examination Plan Depression with anxiety- Continue escitalopram and mirtazapine Increased to 15 mg to promote sleep bradycardia - stopped atenolol as HRs had been hitting the 40s, heart rate improved did have 1 episode of NSVT vs an aberrant rhythm- echo obtained - moderate , but preserved EF and normal LV wall motion question of arachnoid cyst on CT head - in light of ambulatory dysfunction, mild confusion, sleepiness at times, etc - checked MRI brain, no definitive arachnoid cyst seen Notes For Next Care Provider check BMP in 1 week if orthostatic symptoms improved, stop fludrocortisone first Admission HPI Per Admitting Provider The patient is an 83-year-old male with a past medical history including chronic low back pain with lumbosacral facet joint syndrome, diabetes mellitus, syncope, COPD, moderate aortic stenosis, PE, major depression, vitamin B1 deficiency, generalized anxiety disorder, CAD, chronic antibiotic suppression, UTI, B12 deficiency, lower extremity radiculopathy, diaphragm paralysis and peripheral edema. The patient presents to the emergency department with symptoms of confusion, lethargy and difficulty to arouse from sleep. He had recently been started on oxycodone 5 mg p.o. 3 times daily on 01/06/2024, and prednisone had been discontinued due to concerns regarding developing hyperglycemia, for which she was on metformin, which has since been discontinued. Patient's main complaint is that he feels dehydrated Discharge Exam PHYSICAL EXAMINATION Last 24h vital signs reviewed, see documentation in flowsheet General: comfortable appearing, no distress exam unchanged 01/19 HEENT: Normocephalic, atraumatic, pupils round and equal, sclerae anicteric, no conjunctival injection, moist mucus membranes Lungs: Normal respiratory effort. Clear to auscultation bilaterally. No RRW Heart: Regular rate and rhythm, no murmurs. No JVD Abdomen: Soft, nontender, nondistended. Bowel sounds present. Extremities: Warm, dry, well-perfused. 2-3+ extremity edema below the knees. Neuro: Alert and oriented x 4, face symmetric, moves 4 extremities well. no upper extremity cogwheeling or rigidity, no tremor Psych: Normal affect and behavior Discharge Plan Discharge Items Patient Disposition: Transfer Intermediate Fac Reason For Visit: ACUTVE DIVERTICULITIS, DEHYDRATION Discharge Diagnosis: Acute diverticulitis, orthostatic hypotension Activity: Resume your previous activity Weightbearing: Full weightbearing Non-emergency contact: Primary Care Provider Call non-emergency contact if: you have any medication questions and your symptoms worsen Follow-up/Referrals: Anita Wang MD [Primary Care Provider] - Diet: Carb Consistent or DM2 Addtl Attending Provider Instructions: PT and OT evaluate and treat BMP in 1 week - started fludrocortisone watch for worsening leg edema or onset of CHF - lasix, spironolactone held and fludrocortisone started for symptomatic orthostatic hypotension oral antibiotics through 01/20 (completes 10d course for diverticulitis), then resume chornic suppressive clindamycin po - for hx infected TKA butrans patch started for chronic pain continue tapering prednisone slowly to off - by no more than 5 mg per week blood glucose checks qAC continue glargine aspart/lispro premeal/correctional Pending Studies at Discharge: No Stand-Alone Forms: My [facility] Skilled Items Patient informed of condition?: Yes DNR: Yes Discharge Level of Care: Skilled Communicable Disease: No Discharge Prognosis: Improving Lines: None Urinary Catheter: No Medications and DC Order Prescriptions: New cefdinir 300 mg Capsule 300 mg PO BID Qty: 0 0RF Rx Instructions: through 01/20 for diverticulitis metronidazole 500 mg Tablet 500 mg PO BID Qty: 0 0RF Rx Instructions: through 01/20 for diverticulitis midodrine 2.5 mg Tablet 5 mg PO TID@0800,1200,1700 Qty: 0 0RF mirtazapine 15 mg Tablet 15 mg PO HS Qty: 0 0RF gabapentin 100 mg Capsule 200 mg PO TID Qty: 0 0RF Advanced Probiotic 625 mg (10 billion cell) Capsule 1 cap PO DAILY Qty: 0 0RF insulin glargine [Lantus U-100 Insulin] 100 unit/mL Solution 5 unit subcut BID Qty: 0 0RF prednisone 5 mg Tablet 15 mg PO QAM Qty: 0 0RF fludrocortisone 0.1 mg Tablet 0.1 mg PO QAM Qty: 0 0RF guaifenesin [Mucinex] 600 mg Tablet Extended Release 12hr 1,200 mg PO Q12 Qty: 0 0RF buprenorphine [Butrans] 5 mcg/hour Patch Weekly 1 patch transdermal Q7D@0900 Qty: 1 0RF Continued nitroglycerin 0.4 mg tablet, sublingual 0.4 mg SL Q5M PRN (Reason: chest pain) Qty: 30 3RF rosuvastatin 5 mg tablet 2.5 mg PO 3XWK Qty: 60 3RF Rx Instructions: 2.5 mg PO M,W,F; omeprazole 20 mg capsule,delayed release(DR/EC) 20 mg PO QDL Qty: 90 1RF thiamine HCl (vitamin B1) 100 mg tablet 200 mg PO BID polyethylene glycol 3350 [Miralax] 17 gram/dose powder 17 g PO BID cholecalciferol (vitamin D3) 50 mcg (2,000 unit) capsule 50 mcg PO QAM albuterol sulfate 90 mcg/actuation HFA aerosol inhaler 2 puff inhalation Q6H PRN (Reason: shortness of breath or wheezing) Qty: 8.5 0RF aspirin 81 mg Tablet,Delayed Release (Dr/Ec) 81 mg PO QDL calcium carbonate 500 mg calcium (1,250 mg) Tablet 500 mg PO QAM sennosides-docusate sodium [Senna with Docusate Sodium] 8.6-50 mg Tablet 1 tab PO QAM Rx Instructions: may take extra tab daily if needed acetaminophen [Tylenol Extra Strength] 500 mg tablet 1,000 mg PO Q8H PRN (Reason: Pain) cyanocobalamin (vitamin B-12) 1,000 mcg tablet 1,000 mcg PO QAM Rx Instructions: purchase [id number] escitalopram oxalate 10 mg tablet 10 mg PO QAM Rx Instructions: TO BE TAKEN WITH 5 MG TAB FOR TOTAL OF 15 MG DAILY escitalopram oxalate 5 mg tablet 5 mg PO QDL Rx Instructions: TO BE TAKEN WITH 10 MG TAB FOR TOTAL OF 15 MG DAILY Held spironolactone 25 mg tablet 25 mg PO BID Qty: 180 3RF Hold Instructions: Resume on 02/16/24. held for orthostatic hypotension clindamycin HCl 300 mg capsule 300 mg PO QAM Hold Instructions: Resume on 01/22/24. resume once other antibiotics completed - for chronic prophylaxis prior infected TKA furosemide 20 mg tablet 20 mg PO QAM Hold Instructions: Resume on 02/16/24. held for orthostatic hypotension Discontinued atenolol 25 mg tablet 25 mg PO QPM Qty: 90 1RF gabapentin 300 mg capsule 300 mg PO TID Qty: 270 3RF oxycodone 5 mg tablet 5 mg PO TID PRN (Reason: debilitating back pain) Qty: 90 0RF mirtazapine 7.5 mg tablet 7.5 mg PO HS Discharge Orders: Discharge Order (Routine); Ordered 01/20/24 Ordered By: Edie Esteves/Other Patient Handouts: Type 2 Diabetes Admission Data Admit Date/Time: 01/12/24 15:14 Attending Provider: Edie Catherine Admit Provider: Reece Kelly Primary Care Provider: Anita Wang Other Providers: Reece Kelly; [facility]; [place]; [facility] Other Interventions: Discharge Summary Assessment (RN) Last Done: 01/20/24 08:58 Hospital Stay Data Consultations 01/11/24 23:53 ED Decision to Admit Stat Diagnostic Imagining Performed 01/11/24 20:02 CT head/brain wo con Stat 01/12/24 12:02 CT Abd and Pelvis [CT abd pelvis wo con] Routine CT chest diagnostic wo con Routine 01/14/24 05:44 CT lumbar spine wo con Routine US venous doppler LE BI Routine 01/16/24 07:00 MR brain wo con Routine Pending Results Patient Have Any Pending Studies at Discharge: No Discharge Instructions Given to Patient (Per Discharging Provider) PT and OT evaluate and treat BMP in 1 week - started fludrocortisone watch for worsening leg edema or onset of CHF - lasix, spironolactone held and fludrocortisone started for symptomatic orthostatic hypotension oral antibiotics through 01/20 (completes 10d course for diverticulitis), then resume chornic suppressive clindamycin po - for hx infected TKA butrans patch started for chronic pain continue tapering prednisone slowly to off - by no more than 5 mg per week blood glucose checks qAC continue glargine aspart/lispro premeal/correctional Total Time Total Time Spent Total Time Spent (In Minutes): I personally spent: 40 minutes today on clinical care activities including: reviewing chart notes and vital signs discussion with director of career resources examining and counseling the patient writing orders writing prescriptions, discharge instructions documentation Coding Level of Care Code 41732 INP/OBS DISCH >30 MIN Diagnoses Lethargy R53.83 Fall, subsequent encounter W19.XXXD Encounter type: subsequent encounter Acute diverticulitis K57.92 Physical deconditioning R53.81 Type 2 diabetes mellitus without complication, without long-term current use of insulin E11.9 Diabetes mellitus complication status: without complication 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 transplanted heart: [place] heart Diaphragm paralysis J98.6
[2024-01-20 07:40] VITALS: BP 162/76; TEMP 97.9; O2SAT 97
[2024-01-20 09:01] VITALS: PULSE 62
== END 2024-01-20 09:44 | DRG 392 ==
LOC: ED 19:59 → EDINP 19:59 → SUATTDRO 01-12 00:22 → EDINP 01-12 02:39 → 2N 01-12 03:52 → SUATTDRO 01-12 15:14

== ENCOUNTER 2024-01-26 12:10 | Inpatient (IN) ==
--- NOTE | 2024-01-26 13:57 | XRay Report ---
XR chest 1V not portable HISTORY: 83 years-old Male Chest pain, nonspecific acute shortness of breath COMPARISON: 01/11/2024 TECHNIQUE: AP view of the chest FINDINGS: Cardiac silhouette is enlarged. Unchanged right hemidiaphragmatic elevation. Bibasilar atelectasis ve rsus scarring. No pneumothorax, large pleural effusion or overt pulmonary edema. Degenerative changes of the shoulders and spine. IMPRESSION: Cardiomegaly without acute process. ACT 112: Negative or not required by law. The above report was generated using voice recognition software. It may contain grammatical, syntax o r spelling errors. Electronically signed by: Austin Mancera M.D. 01/26/2024 1:56 PM
[2024-01-26 14:11] LABS: Basophils # (auto) 0.08 K/uL (0.00-0.20); Basophils % (auto) 0.6 %; Eosinophils # (auto) 0.15 K/uL (0.00-0.50); Eosinophils % (auto) 1.2 %; Hematocrit (blood only) 37.7 % (42.0-52.0); Hemoglobin 12.5 g/dl (14.0-18.0); Immature Granulocytes # (auto) 0.52 K/uL (0.01-0.20); Immature Granulocytes % (auto) 4.2 %; Lymphocytes # (auto) 0.94 K/uL (1.20-3.40); Lymphocytes % (auto) 7.6 %; Mean Corpuscular Hemoglobin 32.8 pg (25.0-34.0); Mean Corpuscular Hgb Conc 33.2 g/dL (32.0-36.0); Mean Platelet Volume 10.8 fL (9.4-12.4); Monocytes # (auto) 1.12 K/uL (0.11-0.59); Neutrophils # (auto) 9.59 K/uL (1.40-6.50); Neutrophils % (auto) 77.4 %; Platelet Count 229 K/uL (130-400); RDW Coefficient of Variation 15.9 % (11.5-14.5); RDW Standard Deviation 58.1 fL (36.4-46.3); Red Blood Count 3.81 M/uL (4.70-6.10)
[2024-01-26 14:28] LABS: Albumin Globulin Ratio 1.3 (0.9-2); BUN Creatinine Ratio 17.8 (10-20); Bilirubin,Total 0.3 mg/dl (0.2-1.0); Creatinine Clr Calc Pharmacy 61.8 ml/min; Globulin 2.3 gm/dl (2.5-4.0); Potassium 4.2 mmol/L (3.5-5.1); Total Protein 5.3 gm/dl (6.0-8.3)
[2024-01-26 14:30] LABS: Partial Thromboplastin Ratio 0.9; Partial Thromboplastin Time 23 Seconds (21-31); Troponin I High Sensitivity 22.7 pg/ml (0-20)
--- NOTE | 2024-01-26 15:32 | Emergency Department Note ---
Impression & Plan CHF exacerbation, Elevated troponin ED Provider Note NAME: SILVANO SANTORO AGE: 83 SEX: M : 1940 ARRIVES VIA: Ambulance INFORMANT: Patient, ED PROVIDER(S): Atilio Romano MD CHIEF COMPLAINT: Shortness of breath, generalized edema HPI: This is a 83-year-old male with history of CHF presenting for increasing shortness of breath. Patient notes he is at [facility] where they have been attempting to manage his fluid overload with Lasix and spironolactone. Patient is 17 lightheaded upon standing or exertion due to this. They state that because of this patient he states that because of this they sent him here as they are unable to do further intervention at his facility. Patient does note no current chest pain, fever, chills, nausea or vomiting. Some slight congestion noted however. PAST MEDICAL HISTORY: See Below PAST SURGICAL HISTORY: See Below FAMILY HISTORY: See Below SOCIAL HISTORY: See Below HOME MEDICATIONS: See Below ALLERGIES: See Below VITALS: See Below PHYSICAL EXAMINATION: General: resting comfortably in no acute distress Head: Normocephalic and atraumatic Eyes: Normal inspection, extraocular muscles intact Ear, nose, throat: Normal external exam Neck: Normal range of motion Respiratory: lungs clear to auscultation bilaterally Cardiovascular: Regular rate/rhythm, no murmur GI: soft, nontender, no guarding or rebound Extremities: nontender, moves all extremities, 2+ pitting BLE swelling, 1+ BUE swelling Neuro: The patient awake and alert, appropriately conversive, no focal deficits, symmetric faces Skin: Warm, dry, and intact MEDICAL DECISION MAKING: This is an 83-year-old male presenting for source of breath and fluid overload. Patient has pitting edema to bilateral lower extremities both upper extremities. Will do chest x-ray, basic blood work, BNP. Patient medically unable to be taken care of at his facility. Patient will likely for admission as a result -Chest Xray independently interpreted by me showing cardiomegaly, no pneumothorax, focal opacity, or pleural effusions. -ECG independently interpreted by me with normal sinus rhythm, rate of 70, left axis deviation, normal AR, normal QRS, normal QTc, no ST segment elevations consistent with STEMI criteria -Patient's blood work is reviewed showing slight BNP elevation. -Slight leukocytosis is noted. BNP elevated. Troponin 21.4. -Upper respiratory panel negative -Patient is admitted under Dr. Asif Differential diagnosis: CHF, pneumonia, URI on, ACS ER treatment provided: See below Diagnostics interpreted by me: ECG: See above Cardiac Monitoring: An order was placed for continuous cardiac monitoring. The monitor shows a rate of 69 with sinus rhythm. Laboratory studies: As stated above and show below. Imaging studies: See below. Past Med/Surg History Problem List (Updated 01/26/24 @ 17:34 by Atilio Romano MD) Elevated troponin (Acute) CHF exacerbation (Acute) Orthostasis Acute on chronic diastolic (congestive) heart failure Acute diverticulitis Lethargy Ambulatory dysfunction (Acute) Complaint of fatigable weakness Encounter for monitoring diuretic therapy Physical deconditioning Postural lightheadedness Encounter for monitoring diuretic therapy Syncope DM2 (diabetes mellitus, type 2) Encounter to discuss test results Edema Diverticulosis of colon COPD (chronic obstructive pulmonary disease) Chest pain Lumbosacral facet joint syndrome Anticoagulated History of lumbar surgery L2-3, L3-4, L4-5 laminectomy, medial facetectomy, and foraminotomies - Dr. Pettit, 10/13/2022 Lumbosacral pain Right leg swelling Chronic pain Moderate aortic stenosis Pulmonary embolism dx 01/2023, provoked by surgery (10/2022). eliquis X 6 months. Panic disorder Major depression single episode, in partial remission Weakness (Acute) Fall Gout Hypotension Vitamin B1 deficiency Generalized anxiety disorder Inflammatory arthritis Wheezing (Acute) CAD (coronary artery disease) Petechiae Acute UTI (urinary tract infection) (Acute) Acute constipation (Acute) Mood disorder (Acute) Elevated bilirubin Chronic antibiotic suppression Hypertension Leg swelling UTI (urinary tract infection) Generalized weakness Depression Opiate use Fluid overload Pulmonary atelectasis Nausea Encounter for preoperative assessment Left knee DJD Cough Dyspnea on exertion Atelectasis Elevated hemidiaphragm Pain of left calf Bilateral lower extremity edema Hip pain, bilateral Excessive daytime sleepiness B12 deficiency DDD (degenerative disc disease), lumbar Decreased range of motion of both hips Radicular neuropathy Fatigue Bilateral leg pain Venous insufficiency (chronic) (peripheral) Encounter for immunization Pain of left lower extremity Antiplatelet or antithrombotic long-term use Lung abnormality per pt after whipple procedure right lung does not fully expand Shortness of breath Non-healing skin lesion (Acute) Acute bronchitis (Acute) Grieving (Acute) 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 Postnasal drip (Chronic) Hoarseness (Chronic) Back pain (Acute) Constipation (Acute) Diaphragm paralysis Chronic cough Drug-induced photosensitivity Rash of body Peripheral edema Medical History Encounter for examination following treatment at hospital Encounter for preoperative pulmonary examination Routine health maintenance Encounter for pre-operative examination Opioid dependence Chronic lumbosacral pain Spinal stenosis, lumbar region without neurogenic claudication Steroid long-term use Accident History of pancreatitis GERD (gastroesophageal reflux disease) Heart attack Rash of face Chronic venous stasis Dyslipidemia Chest tightness Surgical History Hx of vascular surgery History of skin graft History of hand surgery History of total bilateral knee replacement (TKR) History of repair of right rotator cuff History of tooth extraction History of major abdominal surgery History of bilateral cataract extraction S/P inguinal hernia repair H/O cardiac catheterization Family History Mother Bone cancer Family/Other Myocardial infarction Other No family history of adverse response to anesthesia Denies family history of Ovarian cancer Prostate cancer Breast cancer Colorectal cancer Social History Smoking Status: Never smoker Second Hand Exposure: No; Do You Dip or Chew Tobacco: No; Hx Alcohol Use: No Hx Substance Use: No Preferred Language: Citizen Of [place] Communication Ability: Effective Visual Impairment: Limited Hearing Ability: Normal Baby Formula Mixer Required: No Beliefs That Will Affect Care: None marital status: / Current Living Situation: Alone Current Living Situation Comment: Lives at home alone current occupational status: retired How many Children do You have: 3 Feels Safe at Home: Yes Childhood Exposure to Second-Hand Smoke: No Diet: regular caffeine: Yes (2 cups of coffee QAM) during the past year weight has: increased > 10 lbs Dental Care, Regularly: Yes Physical Activity Frequency: Does not Exercise Physical Activity Frequency Comment: Due to back pain. Seatbelt Use: always Sunscreen Use: No Gender Identity: Male Assistive Devices: Glasses and Walker Allergies Allergies Allergy/AdvReac Type Severity Reaction Status Date / Time oyster extract Allergy Intermediate hives Verified 01/06/24 09:09 shellfish derived Allergy Intermediate Hives Verified 01/06/24 09:09 azithromycin Allergy Mild Rash Verified 01/06/24 09:09 levofloxacin [From Levaquin] Allergy Mild rash Verified 01/06/24 09:09 Sulfa (Sulfonamide Allergy Mild hives Verified 01/06/24 09:09 Antibiotics) sulfamethoxazole Allergy Mild hives Verified 01/06/24 09:09 trimethoprim Allergy Mild hives Verified 01/06/24 09:09 atorvastatin Allergy Unknown UNKNOWN Verified 01/06/24 09:09 morphine Allergy Unknown UNKNOWN Verified 01/06/24 09:09 pravastatin Allergy Unknown UNKNOWN Verified 01/06/24 09:09 simvastatin Allergy Unknown UNKNOWN Verified 01/06/24 09:09 oxycodone AdvReac Mild vomiting Verified 01/06/24 09:09 Home Meds Home Medications Medication Instructions Recorded Confirmed polyethylene glycol 3350 17 17 g PO BID 09/25/22 01/11/24 gram/dose oral powder (Miralax) aspirin 81 mg tablet,delayed 81 mg PO QDL 01/22/23 01/11/24 release calcium carbonate 500 mg PO QAM 01/22/23 01/11/24 sennosides 8.6 mg-docusate sodium 1 tab PO QAM 01/22/23 01/11/24 50 mg tablet (Senna with Docusate Sodium) thiamine HCl (vitamin B1) 100 mg 200 mg PO BID 01/22/23 01/11/24 tablet cholecalciferol (vitamin D3) 50 50 mcg PO QAM 04/20/23 01/11/24 mcg (2,000 unit) capsule acetaminophen 500 mg tablet 1,000 mg PO Q8H PRN Pain 01/11/24 01/11/24 (Tylenol Extra Strength) clindamycin HCl 300 mg capsule 300 mg PO QAM 01/11/24 01/11/24 cyanocobalamin (vitamin B-12) 1,000 mcg PO QAM 01/11/24 01/11/24 1,000 mcg tablet escitalopram oxalate 10 mg tablet 10 mg PO QAM 01/11/24 01/11/24 escitalopram oxalate 5 mg tablet 5 mg PO QDL 01/11/24 01/11/24 furosemide 20 mg tablet 20 mg PO QAM 01/11/24 01/11/24 Previous Rx's Medication Instructions Recorded nitroglycerin 0.4 mg sublingual 0.4 mg sublingual Q5M PRN chest 01/22/22 tablet pain #30 tabs rosuvastatin 5 mg tablet 2.5 mg (1/2 x 5 mg) PO 3XWK #60 03/03/23 tabs albuterol sulfate 90 mcg/actuation 2 puff inhalation Q6H PRN 10/02/23 aerosol inhaler shortness of breath or wheezing #8.5 grams spironolactone 25 mg tablet 25 mg PO BID #180 tabs 10/29/23 omeprazole 20 mg capsule,delayed 20 mg PO QDL #90 caps 12/25/23 release L.acidop,casei,lactis,rham-B.lact,mikhail 1 cap PO DAILY #0 caps 01/19/24 625 mg (10 billion cell) capsule (Advanced Probiotic) buprenorphine 5 mcg/hour weekly 1 patch transdermal Q7D@0900 #1 ea 01/19/24 transdermal patch (Butrans) fludrocortisone 0.1 mg tablet 0.1 mg PO QAM #0 tabs 01/19/24 gabapentin 100 mg capsule 200 mg (2 x 100 mg) PO TID #0 caps 01/19/24 guaifenesin 600 mg tablet, 1,200 mg (2 x 600 mg) PO Q12 #0 01/19/24 extended release 12 hr (Mucinex) tabs insulin glargine 100 unit/mL 5 unit (0.05 mL) subcut BID #0 mL 01/19/24 subcutaneous solution (Lantus U-100 Insulin) midodrine 2.5 mg tablet 5 mg (2 x 2.5 mg) PO 01/19/24 TID@0800,1200,1700 #0 tabs mirtazapine 15 mg tablet 15 mg PO HS #0 tabs 01/19/24 prednisone 5 mg tablet 15 mg (3 x 5 mg) PO QAM #0 tabs 01/19/24 Results & Data (ED) Vital Signs Vital Signs - 24 hr 01/26/24 12:16 01/26/24 12:16 01/26/24 13:50 Temperature 36.5 C Temperature Source Oral Pulse Rate 77 Pulse Rate [Left Finger] Respiratory Rate 16 Respiratory Effort / Characteristics Labored Blood Pressure 148/83 H Blood Pressure [Left Arm] Blood Pressure Mean 104 Blood Pressure Mean [Left Arm] Blood Pressure Position Sitting Pulse Oximetry 94 98 Oxygen Delivery Method Room Air Room Air Oxygen Flow Rate Sepsis Recent Fever Within 48 Hours No Sepsis New/Unexplained Change in Mental Status N/A Sepsis Action Taken by Nursing No Action Required 01/26/24 13:50 01/26/24 15:48 01/26/24 15:49 Temperature Temperature Source Pulse Rate Pulse Rate [Left Finger] 72 69 Respiratory Rate 20 20 Respiratory Effort / Characteristics Blood Pressure Blood Pressure [Left Arm] 164/93 H 186/85 H Blood Pressure Mean Blood Pressure Mean [Left Arm] 116 118 Blood Pressure Position Pulse Oximetry 98 94 94 Oxygen Delivery Method Room Air Room Air Room Air Oxygen Flow Rate 0 Sepsis Recent Fever Within 48 Hours Sepsis New/Unexplained Change in Mental Status Sepsis Action Taken by Nursing 01/26/24 15:49 01/26/24 17:00 Temperature Temperature Source Pulse Rate 69 Pulse Rate [Left Finger] 70 Respiratory Rate 20 23 Respiratory Effort / Characteristics Blood Pressure Blood Pressure [Left Arm] 190/93 H Blood Pressure Mean Blood Pressure Mean [Left Arm] 125 Blood Pressure Position Pulse Oximetry 94 94 Oxygen Delivery Method Room Air Room Air Oxygen Flow Rate Sepsis Recent Fever Within 48 Hours Sepsis New/Unexplained Change in Mental Status Sepsis Action Taken by Nursing Laboratory Data 01/26/24 13:45 01/26/24 13:45 Lab Results 01/26/24 01/26/24 01/26/24 Range/Units 13:45 15:19 15:36 WBC 12.40 H (4.8-10.8) K/ul RBC 3.81 L (4.70-6.10) M/uL Hgb 12.5 L (14.0-18.0) g/dl Hct 37.7 L (42.0-52.0) % MCV 99.0 (80.0-100.0) fL MCH 32.8 (25.0-34.0) pg MCHC 33.2 (32.0-36.0) g/dL RDW Std Deviation 58.1 H (36.4-46.3) fL RDW Coeff of Jonh 15.9 H (11.5-14.5) % Plt Count 229 (130-400) K/uL MPV 10.8 (9.4-12.4) fL Immature Gran % (Auto) 4.2 % Neut % (Auto) 77.4 % Lymph % (Auto) 7.6 % [place] % (Auto) 9.0 % Eos % (Auto) 1.2 % Baso % (Auto) 0.6 % Neut # (Auto) 9.59 H (1.40-6.50) K/uL Lymph # (Auto) 0.94 L (1.20-3.40) K/uL [place] # (Auto) 1.12 H (0.11-0.59) K/uL Eos # (Auto) 0.15 (0.00-0.50) K/uL Baso # (Auto) 0.08 (0.00-0.20) K/uL Immature Gran # (Auto) 0.52 H (0.01-0.20) K/uL PT 11.0 (9.0-12.0) Seconds INR 1.0 (0.9-1.1) APTT 23 (21-31) Seconds PTT Ratio 0.9 Sodium 144 (136-145) mmol/L Potassium 4.2 (3.5-5.1) mmol/L Chloride 111 H (98-107) mmol/L Carbon Dioxide 27 (21-32) mmol/L Anion Gap 6 (3-11) BUN 19 (6-23) mg/dl Creatinine 1.07 (0.6-1.4) mg/dl Est Cr Clr Drug Dosing 61.8 ml/min eGFR 69.28 BUN/Creatinine Ratio 17.8 (10-20) Glucose 150 H (70-99(Fasting)) mg/dl Calcium 8.0 L (8.6-10.3) mg/dl Total Bilirubin 0.3 (0.2-1.0) mg/dl AST 25 (13-39) U/L ALT 20 (7-52) U/L Alkaline Phosphatase 65 (34-104) U/L Troponin I High Sens 22.7 H 21.4 H (0-20) pg/ml B-Natriuretic Peptide 189 H (0-100) pg/ml Total Protein 5.3 L (6.0-8.3) gm/dl Albumin 3.0 L (3.4-5.0) gm/dl Globulin 2.3 L (2.5-4.0) gm/dl Albumin/Globulin Ratio 1.3 (0.9-2) Urine Color Urine Appearance (Clear) Urine pH (4.5-7.5) Ur Specific [place] (1.000-1.030) Urine Protein (Negative) Urine Glucose (UA) (Negative) Urine Ketones (Negative) Urine Blood (Negative) Urine Nitrite (Negative) Urine Bilirubin (Negative) Urine Urobilinogen (Negative) Ur Leukocyte Esterase (Negative) Adenovirus (PCR) Not Detected (NotDetected) B. pertussis DNA (PCR) Not Detected (NotDetected) B.parapertussis DNA PCR Not Detected (NotDetected) C. pneumoniae DNA (PCR) Not Detected (NotDetected) Coronavirus OC43 (PCR) Not Detected (NotDetected) Coronavirus HKU1 (PCR) Not Detected (NotDetected) Coronavirus 229E (PCR) Not Detected (NotDetected) SARS-CoV-2 (PCR) Not Detected (NotDetected) Coronavirus NL63 (PCR) Not Detected (NotDetected) Human Metapneumovir PCR Not Detected (NotDetected) Influenza Type A (PCR) Not Detected (NotDetected) Influenza Type B (PCR) Not Detected (NotDetected) M. pneumoniae (PCR) Not Detected (NotDetected) Parainfluenza 1 (PCR) Not Detected (NotDetected) Parainfluenza 2 (PCR) Not Detected (NotDetected) Parainfluenza 3 (PCR) Not Detected (NotDetected) Parainfluenza 4 (PCR) Not Detected (NotDetected) RSV (PCR) Not Detected (NotDetected) Entero/Rhino (PCR) Not Detected (NotDetected) 01/26/24 Range/Units 16:45 WBC (4.8-10.8) K/ul RBC (4.70-6.10) M/uL Hgb (14.0-18.0) g/dl Hct (42.0-52.0) % MCV (80.0-100.0) fL MCH (25.0-34.0) pg MCHC (32.0-36.0) g/dL RDW Std Deviation (36.4-46.3) fL RDW Coeff of Jonh (11.5-14.5) % Plt Count (130-400) K/uL MPV (9.4-12.4) fL Immature Gran % (Auto) % Neut % (Auto) % Lymph % (Auto) % [place] % (Auto) % Eos % (Auto) % Baso % (Auto) % Neut # (Auto) (1.40-6.50) K/uL Lymph # (Auto) (1.20-3.40) K/uL [place] # (Auto) (0.11-0.59) K/uL Eos # (Auto) (0.00-0.50) K/uL Baso # (Auto) (0.00-0.20) K/uL Immature Gran # (Auto) (0.01-0.20) K/uL PT (9.0-12.0) Seconds INR (0.9-1.1) APTT (21-31) Seconds PTT Ratio Sodium (136-145) mmol/L Potassium (3.5-5.1) mmol/L Chloride (98-107) mmol/L Carbon Dioxide (21-32) mmol/L Anion Gap (3-11) BUN (6-23) mg/dl Creatinine (0.6-1.4) mg/dl Est Cr Clr Drug Dosing ml/min eGFR BUN/Creatinine Ratio (10-20) Glucose (70-99(Fasting)) mg/dl Calcium (8.6-10.3) mg/dl Total Bilirubin (0.2-1.0) mg/dl AST (13-39) U/L ALT (7-52) U/L Alkaline Phosphatase (34-104) U/L Troponin I High Sens (0-20) pg/ml B-Natriuretic Peptide (0-100) pg/ml Total Protein (6.0-8.3) gm/dl Albumin (3.4-5.0) gm/dl Globulin (2.5-4.0) gm/dl Albumin/Globulin Ratio (0.9-2) Urine Color Yellow Urine Appearance Clear (Clear) Urine pH 5.0 (4.5-7.5) Ur Specific [place] 1.009 (1.000-1.030) Urine Protein Negative (Negative) Urine Glucose (UA) Negative (Negative) Urine Ketones Negative (Negative) Urine Blood Negative (Negative) Urine Nitrite Negative (Negative) Urine Bilirubin Negative (Negative) Urine Urobilinogen Negative (Negative) Ur Leukocyte Esterase Negative (Negative) Adenovirus (PCR) (NotDetected) B. pertussis DNA (PCR) (NotDetected) B.parapertussis DNA PCR (NotDetected) C. pneumoniae DNA (PCR) (NotDetected) Coronavirus OC43 (PCR) (NotDetected) Coronavirus HKU1 (PCR) (NotDetected) Coronavirus 229E (PCR) (NotDetected) SARS-CoV-2 (PCR) (NotDetected) Coronavirus NL63 (PCR) (NotDetected) Human Metapneumovir PCR (NotDetected) Influenza Type A (PCR) (NotDetected) Influenza Type B (PCR) (NotDetected) M. pneumoniae (PCR) (NotDetected) Parainfluenza 1 (PCR) (NotDetected) Parainfluenza 2 (PCR) (NotDetected) Parainfluenza 3 (PCR) (NotDetected) Parainfluenza 4 (PCR) (NotDetected) RSV (PCR) (NotDetected) Entero/Rhino (PCR) (NotDetected) Administered Medications Discontinued Medications Furosemide (Furosemide Inj 20 Mg/2 Ml Vial) 20 mg IV ONE STA Stop: 01/26/24 16:21 Last Admin: 01/26/24 17:04 Dose: 20 mg Documented By: [facility] Imaging Data Radiologist's Impression: Chest X-Ray 01/26/24 13:07 XR chest 1V not portable HISTORY: 83 years-old Male Chest pain, nonspecific acute shortness of breath COMPARISON: 01/11/2024 TECHNIQUE: AP view of the chest FINDINGS: Cardiac silhouette is enlarged. Unchanged right hemidiaphragmatic elevation. Bibasilar atelectasis versus scarring. No pneumothorax, large pleural effusion or overt pulmonary edema. Degenerative changes of the shoulders and spine. IMPRESSION: Cardiomegaly without acute process. ACT 112: Negative or not required by law. The above report was generated using voice recognition software. It may contain grammatical, syntax or spelling errors. Electronically signed by: Austin Mancera M.D. 01/26/2024 1:56 PM Discharge Plan Visit Data Chief Complaint: Shortness of Breath/Dyspnea Stated Complaint: shortness of breath ED Provider: Atilio Romano Discharge Problem: CHF exacerbation, Elevated troponin Forms Stand Alone Forms: My [facility] Prescriptions Prescriptions: No Action nitroglycerin 0.4 mg tablet, sublingual 0.4 mg SL Q5M PRN (Reason: chest pain) Qty: 30 3RF rosuvastatin 5 mg tablet 2.5 mg PO 3XWK Qty: 60 3RF Rx Instructions: 2.5 mg PO M,W,F; omeprazole 20 mg capsule,delayed release(DR/EC) 20 mg PO QDL Qty: 90 1RF thiamine HCl (vitamin B1) 100 mg tablet 200 mg PO BID polyethylene glycol 3350 [Miralax] 17 gram/dose powder 17 g PO BID cholecalciferol (vitamin D3) 50 mcg (2,000 unit) capsule 50 mcg PO QAM spironolactone 25 mg tablet 25 mg PO BID Qty: 180 3RF Hold Instructions: Resume on 02/16/24. held for orthostatic hypotension albuterol sulfate 90 mcg/actuation HFA aerosol inhaler 2 puff inhalation Q6H PRN (Reason: shortness of breath or wheezing) Qty: 8.5 0RF aspirin 81 mg Tablet,Delayed Release (Dr/Ec) 81 mg PO QDL calcium carbonate 500 mg calcium (1,250 mg) Tablet 500 mg PO QAM sennosides-docusate sodium [Senna with Docusate Sodium] 8.6-50 mg Tablet 1 tab PO QAM Rx Instructions: may take extra tab daily if needed acetaminophen [Tylenol Extra Strength] 500 mg tablet 1,000 mg PO Q8H PRN (Reason: Pain) clindamycin HCl 300 mg capsule 300 mg PO QAM Hold Instructions: Resume on 01/22/24. resume once other antibiotics completed - for chronic prophylaxis prior infected TKA cyanocobalamin (vitamin B-12) 1,000 mcg tablet 1,000 mcg PO QAM Rx Instructions: purchase [id number] furosemide 20 mg tablet 20 mg PO QAM Hold Instructions: Resume on 02/16/24. held for orthostatic hypotension escitalopram oxalate 10 mg tablet 10 mg PO QAM Rx Instructions: TO BE TAKEN WITH 5 MG TAB FOR TOTAL OF 15 MG DAILY escitalopram oxalate 5 mg tablet 5 mg PO QDL Rx Instructions: TO BE TAKEN WITH 10 MG TAB FOR TOTAL OF 15 MG DAILY midodrine 2.5 mg Tablet 5 mg PO TID@0800,1200,1700 Qty: 0 0RF mirtazapine 15 mg Tablet 15 mg PO HS Qty: 0 0RF gabapentin 100 mg Capsule 200 mg PO TID Qty: 0 0RF Advanced Probiotic 625 mg (10 billion cell) Capsule 1 cap PO DAILY Qty: 0 0RF insulin glargine [Lantus U-100 Insulin] 100 unit/mL Solution 5 unit subcut BID Qty: 0 0RF prednisone 5 mg Tablet 15 mg PO QAM Qty: 0 0RF fludrocortisone 0.1 mg Tablet 0.1 mg PO QAM Qty: 0 0RF guaifenesin [Mucinex] 600 mg Tablet Extended Release 12hr 1,200 mg PO Q12 Qty: 0 0RF buprenorphine [Butrans] 5 mcg/hour Patch Weekly 1 patch transdermal Q7D@0900 Qty: 1 0RF Referrals Referrals: Cristobal Hewitt III, MD [Primary Care Provider] -
[2024-01-26 16:20] LABS: Adenovirus PCR Not Detected (NotDetected); Bordetella parapertussis PCR Not Detected (NotDetected); Bordetella pertussis PCR Not Detected (NotDetected); Chlamydia pneumoniae PCR Not Detected (NotDetected); Coronavirus 229E PCR Not Detected (NotDetected); Coronavirus CoV-2 (COVID19)PCR Not Detected (NotDetected); Coronavirus HKU1 PCR Not Detected (NotDetected); Coronavirus NL63 PCR Not Detected (NotDetected); Coronavirus OC43PCR Not Detected (NotDetected); Human Metapneumovirus PCR Not Detected (NotDetected); Influenza A PCR Not Detected (NotDetected); Influenza B PCR Not Detected (NotDetected); Mycoplasma pneumoniae PCR Not Detected (NotDetected); Parainfluenza Virus 1 PCR Not Detected (NotDetected); Parainfluenza Virus 2 PCR Not Detected (NotDetected); Parainfluenza Virus 3 PCR Not Detected (NotDetected); Parainfluenza Virus 4 PCR Not Detected (NotDetected); Respiratory Syncytial VirusPCR Not Detected (NotDetected); Rhinovirus/Enterovirus PCR Not Detected (NotDetected)
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
[2024-01-26] MEDS: FUROSEMIDE INJ 20 MG/2 ML VIAL IV STA (17:04)
[2024-01-26 17:15] LABS: Appearance Urine Clear (Clear); Bilirubin Urine Negative (Negative); Blood Urine Negative (Negative); Color Urine Yellow; Glucose Urine UA Negative (Negative); Ketones Urine Negative (Negative); Leukocyte Esterase Urine Negative (Negative); Nitrite Urine Negative (Negative); Protein Urine Negative (Negative); Specific Gravity Urine 1.009 (1.000-1.030); Urobilinogen Urine Negative (Negative)
[2024-01-26] MEDS ORDERED: ONDANSETRON INJ 2 MG/ML 2 ML VIAL IV PRN (19:59)
[2024-01-26] MEDS ORDERED: NITROGLYCERIN SL 0.4 MG/TAB TAB SL PRN (19:59)
[2024-01-26] MEDS ORDERED: ALBUTEROL HFA 8 GM INHALER INH PRN (19:59)
[2024-01-26] MEDS: INSULIN ASPART PER UNIT CHARGE SC SCH (20:56)
[2024-01-26] MEDS: GABAPENTIN 100 MG CAP PO SCH (20:58)
[2024-01-26] MEDS: LANTUS PER UNIT CHARGE SQ SCH (20:58)
[2024-01-26] MEDS: MIDODRINE HCL 2.5 MG TAB PO SCH (20:58)
[2024-01-26] MEDS: guaiFENesin 600 MG TABCR PO SCH (20:59)
[2024-01-26] MEDS: POLYETHYLENE (MIRALAX) 17 GM PACK PO SCH (20:59)
[2024-01-26] MEDS: SPIRONOLACTONE 25 MG TAB PO SCH (20:59)
[2024-01-26] MEDS: MIRTAZAPINE TAB 15 MG TAB PO SCH (21:00)
[2024-01-26] MEDS: CHECK BUPRENORPHINE PATCH SCH (23:44)
[2024-01-27] MEDS: ACETAMINOPHEN 500 MG TAB PO PRN (06:00)
[2024-01-27 07:38] LABS: BUN Creatinine Ratio 22.6 (10-20); Magnesium 1.6 mg/dl (1.7-2.4); Potassium 5.3 mmol/L (3.5-5.1)
[2024-01-27] MEDS: MAGNESIUM SULFATE / D5W 1 GM/100 ML BAG IV SCH (08:09)
[2024-01-27] MEDS: ADVANCED PROBIOTIC 625 MG CAPSULE PO SCH (08:14)
[2024-01-27] MEDS: CLINDAMYCIN HCL 150 MG CAP PO SCH (08:14)
[2024-01-27] MEDS: ESCITALOPRAM OXALATE 10 MG TAB PO SCH (08:14)
[2024-01-27] MEDS: THIAMINE HCL 100 MG TAB PO SCH (08:14)
[2024-01-27] MEDS: ASPIRIN 81 MG ECTAB PO SCH (08:14)
[2024-01-27] MEDS: CHOLECALCIFEROL 25 MCG (1000 UNITS) TAB PO SCH (08:15)
[2024-01-27] MEDS: CALCIUM CARBONATE 1250MG TAB PO SCH (08:15)
[2024-01-27] MEDS: ROSUVASTATIN CALCIUM 5 MG TAB PO SCH (08:15)
[2024-01-27] MEDS: CYANOCOBALAMIN (B-12) 500 MCG TABLET PO SCH (08:15)
[2024-01-27] MEDS: predniSONE 5 MG TAB PO SCH (08:16)
[2024-01-27] MEDS: DOCUSATE SODIUM/SENNA 50/8.6MG TAB PO SCH (08:16)
[2024-01-27] MEDS: FUROSEMIDE INJ 20 MG/2 ML VIAL IV ONE (08:34)
[2024-01-27] MEDS: MIDODRINE HCL 10 MG TAB PO SCH (09:26)
[2024-01-27] MEDS: BUPRENORPHINE 5 MCG/HR TDSY TD SCH (09:58)
[2024-01-27] MEDS ORDERED: NON-FORMULARY MEDICATION (Escitalopram Oxalate 5 mg tablet) PO SCH (11:30)
--- NOTE | 2024-01-27 12:19 | Hospitalist Progress Note ---
Date of Service January 27, 2024 Assessment & Plan (1) Acute on chronic diastolic (congestive) heart failure: Plan: improved s/p 2 doses of IV lasix yesterday. gave IV lasix this am once again. culprits for his volume overload -- recent institution of florinef for severe orthostasis, chronic prednisone use with recent steroid pulse for stress dose purposes, and recent holding of his usual lasix/aldactone due to the severe orthostasis. florinef on hold. continue prednisone but no steroid burst at this time. resumed aldactone BID. will give lasix 20mg IV x 1 this am. re-eval tomorrow for ongoing IV diuresis. (2) Postural lightheadedness: Plan: patient with severe orthostasis during his recent stay. his orthostasis was limiting his quality of life, was leading to falls, and even had syncope. midodrine was initiated and titrated but he still was orthostatic (and still dizzy). thus, florinef was started in addition to midodrine. in light of #1 above hold florinef. cont midodrine but increase to 10mg TID (from 5mg TID). obtain orthostatic BP checks qshift. orthos this afternoon very acceptable (30 point drop only) denies any dizziness today. (3) Orthostasis: Plan: see #2 above improved (4) Elevated troponin: Plan: HS trop 22.7 upon presentation repeat slightly less this was likely myocardial demand ischemia in the setting of #1 above no evidence of ACS (5) Acute diverticulitis: Plan: dx with such during his stay earlier in January s/p 10 day course of IV/PO antibiotics resolved (6) DM2 (diabetes mellitus, type 2): Plan: Hba1c 9.5% earlier this month cont lantus 5 units BID cont novolog for mealtime/HS coverage use parameters as follows - * BSG goal range 120-160 * correction factor 40 * carb ratio 1:13 (7) COPD (chronic obstructive pulmonary disease): Plan: no flare at this time (8) Moderate aortic stenosis: Plan: as seen on echo during prior hospital stay doubt contributing to his dizziness (9) Major depression single episode, in partial remission: Plan: cont lexapro 15mg/day cont remeron 15mg HS (10) Chronic antibiotic suppression: Plan: continue clindamycin daily this is for chronic suppression for prior infection of TKR (11) DDD (degenerative disc disease), lumbar: Plan: 10/13/2022 L2-L3, L3-L4, L4-L5 laminectomies - [facility] has had refractory, severe back pain despite having had surgery in 2022 during early January hospitalization I obtained CT lumbar spine - no major changes from prior imaging his back pain was limiting his walking and his quality of life poor response to oxycodone prn in the recent past started Butrans patch 5mcg during prior hospitalization with improved back pain and he has been tolerating this well cont such (12) Venous insufficiency (chronic) (peripheral): Plan: cont diuretics would benefit from compression stockings (did have TEDS in place today) (13) History of pancreatectomy: Plan: Whipple Procedure 2009 - [facility] (14) Steroid long-term use: Plan: has been on/off prednisone for quite some time pharmacy records show scripts for nearly daily use of prednisone dating back to 02/2023 in late 12/2023 / early 01/2024 his prednisone had been weaned off and within a few days had significant worsening of his dizziness, fatigue, etc. thus, during early January hospitalization his prednisone was put back on has been tapering currently on 15mg/day will leave the dose as is for now (15) Opioid dependence: Plan: Butrans patch 5mcg initiated 01/2024 for chronic low back pain (16) CAD (coronary artery disease): Plan: no ischemic symptoms at this time cont asa cont statin not on beta jordana Plan DVT proph - start lovenox 40mg daily PT, OT evals asked speech to see because lung exam is worse today in the midst of constant "mucous" in his throat (is this from reflux? is this from chronic aspiration? other?) weakness - respiratory [employer] including COVID testing negative; checked u/a - wnl; no evidence of pneumonia on cxr; no evidence of any cellulitis or other infectious process on examination Admission and Anticipated Discharge Date Admission Date: January 26, 2024 Subjective tele overnight wnl patient reports feeling good today denies any dizziness with standing today back pain controlled dyspnea improved edema right arm improved eating "everything" Review of Systems Review of Systems: CV - no chest pain, no orthopnea pulm - mild cough HENT - ongoing "mucous" in throat GI - denies noah dysphagia but gets "mucous" when he eats/drinks Physical Exam Physical Exam: gen - lying comfortably in bed, NAD, looks well mouth - MMM neck - no JVD heart - RRR, s1 s2, 1/6 systolic murmur RUSB lungs - mild rales b/l bases R>L; mild-moderate exp wheezes b/l abd - soft, NT, ND, BS+, no HSM ext - 1-2+ pitting edema feet/shins; pulses b/l feet 2+; <1+ edema right upper extremity - marked improvement skin - venous stasis changes b/l shins; no generalized rash Results & Data Results & Data Vital Signs (Past 12 Hours) Vital Signs Temp Pulse Pulse Resp BP Pulse Ox O2 Del Method 01/27/24 10:49 36.5 C 71 18 139/83 94 Room Air 01/27/24 10:34 Room Air 01/27/24 07:34 70 01/27/24 07:21 36.6 C 60 18 137/68 100 Room Air 01/27/24 03:35 36.8 C 74 20 158/80 H 96 Room Air Laboratory Results Laboratory Results - last 24 hr 01/27/24 01/27/24 01/27/24 07:06 07:16 11:01 Sodium 144 Potassium 5.3 H D Chloride 111 H Carbon Dioxide 25 Anion Gap 8 BUN 21 Creatinine 0.93 Est Cr Clr Drug Dosing 78.0 eGFR 81.98 BUN/Creatinine Ratio 22.6 H Glucose 90 POC Glucose 93 128 H Calcium 8.0 L Magnesium 1.6 L 01/27/24 01/27/24 16:29 18:27 Sodium Potassium 4.9 Chloride Carbon Dioxide Anion Gap BUN Creatinine Est Cr Clr Drug Dosing eGFR BUN/Creatinine Ratio Glucose POC Glucose 194 H Calcium Magnesium PG Care Time/CCT Total # of Minutes Spent Total Time Spent with Patient: Total time spent is greater than 50% in coordination of care (as documented) at patient's floor/unit and/or counseling patient: Coding Level of Care Code 75182 SUB INP/OBS CARE 2/35MIN Diagnoses Acute on chronic diastolic (congestive) heart failure I50.33 Postural lightheadedness R42 Orthostasis I95.1 Elevated troponin R79.89 Acute diverticulitis K57.92 Type 2 diabetes mellitus without complication, without long-term current use of insulin E11.9 Diabetes mellitus complication status: without complication Diabetes mellitus joint terminal attack controller insulin use: without joint terminal attack controller use COPD (chronic obstructive pulmonary disease) J44.9 Moderate aortic stenosis I35.0 Major depression single episode, in partial remission F32.4 Chronic antibiotic suppression Z79.2 DDD (degenerative disc disease), lumbar M51.36 Venous insufficiency (chronic) (peripheral) I87.2 History of pancreatectomy Z90.410 Steroid long-term use Opioid dependence F11.20 Coronary artery disease involving [place] coronary artery of [place] heart without angina pectoris I25.10 Associated angina: without angina Coronary Disease-Associated Artery/Lesion type: [place] artery [place] vs. transplanted heart: [place] heart (6) DM2 (diabetes mellitus, type 2) Diabetes mellitus complication status: without complication Diabetes mellitus joint terminal attack controller insulin use: without joint terminal attack controller use Qualified Code(s): E11.9 - Type 2 diabetes mellitus without complications (16) CAD (coronary artery disease) Associated angina: without angina Coronary Disease-Associated Artery/Lesion type: [place] artery [place] vs. transplanted heart: [place] heart Qualified Code(s): I25.10 - Atherosclerotic heart disease of [place] coronary artery without angina pectoris
[2024-01-28 08:52] LABS: BUN Creatinine Ratio 24.4 (10-20); Calcium 8.2 mg/dl (8.6-10.3); Magnesium 1.7 mg/dl (1.7-2.4); Potassium 4.1 mmol/L (3.5-5.1)
[2024-01-28] MEDS ORDERED: FUROSEMIDE INJ 20 MG/2 ML VIAL IV ONE (09:46)
[2024-01-28] MEDS: FUROSEMIDE INJ 20 MG/2 ML VIAL IV ONE (14:09)
--- NOTE | 2024-01-28 16:58 | Hospitalist Progress Note ---
Date of Service January 28, 2024 Assessment & Plan (1) Acute on chronic diastolic (congestive) heart failure: Plan: improving. cont IV lasix - give 2 doses today. am labs tomorrow. culprits for his volume overload -- recent institution of florinef for severe orthostasis, chronic prednisone use with recent steroid pulse for stress dose purposes, and recent holding of his usual lasix/aldactone due to the severe orthostasis. florinef on hold. continue prednisone but no steroid burst at this time. cont aldactone BID. (2) Postural lightheadedness: Plan: patient with severe orthostasis during his recent stay. his orthostasis was limiting his quality of life, was leading to falls, and even had syncope. midodrine was initiated and titrated but he still was orthostatic (and still dizzy). thus, florinef was started in addition to midodrine. in light of #1 above hold florinef. cont midodrine 10mg TID. obtain orthostatic BP checks qshift. (3) Orthostasis: Plan: see #2 above (4) Elevated troponin: Plan: HS trop 22.7 upon presentation repeat slightly less this was likely myocardial demand ischemia in the setting of #1 above no evidence of ACS (5) Acute diverticulitis: Plan: dx with such during his stay earlier in January s/p 10 day course of IV/PO antibiotics resolved (6) DM2 (diabetes mellitus, type 2): Plan: controlled at this time Hba1c 9.5% earlier this month cont lantus 5 units BID cont novolog for mealtime/HS coverage use parameters as follows - * BSG goal range 120-160 * correction factor 40 * carb ratio 1:13 (7) COPD (chronic obstructive pulmonary disease): Plan: no flare at this time wheezing - suspect it is "Cardiac" wheezing (ie - from pulmonary edema) (8) Moderate aortic stenosis: Plan: as seen on echo during prior hospital stay doubt contributing to his dizziness (9) Major depression single episode, in partial remission: Plan: cont lexapro 15mg/day cont remeron 15mg HS (10) Chronic antibiotic suppression: Plan: continue clindamycin daily this is for chronic suppression for prior infection of TKR (11) DDD (degenerative disc disease), lumbar: Plan: 10/13/2022 L2-L3, L3-L4, L4-L5 laminectomies - [facility] has had refractory, severe back pain despite having had surgery in 2022 during early January hospitalization I obtained CT lumbar spine - no major changes from prior imaging his back pain was limiting his walking and his quality of life poor response to oxycodone prn in the recent past started Butrans patch 5mcg during prior hospitalization with improved back pain and he has been tolerating this well cont such (12) Venous insufficiency (chronic) (peripheral): Plan: cont diuretics cont TEDS hose b/l (13) History of pancreatectomy: Plan: Whipple Procedure 2009 - [facility] (14) Steroid long-term use: Plan: has been on/off prednisone for quite some time pharmacy records show scripts for nearly daily use of prednisone dating back to 02/2023 in late 12/2023 / early 01/2024 his prednisone had been weaned off and within a few days had significant worsening of his dizziness, fatigue, etc. thus, during early January hospitalization his prednisone was put back on has been tapering currently on 15mg/day will leave the dose as is for now (15) Opioid dependence: Plan: Butrans patch 5mcg initiated 01/2024 for chronic low back pain (16) CAD (coronary artery disease): Plan: no ischemic symptoms at this time cont asa cont statin not on beta jordana Plan DVT proph - start lovenox 40mg daily cont PT, OT grand-daughter updated at bedside Admission and Anticipated Discharge Date Admission Date: January 26, 2024 Subjective no major events still slightly dizzy with standing denies any back pain eating robustly no dyspnea edema in arms/legs improving grand-daughter at bedside we had a talk about ?parkinson's or parkinson's-like condition patient denies ever being told he has such does have tremor -- present 6-12 months does not have shuffling gait orthostatic BPs still + Review of Systems Review of Systems: gen - no fevers or chills cv - no chest pain pulm - mild intermittent cough Physical Exam Physical Exam: gen - lying comfortably in bed, NAD, looks well; flat/masked facies mouth - MMM neck - no JVD heart - RRR, s1 s2, 1/6 systolic murmur RUSB lungs - still with mild rales b/l bases R>L; mild-moderate exp wheezes b/l abd - soft, NT, ND, BS+, no HSM ext - 1+ pitting edema feet/shins; pulses b/l feet 2+; 1+ edema upper extr emities particularly the proximal arms Results & Data Results & Data Vital Signs (Past 12 Hours) Vital Signs Temp Pulse Resp BP BP Pulse Ox O2 Del Method 01/28/24 15:00 36.7 C 71 20 158/87 H 97 Room Air 01/28/24 11:52 36.8 C 60 18 160/80 H 96 Room Air 01/28/24 07:34 36.6 C 77 20 171/91 H 95 Room Air 01/28/24 07:00 Room Air Laboratory Results Laboratory Results - last 24 hr 01/28/24 01/28/24 01/28/24 07:21 08:20 11:23 Sodium 142 Potassium 4.1 Chloride 104 Carbon Dioxide 29 Anion Gap 9 BUN 22 Creatinine 0.90 Est Cr Clr Drug Dosing 80.0 eGFR 85.27 BUN/Creatinine Ratio 24.4 H Glucose 140 H POC Glucose 91 135 H Calcium 8.2 L Magnesium 1.7 PG Care Time/CCT Total # of Minutes Spent Total Time Spent with Patient: Total time spent is greater than 50% in coordination of care (as documented) at patient's floor/unit and/or counseling patient: Coding Level of Care Code 68176 SUB INP/OBS CARE 2/35MIN Diagnoses Acute on chronic diastolic (congestive) heart failure I50.33 Postural lightheadedness R42 Orthostasis I95.1 Elevated troponin R79.89 Acute diverticulitis K57.92 Type 2 diabetes mellitus without complication, without long-term current use of insulin E11.9 Diabetes mellitus complication status: without complication Diabetes mellitus manager intermediate insulin use: without manager intermediate use COPD (chronic obstructive pulmonary disease) J44.9 Moderate aortic stenosis I35.0 Major depression single episode, in partial remission F32.4 Chronic antibiotic suppression Z79.2 DDD (degenerative disc disease), lumbar M51.36 Venous insufficiency (chronic) (peripheral) I87.2 History of pancreatectomy Z90.410 Steroid long-term use Opioid dependence F11.20 Coronary artery disease involving [place] coronary artery of [place] heart without angina pectoris I25.10 Associated angina: without angina Coronary Disease-Associated Artery/Lesion type: [place] artery [place] vs. transplanted heart: [place] heart (6) DM2 (diabetes mellitus, type 2) Diabetes mellitus complication status: without complication Diabetes mellitus fdc insulin use: without manager intermediate use Qualified Code(s): E11.9 - Type 2 diabetes mellitus without complications (16) CAD (coronary artery disease) Associated angina: without angina Coronary Disease-Associated Artery/Lesion type: [place] artery [place] vs. transplanted heart: [place] heart Qualified Code(s): I25.10 - Atherosclerotic heart disease of [place] coronary artery without angina pectoris
[2024-01-28] MEDS: FUROSEMIDE INJ 20 MG/2 ML VIAL IV STA (17:53)
[2024-01-28] MEDS: MAGNESIUM OXIDE 400 MG TAB PO SCH (20:54)
[2024-01-28] MEDS: MELATONIN 3 MG TAB PO PRN (20:54)
[2024-01-29 07:33] LABS: BUN Creatinine Ratio 23.7 (10-20); Calcium 8.4 mg/dl (8.6-10.3); Creatinine Clr Calc Pharmacy 60.8 ml/min; Magnesium 1.8 mg/dl (1.7-2.4); Potassium 4.1 mmol/L (3.5-5.1)
[2024-01-29] MEDS: ENOXAPARIN INJ 40 MG/0.4 ML SYR SQ SCH (08:02)
[2024-01-29] MEDS: FUROSEMIDE 40 MG/4 ML VIAL IV ONE (10:06)
[2024-01-29] MEDS: FLUDROCORTISONE ACETATE 0.1 MG TAB PO SCH (10:06)
--- NOTE | 2024-01-29 19:28 | Hospitalist Progress Note ---
Date of Service January 29, 2024 Assessment & Plan (1) Acute on chronic diastolic (congestive) heart failure: Plan: improving. cont IV lasix 40mg x 1 today. cont aldactone BID. culprits for his volume overload -- recent institution of florinef for severe orthostasis, chronic prednisone use with recent steroid pulse for stress dose purposes, and recent holding of his usual lasix/aldactone due to the severe orthostasis. labs in am. (2) Postural lightheadedness: Plan: patient with severe orthostasis during his recent stay. his orthostasis was limiting his quality of life, was leading to falls, and even had syncope. midodrine was initiated and titrated but he still was orthostatic (and still dizzy). thus, florinef was started in addition to midodrine. still quite orthostatic on orthostatic checks. cont midodrine 10mg TID. add back florinef 0.1mg daily - watch fluid status carefully. cont orthostatic BP checks qshift. (3) Orthostasis: Plan: see #2 above (4) Elevated troponin: Plan: HS trop 22.7 upon presentation repeat slightly less this was likely myocardial demand ischemia in the setting of #1 above no evidence of ACS (5) Acute diverticulitis: Plan: dx with such during his stay earlier in January s/p 10 day course of IV/PO antibiotics resolved had some mild abd pain overnight but it resolved spontaneously no pain today and no n/v no pain with eating if he has recurrent pain --> repeat CT a/p (6) DM2 (diabetes mellitus, type 2): Plan: controlled at this time Hba1c 9.5% earlier this month cont lantus 5 units BID cont novolog for mealtime/HS coverage use parameters as follows - * BSG goal range 120-160 * correction factor 40 * carb ratio 1:13 (7) COPD (chronic obstructive pulmonary disease): Plan: no flare at this time (8) Moderate aortic stenosis: Plan: as seen on echo during prior hospital stay doubt contributing to his dizziness (9) Major depression single episode, in partial remission: Plan: cont lexapro 15mg/day cont remeron 15mg HS (10) Chronic antibiotic suppression: Plan: continue clindamycin daily this is for chronic suppression for prior infection of TKR (11) DDD (degenerative disc disease), lumbar: Plan: 10/13/2022 L2-L3, L3-L4, L4-L5 laminectomies - [facility] has had refractory, severe back pain despite having had surgery in 2022 cont Butrans patch 5mcg (12) Venous insufficiency (chronic) (peripheral): Plan: cont diuretics cont TEDS hose b/l (13) History of pancreatectomy: Plan: Whipple Procedure 2009 - [facility] (14) Steroid long-term use: Plan: has been on/off prednisone for quite some time pharmacy records show scripts for nearly daily use of prednisone dating back to 02/2023 in late 12/2023 / early 01/2024 his prednisone had been weaned off and within a few days had significant worsening of his dizziness, fatigue, etc. thus, during early January hospitalization his prednisone was put back on has been tapering currently on 15mg/day no changes at this time (15) Opioid dependence: Plan: Butrans patch 5mcg initiated 01/2024 for chronic low back pain (16) CAD (coronary artery disease): Plan: no ischemic symptoms at this time cont asa cont statin not on beta jordana Plan DVT proph - lovenox 40mg daily cont PT, OT grand-daughter updated at bedside yesterday Admission and Anticipated Discharge Date Admission Date: January 26, 2024 Subjective tele - stable overnight no events was sitting in the chair during the visit denies back pain denies dizziness still with edema of arms/legs but legs in particular are better had abdominal discomfort overnight used a heating pad pain went away, has not recurred eating/drinking robustly eating does NOT make her pain worse no nausea or emesis feels constipated Review of Systems Review of Systems: CV - no chest pain pulm - mild cough - but improved GI - see HPI - no LUTs Physical Exam Physical Exam: gen - sitting in chair, NAD, looks well; flat/masked facies mouth - MMM neck - no JVD heart - RRR, s1 s2, 1/6 systolic murmur RUSB lungs - rales/wheezes improved b/l, airation wnl, no distress abd - soft, NT, ND, BS+, no HSM, no peritoneal signs ext - <1+ pitting edema feet/shins; pulses b/l feet 2+; 1+ edema upper extremities particularly the proximal arms - slightly better today Results & Data Results & Data Vital Signs (Past 12 Hours) Vital Signs Temp Pulse Pulse Resp BP Pulse Ox O2 Del Method 01/29/24 13:00 83 01/29/24 12:00 36.6 C 76 16 144/81 H 96 Room Air 01/29/24 08:20 Room Air 01/29/24 07:38 36.5 C 66 18 162/78 H 97 Room Air Laboratory Results Laboratory Results - last 24 hr 01/28/24 01/29/24 01/29/24 19:45 06:46 07:21 Sodium 141 Potassium 4.1 Chloride 103 Carbon Dioxide 30 Anion Gap 8 BUN 28 H Creatinine 1.18 Est Cr Clr Drug Dosing 60.8 eGFR 61.61 BUN/Creatinine Ratio 23.7 H Glucose 92 POC Glucose 162 H 93 Calcium 8.4 L Magnesium 1.8 01/29/24 01/29/24 11:20 15:44 Sodium Potassium Chloride Carbon Dioxide Anion Gap BUN Creatinine Est Cr Clr Drug Dosing eGFR BUN/Creatinine Ratio Glucose POC Glucose 141 H 167 H Calcium Magnesium PG Care Time/CCT Total # of Minutes Spent Total Time Spent with Patient: Total time spent is greater than 50% in coordination of care (as documented) at patient's floor/unit and/or counseling patient: Coding Level of Care Code 35355 SUB INP/OBS CARE 2/35MIN Diagnoses Acute on chronic diastolic (congestive) heart failure I50.33 Postural lightheadedness R42 Orthostasis I95.1 Elevated troponin R79.89 Acute diverticulitis K57.92 Type 2 diabetes mellitus without complication, without long-term current use of insulin E11.9 Diabetes mellitus complication status: without complication Diabetes mellitus fci insulin use: without lumber hacker use COPD (chronic obstructive pulmonary disease) J44.9 Moderate aortic stenosis I35.0 Major depression single episode, in partial remission F32.4 Chronic antibiotic suppression Z79.2 DDD (degenerative disc disease), lumbar M51.36 Venous insufficiency (chronic) (peripheral) I87.2 History of pancreatectomy Z90.410 Steroid long-term use Opioid dependence F11.20 Coronary artery disease involving [place] coronary artery of [place] heart without angina pectoris I25.10 Associated angina: without angina Coronary Disease-Associated Artery/Lesion type: [place] artery [place] vs. transplanted heart: [place] heart (6) DM2 (diabetes mellitus, type 2) Diabetes mellitus complication status: without complication Diabetes mellitus lumber hacker insulin use: without lumber hacker use Qualified Code(s): E11.9 - Type 2 diabetes mellitus without complications (16) CAD (coronary artery disease) Associated angina: without angina Coronary Disease-Associated Artery/Lesion type: [place] artery [place] vs. transplanted heart: [place] heart Qualified Code(s): I25.10 - Atherosclerotic heart disease of [place] coronary artery wit hout angina pectoris
--- NOTE | 2024-01-29 23:44 | Electrocardiogram Report ---
Test Reason : Blood Pressure : */* mmHG Vent. Rate : 70 BPM Atrial Rate : 70 BPM P-R Int : 204 ms QRS Dur : 98 ms QT Int : 380 ms P-R-T Axes : 49 -43 6 degrees QTcB Int : 410 ms Normal sinus rhythm Left axis deviation Nonspecific T wave abnormality Abnormal ECG When compared with ECG of 11-Jan-2024 20:54, Minimal criteria for Anterior infarct are no longer Present Inverted T waves have replaced nonspecific T wave abnormality in Inferior leads Nonspecific T wave abnormality now evident in Anterolateral leads Confirmed by Shon Disla ([id number]) on 01/29/2024 11:43:42 PM Referred By: REFERRED SELF Confirmed By: Shon Disla
[2024-01-30 06:46] LABS: Anion Gap 9 (3-11); BUN Creatinine Ratio 27.3 (10-20); Blood Urea Nitrogen 33 mg/dl (6-23); Calcium 8.6 mg/dl (8.6-10.3); Carbon Dioxide 31 mmol/L (21-32); Chloride 102 mmol/L (98-107); Creatinine Clr Calc Pharmacy 58.9 ml/min; Glucose 93 mg/dl (70-99(Fasting)); Sodium 142 mmol/L (136-145)
[2024-01-30] MEDS: FUROSEMIDE 40 MG TAB PO SCH (09:32)
[2024-01-30] MEDS: FEXOFENADINE 60 MG TAB PO SCH ×2 (10:29→12:04)
[2024-01-30] MEDS: TRIAMCINOLONE ACET 0.1% CR 15 GM TUBE EXT PRN (12:15)
--- NOTE | 2024-01-30 13:24 | Hospitalist Progress Note ---
Date of Service January 30, 2024 Assessment & Plan (1) Acute on chronic diastolic (congestive) heart failure: Plan: improving. approaching euvolemia. change IV lasix to PO lasix 40mg/day. cont aldactone 25mg BID. culprits for his volume overload -- recent institution of florinef for severe orthostasis, chronic prednisone use with recent steroid pulse for stress dose purposes, and recent holding of his usual lasix/aldactone due to the severe orthostasis. obtain repeat labs in am. (2) Postural lightheadedness: Plan: improved. cont midodrine 10mg TID. cont florinef 0.1mg daily - watch fluid status carefully. cont orthostatic BP checks qshift. he does have 40+ point drop from supine positioning to standing but he is not reporting dizziness with it. unfortunately he has significant supine HTN at times, but we will have to accept such in order to prevent dizziness and syncope (he has had syncope from his severe orthostasis). (3) Orthostasis: Plan: see #2 above (4) Elevated troponin: Plan: HS trop 22.7 upon presentation repeat slightly less this was likely myocardial demand ischemia in the setting of #1 above no evidence of ACS (5) Acute diverticulitis: Plan: dx with such during his stay earlier in January s/p 10 day course of IV/PO antibiotics resolved had some mild abd pain overnight once again but it resolved spontaneously no pain today and no n/v no pain with eating since he had recurrent pain will obtain abd x-rays if pain persists and x-rays are nondiagnostic then get repeat abd/pelvic CT (6) DM2 (diabetes mellitus, type 2): Plan: controlled Hba1c 9.5% Jan-2024 cont lantus 5 units BID cont novolog (7) COPD (chronic obstructive pulmonary disease): Plan: no flare at this time (8) Moderate aortic stenosis: Plan: as seen on echo during prior hospital stay doubt contributing to his dizziness (9) Major depression single episode, in partial remission: Plan: cont lexapro 15mg/day cont remeron 15mg HS improved spirits (10) Chronic antibiotic suppression: Plan: continue clindamycin daily this is for chronic suppression for prior infection of TKR (11) DDD (degenerative disc disease), lumbar: Plan: 10/13/2022 L2-L3, L3-L4, L4-L5 laminectomies - [facility] has had refractory, severe back pain despite having had surgery in 2022 cont Butrans patch 5mcg (12) Venous insufficiency (chronic) (peripheral): Plan: cont diuretics cont TEDS hose b/l (13) History of pancreatectomy: Plan: Whipple Procedure 2009 - [facility] (14) Steroid long-term use: Plan: has been on/off prednisone for quite some time pharmacy records show scripts for nearly daily use of prednisone dating back to 02/2023 in late 12/2023 / early 01/2024 his prednisone had been weaned off and within a few days had significant worsening of his dizziness, fatigue, etc. thus, during early January hospitalization his prednisone was put back on has been tapering currently on 15mg/day will cut to 10mg/day starting tomorrow (15) Opioid dependence: Plan: Butrans patch 5mcg initiated 01/2024 for chronic low back pain (16) CAD (coronary artery disease): Plan: no ischemic symptoms at this time cont asa cont statin not on beta jordana Plan DVT proph - lovenox 40mg daily cont PT, OT grand-daughter updated at bedside this week Admission and Anticipated Discharge Date Admission Date: January 26, 2024 Subjective tele overnight wnl feels good today no dizziness no back pain no dyspnea mild cough at times eating 100% of meals had mild abdominal discomfort again overnight but self-resolved tolerating meals without any worsening abd pain no N/V he had been constipated, but patient's nurse reports he had 2-3 large BMs today Review of Systems Review of Systems: CV - no chest pain, edema improving pulm - no dyspnea or HERRON GI - no vomiting; no blood per rectum Physical Exam Physical Exam: gen - NAD, looks good today mouth - MMM neck - no JVD heart - RRR, s1 s2, 1/6 systolic murmur RUSB lungs - rales/wheezes bases b/l but mild; airation wnl, no distress abd - soft, NT, ND, BS+, no HSM, no peritoneal signs ext - <1+ pitting edema feet/shins; pulses b/l feet 2+; 1+ edema upper extremities psych - a/o x 3 Results & Data Results & Data Vital Signs (Past 12 Hours) Vital Signs Temp Pulse Pulse Resp BP Pulse Ox O2 Del Method 01/30/24 11:25 36.4 C L 69 18 143/77 H 94 Room Air 01/30/24 08:40 Room Air 01/30/24 07:29 36.7 C 70 18 139/77 96 Room Air 01/30/24 07:00 72 01/30/24 05:36 83 124/78 01/30/24 05:34 72 166/82 H 01/30/24 05:32 73 173/83 H 01/30/24 02:36 36.5 C 68 18 152/79 H 93 Room Air Laboratory Results Laboratory Results - last 24 hr 01/29/24 01/30/24 01/30/24 19:47 05:55 07:12 Sodium 142 Potassium TNP Chloride 102 Carbon Dioxide 31 Anion Gap 9 BUN 33 H Creatinine 1.21 Est Cr Clr Drug Dosing 58.9 eGFR 59.78 BUN/Creatinine Ratio 27.3 H Glucose 93 POC Glucose 189 H 91 Calcium 8.6 01/30/24 01/30/24 01/30/24 07:15 11:14 16:10 Sodium Potassium 4.3 Chloride Carbon Dioxide Anion Gap BUN Creatinine Est Cr Clr Drug Dosing eGFR BUN/Creatinine Ratio Glucose POC Glucose 128 H 134 H Calcium PG Care Time/CCT Total # of Minutes Spent Total Time Spent with Patient: Total time spent is greater than 50% in coordination of care (as documented) at patient's floor/unit and/or counseling patient: Coding Level of Care Code 05290 SUB INP/OBS CARE 2/35MIN Diagnoses Acute on chronic diastolic (congestive) heart failure I50.33 Postural lightheadedness R42 Orthostasis I95.1 Elevated troponin R79.89 Acute diverticulitis K57.92 Type 2 diabetes mellitus without complication, without long-term current use of insulin E11.9 Diabetes mellitus complication status: without complication Diabetes mellitus jail insulin use: without terminal system operator use COPD (chronic obstructive pulmonary disease) J44.9 Moderate aortic stenosis I35.0 Major depression single episode, in partial remission F32.4 Chronic antibiotic suppression Z79.2 DDD (degenerative disc disease), lumbar M51.36 Venous insufficiency (chronic) (peripheral) I87.2 History of pancreatectomy Z90.410 Steroid long-term use Opioid dependence F11.20 Coronary artery disease involving [place] coronary artery of [place] heart without angina pectoris I25.10 Associated angina: without angina Coronary Disease-Associated Artery/Lesion type: [place] artery [place] vs. transplanted heart: [place] heart (6) DM2 (diabetes mellitus, type 2) Diabetes mellitus complication status: without complication Diabetes mellitus jail insulin use: without terminal system operator use Qualified Code(s): E11.9 - Type 2 diabetes mellitus without complications (16) CAD (coronary artery disease) Associated angina: without angina Coronary Disease-Associated Artery/Lesion type: [place] artery [place] vs. transplanted heart: [place] heart Qualified Code(s): I25.10 - Atherosclerotic heart disease of [place] coronary artery without angina pectoris
--- NOTE | 2024-01-30 18:05 | XRay Report ---
XR abdomen 2V w PA chest HISTORY: 83 years-old Male intermittent abd pain, ?constipation acute chest and abdominal pain COMPARISON: Chest radiograph 01/26/2024, CT abdomen and pelvis 01/12/2024 TECHNIQUE: PA view of the chest with erect and supine views of the abdomen FINDINGS: Heart size is enlarged. Unchanged right hemidiaphragmatic elevation with bibasilar atelectasis versus scarring. No pneumothorax or pleural effusion. Cholecystectomy. Bones appear grossly intact. Vascula r calcifications. No pneumatosis or pneumoperitoneum. Mildly dilated air-filled loops of small bowel measure up to approximately 3.3 cm within the right mid abdomen. IMPRESSION: 1. No acute processes of the chest. 2. No radiographic evidence of constipation. 3. Minimally dilated loops of small bowel within the right midabdomen are similar to the CT from 01/11, likely physiologic. ACT 112: Negative or not required by law. The above report was generated using voice recognition software. It may contain grammatical, syntax o r spelling errors. Electronically signed by: Austin Mancera M.D. 01/30/2024 6:04 PM
[2024-01-31 06:09] LABS: Hematocrit (blood only) 36.9 % (42.0-52.0); Hemoglobin 12.3 g/dl (14.0-18.0); Mean Corpuscular Hemoglobin 32.5 pg (25.0-34.0); Mean Corpuscular Hgb Conc 33.3 g/dL (32.0-36.0); Mean Corpuscular Volume 97.6 fL (80.0-100.0); Mean Platelet Volume 10.9 fL (9.4-12.4); Platelet Count 210 K/uL (130-400); RDW Coefficient of Variation 14.5 % (11.5-14.5); RDW Standard Deviation 52.3 fL (36.4-46.3); Red Blood Count 3.78 M/uL (4.70-6.10); White Blood Count 11.05 K/ul (4.8-10.8)
[2024-01-31 06:24] LABS: BUN Creatinine Ratio 32.3 (10-20); Calcium 8.1 mg/dl (8.6-10.3); Creatinine Clr Calc Pharmacy 75.9 ml/min; Potassium 4.7 mmol/L (3.5-5.1)
[2024-01-31] MEDS: predniSONE 10 MG TABLET PO SCH (08:33)
[2024-01-31] MEDS ORDERED: FEXOFENADINE 60 MG TAB PO SCH (09:00)
--- NOTE | 2024-01-31 10:49 | Hospitalist Progress Note ---
Date of Service January 31, 2024 Assessment & Plan (1) Acute on chronic diastolic (congestive) heart failure: Plan: improved. approaching euvolemia. cont lasix 40mg/day. cont aldactone 25mg BID. consider dose increase. culprits for his volume overload -- recent institution of florinef for severe orthostasis, chronic prednisone use with recent steroid pulse for stress dose purposes, and recent holding of his usual lasix/aldactone due to the severe orthostasis. labs today wnl. (2) Postural lightheadedness: Plan: improved. cont midodrine 10mg TID. cont florinef 0.1mg daily - watch fluid status carefully. cont orthostatic BP checks qshift. he does have 35-40 point drops from supine positioning to standing but he is not reporting dizziness with it. unfortunately he has significant supine HTN at times, but we will have to accept such in order to prevent dizziness and syncope (he has had syncope from his severe orthostasis). (3) Orthostasis: Plan: see #2 above (4) Elevated troponin: Plan: HS trop 22.7 upon presentation repeat slightly less this was likely myocardial demand ischemia in the setting of #1 above no evidence of ACS (5) Acute diverticulitis: Plan: dx with such during his stay earlier in January s/p 10 day course of IV/PO antibiotics resolved had some mild abd pain on Thursday pm -- obtained x-rays 01/29 -- no significant constipation; minimal dilatation of small bowel loops on the right but minimal no pain today and no n/v no pain with eating if pain recurs/persists then obtain repeat abd/pelvic CT (6) DM2 (diabetes mellitus, type 2): Plan: controlled Hba1c 9.5% Jan-2024 cont lantus 5 units BID cont novolog (7) COPD (chronic obstructive pulmonary disease): Plan: no flare lungs relatively clear o2 sats wnl (8) Moderate aortic stenosis: Plan: as seen on echo during prior hospital stay doubt contributing to his dizziness (9) Major depression single episode, in partial remission: Plan: cont lexapro 15mg/day cont remeron 15mg HS improved spirits (10) Chronic antibiotic suppression: Plan: continue clindamycin daily this is for chronic suppression for prior infection of TKR (11) DDD (degenerative disc disease), lumbar: Plan: 10/13/2022 L2-L3, L3-L4, L4-L5 laminectomies - [facility] had had refractory, severe back pain despite having had surgery in 2022 initiated on Butrans patch 5mcg earlier this month with excellent results (12) Venous insufficiency (chronic) (peripheral): Plan: cont diuretics improved (13) History of pancreatectomy: Plan: Whipple Procedure 2009 - [facility] (14) Steroid long-term use: Plan: has been on/off prednisone for quite some time pharmacy records show scripts for nearly daily use of prednisone dating back to 02/2023 in late 12/2023 / early 01/2024 his prednisone had been weaned off and within a few days had significant worsening of his dizziness, fatigue, etc. thus, during early January hospitalization his prednisone was put back on has been tapering cut to 10mg/day starting today (15) Opioid dependence: Plan: Butrans patch 5mcg initiated 01/2024 for chronic low back pain (16) CAD (coronary artery disease): Plan: no ischemic symptoms at this time cont asa cont statin not on beta jordana Plan DVT proph - lovenox 40mg daily cont PT, OT dispo - [facility] for rehab, then ultimately home grand-daughter updated at bedside this week will update pt's family today Admission and Anticipated Discharge Date Admission Date: January 26, 2024 Subjective tele overnight wnl he was OOB this am to get washed up, etc and felt good no dizziness no back pain good energy ate a good breakfast no abd pain overnight no N/V denies any dyspnea he is pleased with how he is doing Review of Systems Review of Systems: gen - no fevers or chills cv - no cp, no orthopnea pulm - mild cough last pm; had "mucous in his throat"; he feels the mucous come up from his lungs, it hits the back of the throat, then he coughs it up or swallows it GI - no pain today; no N/V Physical Exam Physical Exam: gen - NAD, looks well, good spirits mouth - MMM, no thrush or lesions neck - no JVD heart - RRR, s1 s2, 1/6 systolic murmur RUSB lungs - fine rales bases, no wheezes today; no course BS today; airation wnl, no distress abd - soft, NT, ND, BS+, no HSM, no peritoneal signs ext - <1+ pitting edema feet/shins; pulses b/l feet 2+; <1+ edema upper extremities psych - a/o x 3 Results & Data Results & Data Vital Signs (Past 12 Hours) Vital Signs Temp Pulse Pulse Resp BP Pulse Ox O2 Del Method 01/31/24 08:20 Room Air 01/31/24 08:00 36.5 C 18 97 Room Air 01/31/24 07:29 72 01/31/24 02:34 36.5 C 64 18 198/82 H 96 Room Air 01/30/24 23:00 72 Laboratory Results Laboratory Results - last 24 hr 01/30/24 01/30/24 01/30/24 11:14 16:10 20:05 WBC RBC Hgb Hct MCV MCH MCHC RDW Std Deviation RDW Coeff of Jonh Plt Count MPV Sodium Potassium Chloride Carbon Dioxide Anion Gap BUN Creatinine Est Cr Clr Drug Dosing eGFR BUN/Creatinine Ratio Glucose POC Glucose 128 H 134 H 172 H Calcium 01/31/24 01/31/24 05:28 07:32 WBC 11.05 H RBC 3.78 L Hgb 12.3 L Hct 36.9 L MCV 97.6 MCH 32.5 MCHC 33.3 RDW Std Deviation 52.3 H RDW Coeff of Jonh 14.5 Plt Count 210 MPV 10.9 Sodium 142 Potassium 4.7 Chloride 104 Carbon Dioxide 33 H Anion Gap 5 BUN 30 H Creatinine 0.93 Est Cr Clr Drug Dosing 75.9 eGFR 81.98 BUN/Creatinine Ratio 32.3 H Glucose 85 POC Glucose 138 H Calcium 8.1 L Diagnostic Findings Chest/Abdomen X-ray 01/30/24 14:29 XR abdomen 2V w PA chest HISTORY: 83 years-old Male intermittent abd pain, ?constipation acute chest and abdominal pain COMPARISON: Chest radiograph 01/26/2024, CT abdomen and pelvis 01/12/2024 TECHNIQUE: PA view of the chest with erect and supine views of the abdomen FINDINGS: Heart size is enlarged. Unchanged right hemidiaphragmatic elevation with bibasilar atelectasis versus scarring. No pneumothorax or pleural effusion. Cholecystectomy. Bones appear grossly intact. Vascular calcifications. No pneumatosis or pneumoperitoneum. Mildly dilated air-filled loops of small bowel measure up to approximately 3.3 cm within the right mid abdomen. IMPRESSION: 1. No acute processes of the chest. 2. No radiographic evidence of constipation. 3. Minimally dilated loops of small bowel within the right midabdomen are similar to the CT from 01/12/2024, likely physiologic. ACT 112: Negative or not required by law. The above report was generated using voice recognition software. It may contain grammatical, syntax or spelling errors. Electronically signed by: Austin Mancera M.D. 01/30/2024 6:04 PM PG Care Time/CCT Total # of Minutes Spent Total Time Spent with Patient: Total time spent is greater than 50% in coordination of care (as documented) at patient's floor/unit and/or counseling patient: Coding Level of Care Code 45349 SUB INP/OBS CARE 2/35MIN Diagnoses Acute on chronic diastolic (congestive) heart failure I50.33 Postural lightheadedness R42 Orthostasis I95.1 Elevated troponin R79.89 Acute diverticulitis K57.92 Type 2 diabetes mellitus without complication, without long-term current use of insulin E11.9 Diabetes mellitus complication status: without complication Diabetes mellitus residential insulin use: without residential use COPD (chronic obstructive pulmonary disease) J44.9 Moderate aortic stenosis I35.0 Major depression single episode, in partial remission F32.4 Chronic antibiotic suppression Z79.2 DDD (degenerative disc disease), lumbar M51.36 Venous insufficiency (chronic) (peripheral) I87.2 History of pancreatectomy Z90.410 Steroid long-term use Opioid dependence F11.20 Coronary artery disease involving [place] coronary artery of [place] heart without angina pectoris I25.10 Associated angina: without angina Coronary Disease-Associated Artery/Lesion type: [place] artery [place] vs. 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 transplanted heart: [place] heart Qualified Code(s): I25.10 - Atherosclerotic heart disease of [place] coronary artery without angina pectoris
[2024-01-31] MEDS: SUCRALFATE 1 GM TAB PO SCH (13:32)
[2024-01-31] MEDS: PANTOprazole 40 MG TAB PO STA (13:32)
[2024-02-01 07:37] LABS: BUN Creatinine Ratio 26.7 (10-20); Creatinine Clr Calc Pharmacy 78.3 ml/min; Potassium 3.8 mmol/L (3.5-5.1)
[2024-02-01] MEDS: LANTUS PER UNIT CHARGE SQ SCH (08:30)
[2024-02-01] MEDS: PANTOprazole 40 MG TAB PO SCH (08:32)
[2024-02-01] MEDS: POLYETHYLENE (MIRALAX) 17 GM PACK PO SCH (08:48)
[2024-02-01 13:47] LABS: Appearance Urine Clear (Clear); Bilirubin Urine Negative (Negative); Blood Urine Negative (Negative); Color Urine Yellow; Glucose Urine UA Negative (Negative); Ketones Urine Negative (Negative); Leukocyte Esterase Urine Negative (Negative); Nitrite Urine Negative (Negative); Protein Urine Negative (Negative); Specific Gravity Urine 1.012 (1.000-1.030); Urobilinogen Urine Negative (Negative); pH Urine 5.5 (4.5-7.5)
--- NOTE | 2024-02-01 13:53 | Hospitalist Progress Note ---
Date of Service February 01, 2024 Assessment & Plan (1) Acute on chronic diastolic (congestive) heart failure: Plan: decompensation about resolved; approaching euvolemia. cont lasix 40mg/day. cont aldactone 25mg BID. culprits for his recent volume overload -- institution of florinef for severe orthostasis earlier in January, chronic prednisone use with recent steroid pulse for stress dose purposes, and recent holding of his usual lasix/aldactone due to the severe orthostasis. labs today wnl. (2) Postural lightheadedness: Plan: improved. cont midodrine but will modestly reduce to 7.5mg TID as many of his supine readings are VERY high (190-200). caution with reducing the midodrine any further, however, as he will have orthostatic drops of 50-60+ points. cont florinef 0.1mg daily - watch fluid status carefully. cont orthostatic BP checks qshift. unfortunately we will have to accept intermittent, very high supine BP readings in order to prevent dizziness and syncope (he has had syncope from his severe orthostasis). (3) Orthostasis: Plan: see #2 above (4) Elevated troponin: Plan: HS trop 22.7 upon presentation repeat slightly less this was likely myocardial demand ischemia in the setting of #1 above no evidence of ACS (5) Acute diverticulitis: Plan: dx with such during his stay earlier in January s/p 10 day course of IV/PO antibiotics resolved has c/o intermittent, mild abd pain over the last few days recent xrays of the abdomen unremarkable due to this persistent complaint obtained CT a/p today - recent diverticulitis resolved; no other acute findings cause of occasional mild discomfort? related to prior Whipple procedure? other? u/a negative today as well (6) DM2 (diabetes mellitus, type 2): Plan: controlled AM readings are running borderline low Hba1c 9.5% Jan-2024 reduce lantus to 4 units BID loose novolog parameters (7) COPD (chronic obstructive pulmonary disease): Plan: no flare lungs relatively clear o2 sats wnl patient c/o "mucous" in this throat sometimes this is worse post-eating he c/o this during the prior hospitalization uncertain if this complaint is from GERD/laryngopharyngeal reflux vs post-nasal drip vs aspiration vs other speech to perform video swallow test tomorrow (8) Moderate aortic stenosis: Plan: as seen on echo during prior hospital stay doubt contributing to his dizziness (9) Major depression single episode, in partial remission: Plan: cont lexapro 15mg/day cont remeron 15mg HS (10) Chronic antibiotic suppression: Plan: continue clindamycin daily this is for chronic suppression for prior infection of TKR (11) DDD (degenerative disc disease), lumbar: Plan: 10/13/2022 L2-L3, L3-L4, L4-L5 laminectomies - [facility] had had refractory, severe back pain despite having had surgery in 2022 initiated on Butrans patch 5mcg earlier this month with excellent results he has not c/o back in several days (12) Venous insufficiency (chronic) (peripheral): Plan: cont diuretics wearing TEDs as well improved (13) History of pancreatectomy: Plan: Whipple Procedure 2009 - [facility] (14) Steroid long-term use: Plan: has been on/off prednisone for quite some time pharmacy records show scripts for nearly daily use of prednisone dating back to 02/2023 in late 12/2023 / early 01/2024 his prednisone had been weaned off and within a few days had significant worsening of his dizziness, fatigue, etc. thus, during early January hospitalization his prednisone was put back on has been tapering day #2 of 10mg/day perhaps in 2-3 days try cutting to 7.5mg/day would defer weaning off his steroids completely to his outpatient providers (15) Opioid dependence: Plan: Butrans patch 5mcg initiated 01/2024 for chronic low back pain (16) CAD (coronary artery disease): Plan: no ischemic symptoms at this time cont asa cont statin not on beta jordana (17) Flat affect: Plan: patient reports a mild tremor for some time he has very flat affect/"masked facies" he has SEVERE orthostatic hypotension could he have parkinson's disease?? consider referral to neurology post-discharge Plan DVT proph - lovenox 40mg daily cont PT, OT dispo - [facility] for rehab, then ultimately home ; [facility] can take him 02/03/24 grand-daughter updated at bedside this past week left message for pt's grand-daughter 01/30 Admission and Anticipated Discharge Date Admission Date: January 26, 2024 Subjective tele overnight wnl patient c/o urinary frequency and dysuria along with lower pelvic pressure she also had mild abdominal discomfort earlier today - now improved ate a good breakfast but did not have good lunch he feels very tired today - did not sleep well last night continues with cough, congestion/mucous in his throat (which seem to be worse after eating/drinking?), etc. no nausea or emesis Review of Systems Review of Systems: gen - no fevers or chills cv - no chest pain, no orthopnea pulm - cough, no dyspnea neuro - scant dizziness with standing today Physical Exam Physical Exam: gen - NAD, looks tired today mouth - MMM, no thrush or lesions neck - no JVD heart - RRR, s1 s2, 1/6 systolic murmur RUSB lungs - scant fine rales bases, no wheezes today; no course BS today; airation wnl, no distress abd - soft, NT, ND, BS+, no HSM, no peritoneal signs ext - <1+ pitting edema feet/shins; pulses b/l feet 2+; <1+ edema upper extremities (dependent) psych - a/o x 3 neuro - ?masked facies? Results & Data Results & Data Vital Signs (Past 12 Hours) Vital Signs Temp Pulse Resp BP Pulse Ox O2 Del Method 02/01/24 11:10 36.5 C 70 20 175/84 H 98 Room Air 02/01/24 10:43 36.8 C 73 16 165/76 H 96 Room Air 02/01/24 10:07 36.8 C 73 16 165/76 H 96 Room Air 02/01/24 08:00 Room Air 02/01/24 07:04 36.7 C 64 20 136/71 96 Room Air 02/01/24 02:28 36.8 C 52 L 18 190/90 H 94 Room Air Laboratory Results Laboratory Results - last 24 hr 01/31/24 01/31/24 02/01/24 16:02 20:26 06:33 Sodium 142 Potassium 3.8 Chloride 104 Carbon Dioxide 33 H Anion Gap 5 BUN 24 H Creatinine 0.90 Est Cr Clr Drug Dosing 78.3 eGFR 85.27 BUN/Creatinine Ratio 26.7 H Glucose 75 POC Glucose 116 H 122 H Calcium 8.0 L Magnesium 2.0 Urine Color Urine Appearance Urine pH Ur Specific [place] Urine Protein Urine Glucose (UA) Urine Ketones Urine Blood Urine Nitrite Urine Bilirubin Urine Urobilinogen Ur Leukocyte Esterase 02/01/24 02/01/24 02/01/24 07:04 11:10 13:36 Sodium Potassium Chloride Carbon Dioxide Anion Gap BUN Creatinine Est Cr Clr Drug Dosing eGFR BUN/Creatinine Ratio Glucose POC Glucose 86 106 H Calcium Magnesium Urine Color Yellow Urine Appearance Clear Urine pH 5.5 Ur Specific [place] 1.012 Urine Protein Negative Urine Glucose (UA) Negative Urine Ketones Negative Urine Blood Negative Urine Nitrite Negative Urine Bilirubin Negative Urine Urobilinogen Negative Ur Leukocyte Esterase Negative Diagnostic Findings Abdomen/Pelvis CT 02/01/24 14:11 CT OF THE ABDOMEN AND PELVIS WITHOUT CONTRAST CLINICAL HISTORY: intermittent lower abd pain, recent diverticulitis COMPARISON STUDY: CT of the abdomen and pelvis January 12, 2024. Abdominal series January 30, 2024. TECHNIQUE: Axial images of the abdomen and pelvis were obtained without IV contrast. Images were reviewed in the axial, sagittal, and coronal planes. Automated exposure control was utilized for the study. A dose lowering technique was utilized adhering to the principles of ALARA. FINDINGS: A few lingular and left lower lobe pulmonary nodules are unchanged from earlier exams. These are likely benign. Subpleural opacities within lungs favor atelectasis. No renal, ureteral or bladder calculi are present. There is no hydronephrosis. A water attenuation right renal lesion is suboptimally assessed on unenhanced exam but favors a cyst. Evaluation of the remainder of the abdomen and pelvis is suboptimal on this unenhanced exam. There are stable postoperative findings following Whipple procedure. A pancreatic stent remains in place. There is no biliary ductal dilatation dictation. There is no evidence for a bowel obstruction. The appendix is normal. Colonic diverticulosis is again noted. Described inflammation at the hepatic flexure has nearly completely resolved. No new sites of inflammation within the abdomen or pelvis are identified. There is no free air. No fluid collections are present. Otherwise, the appearance of the abdomen and pelvis is unchanged. IMPRESSION: 1. Near complete resolution of inflammation at the hepatic flexure since CT of January 12, 2024. This favors improving diverticulitis. 2. No new sites of inflammation within the abdomen or pelvis. 3. No evidence for a bowel obstruction. 4. No urinary calculi or hydronephrosis. 5. Status post Whipple procedure. Pancreatic stent in place. ACT 112: Negative or not required by law. Electronically signed by: Holden Menendez M.D. 02/01/2024 3:52 PM PG Care Time/CCT Total # of Minutes Spent Total Time Spent with Patient: Total time spent is greater than 50% in coordination of care (as documented) at patient's floor/unit and/or counseling patient: Coding Level of Care Code 67178 SUB INP/OBS CARE 3/50MIN Diagnoses Acute on chronic diastolic (congestive) heart failure I50.33 Postural lightheadedness R42 Orthostasis I95.1 Elevated troponin R79.89 Acute diverticulitis K57.92 Type 2 diabetes mellitus without complication, without long-term current use of insulin E11.9 Diabetes mellitus complication status: without complication Diabetes mellitus prison insulin use: without prison use COPD (chronic obstructive pulmonary disease) J44.9 Moderate aortic stenosis I35.0 Major depression single episode, in partial remission F32.4 Chronic antibiotic suppression Z79.2 DDD (degenerative disc disease), lumbar M51.36 Venous insufficiency (chronic) (peripheral) I87.2 History of pancreatectomy Z90.410 Steroid long-term use Opioid dependence F11.20 Coronary artery disease involving [place] coronary artery of [place] heart without angina pectoris I25.10 Associated angina: without angina Coronary Disease-Associated Artery/Lesion type: [place] artery [place] vs. transplanted heart: [place] heart [place] affect R45.89 (6) DM2 (diabetes mellitus, type 2) Diabetes mellitus complication status: without complication Diabetes mellitus terminal gauger supervisor insulin use: without terminal gauger supervisor use Qualified Code(s): E11.9 - Type 2 diabetes mellitus without complications (16) CAD (coronary artery disease) Associated angina: without angina Coronary Disease-Associated Artery/Lesion type: [place] artery [place] vs. transplanted heart: [place] heart Qualified Code(s): I25.10 - Atherosclerotic heart disease of [place] coronary artery without angina pectoris
--- NOTE | 2024-02-01 15:53 | CT Scan Report ---
CT OF THE ABDOMEN AND PELVIS WITHOUT CONTRAST CLINICAL HISTORY: intermittent lower abd pain, recent diverticulitis COMPARISON STUDY: CT of the abdomen and pelvis January 12, 2024. Abdominal series January 30, 2024. TECHNIQUE: Axial images of the abdomen and pelvis were obtained without IV contrast. Images were revi ewed in the axial, sagittal, and coronal planes. Automated exposure control was utilized for the filippo dy. A dose lowering technique was utilized adhering to the principles of ALARA. FINDINGS: A few lingular and left lower lobe pulmonary nodules are unchanged from earlier exams. Thes e are likely benign. Subpleural opacities within lungs favor atelectasis. No renal, ureteral or bladd er calculi are present. There is no hydronephrosis. A water attenuation right renal lesion is subopti aron assessed on unenhanced exam but favors a cyst. Evaluation of the remainder of the abdomen and p aravind is suboptimal on this unenhanced exam. There are stable postoperative findings following Whippl e procedure. A pancreatic stent remains in place. There is no biliary ductal dilatation dictation. Th ere is no evidence for a bowel obstruction. The appendix is normal. Colonic diverticulosis is again n oted. Described inflammation at the hepatic flexure has nearly completely resolved. No new sites of i nflammation within the abdomen or pelvis are identified. There is no free air. No fluid collections a re present. Otherwise, the appearance of the abdomen and pelvis is unchanged. IMPRESSION: 1. Near complete resolution of inflammation at the hepatic flexure since CT of January 12, 2024. This favors improving diverticulitis. 2. No new sites of inflammation within the abdomen or pelvis. 3. No evidence for a bowel obstruction. 4. No urinary calculi or hydronephrosis. 5. Status post Whipple procedure. Pancreatic stent in place. ACT 112: Negative or not required by law. Electronically signed by: Holden Menendez M.D. 02/01/2024 3:52 PM
[2024-02-01] MEDS: MIDODRINE HCL 2.5 MG TAB PO SCH (16:30)
[2024-02-02 09:29] LABS: BUN Creatinine Ratio 22.1 (10-20); Calcium 8.5 mg/dl (8.6-10.3); Creatinine Clr Calc Pharmacy 68.1 ml/min; Potassium 4.3 mmol/L (3.5-5.1)
--- NOTE | 2024-02-02 11:52 | Fluoroscopy Report ---
FL video swallow CLINICAL HISTORY: assess for aspiration TECHNIQUE: Video fluoroscopy of the pharyngeal region was performed as barium mixtures of varying con sistencies were administered to the patient by the speech pathologist. A formal esophagram was not pe rformed. Comparison: None available at the time of this dictation. FINDINGS: Total fluoroscopy time: 1.46 minutes. Radiation dose: 8.44 mGy. The patient swallowed the different barium consistencies without difficulty. There was no laryngeal v estibular penetration or noah tracheal aspiration. Esophageal retention is noted. IMPRESSION: No evidence of aspiration. Please see the speech pathology report for further details. ACT 112: Negative or not required by law. Electronically signed by: Hugh Rivera M.D. 02/02/2024 11:51 AM
[2024-02-02] MEDS: MIDODRINE HCL 2.5 MG TAB PO SCH (12:10)
--- NOTE | 2024-02-02 15:18 | Hospitalist Progress Note ---
Date of Service February 02, 2024 Assessment & Plan (1) Acute on chronic diastolic (congestive) heart failure: Plan: 83-year-old man with acute on chronic diastolic heart failure. Recently admitted with severe orthostatic hypotension treated with stress dose steroids and steroid taper, and required treatment with fludrocortisone and midodrine. diuretics were held and then admitted with volume overload euvolemic at this time, leg edema still present but significantly improved continues to have some mild orthostatic symptoms. BPs today sitting 122/77, 135/76 dropped to 111/69 standing with mild lightheadedness he has also had supine [place] 1 [id number] systolic cont lasix 40mg/day. cont aldactone 25mg BID. reviewed BMP today creatinine is at baseline of 1 and potassium is 4.3 (2) Orthostasis: Plan: continue 5mg midodrine 3 times daily, however may need to increase back up to 7.5 hold fludrocortisone since this has opposite effect of diuretics (3) Elevated troponin: Plan: HS trop 22.7 upon presentation repeat slightly less this was likely myocardial demand ischemia in the setting of #1 above no evidence of ACS (4) Acute diverticulitis: Plan: dx with such during his stay earlier in January s/p 10 day course of IV/PO antibiotics obtained CT a/p for persistent lower abdominal pain- recent diverticulitis resolved; no other acute findings resolved (5) DM2 (diabetes mellitus, type 2): Plan: controlled AM readings are running borderline low Hba1c 9.5% Jan-2023 reduce lantus to 4 units BID loose novolog parameters - at goal to slightly overcontrolled today (6) COPD (chronic obstructive pulmonary disease): Plan: no flare lungs relatively clear o2 sats wnl patient c/o "mucous" in this throat sometimes this is worse post-eating he c/o this during the prior hospitalization VFSS was normal with no signs of aspiration this sounds like waterbrash from GERD, seems to occur at night while reclining and worse when lying flat. Continue PPI advised elevating head of bed (7) Moderate aortic stenosis: Plan: as seen on echo during prior hospital stay doubt contributing to his dizziness (8) Major depression single episode, in partial remission: Plan: cont lexapro 15mg/day cont remeron 15mg HS (9) Chronic antibiotic suppression: Plan: continue clindamycin daily this is for chronic suppression for prior infection of TKR (10) DDD (degenerative disc disease), lumbar: Plan: 10/13/2022 L2-L3, L3-L4, L4-L5 laminectomies - [facility] had had refractory, severe back pain despite having had surgery in 2022 initiated on Butrans patch 5mcg earlier this month with excellent results he has not c/o back in several days (11) Venous insufficiency (chronic) (peripheral): Plan: cont diuretics wearing TEDs as well improved (12) History of pancreatectomy: Plan: Whipple Procedure 2009 - [facility] (13) Steroid long-term use: Plan: has been on/off prednisone for quite some time pharmacy records show scripts for nearly daily use of prednisone dating back to 02/2023 in late 12/2023 / early 01/2024 his prednisone had been weaned off and within a few days had significant worsening of his dizziness, fatigue, etc. thus, during early January hospitalization his prednisone was put back on has been tapering day #3 of 10mg/day continue slow taper (14) Opioid dependence: Plan: Butrans patch 5mcg initiated 01/2024 for chronic low back pain (15) CAD (coronary artery disease): Plan: no ischemic symptoms at this time cont asa cont statin not on beta jordana Plan DVT proph - lovenox 40mg daily cont PT, OT outpatient neurology referral for potential of parkinsonism: masked facies and slowed verbal responses, severe orthostatic hypotension dispo - [facility] for rehab, then ultimately home ; [facility] can take him 02/03/24 grand-daughter updated at bedside this past week left message for pt's grand-daughter 01/30 Admission and Anticipated Discharge Date Admission Date: January 26, 2024 Subjective VFSS was done this morning and no evidence of aspiration he does noticed since the "mucus "problem is better when he sleeps in an incline like at home in his recliner or with a hospital bed mildly elevated continues to have urinary frequency and voiding small amounts intermittent burning UA was negative Physical Exam 2 Physical Exam: PHYSICAL EXAMINATION Last 24h vital signs reviewed, see documentation in flowsheet General: comfortable appearing, no distress HEENT: Normocephalic, atraumatic, pupils round and equal, sclerae anicteric, no conjunctival injection, moist mucus membranes Lungs: Normal respiratory effort. Clear to auscultation bilaterally. No RRW Heart: Regular rate and rhythm, no murmurs. No JVD Abdomen: Soft, nontender, nondistended. Bowel sounds present. Extremities: Warm, dry, well-perfused. !-2+ lower extremity edema. Neuro: Alert and oriented x 4, face symmetric, moves 4 extremities well Psych: Normal affect and behavior Results & Data Results & Data Vital Signs (Past 12 Hours) Vital Signs Temp Pulse Resp BP Pulse Ox O2 Del Method 02/02/24 11:26 36.3 C L 77 19 138/78 94 Room Air 02/02/24 06:56 36.5 C 62 19 158/77 H 96 Room Air Laboratory Results 01/31/24 05:28 02/02/24 08:24 PG Care Time/CCT Total # of Minutes Spent Total Time Spent with Patient: Total time spent is greater than 50% in coordination of care (as documented) at patient's floor/unit and/or counseling patient: Coding Level of Care Code 04493 SUB INP/OBS CARE 2/35MIN Diagnoses Acute on chronic diastolic (congestive) heart failure I50.33 Orthostasis I95.1 Elevated troponin R79.89 Acute diverticulitis K57.92 Type 2 diabetes mellitus without complication, without long-term current use of insulin E11.9 Diabetes mellitus terminal gauger insulin use: without usp use Diabetes mellitus complication status: without complication COPD (chronic obstructive pulmonary disease) J44.9 Moderate aortic stenosis I35.0 Major depression single episode, in partial remission F32.4 Chronic antibiotic suppression Z79.2 DDD (degenerative disc disease), lumbar M51.36 Venous insufficiency (chronic) (peripheral) I87.2 History of pancreatectomy Z90.410 Steroid long-term use Opioid dependence F11.20 Coronary artery disease involving [place] coronary artery of [place] heart without angina pectoris I25.10 Coronary Disease-Associated Artery/Lesion type: [place] artery [place] vs. transplanted heart: [place] heart Associated angina: without angina (5) DM2 (diabetes mellitus, type 2) Diabetes mellitus usp insulin use: without usp use Diabetes mellitus complication status: without complication Qualified Code(s): E11.9 - Type 2 diabetes mellitus without complications (15) CAD (coronary artery disease) Coronary Disease-Associated Artery/Lesion type: [place] artery [place] vs. transplanted heart: [place] heart Associated angina: without angina Qualified Code(s): I25.10 - Atherosclerotic heart disease of [place] coronary artery without angina pectoris
[2024-02-03 11:05] VITALS: PULSE 75; RESP 18; TEMP 98.2; O2SAT 94
[2024-02-03 14:57] VITALS: BP 149/73
--- NOTE | 2024-02-03 18:48 | Discharge Summary ---
Discharge Summary Date of Service February 03, 2024 Principal Dx & Hospital Course #1 = Principal Diagnosis (1) Acute on chronic diastolic (congestive) heart failure: 83-year-old man admitted with acute on chronic diastolic heart failure. Recently admitted with severe orthostatic hypotension treated with stress dose steroids and steroid taper, and required treatment with fludrocortisone and midodrine. Discharged to detention. diuretics were held because of orthostatic hypotension, but he developed progressive volume overload. diuresed with IV diuretics euvolemic at this time, leg edema still present but significantly improved continues to have some mild orthostatic symptoms. BPs 02/01 sitting 122/77, 135/76 dropped to 111/69 standing with mild lightheadedness, tolerating ambulation however he has also had supine hypertension up to [id number] systolic cont lasix 40mg/day. cont aldactone 25mg BID. has had poor appetite so allowed regular salt diet (2) Orthostasis: continue 5mg midodrine 3 times daily, however may need to increase back up to 7.5 hold fludrocortisone since this has opposite effect of diuretics and doing both at the same time is counterproductive continue PT/OT to improve positional tolerance (3) Elevated troponin: HS trop 22.7 upon presentation repeat slightly less this was likely myocardial demand ischemia in the setting of #1 above no evidence of ACS (4) Acute diverticulitis: dx with such during his stay earlier in January s/p 10 day course of IV/PO antibiotics obtained CT a/p for persistent lower abdominal pain- recent diverticulitis resolved; no other acute findings resolved (5) DM2 (diabetes mellitus, type 2): Hba1c 9.5% Jan-2024 continue basal-bolus insulin (6) COPD (chronic obstructive pulmonary disease): no flare lungs relatively clear o2 sats wnl patient c/o "mucous" in this throat sometimes this is worse post-eating he c/o this during the prior hospitalization VFSS was normal with no signs of aspiration this sounds like waterbrash from GERD, seems to occur at night while reclining and worse when lying flat. Continue PPI advised elevating head of bed. Continue mucinex (7) Moderate aortic stenosis: as seen on echo during prior hospital stay doubt contributing to his dizziness (8) Major depression single episode, in partial remission: cont lexapro 15mg/day cont remeron 15mg HS (9) Chronic antibiotic suppression: continue clindamycin daily this is for chronic suppression for prior infection of TKR (10) DDD (degenerative disc disease), lumbar: 10/13/2022 L2-L3, L3-L4, L4-L5 laminectomies - [facility] had had refractory, severe back pain despite having had surgery in 2022 initiated on Butrans patch 5mcg earlier this month with excellent results (11) Venous insufficiency (chronic) (peripheral): cont diuretics wearing TEDs as well improved (12) 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 thus, during early January hospitalization his prednisone was put back on has been tapering day #4 of 10mg/day continue slow taper - decrease dose no more than weekly, monthly once on 5 mg or lower (14) Opioid dependence: Butrans patch 5mcg initiated 01/2024 for chronic low back pain (15) CAD (coronary artery disease): no ischemic symptoms at this time cont asa cont statin not on beta jordana Plan DVT proph - lovenox 40mg daily cont PT, OT made outpatient neurology referral for potential of parkinsonism: masked facies and slowed verbal responses, severe orthostatic hypotension. no rigidity and only very slight UE cogwheeling on exam dispo - [facility] for rehab Notes For Next Care Provider Medication Changes From Visit continue diuretics fludrocortisone stopped midodrine reduced very slow prednisone taper Admission HPI Per Admitting Provider Very pleasant 83yo male with COPD, prior h/o PE/DVT, depression, aortic stenosis, orthostasis with falls, CAD, lumbar DDD, venous insufficiency of his legs, chronic diastolic CHF, prednisone dependency and T2DM - recent hospital stay from 01/11 to 01/19 due to generalized weakness, acute diverticulitis, severe orthostasis, acute/chronic low back pain, and deconditioning - presents from [facility] due to a host of issues. These issues include worsening edema of his legs and right arm, worsening dyspnea on exertion, and severe weakness for about 2 days. He was discharged to [facility] for acute rehab about 1 week and for the first 2 days was doing well with therapy. He reports he was walking decently and making strides with his therapy. Unfortunately, however, he began to notice worsening weakness over the weekend and essentially laid in bed most of that time. He also noted worsening dyspnea during this time frame. Denies any fevers or chills. Denies loss of appetite ("eating everything in sight"). This am he was given what sounds like a double dose of lasix by mouth for his worsening edema. He was then referred to the emergency department for further work-up. Discharge Exam PHYSICAL EXAMINATION Last 24h vital signs reviewed, see documentation in flowsheet General: comfortable appearing, no distress, sitting in chair HEENT: Normocephalic, atraumatic, pupils round and equal, sclerae anicteric, no conjunctival injection, moist mucus membranes Lungs: Normal respiratory effort. Clear to auscultation bilaterally. No RRW Heart: Regular rate and rhythm, no murmurs. No JVD Abdomen: Soft, nontender, nondistended. Bowel sounds present. Extremities: Warm, dry, well-perfused. 2+ lower extremity edema. Neuro: Alert and oriented x 4, face symmetric, masked facies and slow responses, moves 4 extremities well, no rest tremor, slight cogwheeling no rididity of UEs Psych: Normal affect and behavior Discharge Plan Discharge Items Patient Disposition: Transfer [facility] Reason For Visit: ACUTE/CHRONIC DIASTOLIC CHF Discharge Diagnosis: acute on chronic diastolic heart failure, orthostatic hypotension Activity: Resume your previous activity Weightbearing: Full weightbearing Non-emergency contact: Primary Care Provider Call non-emergency contact if: you have any medication questions and your symptoms worsen Follow-up/Referrals: Cristobal Hewitt III, MD [Primary Care Provider] - Diet: Carb Consistent or DM2 Addtl Attending Provider Instructions: PT and OT evaluate and treat Continue to work on sitting / standing tolerance Fludrocortisone stopped and midodrine decreased Increased PPI dose because of possible waterbrash/GERD symptoms. Keep HOB mildly elevated while sleeping. VFSS was normal Diuretics adjusted Recommend BMP in 1 week Referral made to neurology to evaluate possible Parkinsonism Please schedule follow up with in store marketer Dr. Spence Blood glucose check qAC Weight 3x a week BMP in 1 week - diuretic dose change Pending Studies at Discharge: No Stand-Alone Forms: My [facility] Skilled Items Patient informed of condition?: Yes DNR: Yes Discharge Level of Care: Skilled Communicable Disease: No Discharge Prognosis: Improving Lines: None Urinary Catheter: No Medications and DC Order Prescriptions: New acetaminophen [Tylenol Extra Strength] 500 mg Tablet 1,000 mg PO Q8H PRNQty: 0 0RF midodrine 2.5 mg Tablet 5 mg PO TID@0800,1200,1700 Qty: 0 0RF furosemide 40 mg Tablet 40 mg PO QAM Qty: 0 0RF Advanced Probiotic 625 mg (10 billion cell) Capsule 1 cap PO DAILY Qty: 1 0RF magnesium oxide 400 mg (241.3 mg magnesium) Tablet 400 mg PO BID Qty: 0 0RF polyethylene glycol 3350 [Miralax] 17 gram Powder In Packet 17 g PO DAILY Qty: 0 0RF pantoprazole 40 mg Tablet,Delayed Release (Dr/Ec) 40 mg PO QAM Qty: 0 0RF prednisone 10 mg Tablet 10 mg PO QAM Qty: 0 0RF triamcinolone acetonide 0.1 % Cream 1 applic EXT TID PRNQty: 0 0RF Continued nitroglycerin 0.4 mg tablet, sublingual 0.4 mg SL Q5M PRN (Reason: chest pain) Qty: 30 3RF rosuvastatin 5 mg tablet 2.5 mg PO 3XWK Qty: 60 3RF Rx Instructions: 2.5 mg PO M,W,F; thiamine HCl (vitamin B1) 100 mg tablet 200 mg PO BID cholecalciferol (vitamin D3) 50 mcg (2,000 unit) capsule 50 mcg PO QAM spironolactone 25 mg tablet 25 mg PO BID Qty: 180 3RF Hold Instructions: Resume on 02/16/24. held for orthostatic hypotension albuterol sulfate 90 mcg/actuation HFA aerosol inhaler 2 puff inhalation Q6H PRN (Reason: shortness of breath or wheezing) Qty: 8.5 0RF aspirin 81 mg Tablet,Delayed Release (Dr/Ec) 81 mg PO QDL calcium carbonate 500 mg calcium (1,250 mg) Tablet 500 mg PO QAM sennosides-docusate sodium [Senna with Docusate Sodium] 8.6-50 mg Tablet 1 tab PO QAM Rx Instructions: may take extra tab daily if needed acetaminophen 650 mg Tablet Extended Release 650 mg PO Q6H insulin lispro 100 unit/mL Insulin Pen 1 sliding scale dose SUBCUT USEASDIRECTD clindamycin HCl 300 mg capsule 300 mg PO QAM Hold Instructions: Resume on 01/22/24. resume once other antibiotics completed - for chronic prophylaxis prior infected TKA cyanocobalamin (vitamin B-12) 1,000 mcg tablet 1,000 mcg PO QAM Rx Instructions: purchase fixd-syz-pjnpaqm escitalopram oxalate 10 mg tablet 15 mg PO QAM Rx Instructions: TO BE TAKEN WITH 5 MG TAB FOR TOTAL OF 15 MG DAILY mirtazapine 15 mg Tablet 15 mg PO HS Qty: 0 0RF insulin glargine [Lantus U-100 Insulin] 100 unit/mL Solution 5 unit subcut BID Qty: 0 0RF guaifenesin [Mucinex] 600 mg Tablet Extended Release 12hr 1,200 mg PO Q12 Qty: 0 0RF buprenorphine [Butrans] 5 mcg/hour Patch Weekly 1 patch transdermal Q7D@0900 Qty: 1 0RF Discontinued omeprazole 20 mg capsule,delayed release(DR/EC) 20 mg PO QDL Qty: 90 1RF polyethylene glycol 3350 [Miralax] 17 gram/dose powder 17 g PO BID midodrine 5 mg Tablet 10 mg PO TID Rx Instructions: do not give last dose of day after 6PM or within 4 hrs of bedtime prednisone 5 mg tablet 5 mg PO QAM Rx Instructions: 5 Q DAY X 1 WEEK ON 01/26/24 furosemide 20 mg tablet 20 mg PO QAM Hold Instructions: Resume on 02/16/24. held for orthostatic hypotension gabapentin 100 mg Capsule 200 mg PO TID Qty: 0 0RF Discharge Orders: Discharge Order (Routine); Ordered 02/03/24 Ordered By: Edie Catherine Admission Data Admit Date/Time: 01/26/24 16:34 Attending Provider: Edie Catherine Admit Provider: Jacinto Coleman Primary Care Provider: Cristobal Hewitt III Other Providers: [place]; Jacinto Coleman Other Interventions: Discharge Summary Assessment (RN) Last Done: 02/03/24 14:54 Hospital Stay Data Consultations 01/26/24 15:23 ED Decision to Admit Stat Diagnostic Imagining Performed 10/28/24 14:11 CT Abd and Pelvis [CT abd pelvis wo con] Routine 02/02/24 10:30 FL video swallow Routine Pending Results Patient Have Any Pending Studies at Discharge: No Discharge Instructions Given to Patient (Per Discharging Provider) PT and OT evaluate and treat Continue to work on sitting / standing tolerance Fludrocortisone stopped and midodrine decreased Increased PPI dose because of possible waterbrash/GERD symptoms. Keep HOB mildly elevated while sleeping. VFSS was normal Diuretics adjusted Recommend BMP in 1 week Referral made to neurology to evaluate possible Parkinsonism Please schedule follow up with in store marketer Dr. Spence Blood glucose check qAC Weight 3x a week BMP in 1 week - diuretic dose change Total Time Total Time Spent Total Time Spent (In Minutes): I personally spent: 40 minutes today on clinical care activities including: reviewing chart notes and vital signs discussion with nanny caregiver examining and counseling the patient writing orders writing prescriptions, discharge instructions documentation Coding Level of Care Code 05525 INP/OBS DISCH >30 MIN Diagnoses Acute on chronic diastolic (congestive) heart failure I50.33 Orthostasis I95.1 Elevated troponin R79.89 Acute diverticulitis K57.92 Type 2 diabetes mellitus without complication, without long-term current use of insulin E11.9 Diabetes mellitus halfway insulin use: without rn long term care use Diabetes mellitus complication status: without complication COPD (chronic obstructive pulmonary disease) J44.9 Moderate aortic stenosis I35.0 Major depression single episode, in partial remission F32.4 Chronic antibiotic suppression Z79.2 DDD (degenerative disc disease), lumbar M51.36 Venous insufficiency (chronic) (peripheral) I87.2 History of pancreatectomy Z90.410 Steroid long-term use Opioid dependence F11.20 Coronary artery disease involving [place] coronary artery of [place] heart without angina pectoris I25.10 Coronary Disease-Associated Artery/Lesion type: [place] artery [place] vs. transplanted heart: [place] heart Associated angina: without angina
== END 2024-02-03 15:47 | DRG 292 ==
LOC: ED 12:10 → EDINP 16:34 → SUATTDRO 16:34 → 2S 19:42